=== PATIENT | male | born 1980 | race African-American/Black ===

== ENCOUNTER 2016-12-24 15:25 | Inpatient (IN) | payer MEDICARE, MEDICAID ==
[~2016-12-24] VITALS: Ht 188 cm; Wt 79.4 kg
[~2016-12-24 15:25] MED LIST: INSU100V12 SQ; METF500T4 PO; QUET200T PO
[2016-12-24] MEDS ORDERED: LORazepam 2 MG TABLET PO PRN (17:15)
[2016-12-24] MEDS ORDERED: HALOPERIDOL 5 MG TABLET PO PRN (17:15)
[2016-12-24] MEDS ORDERED: ZOLPIDEM TARTRATE 10 MG TABLET PO PRN (17:15)
[2016-12-24] MEDS ORDERED: -PHARMACY VACCINE NOTE- MISC ONE ×2 (17:30)
[2016-12-24 18:35] VITALS: BP 126/77
[2016-12-24] MEDS ORDERED: INSULIN ASPART 100 UNITS/ML SQ PRN (21:15)
[2016-12-24] MEDS ORDERED: GLUCAGON,HUMAN RECOMBINANT 1 MG VIAL IM PRN (21:15)
[2016-12-25] MEDS: MetFORMIN HCL 500 MG TABLET PO SCH ×2 (07:12→17:00)
[2016-12-25] MEDS: NICOTINE 21 MG/24 HOUR PATCH TD SCH (09:00)
[2016-12-25] MEDS ORDERED: PETROLATUM,WHITE 71 GM JELLY TP PRN (09:30)
[2016-12-25] MEDS ORDERED: MAG HYDROX/AL HYDROX/SIMETH ES 30 ML SUSPENSION UDCUP PO PRN (09:30)
[2016-12-25] MEDS ORDERED: CloNIDine HCL 0.1 MG TABLET PO PRN (09:30)
[2016-12-25] MEDS ORDERED: BENZOCAINE/MENTHOL LOZENGE MM PRN (09:30)
[2016-12-25] MEDS ORDERED: ONDANSETRON HCL 4 MG TABLET PO PRN (09:30)
[2016-12-25] MEDS ORDERED: ACETAMINOPHEN 325 MG TABLET PO PRN (09:30)
[2016-12-25] MEDS ORDERED: BACITRACIN 28.4 GM OINTMENT TP PRN (09:30)
[2016-12-25] MEDS ORDERED: LOPERAMIDE HCL 2 MG CAPSULE PO PRN (09:30)
[2016-12-25] MEDS ORDERED: ALBUTEROL SULFATE HFA 90 MCG/PUFF 8 GM INHALER IH PRN (09:30)
[2016-12-25] MEDS ORDERED: MAGNESIUM HYDROXIDE SUSPENSION 30 ML UDCUP PO PRN (09:30)
[2016-12-25] MEDS ORDERED: IBUPROFEN 600 MG TABLET PO PRN (09:30)
[2016-12-25] MEDS: QUEtiapine FUMARATE 200 MG TABLET PO SCH ×2 (10:00→20:38)
[2016-12-25 16:01] VITALS: BP 113/63
[2016-12-25 20:16] LABS: GLUCOSE COMMENT 1 Received Meds; GLUCOSE,POINT OF CARE 439 MG/DL (70-110)
[2016-12-25] MEDS: INSULIN DETEMIR 100 UNITS/ML SQ SCH (20:26)
[2016-12-26 02:03] VITALS: BP 103/66
[2016-12-26] MEDS: MetFORMIN HCL 500 MG TABLET PO SCH ×2 (06:58→17:00)
[2016-12-26] MEDS: QUEtiapine FUMARATE 200 MG TABLET PO SCH ×2 (08:13→21:07)
[2016-12-26] MEDS: NICOTINE 21 MG/24 HOUR PATCH TD SCH (08:13)
[2016-12-26] MEDS ORDERED: DiphenhydrAMINE HCL 50 MG/ML VIAL ONE (11:43)
[2016-12-26] MEDS ORDERED: LORazepam 2 MG/ML VIAL ONE (11:43)
[2016-12-26] MEDS ORDERED: HALOPERIDOL LACTATE 5 MG/ML VIAL ONE (11:43)
[2016-12-26] MEDS ORDERED: LORazepam 2 MG/ML VIAL IM ONE (12:00)
[2016-12-26] MEDS ORDERED: DiphenhydrAMINE HCL 50 MG/ML VIAL IM ONE (12:00)
[2016-12-26] MEDS ORDERED: HALOPERIDOL LACTATE 5 MG/ML VIAL IM ONE (12:00)
[2016-12-26 13:00] VITALS: BP 100/60
[2016-12-26] MEDS ORDERED: INSULIN ASPART 100 UNITS/ML SQ PRN (21:45)
[2016-12-26] MEDS: INSULIN DETEMIR 100 UNITS/ML SQ SCH (21:50)
[2016-12-26 22:06] LABS: GLUCOSE COMMENT 1 Doctor Notified; GLUCOSE,POINT OF CARE 469 MG/DL (70-110)
[2016-12-27] MEDS: MetFORMIN HCL 500 MG TABLET PO SCH (06:19)
[2016-12-27] MEDS: QUEtiapine FUMARATE 200 MG TABLET PO SCH (09:00)
[2016-12-27] MEDS: NICOTINE 21 MG/24 HOUR PATCH TD SCH (09:00)
[2017-05-07] MEDS ORDERED: ARIP2 PO (18:44)
[2017-05-07] MEDS ORDERED: HALO1 PO (18:44)
== END 2016-12-27 09:45 | disposition home or self-care (01) | DRG 885 ==
LOC: B2X 17:09 → EDSTATUS 17:11
PROVIDERS: ADMIT Psychiatry & Neurology Psychiatry; ATTEND Psychiatry & Neurology Psychiatry
DX: F25.9 Schizoaffective disorder, unspecified (principal); R45.851 Suicidal ideations; E11.65 Type 2 diabetes mellitus with hyperglycemia; E55.9 Vitamin D deficiency, unspecified; F12.90 Cannabis use, unspecified, uncomplicated; G47.00 Insomnia, unspecified; K59.00 Constipation, unspecified; F17.200 Nicotine dependence, unspecified, uncomplicated; Z59.0 Homelessness; Z71.51 Drug abuse counseling and surveillance of drug abuser; Z71.6 Tobacco abuse counseling; Z91.14 Patient's other noncompliance with medication regimen; Z72.89 Other problems related to lifestyle
CPT/HCPCS: 82962; 87081; J1200; J1630; J2060

== ENCOUNTER 2017-01-10 01:36 | Inpatient (IN) | payer MEDICARE, OTHER ==
[~2017-01-10] VITALS: Ht 188 cm; Wt 81.9 kg
[2017-01-10] MEDS ORDERED: SODIUM CHLORIDE 0.9% 1,000 ML IV ONE (02:00)
[2017-01-10 02:07] LABS: GLUCOSE,POINT OF CARE > 600 MG/DL (70-110)
[2017-01-10 02:15] LABS: BASOPHILS % (AUTO) 0.3 % (0.0-2.0); EOSINOPHILS % (AUTO) 0.4 % (1.0-6.0); HEMATOCRIT 47.1 % (41-53); HEMOGLOBIN 15.5 g/dL (13.5-17.5); LYMPHOCYTES # (AUTO) 1.1 K/uL (1.0-4.8); LYMPHOCYTES % (AUTO) 17.7 % (22.0-44.0); MEAN CORPUSCULAR HEMOGLOBIN 30.1 pg (26.0-34.0); MEAN CORPUSCULAR HGB CONC 32.9 G/dL (31.0-37.0); MEAN CORPUSCULAR VOLUME 91 fL (80-100); MONOCYTES # (AUTO) 0.3 K/uL (0.1-1.0); MONOCYTES % (AUTO) 5.4 % (2.0-9.0); NEUTROPHILS # (AUTO) 4.5 K/uL (1.8-7.7); NEUTROPHILS % (AUTO) 76.2 % (40.0-70.0); PLATELET COUNT (AUTO) 333 K/uL (150-450); RED BLOOD CELL COUNT(AUTO) 5.16 MIL/uL (4.50-5.90); RED CELL DISTRIBUTION WIDTH 13.8 % (11.5-14.5)
[2017-01-10 02:29] LABS: ANION GAP 9 mmol/L (8-16); CALCIUM, TOTAL 9.3 mg/dL (8.8-10.5); CARBON DIOXIDE 28 mmol/L (22-29); CHLORIDE 91 mmol/L (98-107); CREATININE 1.55 mg/dL (0.60-1.30); GLOMERULAR FILTR. RATE CALC > 60 mL/min (>60); POTASSIUM 4.8 mmol/L (3.5-5.1); SODIUM SERUM 128 mmol/L (136-145); UREA NITROGEN, BLOOD 11 mg/dL (7-18)
[2017-01-10 02:31] LABS: ALANINE AMINOTRANSFERASE 47 U/L (12-78); ALBUMIN 3.9 g/dL (3.4-5.0); ASPARTATE AMINOTRANSFERASE 43 U/L (15-37); BILIRUBIN,TOTAL 0.3 mg/dL (0.1-1.0); TOTAL PROTEIN, SERUM 7.6 g/dL (6.4-8.2)
[2017-01-10] MEDS ORDERED: INSULIN REGULAR, HUMAN 100 UNITS in SODIUM CHLORIDE 0.9% 99 ML IV PRN ×2 (03:00)
[2017-01-10 03:27] LABS: GLUCOSE,POINT OF CARE > 600 MG/DL (70-110)
[2017-01-10] MEDS ORDERED: 0.9% SODIUM CHLORIDE 10 ML SYRINGE IVP PRN (04:00)
[2017-01-10] MEDS ORDERED: ACETAMINOPHEN 325 MG TABLET PO PRN ×2 (04:00→05:15)
[2017-01-10] MEDS ORDERED: ONDANSETRON HCL 4 MG/2 ML VIAL IVP PRN (04:00)
[2017-01-10 04:30] VITALS: BP 120/75
[2017-01-10] MEDS ORDERED: MAGNESIUM HYDROXIDE SUSPENSION 30 ML UDCUP PO PRN (05:15)
[2017-01-10] MEDS ORDERED: ALBUTEROL SULFATE 2.5 MG/0.5 ML NEB SOLUTION NEB PRN (05:15)
[2017-01-10 08:00] VITALS: BP_SYST 107; BP_SYST 109; BP_DIAS 67; BP_DIAS 87
[2017-01-10] MEDS: DOCUSATE SODIUM 100 MG CAPSULE PO SCH ×2 (09:00→20:38)
[2017-01-10] MEDS: LORazepam 2 MG/ML VIAL IVP PRN ×2 (09:10→14:08)
[2017-01-10] MEDS: PANTOPRAZOLE SODIUM 40 MG DR TABLET PO SCH (09:22)
[2017-01-10] MEDS: HEPARIN SODIUM,PORCINE 5,000 UNITS/ML VIAL SQ SCH ×2 (09:22→17:50)
[2017-01-10 12:00] VITALS: BP_SYST 108; BP_SYST 112; BP_DIAS 67; BP_DIAS 68
[2017-01-10] MEDS ORDERED: DEXTROSE 50%-WATER 25 GM/50 ML SYRINGE IVP PRN (15:00)
[2017-01-10 15:22] LABS: BASOPHILS % (AUTO) 0.3 % (0.0-2.0); EOSINOPHILS % (AUTO) 1.1 % (1.0-6.0); HEMATOCRIT 40.2 % (41-53); HEMOGLOBIN 13.3 g/dL (13.5-17.5); LYMPHOCYTES % (AUTO) 37.5 % (22.0-44.0); MEAN CORPUSCULAR HGB CONC 33.2 G/dL (31.0-37.0); MEAN CORPUSCULAR VOLUME 90 fL (80-100); MONOCYTES # (AUTO) 0.2 K/uL (0.1-1.0); MONOCYTES % (AUTO) 4.3 % (2.0-9.0); NEUTROPHILS % (AUTO) 56.8 % (40.0-70.0); PLATELET COUNT (AUTO) 330 K/uL (150-450); RED BLOOD CELL COUNT(AUTO) 4.45 MIL/uL (4.50-5.90); RED CELL DISTRIBUTION WIDTH 14.5 % (11.5-14.5); WHITE BLOOD COUNT (AUTO) 5.2 K/uL (4.5-11.0)
[2017-01-10 15:29] LABS: ANION GAP 7 mmol/L (8-16); CALCIUM, TOTAL 8.4 mg/dL (8.8-10.5); CARBON DIOXIDE 28 mmol/L (22-29); CHLORIDE 98 mmol/L (98-107); CREATININE 0.94 mg/dL (0.60-1.30); GLOMERULAR FILTR. RATE CALC > 60 mL/min (>60); POTASSIUM 4.3 mmol/L (3.5-5.1); SODIUM SERUM 133 mmol/L (136-145); UREA NITROGEN, BLOOD 10 mg/dL (7-18)
[2017-01-10 15:34] LABS: ALANINE AMINOTRANSFERASE 38 U/L (12-78); ALBUMIN 3.2 g/dL (3.4-5.0); ASPARTATE AMINOTRANSFERASE 22 U/L (15-37); BILIRUBIN,TOTAL 0.4 mg/dL (0.1-1.0); PHOSPHORUS 3.9 mg/dL (2.5-4.9); TOTAL PROTEIN, SERUM 6.2 g/dL (6.4-8.2)
[2017-01-10 16:00] VITALS: BP 100/62
[2017-01-10 16:31] LABS: GLUCOSE,POINT OF CARE 489 MG/DL (70-110)
[2017-01-10 16:32] LABS: GLUCOSE,POINT OF CARE 393 MG/DL (70-110)
[2017-01-10 16:32] LABS: GLUCOSE,POINT OF CARE 259 MG/DL (70-110)
[2017-01-10 16:42] LABS: GLUCOSE COMMENT 1 Received Meds; GLUCOSE,POINT OF CARE 354 MG/DL (70-110)
[2017-01-10] MEDS ORDERED: MAGNESIUM SULFATE 2 GM in DEXTROSE 5%-WATER 50 ML IV ONE (17:30)
[2017-01-10] MEDS ORDERED: SODIUM CHLORIDE 0.9% 250 ML IV ONE (17:43)
[2017-01-10] MEDS: INSULIN ASPART 100 UNITS/ML SQ PRN (18:08)
[2017-01-10 20:00] VITALS: BP 90/60
[2017-01-10 21:36] LABS: GLUCOSE COMMENT 1 Received Meds; GLUCOSE,POINT OF CARE 61 MG/DL (70-110)
[2017-01-10 21:36] LABS: GLUCOSE,POINT OF CARE 105 MG/DL (70-110)
[2017-01-10 23:08] VITALS: BP 102/67
[2017-01-11] MEDS: HEPARIN SODIUM,PORCINE 5,000 UNITS/ML VIAL SQ SCH ×2 (00:22→08:05)
[2017-01-11] MEDS: INSULIN ASPART 100 UNITS/ML SQ PRN ×2 (06:58→12:47)
[2017-01-11] MEDS ORDERED: INSULIN DETEMIR 100 UNITS/ML SQ ONE (07:15)
[2017-01-11 07:50] VITALS: BP 116/74
[2017-01-11 07:56] LABS: GLUCOSE COMMENT 1 Received Meds; GLUCOSE,POINT OF CARE 437 MG/DL (70-110)
[2017-01-11] MEDS: DOCUSATE SODIUM 100 MG CAPSULE PO SCH (08:05)
[2017-01-11] MEDS: PANTOPRAZOLE SODIUM 40 MG DR TABLET PO SCH (08:05)
[2017-01-11 11:27] LABS: GLUCOSE COMMENT 1 Received Meds; GLUCOSE,POINT OF CARE 236 MG/DL (70-110)
[2017-01-11 11:34] VITALS: BP 115/66
[2017-01-11] MEDS ORDERED: INSULIN DETEMIR 100 UNITS/ML SQ SCH (21:00)
[2017-01-13 17:32] LABS: GLUCOSE,POINT OF CARE 363 MG/DL (70-110)
[2017-05-07] MEDS ORDERED: HALO1 PO (18:44)
[2017-05-07] MEDS ORDERED: ARIP2 PO (18:44)
== END 2017-01-11 13:01 | disposition left against medical advice (07) | DRG 885 ==
LOC: EMS 01:39 → EEVIPCON 01:39 → ICU 03:45 → ICUN 15:12 → 6N 22:10
PROVIDERS: ADMIT Internal Medicine; ATTEND Internal Medicine
DX: F20.0 Paranoid schizophrenia (principal); N17.9 Acute kidney failure, unspecified; E87.1 Hypo-osmolality and hyponatremia; E11.65 Type 2 diabetes mellitus with hyperglycemia; F29 Unspecified psychosis not due to a substance or known physiological condition; F12.90 Cannabis use, unspecified, uncomplicated; F17.210 Nicotine dependence, cigarettes, uncomplicated; Z91.19 Patient's noncompliance with other medical treatment and regimen; Z79.4 Long term (current) use of insulin; Z79.899 Other long term (current) drug therapy
CPT/HCPCS: 82962; 83735; 84100; 87081; 93005; 96361; 96365; 99291; G0480; J1644; J1815; J2060; J3475; J7030; J7050; J7060

== ENCOUNTER 2017-01-13 19:16 | Inpatient (IN) | payer MEDICARE, MEDICAID ==
[~2017-01-13] VITALS: Ht 188 cm; Wt 80.3 kg
[2017-01-13 23:12] VITALS: BP 123/83
[2017-01-13] MEDS ORDERED: HALOPERIDOL 5 MG TABLET PO PRN (23:30)
[2017-01-13] MEDS ORDERED: ZOLPIDEM TARTRATE 10 MG TABLET PO PRN (23:30)
[2017-01-13] MEDS ORDERED: LORazepam 2 MG TABLET PO PRN (23:30)
[2017-01-14 00:21] LABS: GLUCOSE,POINT OF CARE 524 MG/DL (70-110)
[2017-01-14] MEDS ORDERED: SODIUM CHLORIDE 0.9% 1,000 ML IV ONE (00:45)
[2017-01-14] MEDS ORDERED: INSULIN REGULAR, HUMAN 100 UNITS/ML IVP ONE (00:45)
[2017-01-14 01:03] LABS: BASOPHILS # (AUTO) 0.06 K/uL (0.00-0.20); EOSINOPHILS # (AUTO) 0.04 K/uL (0.00-0.70); EOSINOPHILS % (AUTO) 0.66 % (1.0-6.0); HEMATOCRIT 39.9 % (41-53); HEMOGLOBIN 13.7 g/dL (13.5-17.5); LYMPHOCYTES # (AUTO) 2.2 K/uL (1.0-4.8); MEAN CORPUSCULAR HEMOGLOBIN 30.7 pg (26.0-34.0); MEAN CORPUSCULAR HGB CONC 34.4 G/dL (31.0-37.0); MEAN CORPUSCULAR VOLUME 89 fL (80-100); MONOCYTES # (AUTO) 0.3 K/uL (0.1-1.0); MONOCYTES % (AUTO) 5.2 % (2.0-9.0); NEUTROPHILS # (AUTO) 3.3 K/uL (1.8-7.7); NEUTROPHILS % (AUTO) 55.1 % (40.0-70.0); PLATELET COUNT (AUTO) 317 K/uL (150-450); RED BLOOD CELL COUNT(AUTO) 4.47 MIL/uL (4.50-5.90); RED CELL DISTRIBUTION WIDTH 14.9 % (11.5-14.5); WHITE BLOOD COUNT (AUTO) 5.9 K/uL (4.5-11.0)
[2017-01-14 01:14] LABS: ALANINE AMINOTRANSFERASE 37 U/L (12-78); ALBUMIN 3.4 g/dL (3.4-5.0); ANION GAP 5 mmol/L (8-16); ASPARTATE AMINOTRANSFERASE 30 U/L (15-37); BILIRUBIN,TOTAL 0.5 mg/dL (0.1-1.0); CALCIUM, TOTAL 8.6 mg/dL (8.8-10.5); CARBON DIOXIDE 27 mmol/L (22-29); CHLORIDE 96 mmol/L (98-107); CREATININE 1.08 mg/dL (0.60-1.30); GLOMERULAR FILTR. RATE CALC > 60 mL/min (>60); POTASSIUM 5.1 mmol/L (3.5-5.1); SODIUM SERUM 128 mmol/L (136-145); TOTAL PROTEIN, SERUM 6.6 g/dL (6.4-8.2); UREA NITROGEN, BLOOD 12 mg/dL (7-18)
[2017-01-14] MEDS ORDERED: INFLUENZA VIRUS VACCINE QVS 2016-17 (3YR+)/PF 60 MCG/0.5 ML SYRINGE IM ONE (01:45)
[2017-01-14] MEDS ORDERED: -PHARMACY VACCINE NOTE- MISC ONE ×2 (01:45)
[2017-01-14 02:17] LABS: GLUCOSE COMMENT 1 Doctor Notified; GLUCOSE,POINT OF CARE 272 MG/DL (70-110)
[2017-01-14 07:52] LABS: GLUCOSE,POINT OF CARE 332 MG/DL (70-110)
[2017-01-14 11:58] LABS: GLUCOSE,POINT OF CARE 423 MG/DL (70-110)
[2017-01-14] MEDS ORDERED: INSULIN REGULAR, HUMAN 100 UNITS/ML SQ ONE (12:15)
[2017-01-14 14:17] LABS: GLUCOSE,POINT OF CARE 328 MG/DL (70-110)
[2017-01-14] MEDS ORDERED: HALOPERIDOL LACTATE 5 MG/ML VIAL ONE (14:42)
[2017-01-14] MEDS ORDERED: DiphenhydrAMINE HCL 50 MG/ML VIAL ONE (14:42)
[2017-01-14] MEDS ORDERED: LORazepam 2 MG/ML VIAL ONE (14:42)
[2017-01-14] MEDS ORDERED: LORazepam 2 MG/ML VIAL IM ONE (14:45)
[2017-01-14] MEDS ORDERED: DiphenhydrAMINE HCL 50 MG/ML VIAL IM ONE (14:45)
[2017-01-14] MEDS ORDERED: HALOPERIDOL LACTATE 5 MG/ML VIAL IM ONE (14:45)
[2017-01-14 15:56] LABS: GLUCOSE,POINT OF CARE 231 MG/DL (70-110)
[2017-01-14] MEDS ORDERED: DEXTROSE 50%-WATER 25 GM/50 ML SYRINGE IVP PRN (19:30)
[2017-01-14] MEDS ORDERED: INSULIN ASPART 100 UNITS/ML SQ PRN (19:30)
[2017-01-14 20:30] VITALS: BP 108/67
[2017-01-14 20:32] VITALS: BP 108/67
[2017-01-14] MEDS: INSULIN DETEMIR 100 UNITS/ML SQ SCH (21:00)
[2017-01-15] MEDS ORDERED: MetFORMIN HCL 500 MG TABLET PO SCH (07:30)
[2017-01-15] MEDS ORDERED: IBUPROFEN 600 MG TABLET PO PRN (09:30)
[2017-01-15] MEDS ORDERED: PETROLATUM,WHITE 71 GM JELLY TP PRN (09:30)
[2017-01-15] MEDS ORDERED: MAG HYDROX/AL HYDROX/SIMETH ES 30 ML SUSPENSION UDCUP PO PRN (09:30)
[2017-01-15] MEDS ORDERED: LOPERAMIDE HCL 2 MG CAPSULE PO PRN (09:30)
[2017-01-15] MEDS ORDERED: ALBUTEROL SULFATE HFA 90 MCG/PUFF 8 GM INHALER IH PRN (09:30)
[2017-01-15] MEDS ORDERED: MAGNESIUM HYDROXIDE SUSPENSION 30 ML UDCUP PO PRN (09:30)
[2017-01-15] MEDS ORDERED: BACITRACIN 28.4 GM OINTMENT TP PRN (09:30)
[2017-01-15] MEDS ORDERED: CloNIDine HCL 0.1 MG TABLET PO PRN (09:30)
[2017-01-15] MEDS ORDERED: ONDANSETRON HCL 4 MG TABLET PO PRN (09:30)
[2017-01-15] MEDS ORDERED: ACETAMINOPHEN 325 MG TABLET PO PRN (09:30)
[2017-01-15] MEDS: QUEtiapine FUMARATE 200 MG TABLET PO SCH ×2 (09:45→21:00)
[2017-01-15] MEDS ORDERED: BENZOCAINE/MENTHOL LOZENGE [8 LOZENGES/PACKET] MM PRN (09:45)
[2017-01-15 16:00] VITALS: BP 112/67
[2017-01-15] MEDS: MetFORMIN HCL 500 MG TABLET PO SCH (17:46)
[2017-01-15] MEDS: INSULIN DETEMIR 100 UNITS/ML SQ SCH (21:00)
[2017-01-16 05:32] VITALS: BP 115/64
[2017-01-16] MEDS: MetFORMIN HCL 500 MG TABLET PO SCH ×2 (07:30→17:30)
[2017-01-16] MEDS: QUEtiapine FUMARATE 200 MG TABLET PO SCH ×2 (08:09→21:00)
[2017-01-16] MEDS: CHOLECALCIFEROL (VIT D3) 1,000 UNITS TABLET PO SCH (08:09)
[2017-01-16] MEDS: INSULIN DETEMIR 100 UNITS/ML SQ SCH (21:00)
[2017-01-17] MEDS: MetFORMIN HCL 500 MG TABLET PO SCH (06:34)
[2017-01-17] MEDS ORDERED: VITAD1000 PO (07:47)
[2017-01-17] MEDS: QUEtiapine FUMARATE 200 MG TABLET PO SCH (08:34)
[2017-01-17] MEDS: CHOLECALCIFEROL (VIT D3) 1,000 UNITS TABLET PO SCH (08:35)
[2017-05-07] MEDS ORDERED: ARIP2 PO (18:44)
[2017-05-07] MEDS ORDERED: HALO1 PO (18:44)
== END 2017-01-17 13:05 | disposition home or self-care (01) | DRG 885 ==
LOC: EDSTATUS 23:13 → BV PSY EVL 01-14 00:25 → 3EX 01-14 15:44
PROVIDERS: ADMIT Psychiatry & Neurology Psychiatry; ATTEND Psychiatry & Neurology Psychiatry
DX: F25.9 Schizoaffective disorder, unspecified (principal); R45.851 Suicidal ideations; E87.1 Hypo-osmolality and hyponatremia; E11.65 Type 2 diabetes mellitus with hyperglycemia; F32.9 Major depressive disorder, single episode, unspecified; J44.9 Chronic obstructive pulmonary disease, unspecified; E55.9 Vitamin D deficiency, unspecified; G47.00 Insomnia, unspecified; K59.00 Constipation, unspecified; F12.90 Cannabis use, unspecified, uncomplicated; F17.210 Nicotine dependence, cigarettes, uncomplicated; Z79.899 Other long term (current) drug therapy; Z79.4 Long term (current) use of insulin; Z71.6 Tobacco abuse counseling; Z71.51 Drug abuse counseling and surveillance of drug abuser; Z59.0 Homelessness; Z91.14 Patient's other noncompliance with medication regimen; Z28.21 Immunization not carried out because of patient refusal
CPT/HCPCS: 82948; 82962; 96361; 96372; 96374; 99285; G0480; J1200; J1630; J1815; J2060; J3535; J7030

== ENCOUNTER 2017-01-23 08:59 | Inpatient (IN) | payer MEDICARE, MEDICAID ==
[~2017-01-23] VITALS: Ht 188 cm; Wt 77.6 kg
[~2017-01-23 08:59] MED LIST changes: +VITAD1000 PO
[2017-01-23] MEDS ORDERED: BUPR75 PO (11:34)
[2017-01-23] MEDS ORDERED: ARIP2 PO (11:34)
[2017-01-23] MEDS ORDERED: INSULIN REGULAR, HUMAN 100 UNITS/ML SQ ONE (12:15)
[2017-01-23 12:17] LABS: GLUCOSE COMMENT 1 Doctor Notified; GLUCOSE,POINT OF CARE 498 MG/DL (70-110)
[2017-01-23] MEDS ORDERED: ZOLPIDEM TARTRATE 10 MG TABLET PO PRN (12:30)
[2017-01-23] MEDS ORDERED: LORazepam 2 MG/ML VIAL IM ONE (13:00)
[2017-01-23] MEDS ORDERED: HALOPERIDOL LACTATE 5 MG/ML VIAL IM ONE (13:00)
[2017-01-23 14:08] VITALS: BP 129/74
[2017-01-23 16:00] VITALS: BP 120/75
[2017-01-23] MEDS ORDERED: GLUCAGON,HUMAN RECOMBINANT 1 MG VIAL IM PRN (16:00)
[2017-01-23] MEDS ORDERED: INSULIN ASPART 100 UNITS/ML SQ PRN (16:00)
[2017-01-23] MEDS: INSULIN DETEMIR 100 UNITS/ML SQ SCH (21:00)
[2017-01-23] MEDS: QUEtiapine FUMARATE 200 MG TABLET PO SCH (21:00)
[2017-01-24 08:30] VITALS: BP 122/84
[2017-01-24] MEDS ORDERED: IBUPROFEN 600 MG TABLET PO PRN (09:45)
[2017-01-24] MEDS ORDERED: ALBUTEROL SULFATE HFA 90 MCG/PUFF 8 GM INHALER IH PRN (09:45)
[2017-01-24] MEDS ORDERED: CloNIDine HCL 0.1 MG TABLET PO PRN (09:45)
[2017-01-24] MEDS ORDERED: ONDANSETRON HCL 4 MG TABLET PO PRN (09:45)
[2017-01-24] MEDS ORDERED: MAGNESIUM HYDROXIDE SUSPENSION 30 ML UDCUP PO PRN (09:45)
[2017-01-24] MEDS ORDERED: MAG HYDROX/AL HYDROX/SIMETH ES 30 ML SUSPENSION UDCUP PO PRN (09:45)
[2017-01-24] MEDS ORDERED: LOPERAMIDE HCL 2 MG CAPSULE PO PRN (09:45)
[2017-01-24] MEDS ORDERED: PETROLATUM,WHITE 71 GM JELLY TP PRN (09:45)
[2017-01-24] MEDS ORDERED: BACITRACIN 28.4 GM OINTMENT TP PRN (09:45)
[2017-01-24] MEDS ORDERED: BENZOCAINE/MENTHOL LOZENGE MM PRN (09:45)
[2017-01-24] MEDS ORDERED: ACETAMINOPHEN 325 MG TABLET PO PRN (09:45)
[2017-01-24] MEDS: BuPROPion HCL 75 MG TABLET PO SCH ×3 (09:51→17:00)
[2017-01-24] MEDS: LORazepam 2 MG TABLET PO PRN (09:51)
[2017-01-24] MEDS: QUEtiapine FUMARATE 200 MG TABLET PO SCH ×2 (09:51→20:53)
[2017-01-24] MEDS: MetFORMIN HCL 500 MG TABLET PO SCH (17:00)
[2017-01-24] MEDS: INSULIN DETEMIR 100 UNITS/ML SQ SCH (20:53)
[2017-01-25] MEDS: MetFORMIN HCL 500 MG TABLET PO SCH ×2 (07:00→16:42)
[2017-01-25] MEDS: BuPROPion HCL 75 MG TABLET PO SCH ×3 (09:00→16:42)
[2017-01-25] MEDS: QUEtiapine FUMARATE 200 MG TABLET PO SCH ×2 (09:00→20:46)
[2017-01-25] MEDS: INSULIN ASPART 100 UNITS/ML SQ PRN ×2 (13:18→17:28)
[2017-01-25 13:56] LABS: GLUCOSE,POINT OF CARE 525 MG/DL (70-110)
[2017-01-25 15:16] LABS: GLUCOSE,POINT OF CARE 420 MG/DL (70-110)
[2017-01-25 16:32] LABS: GLUCOSE,POINT OF CARE 213 MG/DL (70-110)
[2017-01-25 17:04] VITALS: BP 107/62
[2017-01-25] MEDS: HALOPERIDOL 5 MG TABLET PO PRN (18:33)
[2017-01-25] MEDS: LORazepam 2 MG TABLET PO PRN (18:33)
[2017-01-25 18:37] LABS: GLUCOSE,POINT OF CARE 153 MG/DL (70-110)
[2017-01-25] MEDS: INSULIN DETEMIR 100 UNITS/ML SQ SCH (20:46)
[2017-01-26] MEDS: MetFORMIN HCL 500 MG TABLET PO SCH ×2 (06:17→17:00)
[2017-01-26] MEDS: BuPROPion HCL 75 MG TABLET PO SCH ×3 (09:00→17:00)
[2017-01-26] MEDS: QUEtiapine FUMARATE 200 MG TABLET PO SCH ×2 (09:00→20:45)
[2017-01-26 16:20] VITALS: BP 118/69
[2017-01-26] MEDS: INSULIN DETEMIR 100 UNITS/ML SQ SCH (20:46)
[2017-01-27] MEDS: MetFORMIN HCL 500 MG TABLET PO SCH ×2 (06:27→17:00)
[2017-01-27] MEDS: QUEtiapine FUMARATE 200 MG TABLET PO SCH ×2 (09:00→20:58)
[2017-01-27] MEDS: BuPROPion HCL 75 MG TABLET PO SCH ×3 (09:00→17:00)
[2017-01-27 16:28] VITALS: BP 122/70
[2017-01-27] MEDS: INSULIN ASPART 100 UNITS/ML SQ PRN (21:02)
[2017-01-27] MEDS: INSULIN DETEMIR 100 UNITS/ML SQ SCH (21:02)
[2017-01-27 22:07] LABS: GLUCOSE COMMENT 1 Received Meds; GLUCOSE,POINT OF CARE 453 MG/DL (70-110)
[2017-01-27 22:07] LABS: GLUCOSE COMMENT 1 Repeated; GLUCOSE,POINT OF CARE 408 MG/DL (70-110)
[2017-01-28 00:16] LABS: GLUCOSE,POINT OF CARE 92 MG/DL (70-110)
[2017-01-28] MEDS: MetFORMIN HCL 500 MG TABLET PO SCH ×2 (06:21→16:36)
[2017-01-28] MEDS: BuPROPion HCL 75 MG TABLET PO SCH ×3 (11:37→16:36)
[2017-01-28] MEDS: LORazepam 2 MG TABLET PO PRN (11:38)
[2017-01-28] MEDS: HALOPERIDOL 5 MG TABLET PO PRN (11:38)
[2017-01-28] MEDS: QUEtiapine FUMARATE 200 MG TABLET PO SCH ×2 (11:38→20:42)
[2017-01-28 16:00] VITALS: BP 127/72
[2017-01-28] MEDS ORDERED: DiphenhydrAMINE HCL 50 MG/ML VIAL IM ONE (19:00)
[2017-01-28] MEDS ORDERED: HALOPERIDOL LACTATE 5 MG/ML VIAL IM ONE (19:00)
[2017-01-28] MEDS ORDERED: LORazepam 2 MG/ML VIAL IM ONE (19:00)
[2017-01-28 20:30] VITALS: BP 115/63
[2017-01-28] MEDS: INSULIN DETEMIR 100 UNITS/ML SQ SCH (20:52)
[2017-01-28] MEDS: INSULIN ASPART 100 UNITS/ML SQ PRN (20:53)
[2017-01-28 21:37] LABS: GLUCOSE COMMENT 1 Doctor Notified; GLUCOSE,POINT OF CARE 466 MG/DL (70-110)
[2017-01-29] MEDS: MetFORMIN HCL 500 MG TABLET PO SCH ×2 (06:37→17:00)
[2017-01-29] MEDS: BuPROPion HCL 75 MG TABLET PO SCH ×3 (08:08→17:00)
[2017-01-29] MEDS: QUEtiapine FUMARATE 200 MG TABLET PO SCH ×2 (08:08→21:59)
[2017-01-29] MEDS: LORazepam 2 MG TABLET PO PRN (08:08)
[2017-01-29 08:27] VITALS: BP 128/71
[2017-01-29 16:25] VITALS: BP 130/76
[2017-01-29 18:41] LABS: GLUCOSE COMMENT 1 Doctor Notified; GLUCOSE,POINT OF CARE 410 MG/DL (70-110)
[2017-01-29] MEDS: INSULIN ASPART 100 UNITS/ML SQ PRN (18:45)
[2017-01-29] MEDS: INSULIN DETEMIR 100 UNITS/ML SQ SCH (21:00)
[2017-01-29 21:37] LABS: GLUCOSE,POINT OF CARE 111 MG/DL (70-110)
[2017-01-30 03:04] VITALS: BP 138/79
[2017-01-30] MEDS: MetFORMIN HCL 500 MG TABLET PO SCH ×2 (06:23→17:00)
[2017-01-30 08:35] VITALS: BP 106/72
[2017-01-30] MEDS: BuPROPion HCL 75 MG TABLET PO SCH ×3 (09:38→17:00)
[2017-01-30] MEDS: QUEtiapine FUMARATE 200 MG TABLET PO SCH (09:38)
[2017-01-30] MEDS: LORazepam 2 MG TABLET PO PRN (09:38)
[2017-01-30 16:00] VITALS: BP 103/61
[2017-05-07] MEDS ORDERED: HALO1 PO (18:44)
[2017-05-07] MEDS ORDERED: ARIP2 PO (18:44)
[2017-05-11] MEDS ORDERED: BUPR75 PO (09:55)
== END 2017-01-30 18:30 | disposition home or self-care (01) | DRG 885 ==
LOC: EMS 08:59 → B3A 13:00
PROVIDERS: ADMIT Psychiatry & Neurology Psychiatry; ATTEND Psychiatry & Neurology Psychiatry
DX: F25.9 Schizoaffective disorder, unspecified (principal); R45.851 Suicidal ideations; F20.0 Paranoid schizophrenia; R45.850 Homicidal ideations; E11.65 Type 2 diabetes mellitus with hyperglycemia; K59.00 Constipation, unspecified; E55.9 Vitamin D deficiency, unspecified; G47.00 Insomnia, unspecified; F12.90 Cannabis use, unspecified, uncomplicated; F17.210 Nicotine dependence, cigarettes, uncomplicated; Z79.899 Other long term (current) drug therapy; Z79.4 Long term (current) use of insulin; Z79.84 Long term (current) use of oral hypoglycemic drugs; Z59.0 Homelessness; Z71.6 Tobacco abuse counseling; Z71.51 Drug abuse counseling and surveillance of drug abuser
CPT/HCPCS: 82962; 87081; 96372; 99285; J1200; J1630; J1815; J2060

== ENCOUNTER 2017-03-14 23:23 | Inpatient (IN) | payer MEDICARE, MEDICAID ==
[~2017-03-14] VITALS: Ht 188 cm; Wt 78.5 kg
[~2017-03-14 23:23] MED LIST changes: +BUPR75 PO; -VITAD1000 PO
[2017-03-15 02:11] VITALS: BP 116/78
[2017-03-15 03:42] LABS: GLUCOSE,POINT OF CARE 520 MG/DL (70-110)
[2017-03-15] MEDS ORDERED: SODIUM CHLORIDE 0.9% 1,000 ML IV ONE (04:00)
[2017-03-15 04:09] LABS: BASOPHILS # (AUTO) 0.02 K/uL (0.00-0.20); BASOPHILS % (AUTO) 0.5 % (0.0-2.0); EOSINOPHILS # (AUTO) 0.05 K/uL (0.00-0.70); EOSINOPHILS % (AUTO) 1.03 % (1.0-6.0); HEMATOCRIT 42.2 % (41-53); LYMPHOCYTES # (AUTO) 1.8 K/uL (1.0-4.8); LYMPHOCYTES % (AUTO) 35.2 % (22.0-44.0); MEAN CORPUSCULAR HEMOGLOBIN 30.3 pg (26.0-34.0); MEAN CORPUSCULAR HGB CONC 33.2 G/dL (31.0-37.0); MEAN CORPUSCULAR VOLUME 91 fL (80-100); MONOCYTES # (AUTO) 0.3 K/uL (0.1-1.0); MONOCYTES % (AUTO) 5.1 % (2.0-9.0); NEUTROPHILS % (AUTO) 58.2 % (40.0-70.0); PLATELET COUNT (AUTO) 284 K/uL (150-450); RED BLOOD CELL COUNT(AUTO) 4.62 MIL/uL (4.50-5.90); RED CELL DISTRIBUTION WIDTH 13.6 % (11.5-14.5); WHITE BLOOD COUNT (AUTO) 5.2 K/uL (4.5-11.0)
[2017-03-15 04:22] LABS: ALANINE AMINOTRANSFERASE 27 U/L (12-78); ALBUMIN 3.5 g/dL (3.4-5.0); ANION GAP 8 mmol/L (8-16); ASPARTATE AMINOTRANSFERASE 18 U/L (15-37); BILIRUBIN,TOTAL 0.4 mg/dL (0.1-1.0); CALCIUM, TOTAL 8.8 mg/dL (8.8-10.5); CARBON DIOXIDE 30 mmol/L (22-29); CHLORIDE 96 mmol/L (98-107); CREATININE 1.07 mg/dL (0.60-1.30); GLOMERULAR FILTR. RATE CALC > 60 mL/min (>60); POTASSIUM 4.3 mmol/L (3.5-5.1); SODIUM SERUM 134 mmol/L (136-145); TOTAL PROTEIN, SERUM 6.6 g/dL (6.4-8.2); UREA NITROGEN, BLOOD 13 mg/dL (7-18)
[2017-03-15] MEDS ORDERED: ZOLPIDEM TARTRATE 10 MG TABLET PO PRN (05:00)
[2017-03-15] MEDS ORDERED: INSULIN REGULAR, HUMAN 100 UNITS/ML IVP ONE (05:00)
[2017-03-15] MEDS ORDERED: LORazepam 2 MG TABLET PO PRN (05:00)
[2017-03-15] MEDS ORDERED: HALOPERIDOL 5 MG TABLET PO PRN (05:00)
[2017-03-15 05:12] LABS: GLUCOSE COMMENT 1 Doctor Notified; GLUCOSE,POINT OF CARE 545 MG/DL (70-110)
[2017-03-15] MEDS ORDERED: -PHARMACY VACCINE NOTE- MISC ONE ×2 (05:15)
[2017-03-15 06:22] LABS: GLUCOSE COMMENT 1 Doctor Notified; GLUCOSE,POINT OF CARE 161 MG/DL (70-110)
[2017-03-15 07:27] LABS: GLUCOSE,POINT OF CARE 142 MG/DL (70-110)
[2017-03-15] MEDS ORDERED: MAG HYDROX/AL HYDROX/SIMETH ES 30 ML SUSPENSION UDCUP PO PRN (08:15)
[2017-03-15] MEDS ORDERED: ONDANSETRON HCL 4 MG TABLET PO PRN (08:15)
[2017-03-15] MEDS ORDERED: CloNIDine HCL 0.1 MG TABLET PO PRN (08:15)
[2017-03-15] MEDS ORDERED: LOPERAMIDE HCL 2 MG CAPSULE PO PRN (08:15)
[2017-03-15] MEDS ORDERED: PETROLATUM,WHITE 71 GM JELLY TP PRN (08:15)
[2017-03-15] MEDS ORDERED: BACITRACIN 28.4 GM OINTMENT TP PRN (08:15)
[2017-03-15] MEDS ORDERED: BENZOCAINE/MENTHOL LOZENGE [8 LOZENGES/PACKET] MM PRN (08:15)
[2017-03-15] MEDS ORDERED: ACETAMINOPHEN 325 MG TABLET PO PRN (08:15)
[2017-03-15] MEDS ORDERED: INSULIN ASPART 100 UNITS/ML SQ PRN (08:15)
[2017-03-15] MEDS ORDERED: MAGNESIUM HYDROXIDE SUSPENSION 30 ML UDCUP PO PRN (08:15)
[2017-03-15] MEDS ORDERED: DEXTROSE 50%-WATER 25 GM/50 ML SYRINGE IVP PRN (08:15)
[2017-03-15] MEDS ORDERED: ALBUTEROL SULFATE HFA 90 MCG/PUFF 8 GM INHALER IH PRN (08:15)
[2017-03-15] MEDS ORDERED: IBUPROFEN 600 MG TABLET PO PRN (08:15)
[2017-03-15 08:28] VITALS: BP 109/88
[2017-03-15] MEDS: MetFORMIN HCL 500 MG TABLET PO SCH (17:29)
[2017-03-15] MEDS: INSULIN DETEMIR 100 UNITS/ML SQ SCH (21:00)
[2017-03-16] MEDS: MetFORMIN HCL 500 MG TABLET PO SCH ×2 (07:30→16:47)
[2017-03-16] MEDS: BuPROPion HCL 75 MG TABLET PO SCH (16:24)
[2017-03-16] MEDS: QUEtiapine FUMARATE 200 MG TABLET PO SCH (20:07)
[2017-03-16] MEDS: INSULIN DETEMIR 100 UNITS/ML SQ SCH (21:00)
[2017-03-17] MEDS: MetFORMIN HCL 500 MG TABLET PO SCH (07:30)
[2017-03-17] MEDS: BuPROPion HCL 75 MG TABLET PO SCH ×2 (08:46→12:59)
[2017-03-17] MEDS: QUEtiapine FUMARATE 200 MG TABLET PO SCH (08:46)
[2017-05-07] MEDS ORDERED: HALO1 PO (18:44)
[2017-05-07] MEDS ORDERED: ARIP2 PO (18:44)
[2017-05-11] MEDS ORDERED: BUPR75 PO (09:55)
== END 2017-03-17 13:00 | disposition home or self-care (01) | DRG 885 ==
LOC: BV PSY EVL 03-15 03:33 → 3EX 03-15 04:55
PROVIDERS: ADMIT Psychiatry & Neurology Psychiatry; ATTEND Psychiatry & Neurology Psychiatry
DX: F25.9 Schizoaffective disorder, unspecified (principal); R45.851 Suicidal ideations; F12.90 Cannabis use, unspecified, uncomplicated; E55.9 Vitamin D deficiency, unspecified; E11.65 Type 2 diabetes mellitus with hyperglycemia; G47.00 Insomnia, unspecified; K21.9 Gastro-esophageal reflux disease without esophagitis; F17.210 Nicotine dependence, cigarettes, uncomplicated; J44.9 Chronic obstructive pulmonary disease, unspecified; K59.00 Constipation, unspecified; Z59.0 Homelessness; Z91.14 Patient's other noncompliance with medication regimen; Z71.6 Tobacco abuse counseling; Z79.84 Long term (current) use of oral hypoglycemic drugs; Z79.51 Long term (current) use of inhaled steroids; Z79.899 Other long term (current) drug therapy; Z71.51 Drug abuse counseling and surveillance of drug abuser
CPT/HCPCS: 82962; 96361; 96374; 99285; G0480; J1815; J7030

== ENCOUNTER 2017-03-23 22:11 | Inpatient (IN) | payer MEDICARE, MEDICAID ==
[~2017-03-23] VITALS: Ht 188 cm; Wt 81.2 kg
[2017-03-24 02:50] VITALS: BP 125/88
[2017-03-24] MEDS ORDERED: ZOLPIDEM TARTRATE 10 MG TABLET PO PRN (03:15)
[2017-03-24] MEDS ORDERED: LORazepam 2 MG TABLET PO PRN (03:15)
[2017-03-24] MEDS ORDERED: HALOPERIDOL 5 MG TABLET PO PRN (03:15)
[2017-03-24 03:32] VITALS: BP 131/82
[2017-03-24] MEDS ORDERED: BACITRACIN 28.4 GM OINTMENT TP PRN (07:45)
[2017-03-24] MEDS ORDERED: PETROLATUM,WHITE 71 GM JELLY TP PRN (07:45)
[2017-03-24] MEDS ORDERED: BENZOCAINE/MENTHOL LOZENGE MM PRN (07:45)
[2017-03-24] MEDS ORDERED: MAGNESIUM HYDROXIDE SUSPENSION 30 ML UDCUP PO PRN (07:45)
[2017-03-24] MEDS ORDERED: CloNIDine HCL 0.1 MG TABLET PO PRN (07:45)
[2017-03-24] MEDS ORDERED: IBUPROFEN 600 MG TABLET PO PRN (07:45)
[2017-03-24] MEDS ORDERED: ONDANSETRON HCL 4 MG TABLET PO PRN (07:45)
[2017-03-24] MEDS ORDERED: DEXTROSE 50%-WATER 25 GM/50 ML SYRINGE IVP PRN (07:45)
[2017-03-24] MEDS ORDERED: ACETAMINOPHEN 325 MG TABLET PO PRN (07:45)
[2017-03-24] MEDS ORDERED: GLUCAGON,HUMAN RECOMBINANT 1 MG VIAL IM PRN (07:45)
[2017-03-24] MEDS ORDERED: MAG HYDROX/AL HYDROX/SIMETH ES 30 ML SUSPENSION UDCUP PO PRN (07:45)
[2017-03-24] MEDS ORDERED: LOPERAMIDE HCL 2 MG CAPSULE PO PRN (07:45)
[2017-03-24] MEDS ORDERED: ALBUTEROL SULFATE HFA 90 MCG/PUFF 8 GM INHALER IH PRN (07:45)
[2017-03-24] MEDS ORDERED: INSULIN ASPART 100 UNITS/ML SQ PRN ×2 (07:45)
[2017-03-24] MEDS: NICOTINE 21 MG/24 HOUR PATCH TD SCH (09:00)
[2017-03-24] MEDS: BuPROPion HCL 75 MG TABLET PO SCH ×2 (13:00→17:15)
[2017-03-24 16:04] VITALS: BP 115/87
[2017-03-24] MEDS: MetFORMIN HCL 500 MG TABLET PO SCH (17:15)
[2017-03-24] MEDS: QUEtiapine FUMARATE 200 MG TABLET PO SCH (20:45)
[2017-03-24] MEDS ORDERED: INSULIN DETEMIR 100 UNITS/ML SQ SCH (21:00)
[2017-03-25] MEDS: MetFORMIN HCL 500 MG TABLET PO SCH (06:57)
[2017-03-25] MEDS: NICOTINE 21 MG/24 HOUR PATCH TD SCH (08:15)
[2017-03-25] MEDS: BuPROPion HCL 75 MG TABLET PO SCH ×3 (08:15→13:00)
[2017-03-25] MEDS: QUEtiapine FUMARATE 200 MG TABLET PO SCH ×2 (08:15→09:00)
[2017-03-25] MEDS ORDERED: LORazepam 2 MG/ML VIAL IM ONE (12:15)
[2017-03-25] MEDS ORDERED: HALOPERIDOL LACTATE 5 MG/ML VIAL IM ONE ×2 (12:15)
[2017-03-25] MEDS ORDERED: DiphenhydrAMINE HCL 50 MG/ML VIAL IM ONE (12:15)
[2017-05-07] MEDS ORDERED: HALO1 PO (18:44)
[2017-05-07] MEDS ORDERED: ARIP2 PO (18:44)
[2017-05-11] MEDS ORDERED: BUPR75 PO (09:55)
== END 2017-03-25 16:01 | disposition short-term general hospital (02) | DRG 885 ==
LOC: B2X 03-24 03:09
PROVIDERS: ADMIT Psychiatry & Neurology Psychiatry; ATTEND Psychiatry & Neurology Psychiatry
DX: F25.9 Schizoaffective disorder, unspecified (principal); K21.9 Gastro-esophageal reflux disease without esophagitis; J44.9 Chronic obstructive pulmonary disease, unspecified; E55.9 Vitamin D deficiency, unspecified; E11.65 Type 2 diabetes mellitus with hyperglycemia; F32.9 Major depressive disorder, single episode, unspecified; Z53.29 Procedure and treatment not carried out because of patient's decision for other reasons; K59.00 Constipation, unspecified; F17.200 Nicotine dependence, unspecified, uncomplicated; F12.90 Cannabis use, unspecified, uncomplicated; Z71.6 Tobacco abuse counseling; Z71.51 Drug abuse counseling and surveillance of drug abuser; Z79.4 Long term (current) use of insulin
CPT/HCPCS: 87081; J1200; J1630; J2060

== ENCOUNTER 2017-03-25 16:06 | Inpatient (IN) | payer MEDICARE, MEDICAID ==
[~2017-03-25] VITALS: Ht 188 cm; Wt 76.3 kg
[2017-03-25] MEDS ORDERED: ZOLPIDEM TARTRATE 10 MG TABLET PO PRN (16:30)
[2017-03-25] MEDS ORDERED: LORazepam 2 MG TABLET PO PRN (16:30)
[2017-03-25] MEDS ORDERED: HALOPERIDOL 5 MG TABLET PO PRN (16:30)
[2017-03-25 16:38] VITALS: BP 138/76
[2017-03-25] MEDS ORDERED: GLUCAGON,HUMAN RECOMBINANT 1 MG VIAL IM PRN ×2 (17:30→17:45)
[2017-03-25] MEDS ORDERED: INSULIN ASPART 100 UNITS/ML SQ PRN ×2 (17:30→17:45)
[2017-03-25] MEDS ORDERED: INSULIN ASPART 100 UNITS/ML SQ ONE (17:45)
[2017-03-25 17:57] LABS: GLUCOSE COMMENT 1 Doctor Notified; GLUCOSE,POINT OF CARE 416 MG/DL (70-110)
[2017-03-25 18:57] LABS: GLUCOSE COMMENT 1 Repeated; GLUCOSE,POINT OF CARE 358 MG/DL (70-110)
[2017-03-25] MEDS: INSULIN DETEMIR 100 UNITS/ML SQ SCH (21:08)
[2017-03-25 21:33] LABS: GLUCOSE,POINT OF CARE 75 MG/DL (70-110)
[2017-03-26 06:35] VITALS: BP 140/76
[2017-03-26] MEDS: MetFORMIN HCL 500 MG TABLET PO SCH ×2 (06:49→16:52)
[2017-03-26 08:00] VITALS: BP 106/65
[2017-03-26 16:00] VITALS: BP 108/65
[2017-03-26] MEDS: BuPROPion HCL 75 MG TABLET PO SCH (18:33)
[2017-03-26 19:51] LABS: GLUCOSE,POINT OF CARE 356 MG/DL (70-110)
[2017-03-26] MEDS: QUEtiapine FUMARATE 200 MG TABLET PO SCH (21:06)
[2017-03-26] MEDS: INSULIN DETEMIR 100 UNITS/ML SQ SCH (21:19)
[2017-03-26 21:32] LABS: GLUCOSE,POINT OF CARE 155 MG/DL (70-110)
[2017-03-27] MEDS: MetFORMIN HCL 500 MG TABLET PO SCH (06:36)
[2017-03-27 06:50] VITALS: BP 112/77
[2017-03-27] MEDS ORDERED: BuPROPion HCL 75 MG TABLET PO SCH (09:00)
[2017-03-27 09:07] VITALS: BP 102/62
[2017-03-27] MEDS: QUEtiapine FUMARATE 200 MG TABLET PO SCH (09:19)
[2017-03-27] MEDS: BuPROPion HCL 75 MG TABLET PO SCH ×2 (09:19→13:22)
== END 2017-03-27 13:30 | disposition home or self-care (01) | DRG 885 ==
LOC: B3A 16:20 → EDSTATUS 16:37
PROVIDERS: ADMIT Psychiatry & Neurology Psychiatry; ATTEND Psychiatry & Neurology Psychiatry
DX: F25.9 Schizoaffective disorder, unspecified (principal); F20.0 Paranoid schizophrenia; E11.65 Type 2 diabetes mellitus with hyperglycemia; J44.9 Chronic obstructive pulmonary disease, unspecified; K59.00 Constipation, unspecified; E55.9 Vitamin D deficiency, unspecified; G47.00 Insomnia, unspecified; K21.9 Gastro-esophageal reflux disease without esophagitis; F17.290 Nicotine dependence, other tobacco product, uncomplicated; Z79.4 Long term (current) use of insulin; Z79.84 Long term (current) use of oral hypoglycemic drugs; Z71.6 Tobacco abuse counseling; Z79.899 Other long term (current) drug therapy; Z28.21 Immunization not carried out because of patient refusal
CPT/HCPCS: 82962; 87081; J1815

== ENCOUNTER 2017-04-12 10:00 | Inpatient (IN) | payer MEDICARE, MEDICAID ==
[~2017-04-12] VITALS: Ht 188 cm; Wt 78.1 kg
[2017-04-12] MEDS ORDERED: SODIUM CHLORIDE 0.9% 1,000 ML IV ONE (10:15)
[2017-04-12] MEDS ORDERED: INSULIN REGULAR, HUMAN 100 UNITS/ML IVP ONE (10:15)
[2017-04-12 10:29] LABS: BASOPHILS # (AUTO) 0.06 K/uL (0.00-0.20); BASOPHILS % (AUTO) 0.9 % (0.0-2.0); EOSINOPHILS # (AUTO) 0.02 K/uL (0.00-0.70); EOSINOPHILS % (AUTO) 0.29 % (1.0-6.0); HEMOGLOBIN 14.8 g/dL (13.5-17.5); LYMPHOCYTES # (AUTO) 1.3 K/uL (1.0-4.8); LYMPHOCYTES % (AUTO) 21.6 % (22.0-44.0); MEAN CORPUSCULAR HEMOGLOBIN 30.3 pg (26.0-34.0); MEAN CORPUSCULAR HGB CONC 33.6 G/dL (31.0-37.0); MEAN CORPUSCULAR VOLUME 90 fL (80-100); MONOCYTES # (AUTO) 0.2 K/uL (0.1-1.0); NEUTROPHILS # (AUTO) 4.5 K/uL (1.8-7.7); NEUTROPHILS % (AUTO) 73.2 % (40.0-70.0); PLATELET COUNT (AUTO) 319 K/uL (150-450); RED BLOOD CELL COUNT(AUTO) 4.88 MIL/uL (4.50-5.90); RED CELL DISTRIBUTION WIDTH 13.1 % (11.5-14.5); WHITE BLOOD COUNT (AUTO) 6.1 K/uL (4.5-11.0)
[2017-04-12 10:46] LABS: ALANINE AMINOTRANSFERASE 30 U/L (12-78); ALBUMIN 3.8 g/dL (3.4-5.0); ANION GAP 7 mmol/L (8-16); ASPARTATE AMINOTRANSFERASE 18 U/L (15-37); BILIRUBIN,TOTAL 0.7 mg/dL (0.1-1.0); CALCIUM, TOTAL 8.8 mg/dL (8.8-10.5); CARBON DIOXIDE 30 mmol/L (22-29); CHLORIDE 96 mmol/L (98-107); CREATININE 1.22 mg/dL (0.60-1.30); GLOMERULAR FILTR. RATE CALC > 60 mL/min (>60); POTASSIUM 4.4 mmol/L (3.5-5.1); SODIUM SERUM 133 mmol/L (136-145); TOTAL PROTEIN, SERUM 6.8 g/dL (6.4-8.2); UREA NITROGEN, BLOOD 12 mg/dL (7-18)
[2017-04-12] MEDS ORDERED: HALOPERIDOL 5 MG TABLET PO PRN (11:15)
[2017-04-12] MEDS ORDERED: ZOLPIDEM TARTRATE 10 MG TABLET PO PRN (11:15)
[2017-04-12] MEDS ORDERED: LORazepam 2 MG TABLET PO PRN (11:15)
[2017-04-12 11:31] LABS: GLUCOSE,POINT OF CARE 295 MG/DL (70-110)
[2017-04-12] MEDS: BuPROPion HCL 75 MG TABLET PO SCH ×2 (13:00→17:00)
[2017-04-12 13:02] LABS: CHOL/HDL RATIO 2.6 (4.2-7.3)
[2017-04-12] MEDS ORDERED: GLUCAGON,HUMAN RECOMBINANT 1 MG VIAL IM PRN (14:00)
[2017-04-12 14:15] VITALS: BP 127/74
[2017-04-12 16:14] VITALS: BP 121/71
[2017-04-12] MEDS: QUEtiapine FUMARATE 200 MG TABLET PO SCH (17:06)
[2017-04-12] MEDS: MetFORMIN HCL 500 MG TABLET PO SCH (17:06)
[2017-04-12] MEDS: INSULIN DETEMIR 100 UNITS/ML SQ SCH ×2 (21:00→21:03)
[2017-04-13 05:21] VITALS: BP 117/75
[2017-04-13] MEDS: MetFORMIN HCL 500 MG TABLET PO SCH ×2 (07:00→16:58)
[2017-04-13 08:38] VITALS: BP 115/68
[2017-04-13] MEDS ORDERED: ACETAMINOPHEN 325 MG TABLET PO PRN (09:15)
[2017-04-13] MEDS ORDERED: MAGNESIUM HYDROXIDE SUSPENSION 30 ML UDCUP PO PRN (09:15)
[2017-04-13] MEDS ORDERED: ONDANSETRON HCL 4 MG TABLET PO PRN (09:15)
[2017-04-13] MEDS ORDERED: MAG HYDROX/AL HYDROX/SIMETH ES 30 ML SUSPENSION UDCUP PO PRN (09:15)
[2017-04-13] MEDS ORDERED: PETROLATUM,WHITE 71 GM JELLY TP PRN (09:15)
[2017-04-13] MEDS ORDERED: LOPERAMIDE HCL 2 MG CAPSULE PO PRN (09:15)
[2017-04-13] MEDS ORDERED: BACITRACIN 28.4 GM OINTMENT TP PRN (09:15)
[2017-04-13] MEDS ORDERED: IBUPROFEN 600 MG TABLET PO PRN (09:15)
[2017-04-13] MEDS ORDERED: ALBUTEROL SULFATE HFA 90 MCG/PUFF 8 GM INHALER IH PRN (09:15)
[2017-04-13] MEDS ORDERED: CloNIDine HCL 0.1 MG TABLET PO PRN (09:15)
[2017-04-13] MEDS ORDERED: BENZOCAINE/MENTHOL LOZENGE MM PRN (09:15)
[2017-04-13] MEDS: QUEtiapine FUMARATE 200 MG TABLET PO SCH ×2 (10:10→16:58)
[2017-04-13] MEDS: BuPROPion HCL 75 MG TABLET PO SCH ×4 (10:11→16:58)
[2017-04-13] MEDS: INSULIN DETEMIR 100 UNITS/ML SQ SCH ×2 (21:00→22:22)
[2017-04-13] MEDS: INSULIN ASPART 100 UNITS/ML SQ PRN (22:19)
[2017-04-13 22:47] LABS: GLUCOSE COMMENT 1 Received Meds; GLUCOSE,POINT OF CARE 388 MG/DL (70-110)
[2017-04-14] MEDS: MetFORMIN HCL 500 MG TABLET PO SCH (07:01)
[2017-04-14 08:31] VITALS: BP 101/61
[2017-04-14] MEDS ORDERED: CHOLECALCIFEROL (VIT D3) 1,000 UNITS TABLET PO SCH (09:00)
[2017-04-14] MEDS: QUEtiapine FUMARATE 200 MG TABLET PO SCH (09:44)
[2017-04-14] MEDS: BuPROPion HCL 75 MG TABLET PO SCH ×2 (09:44→11:36)
[2017-04-14] MEDS ORDERED: VITAD1000 PO (11:41)
[2017-04-14 11:57] LABS: GLUCOSE,POINT OF CARE 233 MG/DL (70-110)
[2017-04-14] MEDS: INSULIN ASPART 100 UNITS/ML SQ PRN (12:00)
== END 2017-04-14 14:40 | disposition home or self-care (01) | DRG 885 ==
LOC: EMS 10:02 → EEVIPCON 10:02 → B3A 11:44
PROVIDERS: ADMIT Psychiatry & Neurology Psychiatry; ATTEND Psychiatry & Neurology Psychiatry
DX: F25.9 Schizoaffective disorder, unspecified (principal); R45.851 Suicidal ideations; E87.1 Hypo-osmolality and hyponatremia; Z59.0 Homelessness; E11.65 Type 2 diabetes mellitus with hyperglycemia; F12.90 Cannabis use, unspecified, uncomplicated; F17.210 Nicotine dependence, cigarettes, uncomplicated; F32.9 Major depressive disorder, single episode, unspecified; J44.9 Chronic obstructive pulmonary disease, unspecified; K21.9 Gastro-esophageal reflux disease without esophagitis; E55.9 Vitamin D deficiency, unspecified; Z53.29 Procedure and treatment not carried out because of patient's decision for other reasons; Z79.4 Long term (current) use of insulin; Z91.14 Patient's other noncompliance with medication regimen; Z79.899 Other long term (current) drug therapy; Z79.84 Long term (current) use of oral hypoglycemic drugs; Z71.6 Tobacco abuse counseling
CPT/HCPCS: 82948; 82962; 87081; 96361; 96374; 99285; G0480; J1815; J7030

== ENCOUNTER 2017-04-30 21:02 | Inpatient (IN) | payer MEDICARE, MEDICAID ==
[~2017-04-30] VITALS: Ht 188 cm; Wt 79.4 kg
[~2017-04-30 21:02] MED LIST changes: -INSU100V12 SQ; +VITAD1000 PO
[2017-04-30 21:22] LABS: GLUCOSE,POINT OF CARE 523 MG/DL (70-110)
[2017-04-30] MEDS ORDERED: HALOPERIDOL 5 MG TABLET PO PRN (22:00)
[2017-04-30] MEDS ORDERED: ZOLPIDEM TARTRATE 10 MG TABLET PO PRN (22:00)
[2017-04-30 22:51] LABS: GLUCOSE,POINT OF CARE 438 MG/DL (70-110)
[2017-04-30] MEDS ORDERED: INSULIN REGULAR, HUMAN 100 UNITS/ML IVP ONE (23:00)
[2017-04-30] MEDS ORDERED: SODIUM CHLORIDE 0.9% 2,000 ML IV ONE (23:00)
[2017-04-30 23:02] LABS: BASOPHILS % (AUTO) 0.4 % (0.0-2.0); EOSINOPHILS % (AUTO) 1.1 % (1.0-6.0); HEMATOCRIT 39.8 % (41-53); HEMOGLOBIN 13.7 g/dL (13.5-17.5); LYMPHOCYTES # (AUTO) 1.9 K/uL (1.0-4.8); LYMPHOCYTES % (AUTO) 37.9 % (22.0-44.0); MEAN CORPUSCULAR HEMOGLOBIN 30.9 pg (26.0-34.0); MEAN CORPUSCULAR HGB CONC 34.3 G/dL (31.0-37.0); MEAN CORPUSCULAR VOLUME 90 fL (80-100); MONOCYTES # (AUTO) 0.3 K/uL (0.1-1.0); MONOCYTES % (AUTO) 6.3 % (2.0-9.0); NEUTROPHILS # (AUTO) 2.7 K/uL (1.8-7.7); NEUTROPHILS % (AUTO) 54.3 % (40.0-70.0); PLATELET COUNT (AUTO) 252 K/uL (150-450); RED BLOOD CELL COUNT(AUTO) 4.42 MIL/uL (4.50-5.90); RED CELL DISTRIBUTION WIDTH 13.3 % (11.5-14.5)
[2017-04-30 23:13] LABS: ALANINE AMINOTRANSFERASE 38 U/L (12-78); ALBUMIN 3.5 g/dL (3.4-5.0); ANION GAP 7 mmol/L (8-16); ASPARTATE AMINOTRANSFERASE 21 U/L (15-37); BILIRUBIN,TOTAL 0.4 mg/dL (0.1-1.0); CALCIUM, TOTAL 8.7 mg/dL (8.8-10.5); CARBON DIOXIDE 28 mmol/L (22-29); CHLORIDE 94 mmol/L (98-107); CREATININE 1.02 mg/dL (0.60-1.30); GLOMERULAR FILTR. RATE CALC > 60 mL/min (>60); SODIUM SERUM 129 mmol/L (136-145); TOTAL PROTEIN, SERUM 6.6 g/dL (6.4-8.2); UREA NITROGEN, BLOOD 10 mg/dL (7-18)
[2017-05-01 00:21] LABS: GLUCOSE,POINT OF CARE 182 MG/DL (70-110)
[2017-05-01 01:55] VITALS: BP 122/76
[2017-05-01] MEDS ORDERED: GLUCAGON,HUMAN RECOMBINANT 1 MG VIAL IM PRN (08:00)
[2017-05-01] MEDS ORDERED: IBUPROFEN 600 MG TABLET PO PRN (08:00)
[2017-05-01] MEDS ORDERED: LOPERAMIDE HCL 2 MG CAPSULE PO PRN (08:00)
[2017-05-01] MEDS ORDERED: ALBUTEROL SULFATE HFA 90 MCG/PUFF 8 GM INHALER IH PRN (08:00)
[2017-05-01] MEDS ORDERED: ONDANSETRON HCL 4 MG TABLET PO PRN (08:00)
[2017-05-01] MEDS ORDERED: CloNIDine HCL 0.1 MG TABLET PO PRN (08:00)
[2017-05-01] MEDS ORDERED: PETROLATUM,WHITE 71 GM JELLY TP PRN (08:00)
[2017-05-01] MEDS ORDERED: ACETAMINOPHEN 325 MG TABLET PO PRN (08:00)
[2017-05-01] MEDS ORDERED: MAGNESIUM HYDROXIDE SUSPENSION 30 ML UDCUP PO PRN (08:00)
[2017-05-01] MEDS ORDERED: BACITRACIN 28.4 GM OINTMENT TP PRN (08:00)
[2017-05-01] MEDS ORDERED: BENZOCAINE/MENTHOL LOZENGE MM PRN (08:00)
[2017-05-01] MEDS ORDERED: MAG HYDROX/AL HYDROX/SIMETH ES 30 ML SUSPENSION UDCUP PO PRN (08:00)
[2017-05-01] MEDS ORDERED: INSULIN ASPART 100 UNITS/ML SQ PRN (08:00)
[2017-05-01] MEDS: CHOLECALCIFEROL (VIT D3) 1,000 UNITS TABLET PO SCH (09:27)
[2017-05-01] MEDS: QUEtiapine FUMARATE 200 MG TABLET PO SCH ×2 (12:22→20:46)
[2017-05-01 16:00] VITALS: BP 114/79
[2017-05-01] MEDS: MetFORMIN HCL 500 MG TABLET PO SCH (16:44)
[2017-05-02] MEDS: MetFORMIN HCL 500 MG TABLET PO SCH ×2 (06:29→16:38)
[2017-05-02] MEDS: CHOLECALCIFEROL (VIT D3) 1,000 UNITS TABLET PO SCH (09:38)
[2017-05-02] MEDS: QUEtiapine FUMARATE 200 MG TABLET PO SCH ×2 (09:38→19:57)
[2017-05-02 16:05] VITALS: BP 104/62
[2017-05-03] MEDS: MetFORMIN HCL 500 MG TABLET PO SCH ×2 (06:48→17:00)
[2017-05-03] MEDS: QUEtiapine FUMARATE 200 MG TABLET PO SCH ×2 (09:46→20:14)
[2017-05-03] MEDS: CHOLECALCIFEROL (VIT D3) 1,000 UNITS TABLET PO SCH (09:46)
[2017-05-03 16:00] VITALS: BP 127/71
[2017-05-04] MEDS: MetFORMIN HCL 500 MG TABLET PO SCH ×2 (07:00→17:29)
[2017-05-04] MEDS: QUEtiapine FUMARATE 200 MG TABLET PO SCH ×2 (09:57→21:06)
[2017-05-04] MEDS: CHOLECALCIFEROL (VIT D3) 1,000 UNITS TABLET PO SCH (09:57)
[2017-05-04 16:00] VITALS: BP 118/77
[2017-05-04] MEDS ORDERED: LORazepam 2 MG/ML VIAL IM ONE (16:30)
[2017-05-04] MEDS ORDERED: HALOPERIDOL LACTATE 5 MG/ML VIAL ONE (16:30)
[2017-05-04] MEDS ORDERED: DiphenhydrAMINE HCL 50 MG/ML VIAL IM ONE (16:30)
[2017-05-04] MEDS ORDERED: HALOPERIDOL LACTATE 5 MG/ML VIAL IM ONE (16:30)
[2017-05-04] MEDS: DIVALPROEX SODIUM 500 MG DR TABLET PO SCH (17:29)
[2017-05-05 06:24] VITALS: BP 128/76
[2017-05-05] MEDS: MetFORMIN HCL 500 MG TABLET PO SCH ×2 (06:43→16:44)
[2017-05-05] MEDS: CHOLECALCIFEROL (VIT D3) 1,000 UNITS TABLET PO SCH (09:32)
[2017-05-05] MEDS: DIVALPROEX SODIUM 500 MG DR TABLET PO SCH ×2 (09:32→16:43)
[2017-05-05] MEDS: QUEtiapine FUMARATE 200 MG TABLET PO SCH ×2 (09:32→20:36)
[2017-05-05 16:00] VITALS: BP 118/73
[2017-05-05] MEDS: LORazepam 2 MG TABLET PO PRN (16:43)
[2017-05-06 01:56] VITALS: BP 121/68
[2017-05-06] MEDS: MetFORMIN HCL 500 MG TABLET PO SCH (06:25)
[2017-05-06 08:47] VITALS: BP 117/74
[2017-05-06] MEDS: DIVALPROEX SODIUM 500 MG DR TABLET PO SCH (09:22)
[2017-05-06] MEDS: LORazepam 2 MG TABLET PO PRN (09:22)
[2017-05-06] MEDS: QUEtiapine FUMARATE 200 MG TABLET PO SCH (09:22)
[2017-05-06] MEDS: CHOLECALCIFEROL (VIT D3) 1,000 UNITS TABLET PO SCH (09:22)
[2017-05-06] MEDS ORDERED: DIVA500T35 PO (09:58)
[2017-05-07] MEDS ORDERED: ARIP2 PO (18:44)
[2017-05-07] MEDS ORDERED: HALO1 PO (18:44)
== END 2017-05-06 13:10 | disposition home or self-care (01) | DRG 885 ==
LOC: EMS 22:19 → B3A 05-01 01:50
PROVIDERS: ADMIT Psychiatry & Neurology Psychiatry; ATTEND Psychiatry & Neurology Psychiatry
DX: F25.0 Schizoaffective disorder, bipolar type (principal); E87.1 Hypo-osmolality and hyponatremia; R45.851 Suicidal ideations; E11.65 Type 2 diabetes mellitus with hyperglycemia; F12.90 Cannabis use, unspecified, uncomplicated; F17.210 Nicotine dependence, cigarettes, uncomplicated; J44.9 Chronic obstructive pulmonary disease, unspecified; K21.9 Gastro-esophageal reflux disease without esophagitis; E55.9 Vitamin D deficiency, unspecified; F19.10 Other psychoactive substance abuse, uncomplicated; G47.00 Insomnia, unspecified; Z91.14 Patient's other noncompliance with medication regimen; Z59.0 Homelessness; Z79.899 Other long term (current) drug therapy; Z79.84 Long term (current) use of oral hypoglycemic drugs; Z71.6 Tobacco abuse counseling; Z71.51 Drug abuse counseling and surveillance of drug abuser; Z72.89 Other problems related to lifestyle; Z71.41 Alcohol abuse counseling and surveillance of alcoholic
CPT/HCPCS: 82962; 87081; 96361; 96374; 99285; G0480; J1200; J1630; J1815; J2060; J7030

== ENCOUNTER 2017-08-21 06:29 | Inpatient (IN) | payer MEDICARE, MEDICAID ==
[~2017-08-21] VITALS: Ht 188 cm; Wt 83.0 kg
[~2017-08-21 06:29] MED LIST changes: -BUPR75 PO; +DIVA500T35 PO
[2017-08-21 07:40] VITALS: BP 147/92
[2017-08-21] MEDS ORDERED: ZOLPIDEM TARTRATE 5 MG TABLET PO PRN (07:45)
[2017-08-21] MEDS ORDERED: HALOPERIDOL 5 MG TABLET PO PRN (07:45)
[2017-08-21] MEDS ORDERED: LORazepam 1 MG TABLET PO PRN (07:45)
[2017-08-21 09:37] LABS: GLUCOSE,POINT OF CARE > 600 MG/DL (70-110)
[2017-08-21] MEDS ORDERED: INSULIN ASPART 100 UNITS/ML SQ ONE ×3 (09:45→12:45)
[2017-08-21 10:33] LABS: GLUCOSE,POINT OF CARE 590 MG/DL (70-110)
[2017-08-21 12:28] LABS: GLUCOSE,POINT OF CARE 442 MG/DL (70-110)
[2017-08-21] MEDS ORDERED: INSULIN ASPART 100 UNITS/ML SQ PRN (13:45)
[2017-08-21] MEDS ORDERED: GLUCAGON,HUMAN RECOMBINANT 1 MG VIAL IM PRN (13:45)
[2017-08-21 16:02] LABS: GLUCOSE,POINT OF CARE 95 MG/DL (70-110)
[2017-08-21] MEDS: DIVALPROEX SODIUM 500 MG DR TABLET PO SCH (16:08)
[2017-08-21 16:26] VITALS: BP 109/61
[2017-08-21] MEDS ORDERED: INFLUENZA VIRUS VACCINE QVS 2017-18 (3YR+)/PF 60 MCG/0.5 ML SYRINGE IM ONE (16:30)
[2017-08-21] MEDS ORDERED: INSULIN DETEMIR 100 UNITS/ML SQ SCH (21:00)
[2017-08-21] MEDS: QUEtiapine FUMARATE 200 MG TABLET PO SCH (21:15)
[2017-08-22] MEDS: DIVALPROEX SODIUM 500 MG DR TABLET PO SCH (09:03)
[2017-08-22] MEDS: QUEtiapine FUMARATE 200 MG TABLET PO SCH (09:03)
[2017-08-22] MEDS ORDERED: PETROLATUM,WHITE 71 GM JELLY TP PRN (09:15)
[2017-08-22] MEDS ORDERED: BACITRACIN 28.4 GM OINTMENT TP PRN (09:15)
[2017-08-22] MEDS ORDERED: ALBUTEROL SULFATE HFA 90 MCG/PUFF 8 GM INHALER IH PRN (09:15)
[2017-08-22] MEDS ORDERED: ONDANSETRON HCL 4 MG TABLET PO PRN (09:15)
[2017-08-22] MEDS ORDERED: IBUPROFEN 600 MG TABLET PO PRN (09:15)
[2017-08-22] MEDS ORDERED: BENZOCAINE/MENTHOL LOZENGE MM PRN (09:15)
[2017-08-22] MEDS ORDERED: ACETAMINOPHEN 325 MG TABLET PO PRN (09:15)
[2017-08-22] MEDS ORDERED: GLUCAGON,HUMAN RECOMBINANT 1 MG VIAL IM PRN (09:15)
[2017-08-22] MEDS ORDERED: MAGNESIUM HYDROXIDE SUSPENSION 30 ML UDCUP PO PRN (09:15)
[2017-08-22] MEDS ORDERED: LOPERAMIDE HCL 2 MG CAPSULE PO PRN (09:15)
[2017-08-22] MEDS ORDERED: CloNIDine HCL 0.1 MG TABLET PO PRN (09:15)
[2017-08-22] MEDS ORDERED: INSULIN ASPART 100 UNITS/ML SQ PRN (09:15)
[2017-08-22] MEDS ORDERED: MAG HYDROX/AL HYDROX/SIMETH ES 30 ML SUSPENSION UDCUP PO PRN (09:15)
[2017-08-22] MEDS ORDERED: MetFORMIN HCL 500 MG TABLET PO SCH (17:00)
[2017-08-22] MEDS ORDERED: INSULIN DETEMIR 100 UNITS/ML SQ SCH (21:00)
[2017-08-23] MEDS ORDERED: OMEGA-3/DHA/EPA/FISH OIL 500 MG CAPSULE PO SCH (09:00)
[2017-08-23] MEDS ORDERED: CHOLECALCIFEROL (VIT D3) 1,000 UNITS TABLET PO SCH (09:00)
== END 2017-08-22 12:55 | disposition short-term general hospital (02) | DRG 885 ==
LOC: B2X 07:40 → EDSTATUS 08:32 → B2X 09:19
PROVIDERS: ADMIT Psychiatry & Neurology Psychiatry; ATTEND Psychiatry & Neurology Psychiatry
DX: F25.9 Schizoaffective disorder, unspecified (principal); Z28.21 Immunization not carried out because of patient refusal
CPT/HCPCS: 82962; 99285; J1815

== ENCOUNTER 2017-08-22 14:22 | Inpatient (IN) | payer MEDICARE, MEDICAID ==
[~2017-08-22] VITALS: Ht 188 cm; Wt 80.7 kg
[2017-08-22] MEDS ORDERED: HALOPERIDOL 5 MG TABLET PO PRN (14:30)
[2017-08-22] MEDS ORDERED: ZOLPIDEM TARTRATE 10 MG TABLET PO PRN (14:30)
[2017-08-22] MEDS ORDERED: GLUCAGON,HUMAN RECOMBINANT 1 MG VIAL IM PRN (15:30)
[2017-08-22] MEDS ORDERED: INFLUENZA VIRUS VACCINE QVS 2017-18 (3YR+)/PF 60 MCG/0.5 ML SYRINGE IM ONE (15:30)
[2017-08-22 16:20] VITALS: BP 117/79
[2017-08-22] MEDS: MetFORMIN HCL 500 MG TABLET PO SCH (17:00)
[2017-08-22] MEDS: DIVALPROEX SODIUM 500 MG DR TABLET PO SCH (17:00)
[2017-08-22] MEDS ORDERED: ALBUTEROL SULFATE HFA 90 MCG/PUFF 8 GM INHALER IH PRN (18:00)
[2017-08-22] MEDS ORDERED: MAGNESIUM HYDROXIDE SUSPENSION 30 ML UDCUP PO PRN (18:00)
[2017-08-22] MEDS ORDERED: PETROLATUM,WHITE 71 GM JELLY TP PRN (18:00)
[2017-08-22] MEDS ORDERED: BENZOCAINE/MENTHOL LOZENGE PO PRN (18:00)
[2017-08-22] MEDS ORDERED: LOPERAMIDE HCL 2 MG CAPSULE PO PRN (18:00)
[2017-08-22] MEDS ORDERED: IBUPROFEN 600 MG TABLET PO PRN (18:00)
[2017-08-22] MEDS ORDERED: ACETAMINOPHEN 325 MG TABLET PO PRN (18:00)
[2017-08-22] MEDS ORDERED: ONDANSETRON HCL 4 MG TABLET PO PRN (18:00)
[2017-08-22] MEDS: QUEtiapine FUMARATE 200 MG TABLET PO SCH (20:57)
[2017-08-22] MEDS: INSULIN DETEMIR 100 UNITS/ML SQ SCH (21:00)
[2017-08-23] MEDS: MetFORMIN HCL 500 MG TABLET PO SCH ×2 (06:24→17:11)
[2017-08-23] MEDS: CHOLECALCIFEROL (VIT D3) 1,000 UNITS TABLET PO SCH (10:07)
[2017-08-23] MEDS: QUEtiapine FUMARATE 200 MG TABLET PO SCH ×2 (10:07→20:57)
[2017-08-23] MEDS: OMEGA-3/DHA/EPA/FISH OIL 500 MG CAPSULE PO SCH (10:08)
[2017-08-23] MEDS: DIVALPROEX SODIUM 500 MG DR TABLET PO SCH ×2 (10:08→17:11)
[2017-08-23] MEDS: LORazepam 2 MG TABLET PO PRN ×2 (10:08→17:11)
[2017-08-23] MEDS ORDERED: INSULIN ASPART 100 UNITS/ML SQ ONE (12:00)
[2017-08-23 12:02] LABS: GLUCOSE COMMENT 1 Received Meds; GLUCOSE,POINT OF CARE 419 MG/DL (70-110)
[2017-08-23 16:22] LABS: GLUCOSE COMMENT 1 Received Meds; GLUCOSE,POINT OF CARE 187 MG/DL (70-110)
[2017-08-23] MEDS: INSULIN ASPART 100 UNITS/ML SQ PRN ×2 (16:35→21:04)
[2017-08-23] MEDS: INSULIN DETEMIR 100 UNITS/ML SQ SCH (21:06)
[2017-08-23 21:18] LABS: GLUCOSE COMMENT 1 Received Meds; GLUCOSE,POINT OF CARE 383 MG/DL (70-110)
[2017-08-24] MEDS: MetFORMIN HCL 500 MG TABLET PO SCH ×2 (06:34→16:34)
[2017-08-24 08:26] LABS: BASOPHILS # (AUTO) 0.01 K/uL (0.00-0.20); BASOPHILS % (AUTO) 0.3 % (0.0-2.0); EOSINOPHILS # (AUTO) 0.05 K/uL (0.00-0.70); EOSINOPHILS % (AUTO) 1.05 % (1.0-6.0); HEMATOCRIT 46.3 % (41-53); HEMOGLOBIN 15.7 g/dL (13.5-17.5); LYMPHOCYTES # (AUTO) 2.2 K/uL (1.0-4.8); LYMPHOCYTES % (AUTO) 48.7 % (22.0-44.0); MEAN CORPUSCULAR HGB CONC 33.9 G/dL (31.0-37.0); MEAN CORPUSCULAR VOLUME 89 fL (80-100); MONOCYTES # (AUTO) 0.3 K/uL (0.1-1.0); MONOCYTES % (AUTO) 5.7 % (2.0-9.0); NEUTROPHILS % (AUTO) 44.3 % (40.0-70.0); PLATELET COUNT (AUTO) 291 K/uL (150-450); RED BLOOD CELL COUNT(AUTO) 5.22 MIL/uL (4.50-5.90); WHITE BLOOD COUNT (AUTO) 4.4 K/uL (4.5-11.0)
[2017-08-24 08:28] VITALS: BP 106/64
[2017-08-24 09:04] LABS: ALANINE AMINOTRANSFERASE 27 U/L (12-78); ALBUMIN 3.5 g/dL (3.4-5.0); ANION GAP 7 mmol/L (8-16); ASPARTATE AMINOTRANSFERASE 14 U/L (15-37); BILIRUBIN,TOTAL 0.5 mg/dL (0.1-1.0); CALCIUM, TOTAL 8.7 mg/dL (8.8-10.5); CARBON DIOXIDE 28 mmol/L (22-29); CHLORIDE 101 mmol/L (98-107); CHOL/HDL RATIO 2.9 (4.2-7.3); CREATININE 0.98 mg/dL (0.60-1.30); GLOMERULAR FILTR. RATE CALC > 60 mL/min (>60); POTASSIUM 4.4 mmol/L (3.5-5.1); SODIUM SERUM 136 mmol/L (136-145); THYROID STIMULATING HORMONE 1.34 uIU/mL (0.36-3.74); TOTAL PROTEIN, SERUM 6.9 g/dL (6.4-8.2); UREA NITROGEN, BLOOD 16 mg/dL (7-18)
[2017-08-24] MEDS: QUEtiapine FUMARATE 200 MG TABLET PO SCH ×2 (09:56→20:53)
[2017-08-24] MEDS: DIVALPROEX SODIUM 500 MG DR TABLET PO SCH ×2 (09:56→16:34)
[2017-08-24] MEDS: CHOLECALCIFEROL (VIT D3) 1,000 UNITS TABLET PO SCH (09:56)
[2017-08-24] MEDS: OMEGA-3/DHA/EPA/FISH OIL 500 MG CAPSULE PO SCH (09:57)
[2017-08-24] MEDS ORDERED: INSULIN ASPART 100 UNITS/ML SQ ONE (11:30)
[2017-08-24 11:33] LABS: GLUCOSE COMMENT 1 Received Meds; GLUCOSE,POINT OF CARE 499 MG/DL (70-110)
[2017-08-24 16:20] VITALS: BP 112/68
[2017-08-24] MEDS: LORazepam 2 MG TABLET PO PRN (16:35)
[2017-08-24] MEDS: INSULIN ASPART 100 UNITS/ML SQ PRN (16:45)
[2017-08-24 17:33] LABS: GLUCOSE COMMENT 1 Received Meds; GLUCOSE,POINT OF CARE 308 MG/DL (70-110)
[2017-08-24] MEDS: INSULIN DETEMIR 100 UNITS/ML SQ SCH (20:54)
[2017-08-25] MEDS: MetFORMIN HCL 500 MG TABLET PO SCH ×2 (06:31→17:09)
[2017-08-25] MEDS: INSULIN ASPART 100 UNITS/ML SQ PRN ×4 (06:46→20:42)
[2017-08-25 08:30] VITALS: BP 102/64
[2017-08-25] MEDS: DIVALPROEX SODIUM 500 MG DR TABLET PO SCH ×2 (09:24→17:09)
[2017-08-25] MEDS: LORazepam 2 MG TABLET PO PRN ×2 (09:24→17:09)
[2017-08-25] MEDS: CHOLECALCIFEROL (VIT D3) 1,000 UNITS TABLET PO SCH (09:24)
[2017-08-25] MEDS: QUEtiapine FUMARATE 200 MG TABLET PO SCH ×2 (09:24→20:40)
[2017-08-25] MEDS: OMEGA-3/DHA/EPA/FISH OIL 500 MG CAPSULE PO SCH (09:24)
[2017-08-25 09:43] LABS: GLUCOSE,POINT OF CARE 360 MG/DL (70-110)
[2017-08-25 14:48] LABS: GLUCOSE COMMENT 1 Doctor Notified; GLUCOSE,POINT OF CARE 374 MG/DL (70-110)
[2017-08-25 16:00] VITALS: BP 115/70
[2017-08-25 19:03] LABS: GLUCOSE,POINT OF CARE 365 MG/DL (70-110)
[2017-08-25] MEDS: INSULIN DETEMIR 100 UNITS/ML SQ SCH (20:42)
[2017-08-25 21:47] LABS: GLUCOSE COMMENT 1 Received Meds; GLUCOSE,POINT OF CARE 264 MG/DL (70-110)
[2017-08-26 06:42] VITALS: BP 100/73
[2017-08-26] MEDS: MetFORMIN HCL 500 MG TABLET PO SCH ×2 (06:43→17:17)
[2017-08-26] MEDS: INSULIN ASPART 100 UNITS/ML SQ PRN ×4 (06:46→20:59)
[2017-08-26 07:13] LABS: GLUCOSE,POINT OF CARE 177 MG/DL (70-110)
[2017-08-26 08:32] VITALS: BP 110/67
[2017-08-26] MEDS: DIVALPROEX SODIUM 500 MG DR TABLET PO SCH ×2 (09:40→17:17)
[2017-08-26] MEDS: CHOLECALCIFEROL (VIT D3) 1,000 UNITS TABLET PO SCH (09:40)
[2017-08-26] MEDS: QUEtiapine FUMARATE 200 MG TABLET PO SCH ×2 (09:40→20:55)
[2017-08-26] MEDS: OMEGA-3/DHA/EPA/FISH OIL 500 MG CAPSULE PO SCH (09:40)
[2017-08-26 11:38] LABS: GLUCOSE,POINT OF CARE 263 MG/DL (70-110)
[2017-08-26 16:00] VITALS: BP 112/66
[2017-08-26] MEDS: LORazepam 2 MG TABLET PO PRN (17:17)
[2017-08-26 17:37] LABS: GLUCOSE COMMENT 1 Received Meds; GLUCOSE,POINT OF CARE 315 MG/DL (70-110)
[2017-08-26] MEDS: INSULIN DETEMIR 100 UNITS/ML SQ SCH (20:58)
[2017-08-26 21:02] LABS: GLUCOSE,POINT OF CARE 286 MG/DL (70-110)
[2017-08-27] MEDS ORDERED: DIVA500T35 PO (04:57)
[2017-08-27] MEDS ORDERED: QUET200T PO (04:57)
[2017-08-27 06:00] VITALS: BP 125/63
[2017-08-27 06:27] LABS: GLUCOSE,POINT OF CARE 241 MG/DL (70-110)
[2017-08-27] MEDS: MetFORMIN HCL 500 MG TABLET PO SCH (06:29)
[2017-08-27] MEDS: INSULIN ASPART 100 UNITS/ML SQ PRN (06:33)
[2017-08-27 08:13] VITALS: BP 121/64
[2017-08-27] MEDS ORDERED: OMEG-12 PO (08:19)
[2017-08-27] MEDS ORDERED: INSU100V12 SQ (08:28)
== END 2017-08-27 09:00 | disposition home health service (06) | DRG 885 ==
LOC: B3A 14:29
PROVIDERS: ADMIT Psychiatry & Neurology Psychiatry; ATTEND Psychiatry & Neurology Psychiatry
DX: F25.9 Schizoaffective disorder, unspecified (principal); E11.65 Type 2 diabetes mellitus with hyperglycemia; R45.851 Suicidal ideations; F12.90 Cannabis use, unspecified, uncomplicated; F17.200 Nicotine dependence, unspecified, uncomplicated; G47.00 Insomnia, unspecified; J44.9 Chronic obstructive pulmonary disease, unspecified; K21.9 Gastro-esophageal reflux disease without esophagitis; K59.00 Constipation, unspecified; Z59.0 Homelessness
CPT/HCPCS: 82962; 83036; 84443; J1815

== ENCOUNTER 2017-09-27 17:30 | Inpatient (IN) | payer MEDICARE, MEDICAID ==
[~2017-09-27] VITALS: Ht 188 cm; Wt 73.1 kg
[~2017-09-27 17:30] MED LIST changes: +INSU100V12 SQ; +OMEG-12 PO
[2017-09-27 18:03] LABS: GLUCOSE COMMENT 1 Doctor Notified; GLUCOSE COMMENT 2 Repeated; GLUCOSE,POINT OF CARE 592 MG/DL (70-110)
[2017-09-27 18:10] LABS: BASOPHILS % (AUTO) 0.3 % (0.0-2.0); EOSINOPHILS % (AUTO) 0.7 % (1.0-6.0); HEMATOCRIT 42.7 % (41-53); HEMOGLOBIN 14.9 g/dL (13.5-17.5); LYMPHOCYTES # (AUTO) 2.2 K/uL (1.0-4.8); LYMPHOCYTES % (AUTO) 31.1 % (22.0-44.0); MEAN CORPUSCULAR HEMOGLOBIN 30.5 pg (26.0-34.0); MEAN CORPUSCULAR HGB CONC 34.8 G/dL (31.0-37.0); MEAN CORPUSCULAR VOLUME 88 fL (80-100); MONOCYTES # (AUTO) 0.1 K/uL (0.1-1.0); MONOCYTES % (AUTO) 0.9 % (2.0-9.0); NEUTROPHILS # (AUTO) 4.8 K/uL (1.8-7.7); PLATELET COUNT (AUTO) 366 K/uL (150-450); RED BLOOD CELL COUNT(AUTO) 4.88 MIL/uL (4.50-5.90); RED CELL DISTRIBUTION WIDTH 13.6 % (11.5-14.5); WHITE BLOOD COUNT (AUTO) 7.2 K/uL (4.5-11.0)
[2017-09-27 18:22] LABS: ALANINE AMINOTRANSFERASE 21 U/L (12-78); ALBUMIN 3.6 g/dL (3.4-5.0); ANION GAP 7 mmol/L (8-16); ASPARTATE AMINOTRANSFERASE 15 U/L (15-37); BILIRUBIN,TOTAL 0.4 mg/dL (0.1-1.0); CARBON DIOXIDE 26 mmol/L (22-29); CHLORIDE 94 mmol/L (98-107); CREATININE 1.11 mg/dL (0.60-1.30); GLOMERULAR FILTR. RATE CALC > 60 mL/min (>60); POTASSIUM 4.1 mmol/L (3.5-5.1); SODIUM SERUM 127 mmol/L (136-145); TOTAL PROTEIN, SERUM 6.9 g/dL (6.4-8.2); UREA NITROGEN, BLOOD 14 mg/dL (7-18)
[2017-09-27] MEDS ORDERED: INSULIN REGULAR, HUMAN 100 UNITS/ML IVP ONE (18:30)
[2017-09-27] MEDS ORDERED: SODIUM CHLORIDE 0.9% 2,000 ML IV ONE (18:30)
[2017-09-27] MEDS ORDERED: SODIUM CHLORIDE 0.9% 1,000 ML IV ONE (19:15)
[2017-09-27] MEDS ORDERED: HALOPERIDOL 5 MG TABLET PO ONE (20:15)
[2017-09-27] MEDS ORDERED: LORazepam 2 MG TABLET PO ONE (20:15)
[2017-09-27] MEDS ORDERED: HALOPERIDOL 5 MG TABLET PO PRN (20:30)
[2017-09-27] MEDS ORDERED: LORazepam 2 MG TABLET PO PRN (20:30)
[2017-09-27] MEDS ORDERED: INSULIN REGULAR, HUMAN 100 UNITS/ML SQ PRN ×2 (20:45→21:00)
[2017-09-27] MEDS ORDERED: GLUCAGON,HUMAN RECOMBINANT 1 MG VIAL IM PRN (20:45)
[2017-09-27 21:00] VITALS: BP 132/93
[2017-09-27] MEDS ORDERED: DEXTROSE 50%-WATER 25 GM/50 ML SYG IVP PRN (21:00)
[2017-09-27] MEDS ORDERED: DEXTROSE 50%-WATER 25 GM/50 ML SYRINGE IVP PRN (21:30)
[2017-09-28] MEDS: MetFORMIN HCL 500 MG TABLET PO SCH ×2 (07:14→17:12)
[2017-09-28 08:55] VITALS: BP 122/72
[2017-09-28] MEDS: OMEGA-3/DHA/EPA/FISH OIL 500 MG CAPSULE PO SCH (10:06)
[2017-09-28] MEDS: QUEtiapine FUMARATE 200 MG TABLET PO SCH ×2 (10:06→21:47)
[2017-09-28] MEDS: CHOLECALCIFEROL (VIT D3) 1,000 UNITS TABLET PO SCH (10:07)
[2017-09-28] MEDS: DIVALPROEX SODIUM 500 MG DR TABLET PO SCH ×2 (10:07→17:12)
[2017-09-28 12:37] LABS: GLUCOSE,POINT OF CARE 322 MG/DL (70-110)
[2017-09-28] MEDS: INSULIN ASPART 100 UNITS/ML SQ PRN (12:42)
[2017-09-28] MEDS: INSULIN DETEMIR 100 UNITS/ML SQ SCH (21:00)
[2017-09-29] MEDS: MetFORMIN HCL 500 MG TABLET PO SCH ×2 (07:06→17:09)
[2017-09-29] MEDS: DIVALPROEX SODIUM 500 MG DR TABLET PO SCH ×2 (08:30→17:09)
[2017-09-29] MEDS: CHOLECALCIFEROL (VIT D3) 1,000 UNITS TABLET PO SCH (08:30)
[2017-09-29] MEDS: QUEtiapine FUMARATE 200 MG TABLET PO SCH ×2 (08:30→20:49)
[2017-09-29] MEDS: OMEGA-3/DHA/EPA/FISH OIL 500 MG CAPSULE PO SCH (08:30)
[2017-09-29] MEDS: INSULIN DETEMIR 100 UNITS/ML SQ SCH (20:49)
[2017-09-30 02:47] VITALS: BP 120/74
[2017-09-30] MEDS: ZOLPIDEM TARTRATE 10 MG TABLET PO PRN (02:50)
[2017-09-30] MEDS: MetFORMIN HCL 500 MG TABLET PO SCH ×2 (07:05→16:50)
[2017-09-30] MEDS: QUEtiapine FUMARATE 200 MG TABLET PO SCH ×2 (08:08→20:27)
[2017-09-30] MEDS: OMEGA-3/DHA/EPA/FISH OIL 500 MG CAPSULE PO SCH (08:08)
[2017-09-30] MEDS: DIVALPROEX SODIUM 500 MG DR TABLET PO SCH ×2 (08:08→16:50)
[2017-09-30] MEDS: CHOLECALCIFEROL (VIT D3) 1,000 UNITS TABLET PO SCH (08:09)
[2017-09-30 08:56] VITALS: BP 94/65
[2017-09-30] MEDS: INSULIN DETEMIR 100 UNITS/ML SQ SCH (20:28)
[2017-10-01] MEDS: MetFORMIN HCL 500 MG TABLET PO SCH ×2 (06:55→17:17)
[2017-10-01 08:50] VITALS: BP 104/64
[2017-10-01] MEDS: OMEGA-3/DHA/EPA/FISH OIL 500 MG CAPSULE PO SCH (08:55)
[2017-10-01] MEDS: CHOLECALCIFEROL (VIT D3) 1,000 UNITS TABLET PO SCH (08:56)
[2017-10-01] MEDS: DIVALPROEX SODIUM 500 MG DR TABLET PO SCH ×2 (08:56→17:17)
[2017-10-01] MEDS: QUEtiapine FUMARATE 200 MG TABLET PO SCH ×2 (08:56→21:11)
[2017-10-01] MEDS: INSULIN DETEMIR 100 UNITS/ML SQ SCH (21:00)
[2017-10-02] MEDS: MetFORMIN HCL 500 MG TABLET PO SCH ×2 (07:02→17:40)
[2017-10-02 08:00] VITALS: BP 105/73
[2017-10-02] MEDS: OMEGA-3/DHA/EPA/FISH OIL 500 MG CAPSULE PO SCH (08:39)
[2017-10-02] MEDS: DIVALPROEX SODIUM 500 MG DR TABLET PO SCH ×2 (08:39→17:39)
[2017-10-02] MEDS: QUEtiapine FUMARATE 200 MG TABLET PO SCH ×2 (08:41→20:57)
[2017-10-02] MEDS: CHOLECALCIFEROL (VIT D3) 1,000 UNITS TABLET PO SCH (08:42)
[2017-10-02 08:44] VITALS: BP 105/73
[2017-10-02] MEDS: INSULIN ASPART 100 UNITS/ML SQ PRN ×2 (11:58→21:04)
[2017-10-02] MEDS ORDERED: INSULIN ASPART 100 UNITS/ML SQ ONE ×2 (12:00→13:30)
[2017-10-02 12:07] LABS: GLUCOSE COMMENT 1 Doctor Notified; GLUCOSE,POINT OF CARE 449 MG/DL (70-110)
[2017-10-02 13:03] LABS: GLUCOSE,POINT OF CARE 380 MG/DL (70-110)
[2017-10-02 16:47] LABS: GLUCOSE,POINT OF CARE 120 MG/DL (70-110)
[2017-10-02 20:40] VITALS: BP 108/72
[2017-10-02 20:59] LABS: GLUCOSE,POINT OF CARE 271 MG/DL (70-110)
[2017-10-02] MEDS: INSULIN DETEMIR 100 UNITS/ML SQ SCH (21:04)
[2017-10-03 06:15] LABS: HEMATOCRIT 42.5 % (41-53); HEMOGLOBIN 14.8 g/dL (13.5-17.5); MEAN CORPUSCULAR HEMOGLOBIN 30.5 pg (26.0-34.0); MEAN CORPUSCULAR HGB CONC 34.7 G/dL (31.0-37.0); MEAN CORPUSCULAR VOLUME 88 fL (80-100); PLATELET COUNT (AUTO) 394 K/uL (150-450); RED BLOOD CELL COUNT(AUTO) 4.84 MIL/uL (4.50-5.90); RED CELL DISTRIBUTION WIDTH 13.8 % (11.5-14.5); WHITE BLOOD COUNT (AUTO) 8.4 K/uL (4.5-11.0)
[2017-10-03 06:19] LABS: HEMOGLOBIN A1C 11.8 % (4.5-6.2)
[2017-10-03 06:28] LABS: GLUCOSE,POINT OF CARE 313 MG/DL (70-110)
[2017-10-03 06:57] LABS: ANION GAP 8 mmol/L (8-16); CALCIUM, TOTAL 8.9 mg/dL (8.8-10.5); CARBON DIOXIDE 27 mmol/L (22-29); CHLORIDE 97 mmol/L (98-107); CREATININE 0.93 mg/dL (0.60-1.30); GLOMERULAR FILTR. RATE CALC > 60 mL/min (>60); PHOSPHORUS 3.2 mg/dL (2.5-4.9); POTASSIUM 4.1 mmol/L (3.5-5.1); SODIUM SERUM 132 mmol/L (136-145); UREA NITROGEN, BLOOD 12 mg/dL (7-18)
[2017-10-03] MEDS: MetFORMIN HCL 500 MG TABLET PO SCH ×2 (06:58→17:39)
[2017-10-03] MEDS: INSULIN ASPART 100 UNITS/ML SQ PRN ×4 (07:04→21:25)
[2017-10-03 07:52] LABS: BAND NEUTROPHILS % (MANUAL) 3 % (1-5); EOSINOPHILS % (MANUAL) 2 % (1-6); LYMPHOCYTES % (MANUAL) 35 % (22-44); RBC MORPHOLOGY COMMENT NORMAL RBC MORPH; TOTAL CELLS COUNTED 100
[2017-10-03 09:15] VITALS: BP 119/75
[2017-10-03] MEDS: OMEGA-3/DHA/EPA/FISH OIL 500 MG CAPSULE PO SCH (10:08)
[2017-10-03] MEDS: CHOLECALCIFEROL (VIT D3) 1,000 UNITS TABLET PO SCH (10:08)
[2017-10-03] MEDS: QUEtiapine FUMARATE 200 MG TABLET PO SCH ×2 (10:08→20:24)
[2017-10-03] MEDS: DIVALPROEX SODIUM 500 MG DR TABLET PO SCH ×2 (10:08→17:40)
[2017-10-03 11:27] LABS: GLUCOSE,POINT OF CARE 349 MG/DL (70-110)
[2017-10-03 17:47] LABS: GLUCOSE,POINT OF CARE 298 MG/DL (70-110)
[2017-10-03] MEDS: MUPIROCIN CALCIUM 2% 22 GM OINTMENT NASAL SCH (19:29)
[2017-10-03] MEDS: ZOLPIDEM TARTRATE 10 MG TABLET PO PRN (20:24)
[2017-10-03 20:38] LABS: GLUCOSE,POINT OF CARE 171 MG/DL (70-110)
[2017-10-03] MEDS: INSULIN DETEMIR 100 UNITS/ML SQ SCH (21:25)
[2017-10-04] MEDS: MetFORMIN HCL 500 MG TABLET PO SCH (07:57)
[2017-10-04] MEDS: QUEtiapine FUMARATE 200 MG TABLET PO SCH (07:58)
[2017-10-04] MEDS: OMEGA-3/DHA/EPA/FISH OIL 500 MG CAPSULE PO SCH (07:58)
[2017-10-04] MEDS: DIVALPROEX SODIUM 500 MG DR TABLET PO SCH (07:59)
[2017-10-04] MEDS: CHOLECALCIFEROL (VIT D3) 1,000 UNITS TABLET PO SCH (07:59)
[2017-10-04] MEDS: MUPIROCIN CALCIUM 2% 22 GM OINTMENT NASAL SCH (08:00)
[2017-10-04 08:27] VITALS: BP 143/79
== END 2017-10-04 08:45 | disposition home or self-care (01) | DRG 885 ==
LOC: EMS 17:31 → EEVIPCON 17:31 → 3EC 20:18
PROVIDERS: ADMIT Psychiatry & Neurology Child & Adolescent Psychiatry; ATTEND Psychiatry & Neurology Psychiatry
DX: F20.0 Paranoid schizophrenia (principal); E11.65 Type 2 diabetes mellitus with hyperglycemia; R45.851 Suicidal ideations; E87.1 Hypo-osmolality and hyponatremia; E55.9 Vitamin D deficiency, unspecified; F12.10 Cannabis abuse, uncomplicated; Z71.51 Drug abuse counseling and surveillance of drug abuser; F17.210 Nicotine dependence, cigarettes, uncomplicated; G47.00 Insomnia, unspecified; J44.9 Chronic obstructive pulmonary disease, unspecified; K21.9 Gastro-esophageal reflux disease without esophagitis; K59.00 Constipation, unspecified; R45.850 Homicidal ideations; Z91.19 Patient's noncompliance with other medical treatment and regimen
CPT/HCPCS: 82948; 82962; 83036; 83735; 84100; 85007; 96361; 96374; 99285; 99406; G0480; J1815; J7030

== ENCOUNTER 2017-11-21 18:22 | Inpatient (IN) | payer MEDICARE, MEDICAID ==
[~2017-11-21] VITALS: Ht 188 cm; Wt 78.5 kg
[2017-11-21 17:17] LABS: GLUCOMETER DEV NAME(LOC) BV3S 2; GLUCOSE,POINT OF CARE > 600 MG/DL (70-110)
[~2017-11-21 18:22] MED LIST changes: -OMEG-12 PO; -VITAD1000 PO
[2017-11-21] MEDS ORDERED: INFLUENZA VIRUS VACCINE QVS 2017-18 (3YR+)/PF 60 MCG/0.5 ML SYRINGE IM ONE (20:00)
[2017-11-21] MEDS ORDERED: PNEUMOCOCCAL VACCINE POLYVALENT 0.5 ML VIAL [PPSV23] IM ONE (20:00)
[2017-11-21 21:49] LABS: APPEARANCE,URINE CLEAR (CLEAR); BILIRUBIN,URINE NEGATIVE (NEGATIVE); GLUCOSE, URINE (UA) >=1000 mg/dL (NEGATIVE); KETONES,URINE NEGATIVE (NEGATIVE); LEUKOCYTE ESTERASE ,URINE NEGATIVE (NEGATIVE); NITRATE,URINE NEGATIVE (NEGATIVE); OCCULT BLOOD,URINE NEGATIVE (NEGATIVE); PROTEIN,URINE NEGATIVE (NEGATIVE)
[2017-11-21 21:53] LABS: AMPHET/METH SCREEN,URINE NEGATIVE (NEGATIVE); BARBITURATE SCREEN, URINE NEGATIVE (NEGATIVE); BENZODIAZEPINES SCREEN,URINE NEGATIVE (NEGATIVE); CANNABINOID SCREEN,URINE POSITIVE (NEGATIVE); COCAINE SCREEN,URINE NEGATIVE (NEGATIVE); METHADONE SCREEN, URINE NEGATIVE (NEGATIVE); OPIATE SCREEN,URINE NEGATIVE (NEGATIVE)
[2017-11-21 21:56] LABS: PHENCYCLIDINE SCREEN,URINE NEGATIVE (NEGATIVE)
[2017-11-21 22:02] LABS: BACTERIA,URINE None Seen /HPF (None Seen); RBC,URINE None Seen /HPF (0-2); WBC,URINE None Seen /HPF (0-5)
[2017-11-21] MEDS ORDERED: SODIUM CHLORIDE 0.9% 1,000 ML IV ONE (22:45)
[2017-11-21] MEDS ORDERED: INSULIN REGULAR, HUMAN 100 UNITS/ML SQ ONE (22:45)
[2017-11-21 23:17] LABS: ALANINE AMINOTRANSFERASE 21 U/L (12-78); ALBUMIN 3.3 g/dL (3.4-5.0); ALKALINE PHOSPHATASE 79 U/L (46-116); ANION GAP 7 mmol/L (8-16); ASPARTATE AMINOTRANSFERASE 14 U/L (15-37); BILIRUBIN,TOTAL 0.3 mg/dL (0.1-1.0); CALCIUM, TOTAL 8.6 mg/dL (8.8-10.5); CARBON DIOXIDE 31 mmol/L (22-29); CHLORIDE 98 mmol/L (98-107); GLOMERULAR FILTR. RATE CALC > 60 mL/min (>60); POTASSIUM 3.8 mmol/L (3.5-5.1); SODIUM SERUM 136 mmol/L (136-145); TOTAL PROTEIN, SERUM 6.5 g/dL (6.4-8.2); UREA NITROGEN, BLOOD 7 mg/dL (7-18)
[2017-11-21 23:23] LABS: GLUCOSE,POINT OF CARE 304 MG/DL (70-110)
[2017-11-21 23:24] LABS: GLUCOSE,RANDOM 413 mg/dL (70-110)
[2017-11-21 23:28] LABS: BASOPHILS % (AUTO) 0.3 % (0.0-2.0); EOSINOPHILS % (AUTO) 1.1 % (1.0-6.0); HEMATOCRIT 38.5 % (41-53); HEMOGLOBIN 13.4 g/dL (13.5-17.5); LYMPHOCYTES # (AUTO) 2.8 K/uL (1.0-4.8); LYMPHOCYTES % (AUTO) 42.9 % (22.0-44.0); MEAN CORPUSCULAR HEMOGLOBIN 31.1 pg (26.0-34.0); MEAN CORPUSCULAR HGB CONC 34.7 G/dL (31.0-37.0); MEAN CORPUSCULAR VOLUME 90 fL (80-100); MONOCYTES # (AUTO) 0.4 K/uL (0.1-1.0); MONOCYTES % (AUTO) 6.7 % (2.0-9.0); NEUTROPHILS # (AUTO) 3.2 K/uL (1.8-7.7); PLATELET COUNT (AUTO) 338 K/uL (150-450); RED CELL DISTRIBUTION WIDTH 13.9 % (11.5-14.5)
[2017-11-22 06:28] LABS: GLUCOSE,POINT OF CARE 187 MG/DL (70-110)
[2017-11-22 09:13] LABS: GLUCOSE,POINT OF CARE 322 MG/DL (70-110)
[2017-11-22 10:00] VITALS: BP 127/80
[2017-11-22 11:32] LABS: GLUCOSE,POINT OF CARE 371 MG/DL (70-110)
[2017-11-22] MEDS ORDERED: DEXTROSE 50%-WATER 25 GM/50 ML SYRINGE IVP PRN (13:15)
[2017-11-22] MEDS: INSULIN ASPART 100 UNITS/ML SQ PRN ×2 (13:43→17:40)
[2017-11-22 16:00] VITALS: BP 132/71
[2017-11-22] MEDS ORDERED: GLUCAGON,HUMAN RECOMBINANT 1 MG VIAL IM PRN (17:15)
[2017-11-22 17:37] VITALS: BP 132/92
[2017-11-22] MEDS: DIVALPROEX SODIUM 500 MG ER TABLET PO SCH (17:39)
[2017-11-22] MEDS: MetFORMIN HCL 500 MG TABLET PO SCH (17:39)
[2017-11-22 18:12] LABS: GLUCOMETER DEV NAME(LOC) BV3N5; GLUCOSE,POINT OF CARE 242 MG/DL (70-110)
[2017-11-22] MEDS: QUEtiapine FUMARATE 200 MG TABLET PO SCH (20:42)
[2017-11-22] MEDS: INSULIN DETEMIR 100 UNITS/ML SQ SCH (20:43)
[2017-11-23] MEDS: MetFORMIN HCL 500 MG TABLET PO SCH ×2 (07:37→16:42)
[2017-11-23] MEDS: QUEtiapine FUMARATE 200 MG TABLET PO SCH ×2 (08:47→20:24)
[2017-11-23] MEDS: DIVALPROEX SODIUM 500 MG ER TABLET PO SCH ×2 (08:47→16:42)
[2017-11-23 08:58] VITALS: BP 110/72
[2017-11-23 16:00] VITALS: BP 110/70
[2017-11-23] MEDS: HALOPERIDOL 5 MG TABLET PO PRN (16:42)
[2017-11-23] MEDS: LORazepam 2 MG TABLET PO PRN (16:42)
[2017-11-23] MEDS: INSULIN DETEMIR 100 UNITS/ML SQ SCH (20:31)
[2017-11-23] MEDS: ZOLPIDEM TARTRATE 10 MG TABLET PO PRN (20:52)
[2017-11-24] MEDS: MetFORMIN HCL 500 MG TABLET PO SCH ×2 (06:28→16:43)
[2017-11-24 08:00] VITALS: BP 108/66
[2017-11-24] MEDS: LORazepam 2 MG TABLET PO PRN (09:24)
[2017-11-24] MEDS: HALOPERIDOL 5 MG TABLET PO PRN (09:24)
[2017-11-24] MEDS: QUEtiapine FUMARATE 200 MG TABLET PO SCH ×2 (09:24→20:20)
[2017-11-24] MEDS: DIVALPROEX SODIUM 500 MG ER TABLET PO SCH ×2 (09:24→16:43)
[2017-11-24 16:10] VITALS: BP 111/70
[2017-11-24] MEDS: INSULIN DETEMIR 100 UNITS/ML SQ SCH (20:20)
[2017-11-24] MEDS: ZOLPIDEM TARTRATE 10 MG TABLET PO PRN (20:21)
[2017-11-25 05:27] VITALS: BP 118/74
[2017-11-25] MEDS: MetFORMIN HCL 500 MG TABLET PO SCH ×2 (06:32→16:51)
[2017-11-25 08:09] VITALS: BP 134/74
[2017-11-25] MEDS: DIVALPROEX SODIUM 500 MG ER TABLET PO SCH ×2 (08:53→16:52)
[2017-11-25] MEDS: QUEtiapine FUMARATE 200 MG TABLET PO SCH ×2 (08:53→20:52)
[2017-11-25 16:41] VITALS: BP 126/82
[2017-11-25] MEDS: LORazepam 2 MG TABLET PO PRN (16:52)
[2017-11-25] MEDS ORDERED: INSULIN ASPART 100 UNITS/ML SQ ONE (17:00)
[2017-11-25] MEDS ORDERED: INSULIN LISPRO PROTAM-LISPRO HUM 75/25 UNITS/ML SQ ONE (17:15)
[2017-11-25 17:28] LABS: GLUCOMETER DEV NAME(LOC) BV3N5; GLUCOSE,POINT OF CARE 438 MG/DL (70-110)
[2017-11-25 18:52] LABS: GLUCOMETER DEV NAME(LOC) BV3N5; GLUCOSE,POINT OF CARE 430 MG/DL (70-110)
[2017-11-25] MEDS: INSULIN DETEMIR 100 UNITS/ML SQ SCH (20:52)
[2017-11-26] MEDS: MetFORMIN HCL 500 MG TABLET PO SCH (06:41)
[2017-11-26 08:20] VITALS: BP 110/66
== END 2017-11-26 08:30 | disposition home or self-care (01) | DRG 885 ==
LOC: EMS 18:25 → AHU 11-22 08:33 → B3A 11-22 17:02
PROVIDERS: ADMIT Psychiatry & Neurology Psychiatry; ATTEND Psychiatry & Neurology Psychiatry
DX: F25.1 Schizoaffective disorder, depressive type (principal); E11.65 Type 2 diabetes mellitus with hyperglycemia; R45.851 Suicidal ideations; Z28.21 Immunization not carried out because of patient refusal; G47.00 Insomnia, unspecified; F19.10 Other psychoactive substance abuse, uncomplicated; J44.9 Chronic obstructive pulmonary disease, unspecified; K21.9 Gastro-esophageal reflux disease without esophagitis; K59.00 Constipation, unspecified; E55.9 Vitamin D deficiency, unspecified; F12.10 Cannabis abuse, uncomplicated; Z59.0 Homelessness; D64.9 Anemia, unspecified; F41.9 Anxiety disorder, unspecified; Z79.4 Long term (current) use of insulin; F17.210 Nicotine dependence, cigarettes, uncomplicated; Z91.19 Patient's noncompliance with other medical treatment and regimen; Z71.6 Tobacco abuse counseling; Z71.51 Drug abuse counseling and surveillance of drug abuser
CPT/HCPCS: 82962; 96372; 99285; G0480; J1815

== ENCOUNTER 2017-12-08 02:01 | Inpatient (IN) | payer MEDICARE, MEDICAID ==
[~2017-12-08] VITALS: Ht 188 cm; Wt 81.1 kg
[2017-12-08 00:42] LABS: GLUCOMETER DEV NAME(LOC) BV2S; GLUCOSE,POINT OF CARE 510 MG/DL (70-110)
[2017-12-08] MEDS ORDERED: INSULIN REGULAR, HUMAN 100 UNITS/ML IVP ONE (02:15)
[2017-12-08] MEDS ORDERED: SODIUM CHLORIDE 0.9% 1,000 ML IV ONE ×2 (02:15)
[2017-12-08 02:17] LABS: GLUCOSE,POINT OF CARE 531 MG/DL (70-110)
[2017-12-08 02:59] LABS: BASOPHILS # (AUTO) 0.08 K/uL (0.00-0.20); BASOPHILS % (AUTO) 1.3 % (0.0-2.0); EOSINOPHILS # (AUTO) 0.04 K/uL (0.00-0.70); EOSINOPHILS % (AUTO) 0.68 % (1.0-6.0); HEMATOCRIT 40.3 % (41-53); HEMOGLOBIN 13.6 g/dL (13.5-17.5); LYMPHOCYTES # (AUTO) 1.9 K/uL (1.0-4.8); LYMPHOCYTES % (AUTO) 31.9 % (22.0-44.0); MEAN CORPUSCULAR HGB CONC 33.8 G/dL (31.0-37.0); MEAN CORPUSCULAR VOLUME 92 fL (80-100); MONOCYTES # (AUTO) 0.4 K/uL (0.1-1.0); NEUTROPHILS # (AUTO) 3.6 K/uL (1.8-7.7); NEUTROPHILS % (AUTO) 60.1 % (40.0-70.0); PLATELET COUNT (AUTO) 271 K/uL (150-450); RED BLOOD CELL COUNT(AUTO) 4.39 MIL/uL (4.50-5.90); RED CELL DISTRIBUTION WIDTH 13.6 % (11.5-14.5)
[2017-12-08 03:16] LABS: ALANINE AMINOTRANSFERASE 32 U/L (12-78); ALBUMIN 3.7 g/dL (3.4-5.0); ALKALINE PHOSPHATASE 80 U/L (46-116); ANION GAP 6 mmol/L (8-16); ASPARTATE AMINOTRANSFERASE 23 U/L (15-37); BILIRUBIN,TOTAL 0.2 mg/dL (0.1-1.0); CALCIUM, TOTAL 8.8 mg/dL (8.8-10.5); CARBON DIOXIDE 28 mmol/L (22-29); CHLORIDE 95 mmol/L (98-107); CREATININE 1.21 mg/dL (0.60-1.30); GLOMERULAR FILTR. RATE CALC > 60 mL/min (>60); POTASSIUM 4.4 mmol/L (3.5-5.1); SODIUM SERUM 129 mmol/L (136-145); TOTAL PROTEIN, SERUM 7.3 g/dL (6.4-8.2); UREA NITROGEN, BLOOD 12 mg/dL (7-18)
[2017-12-08 03:17] LABS: GLUCOSE,RANDOM 553 mg/dL (70-110)
[2017-12-08 03:33] LABS: GLUCOSE,POINT OF CARE 237 MG/DL (70-110)
[2017-12-08] MEDS ORDERED: LORazepam 2 MG TABLET PO PRN (05:00)
[2017-12-08] MEDS ORDERED: HALOPERIDOL 5 MG TABLET PO PRN (05:00)
[2017-12-08] MEDS ORDERED: ZOLPIDEM TARTRATE 10 MG TABLET PO PRN (05:00)
[2017-12-08 05:07] LABS: GLUCOSE,POINT OF CARE 182 MG/DL (70-110)
[2017-12-08 05:56] VITALS: BP 137/84
[2017-12-08] MEDS ORDERED: PNEUMOCOCCAL VACCINE POLYVALENT 0.5 ML VIAL [PPSV23] IM ONE (06:30)
[2017-12-08 07:03] LABS: GLUCOMETER DEV NAME(LOC) BV2S; GLUCOSE,POINT OF CARE 224 MG/DL (70-110)
[2017-12-08] MEDS ORDERED: GLUCAGON,HUMAN RECOMBINANT 1 MG VIAL IM PRN (08:15)
[2017-12-08] MEDS ORDERED: INSULIN ASPART 100 UNITS/ML SQ PRN (08:15)
[2017-12-08] MEDS: QUEtiapine FUMARATE 200 MG TABLET PO SCH ×2 (11:30→20:28)
[2017-12-08] MEDS: MetFORMIN HCL 500 MG TABLET PO SCH (17:00)
[2017-12-08] MEDS ORDERED: INSULIN DETEMIR 100 UNITS/ML SQ SCH (21:00)
[2017-12-09] MEDS: MetFORMIN HCL 500 MG TABLET PO SCH (06:11)
[2017-12-09 08:45] VITALS: BP 139/69
[2017-12-09] MEDS: QUEtiapine FUMARATE 200 MG TABLET PO SCH (09:00)
== END 2017-12-09 12:33 | disposition home or self-care (01) | DRG 885 ==
LOC: BV PSY EVL 02:03 → B2X 03:55
PROVIDERS: ADMIT Psychiatry & Neurology Psychiatry; ATTEND Psychiatry & Neurology Psychiatry
DX: F25.0 Schizoaffective disorder, bipolar type (principal); E11.65 Type 2 diabetes mellitus with hyperglycemia; R45.851 Suicidal ideations; E87.1 Hypo-osmolality and hyponatremia; F17.210 Nicotine dependence, cigarettes, uncomplicated; Z28.21 Immunization not carried out because of patient refusal; F41.9 Anxiety disorder, unspecified; Z91.19 Patient's noncompliance with other medical treatment and regimen; F12.90 Cannabis use, unspecified, uncomplicated
CPT/HCPCS: 82962; 87081; 96361; 96374; 99285; G0480; J1815; J7030

== ENCOUNTER 2017-12-09 12:04 | Inpatient (IN) | payer MEDICARE, MEDICAID ==
[~2017-12-09] VITALS: Ht 188 cm; Wt 81.0 kg
[2017-12-09] MEDS ORDERED: GLUCAGON,HUMAN RECOMBINANT 1 MG VIAL IM PRN (14:30)
[2017-12-09] MEDS ORDERED: HALOPERIDOL 5 MG TABLET PO PRN (14:30)
[2017-12-09] MEDS ORDERED: INSULIN ASPART 100 UNITS/ML SQ PRN (14:30)
[2017-12-09] MEDS ORDERED: LORazepam 2 MG TABLET PO PRN (14:30)
[2017-12-09] MEDS ORDERED: ZOLPIDEM TARTRATE 10 MG TABLET PO PRN (14:30)
[2017-12-09] MEDS ORDERED: PNEUMOCOCCAL VACCINE POLYVALENT 0.5 ML VIAL [PPSV23] IM ONE (18:00)
[2017-12-09] MEDS ORDERED: INFLUENZA VIRUS VACCINE QVS 2017-18 (3YR+)/PF 60 MCG/0.5 ML SYRINGE IM ONE (18:00)
[2017-12-09] MEDS: QUEtiapine FUMARATE 300 MG TABLET PO SCH (20:39)
[2017-12-09] MEDS: INSULIN DETEMIR 100 UNITS/ML SQ SCH (20:40)
[2017-12-09] MEDS ORDERED: QUEtiapine FUMARATE 200 MG TABLET PO SCH (21:00)
[2017-12-09 21:28] VITALS: BP 124/72
[2017-12-10] MEDS: MetFORMIN HCL 500 MG TABLET PO SCH ×2 (06:58→16:56)
[2017-12-10] MEDS: QUEtiapine FUMARATE 300 MG TABLET PO SCH (08:21)
[2017-12-10 17:49] VITALS: BP 110/76
[2017-12-10] MEDS: INSULIN DETEMIR 100 UNITS/ML SQ SCH (21:00)
[2017-12-10] MEDS ORDERED: QUEtiapine FUMARATE 300 MG TABLET PO SCH (21:00)
[2017-12-11 05:43] VITALS: BP 121/68
[2017-12-11] MEDS: MetFORMIN HCL 500 MG TABLET PO SCH (07:12)
[2017-12-11 08:36] VITALS: BP 116/79
[2017-12-11] MEDS ORDERED: QUEtiapine FUMARATE 200 MG TABLET PO SCH (09:00)
[2017-12-11] MEDS ORDERED: QUET300T2 PO (12:32)
[2017-12-11] MEDS ORDERED: QUET200T PO (12:34)
[2017-12-11] MEDS ORDERED: DIVA500T35 PO (13:14)
== END 2017-12-11 12:30 | disposition home or self-care (01) | DRG 885 ==
LOC: B2S 17:31
PROVIDERS: ADMIT Psychiatry & Neurology Psychiatry; ATTEND Psychiatry & Neurology Psychiatry
PROC: 3E0234Z Introduction of Serum, Toxoid and Vaccine into Muscle, Percutaneous Approach (ICD-10-PCS; principal; 2017-12-09)
DX: F25.0 Schizoaffective disorder, bipolar type (principal); F29 Unspecified psychosis not due to a substance or known physiological condition; R45.851 Suicidal ideations; F19.90 Other psychoactive substance use, unspecified, uncomplicated; F41.9 Anxiety disorder, unspecified; Z91.19 Patient's noncompliance with other medical treatment and regimen; Z23 Encounter for immunization

== ENCOUNTER 2017-12-21 23:03 | Inpatient (IN) | payer MEDICARE, MEDICAID ==
[~2017-12-21] VITALS: Ht 188 cm; Wt 80.3 kg
[~2017-12-21 23:03] MED LIST changes: +QUET300T2 PO
[2017-12-21] MEDS ORDERED: ZOLPIDEM TARTRATE 10 MG TABLET PO PRN (23:30)
[2017-12-21] MEDS ORDERED: LORazepam 2 MG TABLET PO PRN (23:30)
[2017-12-21 23:48] VITALS: BP 146/88
[2017-12-22] MEDS ORDERED: SODIUM CHLORIDE 0.9% 1,000 ML IV ONE ×2 (01:00→02:00)
[2017-12-22 01:38] LABS: BASOPHILS % (AUTO) 0.4 % (0.0-2.0); EOSINOPHILS % (AUTO) 1.7 % (1.0-6.0); HEMATOCRIT 43.1 % (41-53); HEMOGLOBIN 14.9 g/dL (13.5-17.5); LYMPHOCYTES # (AUTO) 1.7 K/uL (1.0-4.8); LYMPHOCYTES % (AUTO) 33.5 % (22.0-44.0); MEAN CORPUSCULAR HEMOGLOBIN 30.8 pg (26.0-34.0); MEAN CORPUSCULAR HGB CONC 34.5 G/dL (31.0-37.0); MEAN CORPUSCULAR VOLUME 89 fL (80-100); MONOCYTES # (AUTO) 0.2 K/uL (0.1-1.0); MONOCYTES % (AUTO) 4.4 % (2.0-9.0); NEUTROPHILS # (AUTO) 3.1 K/uL (1.8-7.7); PLATELET COUNT (AUTO) 336 K/uL (150-450); RED BLOOD CELL COUNT(AUTO) 4.83 MIL/uL (4.50-5.90); RED CELL DISTRIBUTION WIDTH 13.2 % (11.5-14.5)
[2017-12-22 01:53] LABS: ALANINE AMINOTRANSFERASE 24 U/L (12-78); ALBUMIN 3.8 g/dL (3.4-5.0); ALKALINE PHOSPHATASE 81 U/L (46-116); ANION GAP 8 mmol/L (8-16); ASPARTATE AMINOTRANSFERASE 15 U/L (15-37); BILIRUBIN,TOTAL 0.2 mg/dL (0.1-1.0); CARBON DIOXIDE 27 mmol/L (22-29); CHLORIDE 96 mmol/L (98-107); CREATININE 1.17 mg/dL (0.60-1.30); GLOMERULAR FILTR. RATE CALC > 60 mL/min (>60); POTASSIUM 4.3 mmol/L (3.5-5.1); SODIUM SERUM 131 mmol/L (136-145); TOTAL PROTEIN, SERUM 7.3 g/dL (6.4-8.2); UREA NITROGEN, BLOOD 12 mg/dL (7-18)
[2017-12-22 01:56] LABS: GLUCOSE,RANDOM 594 mg/dL (70-110)
[2017-12-22] MEDS ORDERED: INSULIN REGULAR, HUMAN 100 UNITS/ML IVP ONE ×2 (02:15→06:00)
[2017-12-22] MEDS ORDERED: PNEUMOCOCCAL VACCINE POLYVALENT 0.5 ML VIAL [PPSV23] IM ONE (06:15)
[2017-12-22] MEDS ORDERED: INFLUENZA VIRUS VACCINE QVS 2017-18 (3YR+)/PF 60 MCG/0.5 ML SYRINGE IM ONE (06:15)
[2017-12-22 07:02] LABS: GLUCOSE,POINT OF CARE 205 MG/DL (70-110)
[2017-12-22 07:02] LABS: GLUCOSE,POINT OF CARE 375 MG/DL (70-110)
[2017-12-22 08:30] VITALS: BP 133/63
[2017-12-22] MEDS ORDERED: GLUCAGON,HUMAN RECOMBINANT 1 MG VIAL IM PRN ×2 (09:15→10:00)
[2017-12-22] MEDS ORDERED: INSULIN REGULAR, HUMAN 100 UNITS/ML SQ PRN (10:00)
[2017-12-22 10:57] LABS: GLUCOMETER DEV NAME(LOC) BV3N5; GLUCOSE,POINT OF CARE 258 MG/DL (70-110)
[2017-12-22] MEDS: MetFORMIN HCL 500 MG TABLET PO SCH (16:46)
[2017-12-22] MEDS: QUEtiapine FUMARATE 300 MG TABLET PO SCH (20:20)
[2017-12-22] MEDS: INSULIN DETEMIR 100 UNITS/ML SQ SCH (20:20)
[2017-12-23 05:56] VITALS: BP 122/87
[2017-12-23] MEDS: MetFORMIN HCL 500 MG TABLET PO SCH ×2 (06:22→17:05)
[2017-12-23] MEDS: QUEtiapine FUMARATE 200 MG TABLET PO SCH (08:34)
[2017-12-23 09:16] VITALS: BP 110/69
[2017-12-23 16:09] VITALS: BP 131/73
[2017-12-23] MEDS: INSULIN DETEMIR 100 UNITS/ML SQ SCH (20:48)
[2017-12-23] MEDS: QUEtiapine FUMARATE 300 MG TABLET PO SCH (20:49)
[2017-12-24] MEDS: MetFORMIN HCL 500 MG TABLET PO SCH ×2 (06:25→17:33)
[2017-12-24 08:16] VITALS: BP 112/63
[2017-12-24] MEDS: QUEtiapine FUMARATE 200 MG TABLET PO SCH (09:04)
[2017-12-24 16:00] VITALS: BP 116/70
[2017-12-24] MEDS: QUEtiapine FUMARATE 300 MG TABLET PO SCH (20:49)
[2017-12-24] MEDS: INSULIN DETEMIR 100 UNITS/ML SQ SCH (21:00)
[2017-12-25] MEDS: MetFORMIN HCL 500 MG TABLET PO SCH ×2 (06:36→17:29)
[2017-12-25 07:10] VITALS: BP 109/69
[2017-12-25 08:39] VITALS: BP 99/61
[2017-12-25] MEDS: FLUoxetine HCL 20 MG CAPSULE PO SCH (09:32)
[2017-12-25] MEDS: QUEtiapine FUMARATE 200 MG TABLET PO SCH (09:32)
[2017-12-25 16:00] VITALS: BP 112/70
[2017-12-25] MEDS: INSULIN DETEMIR 100 UNITS/ML SQ SCH (21:00)
[2017-12-25] MEDS: QUEtiapine FUMARATE 300 MG TABLET PO SCH (21:00)
[2017-12-26 05:46] VITALS: BP 115/72
[2017-12-26] MEDS: MetFORMIN HCL 500 MG TABLET PO SCH ×2 (06:50→17:16)
[2017-12-26 09:30] VITALS: BP 113/73
[2017-12-26] MEDS: LinaGLIPtin 5 MG TABLET PO SCH (10:09)
[2017-12-26] MEDS: FLUoxetine HCL 20 MG CAPSULE PO SCH (10:09)
[2017-12-26] MEDS: QUEtiapine FUMARATE 200 MG TABLET PO SCH (10:09)
[2017-12-26] MEDS: INSULIN DETEMIR 100 UNITS/ML SQ SCH (21:00)
[2017-12-26] MEDS: QUEtiapine FUMARATE 300 MG TABLET PO SCH (21:02)
[2017-12-27] MEDS: MetFORMIN HCL 500 MG TABLET PO SCH (06:29)
[2017-12-27] MEDS ORDERED: LINA5TAB PO (08:02)
[2017-12-27] MEDS ORDERED: FLUO20SO2 PO ×2 (08:07→08:08)
[2017-12-27] MEDS ORDERED: FLUO10TA3 PO (08:10)
[2017-12-27] MEDS: LinaGLIPtin 5 MG TABLET PO SCH (08:43)
[2017-12-27] MEDS: FLUoxetine HCL 20 MG CAPSULE PO SCH (08:43)
[2017-12-27] MEDS: QUEtiapine FUMARATE 200 MG TABLET PO SCH (08:43)
== END 2017-12-27 13:38 | disposition home or self-care (01) | DRG 885 ==
LOC: EDSTATUS 23:03 → BV PSY EVL 12-22 00:45 → B3A 12-22 06:01
PROVIDERS: ADMIT Psychiatry & Neurology Psychiatry; ATTEND Psychiatry & Neurology Psychiatry
PROC: 3E0234Z Introduction of Serum, Toxoid and Vaccine into Muscle, Percutaneous Approach (ICD-10-PCS; principal; 2017-12-22)
DX: F20.0 Paranoid schizophrenia (principal); E11.65 Type 2 diabetes mellitus with hyperglycemia; I95.9 Hypotension, unspecified; R45.851 Suicidal ideations; E87.1 Hypo-osmolality and hyponatremia; F29 Unspecified psychosis not due to a substance or known physiological condition; Z91.19 Patient's noncompliance with other medical treatment and regimen; F12.90 Cannabis use, unspecified, uncomplicated; F41.9 Anxiety disorder, unspecified; F17.210 Nicotine dependence, cigarettes, uncomplicated; Z79.84 Long term (current) use of oral hypoglycemic drugs; Z23 Encounter for immunization
CPT/HCPCS: 82962; 87081; G0480; J1815; J7030

== ENCOUNTER 2018-03-03 16:57 | Inpatient (IN) | payer MEDICARE, MEDICAID ==
[~2018-03-03] VITALS: Ht 188 cm; Wt 75.6 kg
[~2018-03-03 16:57] MED LIST changes: -DIVA500T35 PO; +INSLAN SQ; -INSU100V12 SQ; +LINA5TAB PO
[2018-03-03 17:18] LABS: GLUCOSE,POINT OF CARE 414 MG/DL (70-110)
[2018-03-03 17:45] LABS: AMPHET/METH SCREEN,URINE NEGATIVE (NEGATIVE); BARBITURATE SCREEN, URINE NEGATIVE (NEGATIVE); BENZODIAZEPINES SCREEN,URINE NEGATIVE (NEGATIVE); CANNABINOID SCREEN,URINE POSITIVE (NEGATIVE); COCAINE SCREEN,URINE NEGATIVE (NEGATIVE); METHADONE SCREEN, URINE NEGATIVE (NEGATIVE); OPIATE SCREEN,URINE NEGATIVE (NEGATIVE)
[2018-03-03 17:46] LABS: EOSINOPHILS % (AUTO) 0.7 % (1.0-6.0); HEMATOCRIT 41.3 % (41-53); HEMOGLOBIN 14.3 g/dL (13.5-17.5); LYMPHOCYTES # (AUTO) 1.8 K/uL (1.0-4.8); LYMPHOCYTES % (AUTO) 27.3 % (22.0-44.0); MEAN CORPUSCULAR HEMOGLOBIN 30.3 pg (26.0-34.0); MEAN CORPUSCULAR HGB CONC 34.6 G/dL (31.0-37.0); MEAN CORPUSCULAR VOLUME 88 fL (80-100); MONOCYTES # (AUTO) 0.4 K/uL (0.1-1.0); MONOCYTES % (AUTO) 6.6 % (2.0-9.0); NEUTROPHILS # (AUTO) 4.4 K/uL (1.8-7.7); NEUTROPHILS % (AUTO) 64.4 % (40.0-70.0); PLATELET COUNT (AUTO) 371 K/uL (150-450); RED BLOOD CELL COUNT(AUTO) 4.72 MIL/uL (4.50-5.90); RED CELL DISTRIBUTION WIDTH 13.5 % (11.5-14.5)
[2018-03-03 17:48] LABS: PHENCYCLIDINE SCREEN,URINE NEGATIVE (NEGATIVE)
[2018-03-03 18:06] LABS: ALANINE AMINOTRANSFERASE 21 U/L (12-78); ALBUMIN 3.9 g/dL (3.4-5.0); ALKALINE PHOSPHATASE 99 U/L (46-116); ANION GAP 8 mmol/L (8-16); ASPARTATE AMINOTRANSFERASE 18 U/L (15-37); BILIRUBIN,TOTAL 0.3 mg/dL (0.1-1.0); CALCIUM, TOTAL 9.4 mg/dL (8.8-10.5); CARBON DIOXIDE 30 mmol/L (22-29); CHLORIDE 99 mmol/L (98-107); CREATININE 1.04 mg/dL (0.60-1.30); GLOMERULAR FILTR. RATE CALC > 60 mL/min (>60); POTASSIUM 4.2 mmol/L (3.5-5.1); SODIUM SERUM 137 mmol/L (136-145); TOTAL PROTEIN, SERUM 7.6 g/dL (6.4-8.2); UREA NITROGEN, BLOOD 11 mg/dL (7-18)
[2018-03-03 18:12] LABS: GLUCOSE,RANDOM 410 mg/dL (70-110)
[2018-03-03] MEDS ORDERED: SODIUM CHLORIDE 0.9% 1,000 ML IV ONE (18:30)
[2018-03-03] MEDS ORDERED: INSULIN REGULAR, HUMAN 100 UNITS/ML IVP ONE (18:30)
[2018-03-03] MEDS ORDERED: QUEtiapine FUMARATE 100 MG TABLET PO ONE (18:45)
[2018-03-03] MEDS ORDERED: ZOLPIDEM TARTRATE 10 MG TABLET PO PRN (19:30)
[2018-03-03] MEDS ORDERED: HALOPERIDOL 5 MG TABLET PO PRN (19:30)
[2018-03-03] MEDS ORDERED: MetFORMIN HCL 500 MG ER TABLET PO ONE (19:30)
[2018-03-03 19:55] LABS: APPEARANCE,URINE CLEAR (CLEAR); BILIRUBIN,URINE NEGATIVE (NEGATIVE); GLUCOSE, URINE (UA) >=1000 mg/dL (NEGATIVE); KETONES,URINE NEGATIVE (NEGATIVE); LEUKOCYTE ESTERASE ,URINE NEGATIVE (NEGATIVE); NITRATE,URINE NEGATIVE (NEGATIVE); OCCULT BLOOD,URINE NEGATIVE (NEGATIVE); PROTEIN,URINE NEGATIVE (NEGATIVE)
[2018-03-03 20:07] LABS: GLUCOSE,POINT OF CARE 178 MG/DL (70-110)
[2018-03-03 20:15] LABS: RBC,URINE 0-2 /HPF (0-2); SQUAMOUS EPITHELIAL CELL,UR Rare /LPF (None Seen)
[2018-03-03 20:16] LABS: BACTERIA,URINE None Seen /HPF (None Seen); WBC,URINE 0-2 /HPF (0-5)
[2018-03-03] MEDS ORDERED: QUEtiapine FUMARATE 300 MG TABLET PO SCH (21:00)
[2018-03-04 01:08] LABS: GLUCOMETER DEV NAME(LOC) BV3N5; GLUCOSE,POINT OF CARE 209 MG/DL (70-110)
[2018-03-04 01:14] VITALS: BP 123/80
[2018-03-04 08:10] VITALS: BP 118/70
[2018-03-04] MEDS: QUEtiapine FUMARATE 200 MG TABLET PO SCH (10:04)
[2018-03-04 16:31] VITALS: BP 111/97
[2018-03-04] MEDS: LORazepam 2 MG TABLET PO PRN (16:50)
[2018-03-04] MEDS: ZIPRASIDONE HCL 40 MG CAPSULE PO SCH (16:50)
[2018-03-04] MEDS ORDERED: INSULIN LISPRO 100 UNITS/ML SQ PRN (17:45)
[2018-03-04] MEDS ORDERED: GLUCAGON,HUMAN RECOMBINANT 1 MG VIAL IM PRN (17:45)
[2018-03-04] MEDS ORDERED: QUEtiapine FUMARATE 300 MG TABLET PO SCH (21:00)
[2018-03-05] MEDS: ZIPRASIDONE HCL 40 MG CAPSULE PO SCH ×2 (06:23→16:50)
[2018-03-05 08:36] VITALS: BP 107/79
[2018-03-05] MEDS: LinaGLIPtin 5 MG TABLET PO SCH (09:59)
[2018-03-05] MEDS: QUEtiapine FUMARATE 200 MG TABLET PO SCH (09:59)
[2018-03-05 16:00] VITALS: BP 139/89
[2018-03-05] MEDS: LORazepam 2 MG TABLET PO PRN (16:51)
[2018-03-06] MEDS: ZIPRASIDONE HCL 40 MG CAPSULE PO SCH ×2 (07:00→16:07)
[2018-03-06 08:08] VITALS: BP 109/69
[2018-03-06] MEDS: LinaGLIPtin 5 MG TABLET PO SCH (09:00)
[2018-03-06 16:05] VITALS: BP 109/64
[2018-03-06] MEDS: MetFORMIN HCL 500 MG TABLET PO SCH (16:07)
[2018-03-06] MEDS: LORazepam 2 MG TABLET PO PRN (16:07)
[2018-03-06] MEDS ORDERED: INSULIN LISPRO 100 UNITS/ML SQ PRN ×2 (17:00→17:15)
[2018-03-06 17:23] LABS: GLUCOMETER DEV NAME(LOC) BV3N5; GLUCOSE,POINT OF CARE 593 MG/DL (70-110)
[2018-03-06] MEDS ORDERED: INSULIN GLARGINE,HUM.REC.ANLOG 100 UNITS/ML SQ SCH (21:00)
[2018-03-07] MEDS: MetFORMIN HCL 500 MG TABLET PO SCH (06:20)
[2018-03-07] MEDS: ZIPRASIDONE HCL 40 MG CAPSULE PO SCH (06:20)
[2018-03-07 06:33] VITALS: BP 109/77
[2018-03-07 08:41] VITALS: BP 107/74
[2018-03-07] MEDS: LinaGLIPtin 5 MG TABLET PO SCH (08:54)
[2018-03-07] MEDS ORDERED: ZIPR40CA2 PO (09:13)
[2018-03-07] MEDS ORDERED: METF500T4 PO (09:17)
== END 2018-03-07 13:25 | disposition home or self-care (01) | DRG 885 ==
LOC: EMS 17:01 → B3A 23:35
PROVIDERS: ADMIT Psychiatry & Neurology Psychiatry; ATTEND Psychiatry & Neurology Psychiatry
DX: F25.0 Schizoaffective disorder, bipolar type (principal); E11.65 Type 2 diabetes mellitus with hyperglycemia; R45.851 Suicidal ideations; D64.9 Anemia, unspecified; E66.9 Obesity, unspecified; F17.210 Nicotine dependence, cigarettes, uncomplicated; F12.90 Cannabis use, unspecified, uncomplicated; F32.9 Major depressive disorder, single episode, unspecified; F41.9 Anxiety disorder, unspecified; J44.9 Chronic obstructive pulmonary disease, unspecified; N39.44 Nocturnal enuresis; Z59.0 Homelessness; Z79.4 Long term (current) use of insulin; Z68.21 Body mass index [BMI] 21.0-21.9, adult; Z91.14 Patient's other noncompliance with medication regimen; Z79.899 Other long term (current) drug therapy
CPT/HCPCS: 82962; 87081; 96361; 96374; 99285; J1815; J7030

== ENCOUNTER 2018-03-13 21:32 | Inpatient (IN) | payer MEDICARE, MEDICAID ==
[~2018-03-13] VITALS: Ht 188 cm; Wt 78.0 kg
[~2018-03-13 21:32] MED LIST changes: -INSLAN SQ; -QUET200T PO; -QUET300T2 PO; +ZIPR40CA2 PO
[2018-03-14 04:52] VITALS: BP 140/84
[2018-03-14] MEDS ORDERED: INSULIN GLARGINE,HUM.REC.ANLOG 100 UNITS/ML SQ ONE (05:00)
[2018-03-14] MEDS ORDERED: GLUCAGON,HUMAN RECOMBINANT 1 MG VIAL IM PRN (05:00)
[2018-03-14] MEDS: INSULIN LISPRO 100 UNITS/ML SQ PRN ×2 (05:30→12:24)
[2018-03-14 05:31] VITALS: BP 129/92
[2018-03-14] MEDS ORDERED: PNEUMOCOCCAL VACCINE POLYVALENT 0.5 ML VIAL [PPSV23] IM ONE (06:15)
[2018-03-14] MEDS: MetFORMIN HCL 500 MG TABLET PO SCH ×2 (06:25→17:09)
[2018-03-14 08:03] VITALS: BP 118/74
[2018-03-14 12:07] LABS: GLUCOMETER DEV NAME(LOC) BV3N5; GLUCOSE,POINT OF CARE 442 MG/DL (70-110)
[2018-03-14] MEDS: LORazepam 2 MG TABLET PO PRN ×2 (12:41→17:09)
[2018-03-14] MEDS: HALOPERIDOL 5 MG TABLET PO PRN (12:41)
[2018-03-14] MEDS: LinaGLIPtin 5 MG TABLET PO SCH (15:02)
[2018-03-14 16:20] VITALS: BP 140/79
[2018-03-14] MEDS: ZIPRASIDONE HCL 40 MG CAPSULE PO SCH (17:09)
[2018-03-14] MEDS ORDERED: INSULIN GLARGINE,HUM.REC.ANLOG 100 UNITS/ML SQ SCH ×2 (21:00)
[2018-03-15] MEDS: ZIPRASIDONE HCL 40 MG CAPSULE PO SCH ×2 (06:34→16:37)
[2018-03-15] MEDS: MetFORMIN HCL 500 MG TABLET PO SCH ×2 (06:34→16:37)
[2018-03-15] MEDS ORDERED: LORazepam 2 MG/ML VIAL ONE (07:48)
[2018-03-15] MEDS ORDERED: HALOPERIDOL LACTATE 5 MG/ML VIAL ONE (07:49)
[2018-03-15] MEDS ORDERED: DiphenhydrAMINE HCL 50 MG/ML VIAL ONE (07:49)
[2018-03-15] MEDS ORDERED: DiphenhydrAMINE HCL 50 MG/ML VIAL IM ONE (08:00)
[2018-03-15] MEDS ORDERED: LORazepam 2 MG/ML VIAL IM ONE (08:00)
[2018-03-15] MEDS ORDERED: HALOPERIDOL LACTATE 5 MG/ML VIAL IM ONE (08:00)
[2018-03-15] MEDS: LinaGLIPtin 5 MG TABLET PO SCH (08:33)
[2018-03-15 08:44] VITALS: BP 105/60
[2018-03-15] MEDS: INSULIN LISPRO 100 UNITS/ML SQ PRN (11:47)
[2018-03-15 14:52] LABS: GLUCOMETER DEV NAME(LOC) BV3N5; GLUCOSE,POINT OF CARE 391 MG/DL (70-110)
[2018-03-15 14:52] LABS: GLUCOMETER DEV NAME(LOC) BV3N5; GLUCOSE,POINT OF CARE 42 MG/DL (70-110)
[2018-03-15] MEDS ORDERED: INSULIN LISPRO 100 UNITS/ML SQ PRN (15:15)
[2018-03-15] MEDS ORDERED: GLUCAGON,HUMAN RECOMBINANT 1 MG VIAL IM PRN (15:15)
[2018-03-15 15:22] LABS: GLUCOMETER DEV NAME(LOC) BV3N5; GLUCOSE,POINT OF CARE 120 MG/DL (70-110)
[2018-03-15 16:02] VITALS: BP 106/68
[2018-03-15 17:08] LABS: GLUCOMETER DEV NAME(LOC) BV3N5; GLUCOSE,POINT OF CARE 233 MG/DL (70-110)
[2018-03-15] MEDS: HALOPERIDOL 5 MG TABLET PO PRN (17:19)
[2018-03-15] MEDS: LORazepam 2 MG TABLET PO PRN (17:19)
[2018-03-15] MEDS: INSULIN GLARGINE,HUM.REC.ANLOG 100 UNITS/ML SQ SCH (21:00)
[2018-03-16] MEDS: MetFORMIN HCL 500 MG TABLET PO SCH ×2 (06:18→16:32)
[2018-03-16] MEDS: ZIPRASIDONE HCL 40 MG CAPSULE PO SCH ×2 (06:18→16:32)
[2018-03-16] MEDS: LinaGLIPtin 5 MG TABLET PO SCH (08:39)
[2018-03-16 16:23] VITALS: BP 146/73
[2018-03-16] MEDS: LORazepam 2 MG TABLET PO PRN (16:32)
[2018-03-16] MEDS: HALOPERIDOL 5 MG TABLET PO PRN (16:32)
[2018-03-16] MEDS: INSULIN GLARGINE,HUM.REC.ANLOG 100 UNITS/ML SQ SCH (20:57)
[2018-03-16] MEDS: ZOLPIDEM TARTRATE 10 MG TABLET PO PRN (20:57)
[2018-03-17] MEDS: ZIPRASIDONE HCL 40 MG CAPSULE PO SCH (06:26)
[2018-03-17] MEDS: MetFORMIN HCL 500 MG TABLET PO SCH ×2 (06:27→16:38)
[2018-03-17] MEDS: LinaGLIPtin 5 MG TABLET PO SCH (08:03)
[2018-03-17 08:04] VITALS: BP 114/74
[2018-03-17 16:18] VITALS: BP 105/69
[2018-03-17] MEDS: MUPIROCIN CALCIUM 2% 22 GM OINTMENT NASAL SCH (16:38)
[2018-03-17] MEDS: LORazepam 2 MG TABLET PO PRN (16:38)
[2018-03-17] MEDS: HALOPERIDOL 5 MG TABLET PO PRN (16:38)
[2018-03-17] MEDS: ZIPRASIDONE HCL 60 MG CAPSULE PO SCH (16:38)
[2018-03-17] MEDS ORDERED: MUPIROCIN CALCIUM 2% 22 GM OINTMENT NASAL SCH (17:00)
[2018-03-17] MEDS: INSULIN GLARGINE,HUM.REC.ANLOG 100 UNITS/ML SQ SCH (20:15)
[2018-03-17] MEDS: ZOLPIDEM TARTRATE 10 MG TABLET PO PRN (20:15)
[2018-03-18 05:32] VITALS: BP 112/70
[2018-03-18] MEDS: MetFORMIN HCL 500 MG TABLET PO SCH ×2 (06:30→16:34)
[2018-03-18] MEDS: ZIPRASIDONE HCL 60 MG CAPSULE PO SCH ×2 (06:30→16:34)
[2018-03-18 08:03] VITALS: BP 111/70
[2018-03-18] MEDS: LinaGLIPtin 5 MG TABLET PO SCH (08:39)
[2018-03-18] MEDS: MUPIROCIN CALCIUM 2% 22 GM OINTMENT NASAL SCH ×2 (08:39→16:35)
[2018-03-18] MEDS: LORazepam 2 MG TABLET PO PRN (08:39)
[2018-03-18 16:11] VITALS: BP 114/78
[2018-03-18] MEDS ORDERED: ZIPR60CA2 PO (16:23)
[2018-03-18] MEDS ORDERED: LINA5TAB PO (16:24)
[2018-03-18] MEDS ORDERED: METF500T4 PO (16:25)
== END 2018-03-18 16:45 | disposition home or self-care (01) | DRG 885 ==
LOC: B3A 03-14 04:59
PROVIDERS: ADMIT Psychiatry & Neurology Psychiatry; ATTEND Psychiatry & Neurology Psychiatry
DX: F25.0 Schizoaffective disorder, bipolar type (principal); E11.649 Type 2 diabetes mellitus with hypoglycemia without coma; R45.851 Suicidal ideations; E11.65 Type 2 diabetes mellitus with hyperglycemia; F41.9 Anxiety disorder, unspecified; F29 Unspecified psychosis not due to a substance or known physiological condition; D64.9 Anemia, unspecified; F10.10 Alcohol abuse, uncomplicated; F12.90 Cannabis use, unspecified, uncomplicated; Z59.0 Homelessness; Z22.322 Carrier or suspected carrier of Methicillin resistant Staphylococcus aureus; Z79.4 Long term (current) use of insulin; Z91.19 Patient's noncompliance with other medical treatment and regimen
CPT/HCPCS: 82962; 87081; 99285; J1200; J1630; J1815; J2060

== ENCOUNTER 2018-04-08 12:14 | Emergency (ER) | payer MEDICARE, OTHER ==
[~2018-04-08] VITALS: Ht 188 cm; Wt 81.8 kg
[~2018-04-08 12:14] MED LIST changes: -METF500T4 PO; +METF500T6 PO; -ZIPR40CA2 PO; +ZIPR60CA2 PO
[2018-04-08] MEDS ORDERED: INSLAN SQ (13:02)
[2018-04-08] MEDS ORDERED: SODIUM CHLORIDE 0.9% 1,000 ML IV ONE ×2 (13:45→14:45)
[2018-04-08 14:12] LABS: AMPHET/METH SCREEN,URINE NEGATIVE (NEGATIVE); BARBITURATE SCREEN, URINE NEGATIVE (NEGATIVE); BENZODIAZEPINES SCREEN,URINE NEGATIVE (NEGATIVE); CANNABINOID SCREEN,URINE NEGATIVE (NEGATIVE); COCAINE SCREEN,URINE NEGATIVE (NEGATIVE); METHADONE SCREEN, URINE NEGATIVE (NEGATIVE); OPIATE SCREEN,URINE NEGATIVE (NEGATIVE); PHENCYCLIDINE SCREEN,URINE NEGATIVE (NEGATIVE)
[2018-04-08 14:21] LABS: BASOPHILS % (AUTO) 0.4 % (0.0-2.0); EOSINOPHILS % (AUTO) 0.5 % (1.0-6.0); HEMATOCRIT 40.2 % (41-53); HEMOGLOBIN 14.1 g/dL (13.5-17.5); LYMPHOCYTES # (AUTO) 1.6 K/uL (1.0-4.8); LYMPHOCYTES % (AUTO) 26.5 % (22.0-44.0); MEAN CORPUSCULAR HEMOGLOBIN 31.5 pg (26.0-34.0); MEAN CORPUSCULAR VOLUME 90 fL (80-100); MONOCYTES # (AUTO) 0.3 K/uL (0.1-1.0); MONOCYTES % (AUTO) 4.6 % (2.0-9.0); PLATELET COUNT (AUTO) 365 K/uL (150-450); RED BLOOD CELL COUNT(AUTO) 4.46 MIL/uL (4.50-5.90); RED CELL DISTRIBUTION WIDTH 13.7 % (11.5-14.5)
[2018-04-08 14:31] LABS: APPEARANCE,URINE CLEAR (CLEAR); GLUCOSE, URINE (UA) >=1000 mg/dL (NEGATIVE); PH,URINE 5.5 (5.0-8.0); PROTEIN,URINE NEGATIVE (NEGATIVE)
[2018-04-08 14:32] LABS: BILIRUBIN,URINE NEGATIVE (NEGATIVE); KETONES,URINE 15 mg/dL (NEGATIVE); LEUKOCYTE ESTERASE ,URINE NEGATIVE (NEGATIVE); NITRATE,URINE NEGATIVE (NEGATIVE); OCCULT BLOOD,URINE NEGATIVE (NEGATIVE); UROBILINOGEN,URINE 0.2 mg/dL (<=1.0)
[2018-04-08] MEDS ORDERED: LORazepam 2 MG TABLET PO ONE (14:45)
[2018-04-08] MEDS ORDERED: HALOPERIDOL 5 MG TABLET PO ONE (14:45)
[2018-04-08] MEDS ORDERED: AMOX TR/POT CLAV 875 MG/125 MG TABLET PO ONE (14:45)
[2018-04-08 14:49] LABS: ALANINE AMINOTRANSFERASE 23 U/L (12-78); ALBUMIN 3.4 g/dL (3.4-5.0); ALKALINE PHOSPHATASE 108 U/L (46-116); ANION GAP 8 mmol/L (8-16); ASPARTATE AMINOTRANSFERASE 16 U/L (15-37); BILIRUBIN,TOTAL 0.2 mg/dL (0.1-1.0); CALCIUM, TOTAL 8.5 mg/dL (8.8-10.5); CARBON DIOXIDE 28 mmol/L (22-29); CHLORIDE 96 mmol/L (98-107); CREATININE 1.04 mg/dL (0.60-1.30); GLOMERULAR FILTR. RATE CALC > 60 mL/min (>60); POTASSIUM 4.1 mmol/L (3.5-5.1); SODIUM SERUM 132 mmol/L (136-145); TOTAL PROTEIN, SERUM 7.1 g/dL (6.4-8.2); UREA NITROGEN, BLOOD 12 mg/dL (7-18)
[2018-04-08 14:53] LABS: GLUCOSE,RANDOM 518 mg/dL (70-110)
[2018-04-08] MEDS ORDERED: INSULIN REGULAR, HUMAN 100 UNITS/ML IVP ONE (15:00)
[2018-04-08 15:54] LABS: BACTERIA,URINE None Seen /HPF (None Seen); RBC,URINE 0-2 /HPF (0-2); SQUAMOUS EPITHELIAL CELL,UR Rare /LPF (None Seen); WBC,URINE 0-2 /HPF (0-5)
[2018-04-08 16:09] LABS: ABG A-A DIFF O2 10.6 mmHg (10-20.0); ABG BASE EXCESS -0.1 mmol/L (-2.0-3.0); ABG HCO3 24.6 mmol/L (22.0-26.0); ABG METHEMOGLOBIN 0.4 % (0.0-1.5); ABG OXYGEN CONTENT 17.4 mL/dL (15.0-23.0); ABG OXYGEN SATURATION 97.3 % (95.0-98.0); ABG OXYHEMOGLOBIN 91.4 % (94.0-100.0); ABG PCO2 38 mmHg (35-45); ABG PH 7.425 (7.350-7.450); ABG TOTAL HEMOGLOBIN 13.5 G/dL (12.0-18.0); PO2, ARTERIAL BG 93.9 mmHg (92.0-100.0); TEMPERATURE, FAHRENHEIT, BG 98.6 FAHREN (96.0-98.6)
[2018-04-08 16:10] LABS: ABG CARBOXYHEMOGLOBIN 5.7 % (0.0-1.5); SITE, BLOOD GAS RT RADIAL
[2018-04-08 16:11] LABS: SOURCE, BLOOD GAS ARTERIAL
[2018-04-08 16:13] LABS: GLUCOSE,POINT OF CARE 456 MG/DL (70-110)
[2018-04-08 16:17] LABS: GLUCOSE,POINT OF CARE 184 MG/DL (70-110)
[2018-04-08] MEDS ORDERED: CLINDAMYCIN HCL 150 MG CAPSULE PO ONE (16:30)
[2018-04-08 17:30] VITALS: BP 119/67
[2018-04-08 17:55] LABS: ACETONE,BLOOD NEGATIVE (NEGATIVE)
== END 2018-04-08 18:08 | disposition home or self-care (01) ==
LOC: EMS 12:16
DX: E11.65 Type 2 diabetes mellitus with hyperglycemia (principal); L03.312 Cellulitis of back [any part except buttock and flank]; R19.7 Diarrhea, unspecified; F20.9 Schizophrenia, unspecified; F17.210 Nicotine dependence, cigarettes, uncomplicated; F12.10 Cannabis abuse, uncomplicated; Z79.4 Long term (current) use of insulin; Z59.0 Homelessness; Z79.899 Other long term (current) drug therapy
CPT/HCPCS: 36415; 80053; 80307; 81001; 82009; 82805; 82948; 82962; 85025; 87040; 96361; 96374; 99285; G0480; J1815; J7030

== ENCOUNTER 2018-04-17 23:04 | Inpatient (IN) | payer MEDICARE, MEDICAID ==
[~2018-04-17] VITALS: Ht 188 cm; Wt 73.5 kg
[~2018-04-17 23:04] MED LIST changes: +INSLAN SQ
[2018-04-17 23:23] LABS: BASOPHILS % (AUTO) 1.2 % (0.0-2.0); EOSINOPHILS % (AUTO) 0.5 % (1.0-6.0); HEMATOCRIT 43.4 % (41-53); HEMOGLOBIN 15.2 g/dL (13.5-17.5); LYMPHOCYTES # (AUTO) 2.4 K/uL (1.0-4.8); LYMPHOCYTES % (AUTO) 27.4 % (22.0-44.0); MEAN CORPUSCULAR HEMOGLOBIN 31.5 pg (26.0-34.0); MEAN CORPUSCULAR VOLUME 90 fL (80-100); MONOCYTES # (AUTO) 0.5 K/uL (0.1-1.0); MONOCYTES % (AUTO) 5.8 % (2.0-9.0); NEUTROPHILS # (AUTO) 5.7 K/uL (1.8-7.7); NEUTROPHILS % (AUTO) 65.1 % (40.0-70.0); PLATELET COUNT (AUTO) 451 K/uL (150-450); RED BLOOD CELL COUNT(AUTO) 4.82 MIL/uL (4.50-5.90)
[2018-04-17] MEDS ORDERED: DIVA125T PO (23:23)
[2018-04-17] MEDS ORDERED: ARIP2 PO (23:23)
[2018-04-17] MEDS ORDERED: BUPR75 PO (23:23)
[2018-04-17] MEDS ORDERED: QUET25TA PO (23:23)
[2018-04-17] MEDS ORDERED: LORazepam 2 MG TABLET PO PRN (23:30)
[2018-04-17] MEDS ORDERED: ZOLPIDEM TARTRATE 10 MG TABLET PO PRN (23:30)
[2018-04-17] MEDS ORDERED: HALOPERIDOL 5 MG TABLET PO PRN (23:30)
[2018-04-17 23:31] LABS: AMPHET/METH SCREEN,URINE NEGATIVE (NEGATIVE); BARBITURATE SCREEN, URINE NEGATIVE (NEGATIVE); BENZODIAZEPINES SCREEN,URINE NEGATIVE (NEGATIVE); CANNABINOID SCREEN,URINE NEGATIVE (NEGATIVE); COCAINE SCREEN,URINE NEGATIVE (NEGATIVE); METHADONE SCREEN, URINE NEGATIVE (NEGATIVE); OPIATE SCREEN,URINE NEGATIVE (NEGATIVE); PHENCYCLIDINE SCREEN,URINE NEGATIVE (NEGATIVE)
[2018-04-17 23:39] LABS: ALANINE AMINOTRANSFERASE 36 U/L (12-78); ALBUMIN 3.9 g/dL (3.4-5.0); ALKALINE PHOSPHATASE 113 U/L (46-116); ANION GAP 7 mmol/L (8-16); ASPARTATE AMINOTRANSFERASE 18 U/L (15-37); BILIRUBIN,TOTAL 0.4 mg/dL (0.1-1.0); CALCIUM, TOTAL 8.9 mg/dL (8.8-10.5); CARBON DIOXIDE 29 mmol/L (22-29); CHLORIDE 93 mmol/L (98-107); CREATININE 1.17 mg/dL (0.60-1.30); GLOMERULAR FILTR. RATE CALC > 60 mL/min (>60); POTASSIUM 5.3 mmol/L (3.5-5.1); SODIUM SERUM 129 mmol/L (136-145); UREA NITROGEN, BLOOD 14 mg/dL (7-18)
[2018-04-17 23:49] LABS: GLUCOSE,RANDOM 634 mg/dL (70-110)
[2018-04-18] MEDS ORDERED: SODIUM CHLORIDE 0.9% 1,000 ML IV ONE
[2018-04-18] MEDS ORDERED: INSULIN REGULAR, HUMAN 100 UNITS/ML IVP ONE
[2018-04-18 01:12] LABS: GLUCOSE,POINT OF CARE 222 MG/DL (70-110)
[2018-04-18 01:47] LABS: ANION GAP 9 mmol/L (8-16); CALCIUM, TOTAL 8.1 mg/dL (8.8-10.5); CARBON DIOXIDE 26 mmol/L (22-29); CHLORIDE 101 mmol/L (98-107); CREATININE 0.94 mg/dL (0.60-1.30); GLOMERULAR FILTR. RATE CALC > 60 mL/min (>60); GLUCOSE,RANDOM 225 mg/dL (70-110); SODIUM SERUM 136 mmol/L (136-145); UREA NITROGEN, BLOOD 12 mg/dL (7-18)
[2018-04-18 02:29] LABS: CHOL/HDL RATIO 2.9 (4.2-7.3); CHOLESTEROL 160 mg/dL (131-200); HDL CHOLESTEROL 55 mg/dL (40-60); LDL CHOL (CALC.) 71 mg/dL (0-130); TRIGLYCERIDES 171 mg/dL (15-150)
[2018-04-18 03:44] VITALS: BP 113/75
[2018-04-18 03:52] LABS: GLUCOMETER DEV NAME(LOC) BV3N5; GLUCOSE,POINT OF CARE 298 MG/DL (70-110)
[2018-04-18] MEDS ORDERED: ZOLPIDEM TARTRATE 10 MG TABLET PO PRN (04:15)
[2018-04-18] MEDS ORDERED: LORazepam 2 MG TABLET PO PRN (04:15)
[2018-04-18] MEDS ORDERED: HALOPERIDOL 5 MG TABLET PO PRN (04:15)
[2018-04-18 04:18] VITALS: BP 113/75
[2018-04-18] MEDS ORDERED: PNEUMOCOCCAL VACCINE POLYVALENT 0.5 ML VIAL [PPSV23] IM ONE (04:30)
[2018-04-18] MEDS ORDERED: GLUCAGON,HUMAN RECOMBINANT 1 MG VIAL IM PRN (09:00)
[2018-04-18] MEDS: LinaGLIPtin 5 MG TABLET PO SCH (09:00)
[2018-04-18] MEDS: INSULIN LISPRO 100 UNITS/ML SQ PRN ×2 (15:05→17:00)
[2018-04-18 15:07] LABS: GLUCOMETER DEV NAME(LOC) BV3N5; GLUCOSE,POINT OF CARE 391 MG/DL (70-110)
[2018-04-18 16:14] VITALS: BP 116/70
[2018-04-18 16:58] LABS: GLUCOMETER DEV NAME(LOC) BV3N5; GLUCOSE,POINT OF CARE 145 MG/DL (70-110)
[2018-04-18] MEDS: MetFORMIN HCL 500 MG TABLET PO SCH (17:09)
[2018-04-19] MEDS: MetFORMIN HCL 500 MG TABLET PO SCH ×2 (07:00→16:54)
[2018-04-19 08:11] VITALS: BP 114/67
[2018-04-19] MEDS: LinaGLIPtin 5 MG TABLET PO SCH (08:57)
[2018-04-19 13:13] LABS: GLUCOMETER DEV NAME(LOC) BV3N5; GLUCOSE,POINT OF CARE 576 MG/DL (70-110)
[2018-04-19 13:17] LABS: GLUCOMETER DEV NAME(LOC) BV3N5; GLUCOSE,POINT OF CARE 581 MG/DL (70-110)
[2018-04-19] MEDS ORDERED: INSULIN GLARGINE,HUM.REC.ANLOG 100 UNITS/ML SQ ONE (13:36)
[2018-04-19] MEDS ORDERED: INSULIN LISPRO 100 UNITS/ML SQ ONE (13:45)
[2018-04-19] MEDS ORDERED: DiphenhydrAMINE HCL 50 MG/ML VIAL ONE (14:45)
[2018-04-19] MEDS ORDERED: HALOPERIDOL LACTATE 5 MG/ML VIAL ONE (14:45)
[2018-04-19] MEDS ORDERED: LORazepam 2 MG/ML VIAL ONE (14:45)
[2018-04-19] MEDS ORDERED: HALOPERIDOL LACTATE 5 MG/ML VIAL IM ONE (15:15)
[2018-04-19] MEDS ORDERED: DiphenhydrAMINE HCL 50 MG/ML VIAL IM ONE (15:15)
[2018-04-19] MEDS ORDERED: LORazepam 2 MG/ML VIAL IM ONE (15:15)
[2018-04-19 15:23] LABS: GLUCOMETER DEV NAME(LOC) BV3N5; GLUCOSE,POINT OF CARE 489 MG/DL (70-110)
[2018-04-19] MEDS: ZIPRASIDONE HCL 60 MG CAPSULE PO SCH (16:54)
[2018-04-19 17:03] VITALS: BP 117/79
[2018-04-19 17:13] LABS: GLUCOMETER DEV NAME(LOC) BV3N5; GLUCOSE,POINT OF CARE 94 MG/DL (70-110)
[2018-04-20] MEDS: MetFORMIN HCL 500 MG TABLET PO SCH (06:31)
[2018-04-20] MEDS: ZIPRASIDONE HCL 60 MG CAPSULE PO SCH (06:31)
[2018-04-20 08:37] VITALS: BP 119/68
[2018-04-20] MEDS: LinaGLIPtin 5 MG TABLET PO SCH (09:00)
[2018-04-20] MEDS ORDERED: INSULIN GLARGINE,HUM.REC.ANLOG 100 UNITS/ML SQ SCH (09:00)
[2018-04-20 11:33] LABS: GLUCOMETER DEV NAME(LOC) BV3N5; GLUCOSE,POINT OF CARE 390 MG/DL (70-110)
[2018-04-20] MEDS: INSULIN LISPRO 100 UNITS/ML SQ PRN (12:22)
== END 2018-04-20 15:00 | disposition home or self-care (01) | DRG 885 ==
LOC: EMS 23:05 → B3A 23:30
PROVIDERS: ADMIT Psychiatry & Neurology Psychiatry; ATTEND Psychiatry & Neurology Psychiatry
DX: F25.0 Schizoaffective disorder, bipolar type (principal); E11.65 Type 2 diabetes mellitus with hyperglycemia; R45.851 Suicidal ideations; F41.9 Anxiety disorder, unspecified; F17.210 Nicotine dependence, cigarettes, uncomplicated; F12.90 Cannabis use, unspecified, uncomplicated; Z59.0 Homelessness; Z91.19 Patient's noncompliance with other medical treatment and regimen; Z79.899 Other long term (current) drug therapy; Z79.4 Long term (current) use of insulin
CPT/HCPCS: 90471; 96374; 99285; G0480; J1200; J1630; J1815; J2060; J7030

== ENCOUNTER 2018-05-07 01:29 | Emergency (ER) | payer MEDICARE, OTHER ==
[~2018-05-07] VITALS: Ht 188 cm; Wt 81.0 kg
[~2018-05-07 01:29] MED LIST changes: -INSLAN SQ
[2018-05-07 01:48] LABS: GLUCOSE,POINT OF CARE 386 MG/DL (70-110)
[2018-05-07 04:28] LABS: AMPHET/METH SCREEN,URINE NEGATIVE (NEGATIVE); BARBITURATE SCREEN, URINE NEGATIVE (NEGATIVE); BENZODIAZEPINES SCREEN,URINE NEGATIVE (NEGATIVE); CANNABINOID SCREEN,URINE POSITIVE (NEGATIVE); COCAINE SCREEN,URINE NEGATIVE (NEGATIVE); METHADONE SCREEN, URINE NEGATIVE (NEGATIVE); OPIATE SCREEN,URINE NEGATIVE (NEGATIVE)
[2018-05-07 04:30] LABS: PHENCYCLIDINE SCREEN,URINE NEGATIVE (NEGATIVE)
[2018-05-07] MEDS ORDERED: LORazepam 2 MG TABLET PO PRN (04:45)
[2018-05-07] MEDS ORDERED: HALOPERIDOL 5 MG TABLET PO PRN (04:45)
[2018-05-07] MEDS ORDERED: ZOLPIDEM TARTRATE 10 MG TABLET PO PRN (04:45)
[2018-05-07 06:15] LABS: BASOPHILS % (AUTO) 0.5 % (0.0-2.0); EOSINOPHILS % (AUTO) 0.6 % (1.0-6.0); HEMATOCRIT 39.6 % (41-53); HEMOGLOBIN 13.8 g/dL (13.5-17.5); LYMPHOCYTES # (AUTO) 1.8 K/uL (1.0-4.8); LYMPHOCYTES % (AUTO) 30.1 % (22.0-44.0); MEAN CORPUSCULAR HEMOGLOBIN 31.2 pg (26.0-34.0); MEAN CORPUSCULAR HGB CONC 34.9 G/dL (31.0-37.0); MEAN CORPUSCULAR VOLUME 89 fL (80-100); MONOCYTES # (AUTO) 0.4 K/uL (0.1-1.0); MONOCYTES % (AUTO) 6.7 % (2.0-9.0); NEUTROPHILS # (AUTO) 3.8 K/uL (1.8-7.7); NEUTROPHILS % (AUTO) 62.1 % (40.0-70.0); PLATELET COUNT (AUTO) 284 K/uL (150-450); RED BLOOD CELL COUNT(AUTO) 4.43 MIL/uL (4.50-5.90); RED CELL DISTRIBUTION WIDTH 13.1 % (11.5-14.5)
[2018-05-07 06:26] LABS: ANION GAP 5 mmol/L (8-16); CALCIUM, TOTAL 8.5 mg/dL (8.8-10.5); CARBON DIOXIDE 30 mmol/L (22-29); CHLORIDE 102 mmol/L (98-107); CREATININE 1.09 mg/dL (0.60-1.30); GLOMERULAR FILTR. RATE CALC > 60 mL/min (>60); GLUCOSE,RANDOM 397 mg/dL (70-110); POTASSIUM 4.6 mmol/L (3.5-5.1); SODIUM SERUM 137 mmol/L (136-145); UREA NITROGEN, BLOOD 15 mg/dL (7-18)
[2018-05-07 06:31] LABS: ALANINE AMINOTRANSFERASE 26 U/L (12-78); ALBUMIN 3.2 g/dL (3.4-5.0); ALKALINE PHOSPHATASE 79 U/L (46-116); ASPARTATE AMINOTRANSFERASE 21 U/L (15-37); BILIRUBIN,TOTAL 0.3 mg/dL (0.1-1.0); TOTAL PROTEIN, SERUM 6.5 g/dL (6.4-8.2)
[2018-05-07 07:18] LABS: GLUCOSE,POINT OF CARE 349 MG/DL (70-110)
[2018-05-07 09:37] VITALS: BP 131/64
[2018-05-07 10:39] LABS: GLUCOSE,POINT OF CARE 326 MG/DL (70-110)
== END 2018-05-07 12:26 | disposition home or self-care (01) ==
LOC: EMS 01:31
DX: F20.0 Paranoid schizophrenia (principal); E11.9 Type 2 diabetes mellitus without complications; F12.90 Cannabis use, unspecified, uncomplicated; F17.210 Nicotine dependence, cigarettes, uncomplicated
CPT/HCPCS: 36415; 80053; 80307; 82962; 85025; 99284; G0480

== ENCOUNTER 2018-06-05 03:15 | Inpatient (IN) | payer MEDICARE, MEDICAID ==
[~2018-06-05] VITALS: Ht 188 cm; Wt 73.3 kg
[2018-06-05 03:28] LABS: GLUCOSE,POINT OF CARE 501 MG/DL (70-110)
[2018-06-05] MEDS ORDERED: ZOLPIDEM TARTRATE 10 MG TABLET PO PRN (04:00)
[2018-06-05] MEDS ORDERED: SODIUM CHLORIDE 0.9% 1,000 ML IV ONE (04:15)
[2018-06-05 04:52] LABS: BASOPHILS % (AUTO) 0.6 % (0.0-2.0); EOSINOPHILS % (AUTO) 0.7 % (1.0-6.0); HEMATOCRIT 39.8 % (41-53); LYMPHOCYTES # (AUTO) 1.8 K/uL (1.0-4.8); LYMPHOCYTES % (AUTO) 26.9 % (22.0-44.0); MEAN CORPUSCULAR HEMOGLOBIN 31.3 pg (26.0-34.0); MEAN CORPUSCULAR HGB CONC 35.2 G/dL (31.0-37.0); MEAN CORPUSCULAR VOLUME 89 fL (80-100); MONOCYTES # (AUTO) 0.4 K/uL (0.1-1.0); MONOCYTES % (AUTO) 5.2 % (2.0-9.0); NEUTROPHILS # (AUTO) 4.5 K/uL (1.8-7.7); NEUTROPHILS % (AUTO) 66.6 % (40.0-70.0); PLATELET COUNT (AUTO) 401 K/uL (150-450); RED BLOOD CELL COUNT(AUTO) 4.48 MIL/uL (4.50-5.90); RED CELL DISTRIBUTION WIDTH 12.9 % (11.5-14.5)
[2018-06-05 05:00] LABS: AMPHET/METH SCREEN,URINE NEGATIVE (NEGATIVE); BARBITURATE SCREEN, URINE NEGATIVE (NEGATIVE); BENZODIAZEPINES SCREEN,URINE NEGATIVE (NEGATIVE); CANNABINOID SCREEN,URINE POSITIVE (NEGATIVE); COCAINE SCREEN,URINE NEGATIVE (NEGATIVE); METHADONE SCREEN, URINE NEGATIVE (NEGATIVE); OPIATE SCREEN,URINE NEGATIVE (NEGATIVE); PHENCYCLIDINE SCREEN,URINE NEGATIVE (NEGATIVE)
[2018-06-05 05:07] LABS: ALANINE AMINOTRANSFERASE 24 U/L (12-78); ALBUMIN 3.7 g/dL (3.4-5.0); ALKALINE PHOSPHATASE 91 U/L (46-116); ANION GAP 9 mmol/L (8-16); ASPARTATE AMINOTRANSFERASE 17 U/L (15-37); BILIRUBIN,TOTAL 0.3 mg/dL (0.1-1.0); CALCIUM, TOTAL 8.8 mg/dL (8.8-10.5); CARBON DIOXIDE 26 mmol/L (22-29); CHLORIDE 96 mmol/L (98-107); CHOL/HDL RATIO 2.5 (4.2-7.3); CHOLESTEROL 124 mg/dL (131-200); CREATININE 1.13 mg/dL (0.60-1.30); GLOMERULAR FILTR. RATE CALC > 60 mL/min (>60); HDL CHOLESTEROL 50 mg/dL (40-60); LDL CHOL (CALC.) 54 mg/dL (0-130); POTASSIUM 4.5 mmol/L (3.5-5.1); SODIUM SERUM 131 mmol/L (136-145); TRIGLYCERIDES 102 mg/dL (15-150); UREA NITROGEN, BLOOD 13 mg/dL (7-18)
[2018-06-05 05:08] LABS: GLUCOSE,RANDOM 545 mg/dL (70-110)
[2018-06-05] MEDS ORDERED: INSULIN REGULAR, HUMAN 100 UNITS/ML SQ ONE (05:15)
[2018-06-05 06:08] LABS: GLUCOSE,POINT OF CARE 394 MG/DL (70-110)
[2018-06-05 07:43] LABS: GLUCOSE,POINT OF CARE 218 MG/DL (70-110)
[2018-06-05 07:48] LABS: GLUCOSE,POINT OF CARE 202 MG/DL (70-110)
[2018-06-05] MEDS ORDERED: INSULIN LISPRO 100 UNITS/ML SQ PRN ×2 (09:15→22:30)
[2018-06-05] MEDS ORDERED: GLUCAGON,HUMAN RECOMBINANT 1 MG VIAL IM PRN (09:15)
[2018-06-05] MEDS: LinaGLIPtin 5 MG TABLET PO SCH (10:43)
[2018-06-05 11:16] VITALS: BP 120/81
[2018-06-05] MEDS ORDERED: PNEUMOCOCCAL VACCINE POLYVALENT 0.5 ML VIAL [PPSV23] IM ONE (12:45)
[2018-06-05] MEDS: GlipiZIDE 5 MG TABLET PO SCH ×2 (17:00→17:23)
[2018-06-05 17:19] LABS: GLUCOMETER DEV NAME(LOC) 3EC; GLUCOSE,POINT OF CARE 343 MG/DL (70-110)
[2018-06-05] MEDS: MetFORMIN HCL 500 MG TABLET PO SCH ×2 (17:23→17:30)
[2018-06-05 22:04] VITALS: BP 126/79
[2018-06-05] MEDS ORDERED: DEXTROSE 50%-WATER 25 GM/50 ML SYG IVP PRN (22:30)
[2018-06-06] MEDS: GlipiZIDE 5 MG TABLET PO SCH ×2 (06:40→17:00)
[2018-06-06] MEDS: MetFORMIN HCL 500 MG TABLET PO SCH ×2 (06:44→17:21)
[2018-06-06] MEDS: LinaGLIPtin 5 MG TABLET PO SCH (08:22)
[2018-06-06] MEDS: HALOPERIDOL 5 MG TABLET PO PRN (08:22)
[2018-06-06] MEDS: LORazepam 2 MG TABLET PO PRN (08:22)
[2018-06-06 08:35] VITALS: BP 112/70
[2018-06-07] MEDS: MetFORMIN HCL 500 MG TABLET PO SCH ×2 (06:43→18:11)
[2018-06-07] MEDS: GlipiZIDE 5 MG TABLET PO SCH ×2 (06:43→18:11)
[2018-06-07] MEDS ORDERED: LORazepam 2 MG/ML VIAL ONE (08:50)
[2018-06-07] MEDS ORDERED: HALOPERIDOL LACTATE 5 MG/ML VIAL ONE (08:50)
[2018-06-07] MEDS ORDERED: DiphenhydrAMINE HCL 50 MG/ML VIAL ONE (08:50)
[2018-06-07] MEDS: LinaGLIPtin 5 MG TABLET PO SCH (09:00)
[2018-06-07] MEDS: LORazepam 2 MG TABLET PO PRN (09:01)
[2018-06-07] MEDS: HALOPERIDOL 5 MG TABLET PO PRN (09:02)
[2018-06-07] MEDS ORDERED: DiphenhydrAMINE HCL 50 MG/ML VIAL IM ONE (09:30)
[2018-06-07] MEDS ORDERED: HALOPERIDOL LACTATE 5 MG/ML VIAL IM ONE (09:30)
[2018-06-07] MEDS ORDERED: LORazepam 2 MG/ML VIAL IM ONE (09:30)
[2018-06-07 10:18] VITALS: BP 101/75
[2018-06-07] MEDS: QUEtiapine FUMARATE 200 MG TABLET PO SCH (18:11)
[2018-06-08] MEDS: GlipiZIDE 5 MG TABLET PO SCH ×3 (06:45→16:31)
[2018-06-08] MEDS: LinaGLIPtin 5 MG TABLET PO SCH (08:16)
[2018-06-08] MEDS: QUEtiapine FUMARATE 200 MG TABLET PO SCH ×2 (08:18→16:30)
[2018-06-08] MEDS: MetFORMIN HCL 500 MG TABLET PO SCH ×2 (16:30→16:58)
[2018-06-09] MEDS: GlipiZIDE 5 MG TABLET PO SCH (07:00)
[2018-06-09] MEDS: MetFORMIN HCL 500 MG TABLET PO SCH (07:01)
[2018-06-09] MEDS: QUEtiapine FUMARATE 200 MG TABLET PO SCH (08:15)
[2018-06-09] MEDS: LinaGLIPtin 5 MG TABLET PO SCH (08:15)
[2018-06-09] MEDS ORDERED: QUET200T PO (09:51)
[2018-06-09] MEDS ORDERED: GLIP5 PO (09:55)
[2018-06-09 10:05] VITALS: BP 113/75
== END 2018-06-09 10:45 | disposition home or self-care (01) | DRG 885 ==
LOC: EMS 03:16 → B3A 04:12 → 3EC 09:09
PROVIDERS: ADMIT Psychiatry & Neurology Psychiatry; ATTEND Psychiatry & Neurology Psychiatry
DX: F20.0 Paranoid schizophrenia (principal); E46 Unspecified protein-calorie malnutrition; E87.1 Hypo-osmolality and hyponatremia; E11.65 Type 2 diabetes mellitus with hyperglycemia; F12.90 Cannabis use, unspecified, uncomplicated; F17.210 Nicotine dependence, cigarettes, uncomplicated; Z91.19 Patient's noncompliance with other medical treatment and regimen; Z79.84 Long term (current) use of oral hypoglycemic drugs; Z68.20 Body mass index [BMI] 20.0-20.9, adult; Z79.899 Other long term (current) drug therapy
CPT/HCPCS: 87081; 96372; 99285; G0480; J1200; J1630; J1815; J2060

== ENCOUNTER 2018-07-13 20:47 | Emergency (ER) | payer MEDICARE, OTHER ==
[~2018-07-13] VITALS: Ht 188 cm; Wt 86.4 kg
[~2018-07-13 20:47] MED LIST changes: +GLIP10TA9 PO; +QUET200T PO; -ZIPR60CA2 PO
[2018-07-13 20:58] LABS: GLUCOSE,POINT OF CARE 454 MG/DL (70-110)
[2018-07-13] MEDS ORDERED: SODIUM CHLORIDE 0.9% 1,000 ML IV ONE (23:15)
[2018-07-13] MEDS ORDERED: HALOPERIDOL 5 MG TABLET PO PRN (23:30)
[2018-07-13] MEDS ORDERED: ZOLPIDEM TARTRATE 10 MG TABLET PO PRN (23:30)
[2018-07-13] MEDS ORDERED: LORazepam 2 MG TABLET PO PRN (23:30)
[2018-07-13 23:39] LABS: BASOPHILS % (AUTO) 0.3 % (0.0-2.0); HEMATOCRIT 39.1 % (41-53); HEMOGLOBIN 13.6 g/dL (13.5-17.5); LYMPHOCYTES # (AUTO) 1.9 K/uL (1.0-4.8); LYMPHOCYTES % (AUTO) 37.6 % (22.0-44.0); MEAN CORPUSCULAR HEMOGLOBIN 31.3 pg (26.0-34.0); MEAN CORPUSCULAR HGB CONC 34.7 G/dL (31.0-37.0); MEAN CORPUSCULAR VOLUME 90 fL (80-100); MONOCYTES # (AUTO) 0.4 K/uL (0.1-1.0); MONOCYTES % (AUTO) 7.1 % (2.0-9.0); NEUTROPHILS # (AUTO) 2.7 K/uL (1.8-7.7); PLATELET COUNT (AUTO) 293 K/uL (150-450); RED BLOOD CELL COUNT(AUTO) 4.34 MIL/uL (4.50-5.90); RED CELL DISTRIBUTION WIDTH 13.7 % (11.5-14.5)
[2018-07-13 23:57] LABS: ALANINE AMINOTRANSFERASE 24 U/L (12-78); ALBUMIN 3.2 g/dL (3.4-5.0); ALKALINE PHOSPHATASE 86 U/L (46-116); ANION GAP 8 mmol/L (8-16); ASPARTATE AMINOTRANSFERASE 17 U/L (15-37); BILIRUBIN,TOTAL 0.4 mg/dL (0.1-1.0); CALCIUM, TOTAL 8.3 mg/dL (8.8-10.5); CARBON DIOXIDE 26 mmol/L (22-29); CHLORIDE 97 mmol/L (98-107); CREATININE 1.19 mg/dL (0.60-1.30); GLOMERULAR FILTR. RATE CALC > 60 mL/min (>60); POTASSIUM 3.9 mmol/L (3.5-5.1); SODIUM SERUM 131 mmol/L (136-145); TOTAL PROTEIN, SERUM 6.6 g/dL (6.4-8.2); UREA NITROGEN, BLOOD 9 mg/dL (7-18)
[2018-07-13 23:58] LABS: GLUCOSE,RANDOM 498 mg/dL (70-110)
[2018-07-14] LABS: ACETONE,BLOOD NEGATIVE (NEGATIVE)
[2018-07-14] MEDS ORDERED: INSULIN REGULAR, HUMAN 100 UNITS/ML IVP ONE (00:15)
[2018-07-14 03:20] LABS: CHOL/HDL RATIO 2.4 (4.2-7.3); CHOLESTEROL 131 mg/dL (131-200); HDL CHOLESTEROL 55 mg/dL (40-60); LDL CHOL (CALC.) 37 mg/dL (0-130); TRIGLYCERIDES 196 mg/dL (15-150)
[2018-07-14 03:49] LABS: GLUCOSE,POINT OF CARE 166 MG/DL (70-110)
[2018-07-14 04:24] LABS: APPEARANCE,URINE CLEAR (CLEAR); BILIRUBIN,URINE NEGATIVE (NEGATIVE); GLUCOSE, URINE (UA) >=1000 mg/dL (NEGATIVE); KETONES,URINE NEGATIVE (NEGATIVE); LEUKOCYTE ESTERASE ,URINE NEGATIVE (NEGATIVE); NITRATE,URINE NEGATIVE (NEGATIVE); OCCULT BLOOD,URINE NEGATIVE (NEGATIVE); PH,URINE 6.5 (5.0-8.0); PROTEIN,URINE NEGATIVE (NEGATIVE); UROBILINOGEN,URINE 0.2 mg/dL (<=1.0)
[2018-07-14 04:26] LABS: AMPHET/METH SCREEN,URINE NEGATIVE (NEGATIVE); BARBITURATE SCREEN, URINE NEGATIVE (NEGATIVE); BENZODIAZEPINES SCREEN,URINE NEGATIVE (NEGATIVE); CANNABINOID SCREEN,URINE POSITIVE (NEGATIVE); COCAINE SCREEN,URINE NEGATIVE (NEGATIVE); METHADONE SCREEN, URINE NEGATIVE (NEGATIVE); OPIATE SCREEN,URINE NEGATIVE (NEGATIVE)
[2018-07-14 04:28] LABS: RBC,URINE None Seen /HPF (0-2)
[2018-07-14 04:29] LABS: BACTERIA,URINE None Seen /HPF (None Seen); PHENCYCLIDINE SCREEN,URINE NEGATIVE (NEGATIVE); SQUAMOUS EPITHELIAL CELL,UR None Seen /LPF (None Seen); WBC,URINE 0-2 /HPF (0-5)
[2018-07-14 06:53] LABS: GLUCOSE,POINT OF CARE 262 MG/DL (70-110)
[2018-07-14 08:38] VITALS: BP 127/87
[2018-07-18] MEDS ORDERED: METF500T6 PO (16:59)
== END 2018-07-14 09:45 | disposition left against medical advice (07) ==
LOC: EMS 20:48
DX: R44.0 Auditory hallucinations (principal); E11.65 Type 2 diabetes mellitus with hyperglycemia; F17.210 Nicotine dependence, cigarettes, uncomplicated; F12.90 Cannabis use, unspecified, uncomplicated; Z79.84 Long term (current) use of oral hypoglycemic drugs; Z59.0 Homelessness
CPT/HCPCS: 36415; 80053; 80061; 80307; 81001; 82009; 82962; 83036; 85025; 96361; 96374; 99284; G0480; J1815; J7030

== ENCOUNTER 2018-07-16 01:47 | Inpatient (IN) | payer MEDICARE, MEDICAID ==
[~2018-07-16] VITALS: Ht 188 cm; Wt 74.4 kg
[~2018-07-16 01:47] MED LIST changes: +METF-960 PO; -METF500T6 PO
[2018-07-16] MEDS ORDERED: ACETAMINOPHEN 325 MG TABLET PO PRN (03:30)
[2018-07-16] MEDS ORDERED: LORazepam 2 MG TABLET PO PRN (03:30)
[2018-07-16] MEDS ORDERED: MAGNESIUM HYDROXIDE SUSPENSION 30 ML UDCUP PO PRN (03:30)
[2018-07-16] MEDS ORDERED: MAG HYDROX/AL HYDROX/SIMETH ES 30 ML SUSPENSION UDCUP PO PRN (03:30)
[2018-07-16] MEDS ORDERED: LOPERAMIDE HCL 2 MG CAPSULE PO PRN (03:30)
[2018-07-16] MEDS ORDERED: HALOPERIDOL 5 MG TABLET PO PRN (03:30)
[2018-07-16] MEDS ORDERED: ZOLPIDEM TARTRATE 10 MG TABLET PO PRN (03:30)
[2018-07-16 03:38] VITALS: BP 129/81
[2018-07-16] MEDS ORDERED: PNEUMOCOCCAL VACCINE POLYVALENT 0.5 ML VIAL [PPSV23] IM ONE (04:15)
[2018-07-16] MEDS ORDERED: -PHARMACY VACCINE NOTE- MISC ONE (04:15)
[2018-07-16 04:18] LABS: GLUCOMETER DEV NAME(LOC) BV2S 2; GLUCOSE,POINT OF CARE 516 MG/DL (70-110)
[2018-07-16 07:34] LABS: GLUCOSE,POINT OF CARE 113 MG/DL (70-110)
[2018-07-16] MEDS ORDERED: INSULIN LISPRO 100 UNITS/ML SQ PRN (09:30)
[2018-07-16] MEDS ORDERED: GLUCAGON,HUMAN RECOMBINANT 1 MG VIAL IM PRN (09:30)
[2018-07-16 09:43] VITALS: BP 125/89
[2018-07-16 16:26] VITALS: BP 139/84
[2018-07-16] MEDS: MetFORMIN HCL 500 MG TABLET PO SCH (16:52)
[2018-07-16] MEDS: QUEtiapine FUMARATE 200 MG TABLET PO SCH (16:52)
[2018-07-16] MEDS: GlipiZIDE 10 MG TABLET PO SCH (16:52)
[2018-07-17] MEDS: GlipiZIDE 10 MG TABLET PO SCH ×2 (06:40→16:20)
[2018-07-17] MEDS: MetFORMIN HCL 500 MG TABLET PO SCH ×2 (06:40→16:20)
[2018-07-17 08:17] VITALS: BP 130/78
[2018-07-17] MEDS: LinaGLIPtin 5 MG TABLET PO SCH (09:17)
[2018-07-17] MEDS: QUEtiapine FUMARATE 200 MG TABLET PO SCH ×2 (09:17→16:20)
[2018-07-17 16:00] VITALS: BP 116/76
[2018-07-18] MEDS: GlipiZIDE 10 MG TABLET PO SCH ×2 (06:30→16:30)
[2018-07-18] MEDS: MetFORMIN HCL 500 MG TABLET PO SCH ×2 (07:00→17:00)
[2018-07-18 08:15] VITALS: BP 138/80
[2018-07-18] MEDS: QUEtiapine FUMARATE 200 MG TABLET PO SCH ×2 (08:55→17:00)
[2018-07-18] MEDS: LinaGLIPtin 5 MG TABLET PO SCH (08:55)
[2018-07-18 16:45] VITALS: BP 135/88
[2018-07-18] MEDS ORDERED: QUET200T PO (16:58)
[2018-07-18] MEDS ORDERED: METF-960 PO (16:59)
[2018-07-18] MEDS ORDERED: LINA5TAB PO (16:59)
[2018-07-18] MEDS ORDERED: GLIP10 PO (16:59)
== END 2018-07-18 17:30 | disposition home or self-care (01) | DRG 885 ==
LOC: B2S 03:43 → EDSTATUS 03:48 → B3A 08:58
PROVIDERS: ADMIT Psychiatry & Neurology Psychiatry; ATTEND Psychiatry & Neurology Psychiatry
DX: F20.0 Paranoid schizophrenia (principal); R45.851 Suicidal ideations; E11.65 Type 2 diabetes mellitus with hyperglycemia; N18.9 Chronic kidney disease, unspecified; E11.22 Type 2 diabetes mellitus with diabetic chronic kidney disease; F12.90 Cannabis use, unspecified, uncomplicated; F17.200 Nicotine dependence, unspecified, uncomplicated; F15.90 Other stimulant use, unspecified, uncomplicated; R45.87 Impulsiveness; Z79.4 Long term (current) use of insulin; Z91.19 Patient's noncompliance with other medical treatment and regimen; Z91.14 Patient's other noncompliance with medication regimen; Z72.89 Other problems related to lifestyle; Z91.5 Personal history of self-harm; Z59.0 Homelessness
CPT/HCPCS: 83036; 87081; 96361; 96374; G0480; J1815; J7030

== ENCOUNTER 2018-07-16 05:12 | Emergency (ER) | payer MEDICARE, OTHER ==
[~2018-07-16] VITALS: Ht 188 cm; Wt 81.8 kg
[2018-07-16 05:29] LABS: GLUCOSE,POINT OF CARE 473 MG/DL (70-110)
[2018-07-16] MEDS ORDERED: INSULIN REGULAR, HUMAN 100 UNITS/ML IVP ONE (06:15)
[2018-07-16] MEDS ORDERED: SODIUM CHLORIDE 0.9% 1,000 ML IV ONE (06:15)
[2018-07-16 06:47] LABS: BASOPHILS % (AUTO) 0.5 % (0.0-2.0); EOSINOPHILS % (AUTO) 1.6 % (1.0-6.0); HEMATOCRIT 40.3 % (41-53); HEMOGLOBIN 13.9 g/dL (13.5-17.5); LYMPHOCYTES # (AUTO) 1.7 K/uL (1.0-4.8); LYMPHOCYTES % (AUTO) 35.3 % (22.0-44.0); MEAN CORPUSCULAR HGB CONC 34.4 G/dL (31.0-37.0); MEAN CORPUSCULAR VOLUME 90 fL (80-100); MONOCYTES # (AUTO) 0.3 K/uL (0.1-1.0); MONOCYTES % (AUTO) 6.4 % (2.0-9.0); NEUTROPHILS # (AUTO) 2.6 K/uL (1.8-7.7); NEUTROPHILS % (AUTO) 56.2 % (40.0-70.0); PLATELET COUNT (AUTO) 309 K/uL (150-450); RED BLOOD CELL COUNT(AUTO) 4.47 MIL/uL (4.50-5.90); RED CELL DISTRIBUTION WIDTH 13.6 % (11.5-14.5)
[2018-07-16 07:06] LABS: ALANINE AMINOTRANSFERASE 30 U/L (12-78); ALBUMIN 3.3 g/dL (3.4-5.0); ALKALINE PHOSPHATASE 86 U/L (46-116); ANION GAP 9 mmol/L (8-16); ASPARTATE AMINOTRANSFERASE 21 U/L (15-37); BILIRUBIN,TOTAL 0.3 mg/dL (0.1-1.0); CALCIUM, TOTAL 8.9 mg/dL (8.8-10.5); CARBON DIOXIDE 27 mmol/L (22-29); CHLORIDE 99 mmol/L (98-107); CREATININE 0.92 mg/dL (0.60-1.30); GLOMERULAR FILTR. RATE CALC > 60 mL/min (>60); POTASSIUM 4.2 mmol/L (3.5-5.1); SODIUM SERUM 135 mmol/L (136-145); TOTAL PROTEIN, SERUM 6.6 g/dL (6.4-8.2); UREA NITROGEN, BLOOD 7 mg/dL (7-18)
[2018-07-16 07:13] LABS: GLUCOSE,RANDOM 495 mg/dL (70-110)
[2018-07-16 08:30] LABS: CHOL/HDL RATIO 2.3 (4.2-7.3); CHOLESTEROL 135 mg/dL (131-200); FREE T4 (FREE THYROXINE) 1.25 ng/dL (0.76-1.46); HDL CHOLESTEROL 59 mg/dL (40-60); LDL CHOL (CALC.) 51 mg/dL (0-130); THYROID STIMULATING HORMONE 1.49 uIU/mL (0.36-3.74); TRIGLYCERIDES 123 mg/dL (15-150)
[2018-07-16 09:35] VITALS: BP 125/89
== END 2018-07-16 08:53 | disposition other institution (70) ==
LOC: EMS 05:14
DX: F20.9 Schizophrenia, unspecified (principal); E11.65 Type 2 diabetes mellitus with hyperglycemia; F12.90 Cannabis use, unspecified, uncomplicated; F17.210 Nicotine dependence, cigarettes, uncomplicated; Z79.84 Long term (current) use of oral hypoglycemic drugs; Z59.0 Homelessness
CPT/HCPCS: 36415; 80053; 80061; 82948; 82962; 83036; 84439; 84443; 85025; 96374; 99285; G0480; J1815; J7030

== ENCOUNTER 2018-08-05 01:53 | Inpatient (IN) | payer MEDICARE, MEDICAID ==
[~2018-08-05] VITALS: Ht 188 cm; Wt 76.9 kg
[~2018-08-05 01:53] MED LIST changes: +GLIP10 PO; -GLIP10TA9 PO
[2018-08-05 02:24] LABS: GLUCOSE,POINT OF CARE 569 MG/DL (70-110)
[2018-08-05 02:28] LABS: AMPHET/METH SCREEN,URINE NEGATIVE (NEGATIVE); BARBITURATE SCREEN, URINE NEGATIVE (NEGATIVE); BENZODIAZEPINES SCREEN,URINE NEGATIVE (NEGATIVE); CANNABINOID SCREEN,URINE POSITIVE (NEGATIVE); COCAINE SCREEN,URINE NEGATIVE (NEGATIVE); METHADONE SCREEN, URINE NEGATIVE (NEGATIVE); OPIATE SCREEN,URINE NEGATIVE (NEGATIVE); PHENCYCLIDINE SCREEN,URINE NEGATIVE (NEGATIVE)
[2018-08-05 02:33] LABS: BASOPHILS % (AUTO) 0.3 % (0.0-2.0); EOSINOPHILS % (AUTO) 0.7 % (1.0-6.0); HEMATOCRIT 39.6 % (41-53); HEMOGLOBIN 13.4 g/dL (13.5-17.5); LYMPHOCYTES # (AUTO) 1.7 K/uL (1.0-4.8); LYMPHOCYTES % (AUTO) 32.6 % (22.0-44.0); MEAN CORPUSCULAR HEMOGLOBIN 30.8 pg (26.0-34.0); MEAN CORPUSCULAR HGB CONC 33.8 G/dL (31.0-37.0); MEAN CORPUSCULAR VOLUME 91 fL (80-100); MONOCYTES # (AUTO) 0.4 K/uL (0.1-1.0); MONOCYTES % (AUTO) 7.1 % (2.0-9.0); NEUTROPHILS # (AUTO) 3.1 K/uL (1.8-7.7); NEUTROPHILS % (AUTO) 59.3 % (40.0-70.0); PLATELET COUNT (AUTO) 321 K/uL (150-450); RED BLOOD CELL COUNT(AUTO) 4.35 MIL/uL (4.50-5.90); RED CELL DISTRIBUTION WIDTH 13.4 % (11.5-14.5)
[2018-08-05 02:48] LABS: ALANINE AMINOTRANSFERASE 29 U/L (12-78); ALBUMIN 3.2 g/dL (3.4-5.0); ALKALINE PHOSPHATASE 81 U/L (46-116); ANION GAP 11 mmol/L (8-16); ASPARTATE AMINOTRANSFERASE 20 U/L (15-37); BILIRUBIN,TOTAL 0.2 mg/dL (0.1-1.0); CALCIUM, TOTAL 8.9 mg/dL (8.8-10.5); CARBON DIOXIDE 24 mmol/L (22-29); CHLORIDE 99 mmol/L (98-107); CREATININE 1.23 mg/dL (0.60-1.30); GLOMERULAR FILTR. RATE CALC > 60 mL/min (>60); POTASSIUM 4.4 mmol/L (3.5-5.1); SODIUM SERUM 134 mmol/L (136-145); TOTAL PROTEIN, SERUM 6.4 g/dL (6.4-8.2); UREA NITROGEN, BLOOD 13 mg/dL (7-18)
[2018-08-05 02:49] LABS: GLUCOSE,RANDOM 556 mg/dL (70-110)
[2018-08-05] MEDS ORDERED: INSULIN REGULAR, HUMAN 100 UNITS/ML IVP ONE ×2 (03:00→04:15)
[2018-08-05] MEDS ORDERED: SODIUM CHLORIDE 0.9% 2,000 ML IV ONE (03:00)
[2018-08-05] MEDS ORDERED: LORazepam 2 MG TABLET PO PRN (04:00)
[2018-08-05] MEDS ORDERED: HALOPERIDOL 5 MG TABLET PO PRN ×2 (04:00→12:45)
[2018-08-05] MEDS ORDERED: ZOLPIDEM TARTRATE 10 MG TABLET PO PRN ×2 (04:00→12:45)
[2018-08-05 05:25] LABS: GLUCOSE,POINT OF CARE 216 MG/DL (70-110)
[2018-08-05 05:25] LABS: GLUCOSE,POINT OF CARE 278 MG/DL (70-110)
[2018-08-05] MEDS: QUEtiapine FUMARATE 100 MG TABLET PO ONE ×2 (07:30→09:29)
[2018-08-05] MEDS: LinaGLIPtin 5 MG TABLET PO ONE ×2 (07:30→09:30)
[2018-08-05] MEDS: GlipiZIDE 5 MG TABLET PO ONE ×2 (07:30→09:30)
[2018-08-05] MEDS: MetFORMIN HCL 500 MG TABLET PO ONE ×2 (07:30→09:30)
[2018-08-05 10:34] LABS: GLUCOSE,POINT OF CARE 345 MG/DL (70-110)
[2018-08-05 12:49] LABS: GLUCOSE,POINT OF CARE 274 MG/DL (70-110)
[2018-08-05 13:51] VITALS: BP 129/90
[2018-08-05 13:52] VITALS: BP 129/90
[2018-08-05 16:03] VITALS: BP 118/74
[2018-08-05] MEDS ORDERED: GLUCAGON,HUMAN RECOMBINANT 1 MG VIAL IM PRN (19:15)
[2018-08-06 05:39] VITALS: BP 136/82
[2018-08-06] MEDS: LEVOTHYROXINE SODIUM 100 MCG TABLET PO SCH (06:30)
[2018-08-06] MEDS: GlipiZIDE 10 MG TABLET PO SCH ×2 (06:30→16:30)
[2018-08-06] MEDS: MetFORMIN HCL 500 MG TABLET PO SCH ×2 (07:00→16:52)
[2018-08-06 08:03] VITALS: BP 124/80
[2018-08-06] MEDS: LinaGLIPtin 5 MG TABLET PO SCH (08:19)
[2018-08-06 16:00] VITALS: BP 127/76
[2018-08-06] MEDS: LORazepam 2 MG TABLET PO PRN (20:59)
[2018-08-07] MEDS ORDERED: PNEUMOCOCCAL VACCINE POLYVALENT 0.5 ML VIAL [PPSV23] IM ONE (03:15)
[2018-08-07] MEDS ORDERED: -PHARMACY VACCINE NOTE- MISC ONE (03:30)
[2018-08-07] MEDS: LEVOTHYROXINE SODIUM 100 MCG TABLET PO SCH (06:30)
[2018-08-07] MEDS: GlipiZIDE 10 MG TABLET PO SCH ×2 (06:30→17:03)
[2018-08-07] MEDS: MetFORMIN HCL 500 MG TABLET PO SCH ×2 (06:35→17:03)
[2018-08-07 08:43] VITALS: BP 120/78
[2018-08-07] MEDS: QUEtiapine FUMARATE 200 MG TABLET PO SCH ×2 (09:48→17:03)
[2018-08-07] MEDS: LinaGLIPtin 5 MG TABLET PO SCH (09:48)
[2018-08-07 16:17] VITALS: BP 126/76
[2018-08-07] MEDS: LORazepam 2 MG TABLET PO PRN (17:04)
[2018-08-08] MEDS: GlipiZIDE 10 MG TABLET PO SCH ×2 (06:26→17:06)
[2018-08-08] MEDS: LEVOTHYROXINE SODIUM 100 MCG TABLET PO SCH (06:27)
[2018-08-08] MEDS: MetFORMIN HCL 500 MG TABLET PO SCH ×2 (06:27→17:06)
[2018-08-08 06:35] VITALS: BP 110/63
[2018-08-08 08:04] VITALS: BP 105/67
[2018-08-08] MEDS: QUEtiapine FUMARATE 200 MG TABLET PO SCH ×2 (08:31→17:06)
[2018-08-08] MEDS: LinaGLIPtin 5 MG TABLET PO SCH (08:31)
[2018-08-08 16:00] VITALS: BP 117/69
[2018-08-09 00:14] VITALS: BP 140/95
[2018-08-09] MEDS: LEVOTHYROXINE SODIUM 100 MCG TABLET PO SCH (06:25)
[2018-08-09] MEDS: GlipiZIDE 10 MG TABLET PO SCH ×2 (06:25→16:30)
[2018-08-09] MEDS: MetFORMIN HCL 500 MG TABLET PO SCH ×2 (06:25→17:00)
[2018-08-09] MEDS: LinaGLIPtin 5 MG TABLET PO SCH (08:36)
[2018-08-09] MEDS: QUEtiapine FUMARATE 200 MG TABLET PO SCH ×2 (08:36→17:00)
[2018-08-09] MEDS: INSULIN LISPRO 100 UNITS/ML SQ PRN (10:07)
[2018-08-09 10:19] LABS: GLUCOMETER DEV NAME(LOC) BV3N5; GLUCOSE,POINT OF CARE 415 MG/DL (70-110)
[2018-08-09 16:00] VITALS: BP 114/67
[2018-08-10 05:10] VITALS: BP 122/68
[2018-08-10] MEDS: LEVOTHYROXINE SODIUM 100 MCG TABLET PO SCH (06:30)
[2018-08-10] MEDS: GlipiZIDE 10 MG TABLET PO SCH ×2 (06:30→16:44)
[2018-08-10] MEDS: MetFORMIN HCL 500 MG TABLET PO SCH ×2 (06:44→16:44)
[2018-08-10 08:18] VITALS: BP 118/64
[2018-08-10] MEDS: QUEtiapine FUMARATE 200 MG TABLET PO SCH ×2 (08:44→16:44)
[2018-08-10] MEDS: LinaGLIPtin 5 MG TABLET PO SCH (08:44)
[2018-08-10 09:19] LABS: GLUCOMETER DEV NAME(LOC) BV3N5; GLUCOSE,POINT OF CARE 415 MG/DL (70-110)
[2018-08-10] MEDS: INSULIN LISPRO 100 UNITS/ML SQ PRN (09:22)
[2018-08-10] MEDS: LORazepam 2 MG TABLET PO PRN (16:44)
[2018-08-11 03:30] VITALS: BP 122/76
[2018-08-11] MEDS: LEVOTHYROXINE SODIUM 100 MCG TABLET PO SCH (06:30)
[2018-08-11] MEDS: GlipiZIDE 10 MG TABLET PO SCH (06:30)
[2018-08-11] MEDS: MetFORMIN HCL 500 MG TABLET PO SCH (06:48)
[2018-08-11 08:06] VITALS: BP 128/60
[2018-08-11] MEDS: QUEtiapine FUMARATE 200 MG TABLET PO SCH (09:00)
[2018-08-11] MEDS: LinaGLIPtin 5 MG TABLET PO SCH (09:00)
== END 2018-08-11 11:25 | disposition home or self-care (01) | DRG 885 ==
LOC: EMS 01:54 → B3A 12:15
PROVIDERS: ADMIT Psychiatry & Neurology Psychiatry; ATTEND Psychiatry & Neurology Psychiatry
DX: F20.0 Paranoid schizophrenia (principal); E46 Unspecified protein-calorie malnutrition; E87.1 Hypo-osmolality and hyponatremia; R45.851 Suicidal ideations; D64.9 Anemia, unspecified; E03.9 Hypothyroidism, unspecified; E11.65 Type 2 diabetes mellitus with hyperglycemia; E86.0 Dehydration; F12.90 Cannabis use, unspecified, uncomplicated; F31.9 Bipolar disorder, unspecified; Z87.891 Personal history of nicotine dependence; Z91.19 Patient's noncompliance with other medical treatment and regimen; Z28.21 Immunization not carried out because of patient refusal; Z79.899 Other long term (current) drug therapy
CPT/HCPCS: 90471; 96361; 96374; 96376; 99285; G0480; J1815; J7030

== ENCOUNTER 2018-10-11 22:26 | Inpatient (IN) | payer MEDICARE, MEDICAID ==
[~2018-10-11] VITALS: Ht 188 cm; Wt 75.2 kg
[~2018-10-11 22:26] MED LIST changes: +BACTDSB PO; -METF-960 PO
[2018-10-11 22:39] LABS: GLUCOSE,POINT OF CARE 538 MG/DL (70-110)
[2018-10-11] MEDS ORDERED: SODIUM CHLORIDE 0.9% 1,000 ML IV ONE ×2 (23:15)
[2018-10-11] MEDS ORDERED: ZOLPIDEM TARTRATE 10 MG TABLET PO PRN (23:45)
[2018-10-11 23:51] LABS: BASOPHILS % (AUTO) 0.3 % (0.0-2.0); EOSINOPHILS % (AUTO) 0.3 % (1.0-6.0); HEMOGLOBIN 13.7 g/dL (13.5-17.5); LYMPHOCYTES % (AUTO) 29.2 % (22.0-44.0); MEAN CORPUSCULAR HEMOGLOBIN 30.6 pg (26.0-34.0); MEAN CORPUSCULAR HGB CONC 34.2 G/dL (31.0-37.0); MEAN CORPUSCULAR VOLUME 89 fL (80-100); MONOCYTES # (AUTO) 0.4 K/uL (0.1-1.0); MONOCYTES % (AUTO) 5.1 % (2.0-9.0); NEUTROPHILS # (AUTO) 4.5 K/uL (1.8-7.7); NEUTROPHILS % (AUTO) 65.1 % (40.0-70.0); PLATELET COUNT (AUTO) 336 K/uL (150-450); RED BLOOD CELL COUNT(AUTO) 4.48 MIL/uL (4.50-5.90); RED CELL DISTRIBUTION WIDTH 12.8 % (11.5-14.5)
[2018-10-12 00:01] LABS: AMPHET/METH SCREEN,URINE NEGATIVE (NEGATIVE); BARBITURATE SCREEN, URINE NEGATIVE (NEGATIVE); BENZODIAZEPINES SCREEN,URINE NEGATIVE (NEGATIVE); CANNABINOID SCREEN,URINE POSITIVE (NEGATIVE); COCAINE SCREEN,URINE NEGATIVE (NEGATIVE); METHADONE SCREEN, URINE NEGATIVE (NEGATIVE); OPIATE SCREEN,URINE NEGATIVE (NEGATIVE)
[2018-10-12 00:02] LABS: PHENCYCLIDINE SCREEN,URINE NEGATIVE (NEGATIVE)
[2018-10-12 00:07] LABS: ALANINE AMINOTRANSFERASE 26 U/L (12-78); ALBUMIN 3.3 g/dL (3.4-5.0); ALKALINE PHOSPHATASE 73 U/L (46-116); ANION GAP 12 mmol/L (8-16); ASPARTATE AMINOTRANSFERASE 14 U/L (15-37); BILIRUBIN,TOTAL 0.2 mg/dL (0.1-1.0); CALCIUM, TOTAL 8.8 mg/dL (8.8-10.5); CARBON DIOXIDE 26 mmol/L (22-29); CHLORIDE 97 mmol/L (98-107); CREATININE 1.26 mg/dL (0.60-1.30); GLOMERULAR FILTR. RATE CALC > 60 mL/min (>60); POTASSIUM 4.1 mmol/L (3.5-5.1); SODIUM SERUM 135 mmol/L (136-145); TOTAL PROTEIN, SERUM 6.7 g/dL (6.4-8.2); UREA NITROGEN, BLOOD 14 mg/dL (7-18)
[2018-10-12 00:11] LABS: GLUCOSE,RANDOM 551 mg/dL (70-110)
[2018-10-12] MEDS ORDERED: INSULIN REGULAR, HUMAN 100 UNITS/ML IVP ONE (00:15)
[2018-10-12 01:04] LABS: GLUCOSE,POINT OF CARE 419 MG/DL (70-110)
[2018-10-12 02:08] LABS: GLUCOSE,POINT OF CARE 258 MG/DL (70-110)
[2018-10-12] MEDS ORDERED: LORazepam 2 MG/ML VIAL IM ONE ×2 (03:45→23:45)
[2018-10-12] MEDS ORDERED: HALOPERIDOL LACTATE 5 MG/ML VIAL IM ONE ×2 (03:45→23:45)
[2018-10-12] MEDS ORDERED: DiphenhydrAMINE HCL 50 MG/ML VIAL IM ONE ×2 (03:45→23:45)
[2018-10-12 06:12] LABS: CHOL/HDL RATIO 2.4 (4.2-7.3)
[2018-10-12 07:38] LABS: GLUCOSE,POINT OF CARE 314 MG/DL (70-110)
[2018-10-12] MEDS ORDERED: GlipiZIDE 10 MG TABLET PO ONE (07:45)
[2018-10-12] MEDS ORDERED: GlipiZIDE 5 MG TABLET PO ONE (07:45)
[2018-10-12 10:14] LABS: GLUCOSE,POINT OF CARE 300 MG/DL (70-110)
[2018-10-12 12:58] LABS: GLUCOSE,POINT OF CARE 282 MG/DL (70-110)
[2018-10-12 16:44] LABS: GLUCOSE,POINT OF CARE 307 MG/DL (70-110)
[2018-10-12 21:33] LABS: GLUCOSE,POINT OF CARE 331 MG/DL (70-110)
[2018-10-12] MEDS ORDERED: INSULIN LISPRO 100 UNITS/ML SQ ONE (23:00)
[2018-10-12 23:12] LABS: GLUCOSE,POINT OF CARE 332 MG/DL (70-110)
[2018-10-13 01:02] LABS: GLUCOSE,POINT OF CARE 316 MG/DL (70-110)
[2018-10-13 02:23] LABS: GLUCOSE,POINT OF CARE 263 MG/DL (70-110)
[2018-10-13 06:54] LABS: GLUCOSE,POINT OF CARE 95 MG/DL (70-110)
[2018-10-13 08:54] LABS: GLUCOSE,POINT OF CARE 160 MG/DL (70-110)
[2018-10-13] MEDS ORDERED: DEXTROSE 50%-WATER 25 GM/50 ML SYRINGE IVP PRN (10:15)
[2018-10-13] MEDS ORDERED: INSULIN LISPRO 100 UNITS/ML SQ PRN (10:15)
[2018-10-13 12:04] LABS: GLUCOSE,POINT OF CARE 308 MG/DL (70-110)
[2018-10-13 13:29] LABS: GLUCOSE,POINT OF CARE 386 MG/DL (70-110)
[2018-10-13] MEDS ORDERED: GLUCAGON,HUMAN RECOMBINANT 1 MG VIAL IM PRN (14:30)
[2018-10-13 16:06] VITALS: BP 110/74
[2018-10-13 16:11] VITALS: BP 104/60
[2018-10-13] MEDS: GlipiZIDE 10 MG TABLET PO SCH (16:30)
[2018-10-13] MEDS ORDERED: INSULIN GLARGINE,HUM.REC.ANLOG 100 UNITS/ML SQ SCH (21:00)
[2018-10-14 00:12] VITALS: BP 118/76
[2018-10-14] MEDS: GlipiZIDE 10 MG TABLET PO SCH ×2 (06:26→16:40)
[2018-10-14] MEDS ORDERED: INSULIN LISPRO 100 UNITS/ML SQ PRN ×2 (06:30→12:15)
[2018-10-14] MEDS ORDERED: GLUCAGON,HUMAN RECOMBINANT 1 MG VIAL IM PRN (06:30)
[2018-10-14 08:05] VITALS: BP 129/78
[2018-10-14] MEDS: LinaGLIPtin 5 MG TABLET PO SCH (08:36)
[2018-10-14] MEDS: HALOPERIDOL 5 MG TABLET PO PRN ×2 (08:36→16:41)
[2018-10-14] MEDS: LORazepam 2 MG TABLET PO PRN ×2 (08:36→16:40)
[2018-10-14 11:28] LABS: GLUCOMETER DEV NAME(LOC) BV3N5; GLUCOSE,POINT OF CARE 514 MG/DL (70-110)
[2018-10-14] MEDS ORDERED: INSULIN LISPRO 100 UNITS/ML SQ ONE (12:00)
[2018-10-14 12:48] LABS: GLUCOMETER DEV NAME(LOC) BV3N5; GLUCOSE,POINT OF CARE 376 MG/DL (70-110)
[2018-10-14 16:05] VITALS: BP 116/60
[2018-10-14] MEDS: ZIPRASIDONE HCL 40 MG CAPSULE PO SCH (16:40)
[2018-10-14 16:54] LABS: GLUCOMETER DEV NAME(LOC) BV3N5; GLUCOSE,POINT OF CARE 137 MG/DL (70-110)
[2018-10-15 06:31] VITALS: BP 126/65
[2018-10-15] MEDS: GlipiZIDE 10 MG TABLET PO SCH ×2 (06:33→16:30)
[2018-10-15] MEDS: ZIPRASIDONE HCL 40 MG CAPSULE PO SCH ×2 (06:40→16:49)
[2018-10-15] MEDS: LinaGLIPtin 5 MG TABLET PO SCH (10:04)
[2018-10-15 16:05] VITALS: BP 110/61
[2018-10-15] MEDS: LORazepam 2 MG TABLET PO PRN (20:58)
[2018-10-16 05:16] VITALS: BP 113/65
[2018-10-16] MEDS: ZIPRASIDONE HCL 40 MG CAPSULE PO SCH (06:36)
[2018-10-16] MEDS: GlipiZIDE 10 MG TABLET PO SCH (06:36)
[2018-10-16 08:04] VITALS: BP 117/68
[2018-10-16] MEDS: LinaGLIPtin 5 MG TABLET PO SCH (08:51)
[2018-10-16] MEDS ORDERED: ZIPR40CA2 PO (09:14)
== END 2018-10-16 11:45 | disposition home or self-care (01) | DRG 885 ==
LOC: EMS 22:28 → B3A 10-13 12:28
PROVIDERS: ADMIT Psychiatry & Neurology Child & Adolescent Psychiatry; ATTEND Psychiatry & Neurology Psychiatry
DX: F25.0 Schizoaffective disorder, bipolar type (principal); E11.65 Type 2 diabetes mellitus with hyperglycemia; E46 Unspecified protein-calorie malnutrition; E87.1 Hypo-osmolality and hyponatremia; F17.210 Nicotine dependence, cigarettes, uncomplicated; R19.7 Diarrhea, unspecified; D64.9 Anemia, unspecified; F12.90 Cannabis use, unspecified, uncomplicated; F41.9 Anxiety disorder, unspecified; I10 Essential (primary) hypertension; Z59.0 Homelessness; Z91.19 Patient's noncompliance with other medical treatment and regimen; Z68.21 Body mass index [BMI] 21.0-21.9, adult; Z79.899 Other long term (current) drug therapy; Z79.84 Long term (current) use of oral hypoglycemic drugs
CPT/HCPCS: 87081; 96361; 96372; 96374; G0480; J1200; J1630; J1815; J2060; J7030

== ENCOUNTER 2018-12-08 20:14 | Inpatient (IN) | payer MEDICARE, MEDICAID ==
[~2018-12-08 20:14] MED LIST changes: -BACTDSB PO; -QUET200T PO; +ZIPR40CA2 PO
[2018-12-08 20:33] VITALS: BP 114/85
[2018-12-08 20:49] LABS: GLUCOMETER DEV NAME(LOC) BV2S.; GLUCOSE,POINT OF CARE > 600 MG/DL (70-110)
[2018-12-08] MEDS ORDERED: ZOLPIDEM TARTRATE 10 MG TABLET PO PRN (21:15)
[2018-12-08] MEDS ORDERED: QUEtiapine FUMARATE 100 MG TABLET PO PRN (21:15)
[2018-12-09 06:04] VITALS: BP 123/71
[2018-12-09 08:06] VITALS: BP 138/78
[2018-12-09] MEDS: LORazepam 2 MG TABLET PO PRN (09:40)
[2018-12-09 09:50] LABS: GLUCOMETER DEV NAME(LOC) BV3N.; GLUCOSE,POINT OF CARE 553 MG/DL (70-110)
[2018-12-09] MEDS ORDERED: GLUCAGON,HUMAN RECOMBINANT 1 MG VIAL IM PRN (10:00)
[2018-12-09] MEDS: INSULIN LISPRO 100 UNITS/ML SQ PRN ×2 (12:10→16:56)
[2018-12-09 12:11] LABS: GLUCOMETER DEV NAME(LOC) BV3N.; GLUCOSE,POINT OF CARE 371 MG/DL (70-110)
[2018-12-09 16:00] VITALS: BP 112/74
[2018-12-09] MEDS: ZIPRASIDONE HCL 40 MG CAPSULE PO SCH (16:56)
[2018-12-09] MEDS: QUEtiapine FUMARATE 200 MG TABLET PO SCH (16:56)
[2018-12-09 17:29] LABS: GLUCOMETER DEV NAME(LOC) BV3N.; GLUCOSE,POINT OF CARE 186 MG/DL (70-110)
[2018-12-09] MEDS ORDERED: ACETAMINOPHEN 325 MG TABLET PO PRN (23:00)
[2018-12-09] MEDS ORDERED: BACITRACIN 28.4 GM OINTMENT TP PRN (23:00)
[2018-12-09] MEDS ORDERED: MAG HYDROX/AL HYDROX/SIMETH ES 30 ML SUSPENSION UDCUP PO PRN (23:00)
[2018-12-09] MEDS ORDERED: BENZOCAINE/MENTHOL LOZENGE MM PRN (23:00)
[2018-12-09] MEDS ORDERED: IBUPROFEN 600 MG TABLET PO PRN (23:00)
[2018-12-09] MEDS ORDERED: MAGNESIUM HYDROXIDE SUSPENSION 30 ML UDCUP PO PRN (23:00)
[2018-12-09] MEDS ORDERED: ALBUTEROL SULFATE HFA 90 MCG/PUFF 8 GM INHALER IH PRN (23:00)
[2018-12-09] MEDS ORDERED: PETROLATUM,WHITE 71 GM JELLY TP PRN (23:00)
[2018-12-09] MEDS ORDERED: ONDANSETRON HCL 4 MG TABLET PO PRN (23:00)
[2018-12-09] MEDS ORDERED: LOPERAMIDE HCL 2 MG CAPSULE PO PRN (23:00)
[2018-12-09] MEDS ORDERED: CloNIDine HCL 0.1 MG TABLET PO PRN (23:00)
[2018-12-10 00:43] VITALS: BP 114/70
[2018-12-10] MEDS: GlipiZIDE 10 MG TABLET PO SCH ×2 (06:58→16:30)
[2018-12-10] MEDS: ZIPRASIDONE HCL 40 MG CAPSULE PO SCH ×2 (06:58→16:49)
[2018-12-10 08:03] VITALS: BP 111/68
[2018-12-10] MEDS: LinaGLIPtin 5 MG TABLET PO SCH (08:36)
[2018-12-10] MEDS: QUEtiapine FUMARATE 200 MG TABLET PO SCH ×2 (08:36→16:49)
[2018-12-10] MEDS: OMEPRAZOLE 20 MG CAPSULE PO SCH (08:37)
[2018-12-10] MEDS: DOCUSATE SODIUM 100 MG CAPSULE PO SCH (08:37)
[2018-12-10 16:00] VITALS: BP 116/70
[2018-12-11] MEDS: GlipiZIDE 10 MG TABLET PO SCH ×2 (06:30→16:50)
[2018-12-11] MEDS: ZIPRASIDONE HCL 40 MG CAPSULE PO SCH ×2 (06:39→16:50)
[2018-12-11 08:04] VITALS: BP 113/65
[2018-12-11] MEDS: LinaGLIPtin 5 MG TABLET PO SCH (10:08)
[2018-12-11] MEDS: QUEtiapine FUMARATE 200 MG TABLET PO SCH ×2 (10:08→16:50)
[2018-12-11] MEDS: OMEPRAZOLE 20 MG CAPSULE PO SCH (10:08)
[2018-12-11] MEDS: DOCUSATE SODIUM 100 MG CAPSULE PO SCH (10:08)
[2018-12-11 11:14] LABS: GLUCOMETER DEV NAME(LOC) BV3N.; GLUCOSE,POINT OF CARE 561 MG/DL (70-110)
[2018-12-11] MEDS ORDERED: INSULIN LISPRO 100 UNITS/ML SQ ONE ×2 (11:30→12:15)
[2018-12-11 12:14] LABS: GLUCOMETER DEV NAME(LOC) BV3N.; GLUCOSE,POINT OF CARE 519 MG/DL (70-110)
[2018-12-11 13:54] LABS: GLUCOMETER DEV NAME(LOC) BV3N.; GLUCOSE,POINT OF CARE 430 MG/DL (70-110)
[2018-12-11 16:00] VITALS: BP 124/84
[2018-12-11] MEDS: INSULIN LISPRO 100 UNITS/ML SQ PRN ×2 (16:56→21:10)
[2018-12-11 16:59] LABS: GLUCOMETER DEV NAME(LOC) BV3N.; GLUCOSE,POINT OF CARE 144 MG/DL (70-110)
[2018-12-11] MEDS ORDERED: INSULIN DETEMIR 100 UNITS/ML SQ SCH (21:00)
[2018-12-11 21:14] LABS: GLUCOMETER DEV NAME(LOC) BV3N.; GLUCOSE,POINT OF CARE 342 MG/DL (70-110)
[2018-12-11] MEDS: INSULIN GLARGINE,HUM.REC.ANLOG 100 UNITS/ML SQ SCH (21:27)
[2018-12-12 00:32] VITALS: BP 122/72
[2018-12-12] MEDS: GlipiZIDE 10 MG TABLET PO SCH ×2 (06:30→16:35)
[2018-12-12] MEDS: ZIPRASIDONE HCL 40 MG CAPSULE PO SCH ×2 (06:40→16:35)
[2018-12-12] MEDS: OMEPRAZOLE 20 MG CAPSULE PO SCH (09:32)
[2018-12-12] MEDS: LinaGLIPtin 5 MG TABLET PO SCH (09:32)
[2018-12-12] MEDS: QUEtiapine FUMARATE 200 MG TABLET PO SCH ×2 (09:32→16:35)
[2018-12-12] MEDS: DOCUSATE SODIUM 100 MG CAPSULE PO SCH (09:32)
[2018-12-12 11:59] LABS: GLUCOMETER DEV NAME(LOC) BV3N.; GLUCOSE,POINT OF CARE 410 MG/DL (70-110)
[2018-12-12] MEDS ORDERED: INSULIN LISPRO 100 UNITS/ML SQ ONE ×2 (12:00→12:15)
[2018-12-12] MEDS ORDERED: INSULIN LISPRO 100 UNITS/ML SQ PRN (12:15)
[2018-12-12] MEDS: LORazepam 2 MG TABLET PO PRN (16:35)
[2018-12-12 17:58] LABS: GLUCOMETER DEV NAME(LOC) BV3N.; GLUCOSE,POINT OF CARE 201 MG/DL (70-110)
[2018-12-12] MEDS: INSULIN GLARGINE,HUM.REC.ANLOG 100 UNITS/ML SQ SCH (21:00)
[2018-12-13] MEDS: GlipiZIDE 10 MG TABLET PO SCH (06:29)
[2018-12-13] MEDS: ZIPRASIDONE HCL 40 MG CAPSULE PO SCH (06:29)
[2018-12-13 08:34] VITALS: BP 106/64
[2018-12-13] MEDS: LinaGLIPtin 5 MG TABLET PO SCH (09:17)
[2018-12-13] MEDS: OMEPRAZOLE 20 MG CAPSULE PO SCH (09:17)
[2018-12-13] MEDS: DOCUSATE SODIUM 100 MG CAPSULE PO SCH (09:17)
[2018-12-13] MEDS: QUEtiapine FUMARATE 200 MG TABLET PO SCH (09:17)
[2018-12-13] MEDS ORDERED: QUET200T PO (13:29)
[2018-12-13] MEDS ORDERED: GLIP10 PO (13:40)
[2018-12-13] MEDS ORDERED: LINA5TAB PO (13:42)
== END 2018-12-13 15:30 | disposition home or self-care (01) | DRG 885 ==
LOC: B3A 21:48 → EDSTATUS 21:52
PROVIDERS: ADMIT Psychiatry & Neurology Psychiatry; ATTEND Psychiatry & Neurology Psychiatry
DX: F20.0 Paranoid schizophrenia (principal); E11.65 Type 2 diabetes mellitus with hyperglycemia; F12.90 Cannabis use, unspecified, uncomplicated; F17.200 Nicotine dependence, unspecified, uncomplicated; G47.00 Insomnia, unspecified; J44.9 Chronic obstructive pulmonary disease, unspecified; K21.9 Gastro-esophageal reflux disease without esophagitis; K59.00 Constipation, unspecified; Z91.14 Patient's other noncompliance with medication regimen
CPT/HCPCS: 82948; 96361; 96374; 96376; J1815; J7030

== ENCOUNTER 2018-12-08 21:54 | Emergency (ER) | payer MEDICARE, OTHER ==
[~2018-12-08] VITALS: Ht 188 cm; Wt 81.8 kg
[2018-12-08] MEDS ORDERED: SODIUM CHLORIDE 0.9% 1,000 ML IV ONE (23:15)
[2018-12-08 23:24] LABS: BASOPHILS % (AUTO) 0.3 % (0.0-2.0); EOSINOPHILS % (AUTO) 0.6 % (1.0-6.0); HEMATOCRIT 37.2 % (41-53); HEMOGLOBIN 12.4 g/dL (13.5-17.5); LYMPHOCYTES # (AUTO) 1.4 K/uL (1.0-4.8); LYMPHOCYTES % (AUTO) 20.5 % (22.0-44.0); MEAN CORPUSCULAR HEMOGLOBIN 30.3 pg (26.0-34.0); MEAN CORPUSCULAR HGB CONC 33.4 G/dL (31.0-37.0); MEAN CORPUSCULAR VOLUME 91 fL (80-100); MONOCYTES # (AUTO) 0.3 K/uL (0.1-1.0); MONOCYTES % (AUTO) 4.1 % (2.0-9.0); NEUTROPHILS # (AUTO) 5.3 K/uL (1.8-7.7); NEUTROPHILS % (AUTO) 74.5 % (40.0-70.0); PLATELET COUNT (AUTO) 453 K/uL (150-450); RED CELL DISTRIBUTION WIDTH 13.6 % (11.5-14.5)
[2018-12-08 23:24] LABS: GLUCOSE,POINT OF CARE 577 MG/DL (70-110)
[2018-12-08 23:40] LABS: ALANINE AMINOTRANSFERASE 44 U/L (12-78); ALKALINE PHOSPHATASE 85 U/L (46-116); ANION GAP 10 mmol/L (8-16); ASPARTATE AMINOTRANSFERASE 29 U/L (15-37); BILIRUBIN,TOTAL 0.2 mg/dL (0.1-1.0); CALCIUM, TOTAL 8.3 mg/dL (8.8-10.5); CARBON DIOXIDE 24 mmol/L (22-29); CHLORIDE 98 mmol/L (98-107); GLOMERULAR FILTR. RATE CALC > 60 mL/min (>60); LIPASE 329 U/L (73-393); POTASSIUM 4.4 mmol/L (3.5-5.1); SODIUM SERUM 132 mmol/L (136-145); TOTAL PROTEIN, SERUM 6.1 g/dL (6.4-8.2); UREA NITROGEN, BLOOD 11 mg/dL (7-18)
[2018-12-08 23:43] LABS: GLUCOSE,RANDOM 698 mg/dL (70-110)
[2018-12-09] MEDS ORDERED: SODIUM CHLORIDE 0.9% 1,000 ML IV ONE (02:00)
[2018-12-09] MEDS ORDERED: INSULIN REGULAR, HUMAN 100 UNITS/ML IVP ONE ×3 (02:00→04:00)
[2018-12-09 02:21] LABS: GLUCOSE,POINT OF CARE 504 MG/DL (70-110)
[2018-12-09 04:15] LABS: GLUCOSE,POINT OF CARE 465 MG/DL (70-110)
[2018-12-09 05:25] LABS: GLUCOSE,POINT OF CARE 363 MG/DL (70-110)
[2018-12-09 05:30] VITALS: BP 138/84
== END 2018-12-09 05:38 | disposition home or self-care (01) ==
LOC: EMS 21:55
DX: E11.65 Type 2 diabetes mellitus with hyperglycemia (principal); R11.2 Nausea with vomiting, unspecified; R10.9 Unspecified abdominal pain; I10 Essential (primary) hypertension; F20.9 Schizophrenia, unspecified; F12.90 Cannabis use, unspecified, uncomplicated; F17.210 Nicotine dependence, cigarettes, uncomplicated; Z59.0 Homelessness; Z79.4 Long term (current) use of insulin
CPT/HCPCS: 36415; 80053; 82009; 82948; 82962; 83690; 85025; 96361; 96374; 96376; 99283; J1815 ×2; J7030

== ENCOUNTER 2019-01-12 15:24 | Inpatient (IN) | payer MEDICARE, MEDICAID ==
[~2019-01-12] VITALS: Ht 188 cm; Wt 73.8 kg
[~2019-01-12 15:24] MED LIST changes: +QUET200T PO
[2019-01-12] MEDS ORDERED: MAGNESIUM SULFATE 2 GM, MVI, ADULT NO.1 WITH VIT K 10 ML, THIAMINE HCL 100 MG, FOLIC AC... IV ONE ×5 (16:15)
[2019-01-12] MEDS ORDERED: SODIUM CHLORIDE 0.9% 1,000 ML IV ONE ×2 (16:15→20:45)
[2019-01-12 18:06] LABS: BASOPHILS % (AUTO) 1.1 % (0.0-2.0); EOSINOPHILS % (AUTO) 0.5 % (1.0-6.0); HEMATOCRIT 38.4 % (41-53); HEMOGLOBIN 12.8 g/dL (13.5-17.5); LYMPHOCYTES # (AUTO) 1.4 K/uL (1.0-4.8); LYMPHOCYTES % (AUTO) 24.3 % (22.0-44.0); MEAN CORPUSCULAR HEMOGLOBIN 30.3 pg (26.0-34.0); MEAN CORPUSCULAR HGB CONC 33.4 G/dL (31.0-37.0); MEAN CORPUSCULAR VOLUME 91 fL (80-100); MONOCYTES # (AUTO) 0.4 K/uL (0.1-1.0); MONOCYTES % (AUTO) 6.1 % (2.0-9.0); PLATELET COUNT (AUTO) 408 K/uL (150-450); RED BLOOD CELL COUNT(AUTO) 4.23 MIL/uL (4.50-5.90); RED CELL DISTRIBUTION WIDTH 13.8 % (11.5-14.5)
[2019-01-12 18:18] LABS: ALANINE AMINOTRANSFERASE 48 U/L (12-78); ALBUMIN 3.3 g/dL (3.4-5.0); ALKALINE PHOSPHATASE 101 U/L (46-116); ANION GAP 12 mmol/L (8-16); ASPARTATE AMINOTRANSFERASE 34 U/L (15-37); BILIRUBIN,TOTAL 0.3 mg/dL (0.1-1.0); CALCIUM, TOTAL 8.6 mg/dL (8.8-10.5); CARBON DIOXIDE 24 mmol/L (22-29); CHLORIDE 94 mmol/L (98-107); CREATININE 1.29 mg/dL (0.60-1.30); GLOMERULAR FILTR. RATE CALC > 60 mL/min (>60); POTASSIUM 3.9 mmol/L (3.5-5.1); SODIUM SERUM 130 mmol/L (136-145); TOTAL PROTEIN, SERUM 6.8 g/dL (6.4-8.2); UREA NITROGEN, BLOOD 14 mg/dL (7-18)
[2019-01-12 18:27] LABS: GLUCOSE,RANDOM 635 mg/dL (70-110)
[2019-01-12 20:33] LABS: GLUCOSE,POINT OF CARE 494 MG/DL (70-110)
[2019-01-12] MEDS ORDERED: INSULIN REGULAR, HUMAN 100 UNITS/ML IVP ONE (20:45)
[2019-01-12 23:23] LABS: GLUCOSE,POINT OF CARE 77 MG/DL (70-110)
[2019-01-13] MEDS ORDERED: QUEtiapine FUMARATE 100 MG TABLET PO ONE (00:30)
[2019-01-13 00:43] LABS: GLUCOSE,POINT OF CARE 238 MG/DL (70-110)
[2019-01-13] MEDS ORDERED: CEPHALEXIN MONOHYDRATE 500 MG CAPSULE PO ONE (00:45)
[2019-01-13] MEDS ORDERED: LORazepam 2 MG TABLET PO PRN (01:00)
[2019-01-13] MEDS ORDERED: QUEtiapine FUMARATE 100 MG TABLET PO PRN (01:00)
[2019-01-13] MEDS ORDERED: ZOLPIDEM TARTRATE 10 MG TABLET PO PRN (01:00)
[2019-01-13] MEDS ORDERED: -PHARMACY VACCINE NOTE- MISC ONE (06:00)
[2019-01-13] MEDS ORDERED: PNEUMOCOCCAL VACCINE POLYVALENT 0.5 ML VIAL [PPSV23] IM ONE (06:00)
[2019-01-13] MEDS ORDERED: INSULIN LISPRO 100 UNITS/ML SQ PRN (20:30)
[2019-01-13] MEDS ORDERED: DEXTROSE 50%-WATER 25 GM/50 ML SYRINGE IVP PRN (20:30)
[2019-01-13] MEDS ORDERED: ACETAMINOPHEN 325 MG TABLET PO PRN (21:15)
[2019-01-13] MEDS ORDERED: MAGNESIUM HYDROXIDE SUSPENSION 30 ML UDCUP PO PRN (21:15)
[2019-01-13] MEDS ORDERED: BENZOCAINE/MENTHOL LOZENGE MM PRN (21:15)
[2019-01-13] MEDS ORDERED: PETROLATUM,WHITE 71 GM JELLY TP PRN (21:15)
[2019-01-13] MEDS ORDERED: ONDANSETRON HCL 4 MG TABLET PO PRN (21:15)
[2019-01-13] MEDS ORDERED: BACITRACIN 28.4 GM OINTMENT TP PRN (21:15)
[2019-01-13] MEDS ORDERED: ALBUTEROL SULFATE HFA 90 MCG/PUFF 8 GM INHALER IH PRN (21:15)
[2019-01-13] MEDS ORDERED: CloNIDine HCL 0.1 MG TABLET PO PRN (21:15)
[2019-01-13] MEDS ORDERED: LOPERAMIDE HCL 2 MG CAPSULE PO PRN (21:15)
[2019-01-13] MEDS ORDERED: DOCUSATE SODIUM 100 MG CAPSULE PO PRN (21:15)
[2019-01-13] MEDS ORDERED: OMEPRAZOLE 20 MG CAPSULE PO PRN (21:15)
[2019-01-13] MEDS ORDERED: IBUPROFEN 600 MG TABLET PO PRN (21:15)
[2019-01-13] MEDS ORDERED: MAG HYDROX/AL HYDROX/SIMETH ES 30 ML SUSPENSION UDCUP PO PRN (21:15)
[2019-01-13] MEDS: QUEtiapine FUMARATE 200 MG TABLET PO SCH (21:26)
[2019-01-14] MEDS: GlipiZIDE 10 MG TABLET PO SCH ×2 (06:47→17:32)
[2019-01-14 11:04] LABS: GLUCOMETER DEV NAME(LOC) 3E.C; GLUCOSE,POINT OF CARE 549 MG/DL (70-110)
[2019-01-14] MEDS ORDERED: INSULIN LISPRO 100 UNITS/ML SQ ONE ×2 (11:05→17:45)
[2019-01-14] MEDS: LinaGLIPtin 5 MG TABLET PO SCH (12:37)
[2019-01-14] MEDS: QUEtiapine FUMARATE 200 MG TABLET PO SCH ×2 (12:37→17:32)
[2019-01-14 17:34] LABS: GLUCOMETER DEV NAME(LOC) 3E.C; GLUCOSE,POINT OF CARE 412 MG/DL (70-110)
[2019-01-14] MEDS: INSULIN GLARGINE,HUM.REC.ANLOG 100 UNITS/ML SQ SCH (22:05)
[2019-01-14 22:15] LABS: GLUCOMETER DEV NAME(LOC) 3E.C; GLUCOSE,POINT OF CARE 127 MG/DL (70-110)
[2019-01-15] MEDS: GlipiZIDE 10 MG TABLET PO SCH ×2 (06:46→17:52)
[2019-01-15] MEDS: LinaGLIPtin 5 MG TABLET PO SCH (09:00)
[2019-01-15] MEDS: INSULIN GLARGINE,HUM.REC.ANLOG 100 UNITS/ML SQ SCH ×2 (09:00→21:07)
[2019-01-15] MEDS: QUEtiapine FUMARATE 200 MG TABLET PO SCH ×2 (09:00→17:52)
[2019-01-15] MEDS ORDERED: DEXTROSE 50%-WATER 25 GM/50 ML SYRINGE IVP PRN (17:45)
[2019-01-15 17:49] LABS: GLUCOMETER DEV NAME(LOC) 3E.C; GLUCOSE,POINT OF CARE 456 MG/DL (70-110)
[2019-01-15] MEDS ORDERED: INSULIN LISPRO 100 UNITS/ML SQ ONE (18:15)
[2019-01-15] MEDS: INSULIN LISPRO 100 UNITS/ML SQ PRN (21:08)
[2019-01-15 21:09] LABS: GLUCOMETER DEV NAME(LOC) 3E.C; GLUCOSE,POINT OF CARE 230 MG/DL (70-110)
[2019-01-16] MEDS: GlipiZIDE 10 MG TABLET PO SCH ×2 (06:33→17:00)
[2019-01-16] MEDS: LinaGLIPtin 5 MG TABLET PO SCH (08:03)
[2019-01-16] MEDS: QUEtiapine FUMARATE 200 MG TABLET PO SCH ×2 (08:03→17:38)
[2019-01-16] MEDS: INSULIN GLARGINE,HUM.REC.ANLOG 100 UNITS/ML SQ SCH ×3 (09:00→22:30)
[2019-01-16 09:19] VITALS: BP 116/77
[2019-01-16] MEDS: MetFORMIN HCL 500 MG TABLET PO SCH (17:30)
[2019-01-16 19:27] VITALS: BP 110/70
[2019-01-16 22:23] LABS: GLUCOMETER DEV NAME(LOC) 3E.C; GLUCOSE,POINT OF CARE 438 MG/DL (70-110)
[2019-01-16] MEDS ORDERED: INSULIN LISPRO 100 UNITS/ML SQ ONE (22:30)
[2019-01-17] MEDS: MetFORMIN HCL 500 MG TABLET PO SCH ×2 (06:58→17:01)
[2019-01-17] MEDS: GlipiZIDE 10 MG TABLET PO SCH ×2 (06:58→17:01)
[2019-01-17] MEDS: INSULIN GLARGINE,HUM.REC.ANLOG 100 UNITS/ML SQ SCH ×2 (09:00→21:43)
[2019-01-17] MEDS: LinaGLIPtin 5 MG TABLET PO SCH (10:19)
[2019-01-17] MEDS: QUEtiapine FUMARATE 200 MG TABLET PO SCH ×2 (10:20→17:01)
[2019-01-17 14:14] LABS: GLUCOMETER DEV NAME(LOC) 3E.C; GLUCOSE,POINT OF CARE 399 MG/DL (70-110)
[2019-01-17 16:54] LABS: GLUCOMETER DEV NAME(LOC) 3E.C; GLUCOSE,POINT OF CARE 359 MG/DL (70-110)
[2019-01-17] MEDS: INSULIN LISPRO 100 UNITS/ML SQ PRN (17:36)
[2019-01-17 17:40] VITALS: BP 105/72
[2019-01-17 21:28] LABS: GLUCOMETER DEV NAME(LOC) 3E.C; GLUCOSE,POINT OF CARE 427 MG/DL (70-110)
[2019-01-17] MEDS ORDERED: INSULIN LISPRO 100 UNITS/ML SQ ONE (21:30)
[2019-01-18] MEDS: GlipiZIDE 10 MG TABLET PO SCH ×2 (06:52→17:12)
[2019-01-18] MEDS: MetFORMIN HCL 500 MG TABLET PO SCH ×2 (06:52→17:13)
[2019-01-18] MEDS: QUEtiapine FUMARATE 200 MG TABLET PO SCH ×2 (08:07→17:13)
[2019-01-18] MEDS: LinaGLIPtin 5 MG TABLET PO SCH (08:07)
[2019-01-18] MEDS: INSULIN GLARGINE,HUM.REC.ANLOG 100 UNITS/ML SQ SCH ×2 (09:20→21:00)
[2019-01-18 12:03] LABS: GLUCOMETER DEV NAME(LOC) 3E.C; GLUCOSE,POINT OF CARE 373 MG/DL (70-110)
[2019-01-18] MEDS: INSULIN LISPRO 100 UNITS/ML SQ PRN ×2 (12:04→17:57)
[2019-01-18 18:03] LABS: GLUCOMETER DEV NAME(LOC) 3E.C; GLUCOSE,POINT OF CARE 360 MG/DL (70-110)
[2019-01-19] MEDS: MetFORMIN HCL 500 MG TABLET PO SCH (06:36)
[2019-01-19] MEDS: GlipiZIDE 10 MG TABLET PO SCH (06:36)
[2019-01-19 09:00] VITALS: BP 137/80
[2019-01-19] MEDS: LinaGLIPtin 5 MG TABLET PO SCH (09:00)
[2019-01-19] MEDS: INSULIN GLARGINE,HUM.REC.ANLOG 100 UNITS/ML SQ SCH (09:00)
[2019-01-19] MEDS: QUEtiapine FUMARATE 200 MG TABLET PO SCH (09:00)
[2019-01-19] MEDS ORDERED: INSLAN SQ (09:47)
[2019-01-19] MEDS ORDERED: METF-960 PO (09:47)
[2019-01-19 12:14] LABS: GLUCOMETER DEV NAME(LOC) 3E.C; GLUCOSE,POINT OF CARE 424 MG/DL (70-110)
[2019-01-19] MEDS: INSULIN LISPRO 100 UNITS/ML SQ PRN (12:30)
== END 2019-01-19 12:45 | disposition home or self-care (01) | DRG 885 ==
LOC: EMS 15:26 → 3EC 01-13 02:45
PROVIDERS: ADMIT Psychiatry & Neurology Psychiatry; ATTEND Psychiatry & Neurology Psychiatry
DX: F25.9 Schizoaffective disorder, unspecified (principal); E87.1 Hypo-osmolality and hyponatremia; L03.213 Periorbital cellulitis; R45.851 Suicidal ideations; E11.65 Type 2 diabetes mellitus with hyperglycemia; E55.9 Vitamin D deficiency, unspecified; F12.10 Cannabis abuse, uncomplicated; F17.200 Nicotine dependence, unspecified, uncomplicated; J44.9 Chronic obstructive pulmonary disease, unspecified; I10 Essential (primary) hypertension; G47.00 Insomnia, unspecified; K21.9 Gastro-esophageal reflux disease without esophagitis; K59.00 Constipation, unspecified; Z59.0 Homelessness; Z79.84 Long term (current) use of oral hypoglycemic drugs; Z71.6 Tobacco abuse counseling; Z91.14 Patient's other noncompliance with medication regimen
CPT/HCPCS: 96365; 96375; 99291; G0480; J1815; J3411; J3475; J3490; J7030

== ENCOUNTER 2019-02-12 02:13 | Inpatient (IN) | payer MEDICARE, MEDICAID ==
[~2019-02-12] VITALS: Ht 188 cm; Wt 77.1 kg
[~2019-02-12 02:13] MED LIST changes: +INSLAN SQ; +METF-960 PO; -ZIPR40CA2 PO
[2019-02-12 02:34] LABS: GLUCOSE,POINT OF CARE 371 MG/DL (70-110)
[2019-02-12 02:50] LABS: BASOPHILS % (AUTO) 1.3 % (0.0-2.0); EOSINOPHILS % (AUTO) 1.2 % (1.0-6.0); HEMATOCRIT 38.3 % (41-53); LYMPHOCYTES # (AUTO) 2.1 K/uL (1.0-4.8); LYMPHOCYTES % (AUTO) 28.1 % (22.0-44.0); MEAN CORPUSCULAR HEMOGLOBIN 30.5 pg (26.0-34.0); MEAN CORPUSCULAR HGB CONC 33.8 G/dL (31.0-37.0); MEAN CORPUSCULAR VOLUME 90 fL (80-100); MONOCYTES # (AUTO) 0.7 K/uL (0.1-1.0); MONOCYTES % (AUTO) 9.3 % (2.0-9.0); NEUTROPHILS # (AUTO) 4.4 K/uL (1.8-7.7); NEUTROPHILS % (AUTO) 60.1 % (40.0-70.0); PLATELET COUNT (AUTO) 373 K/uL (150-450); RED BLOOD CELL COUNT(AUTO) 4.25 MIL/uL (4.50-5.90); RED CELL DISTRIBUTION WIDTH 13.4 % (11.5-14.5)
[2019-02-12 03:09] LABS: ALANINE AMINOTRANSFERASE 20 U/L (12-78); ALBUMIN 3.1 g/dL (3.4-5.0); ALKALINE PHOSPHATASE 79 U/L (46-116); ANION GAP 10 mmol/L (8-16); ASPARTATE AMINOTRANSFERASE 19 U/L (15-37); BILIRUBIN,TOTAL 0.3 mg/dL (0.1-1.0); CALCIUM, TOTAL 8.9 mg/dL (8.8-10.5); CARBON DIOXIDE 25 mmol/L (22-29); CHLORIDE 97 mmol/L (98-107); CREATININE 1.02 mg/dL (0.60-1.30); GLOMERULAR FILTR. RATE CALC > 60 mL/min (>60); POTASSIUM 4.4 mmol/L (3.5-5.1); SODIUM SERUM 132 mmol/L (136-145); TOTAL PROTEIN, SERUM 6.3 g/dL (6.4-8.2); UREA NITROGEN, BLOOD 18 mg/dL (7-18)
[2019-02-12 03:12] LABS: GLUCOSE,RANDOM 435 mg/dL (70-110)
[2019-02-12] MEDS ORDERED: ZOLPIDEM TARTRATE 10 MG TABLET PO PRN (03:15)
[2019-02-12] MEDS ORDERED: INSULIN REGULAR, HUMAN 100 UNITS/ML SQ ONE (03:15)
[2019-02-12 05:59] LABS: GLUCOSE,POINT OF CARE 251 MG/DL (70-110)
[2019-02-12] MEDS ORDERED: PNEUMOCOCCAL VACCINE POLYVALENT 0.5 ML VIAL [PPSV23] IM ONE (06:45)
[2019-02-12 06:47] VITALS: BP 118/81
[2019-02-12 08:00] VITALS: BP 150/103
[2019-02-12] MEDS ORDERED: DEXTROSE 50%-WATER 25 GM/50 ML SYRINGE IVP PRN (11:00)
[2019-02-12 11:54] LABS: GLUCOMETER DEV NAME(LOC) 3E.C; GLUCOSE,POINT OF CARE 444 MG/DL (70-110)
[2019-02-12] MEDS: INSULIN LISPRO 100 UNITS/ML SQ PRN ×3 (11:54→21:42)
[2019-02-12 14:13] LABS: GLUCOMETER DEV NAME(LOC) 3E.C; GLUCOSE,POINT OF CARE 291 MG/DL (70-110)
[2019-02-12 16:19] LABS: GLUCOMETER DEV NAME(LOC) 3E.C; GLUCOSE,POINT OF CARE 209 MG/DL (70-110)
[2019-02-12] MEDS: QUEtiapine FUMARATE 200 MG TABLET PO SCH (16:31)
[2019-02-12 17:51] VITALS: BP 112/72
[2019-02-12] MEDS ORDERED: MAG HYDROX/AL HYDROX/SIMETH ES 30 ML SUSPENSION UDCUP PO PRN (20:45)
[2019-02-12] MEDS ORDERED: BACITRACIN 28.4 GM OINTMENT TP PRN (20:45)
[2019-02-12] MEDS ORDERED: ACETAMINOPHEN 325 MG TABLET PO PRN (20:45)
[2019-02-12] MEDS ORDERED: PETROLATUM,WHITE 28 GM JELLY TP PRN (20:45)
[2019-02-12] MEDS ORDERED: OMEPRAZOLE 20 MG CAPSULE PO PRN (20:45)
[2019-02-12] MEDS ORDERED: DOCUSATE SODIUM 100 MG CAPSULE PO PRN (20:45)
[2019-02-12] MEDS ORDERED: CloNIDine HCL 0.1 MG TABLET PO PRN (20:45)
[2019-02-12] MEDS ORDERED: ONDANSETRON HCL 4 MG TABLET PO PRN (20:45)
[2019-02-12] MEDS ORDERED: ALBUTEROL SULFATE HFA 90 MCG/PUFF 8 GM INHALER IH PRN (20:45)
[2019-02-12] MEDS ORDERED: BENZOCAINE/MENTHOL LOZENGE MM PRN (20:45)
[2019-02-12] MEDS ORDERED: IBUPROFEN 600 MG TABLET PO PRN (20:45)
[2019-02-12] MEDS ORDERED: LOPERAMIDE HCL 2 MG CAPSULE PO PRN (20:45)
[2019-02-12] MEDS ORDERED: MAGNESIUM HYDROXIDE SUSPENSION 30 ML UDCUP PO PRN (20:45)
[2019-02-12] MEDS: INSULIN GLARGINE,HUM.REC.ANLOG 100 UNITS/ML SQ SCH (21:41)
[2019-02-12 21:44] LABS: GLUCOMETER DEV NAME(LOC) 3E.C; GLUCOSE,POINT OF CARE 249 MG/DL (70-110)
[2019-02-13] MEDS: GlipiZIDE 10 MG TABLET PO SCH ×2 (06:48→17:00)
[2019-02-13] MEDS: MetFORMIN HCL 500 MG TABLET PO SCH ×2 (06:48→17:15)
[2019-02-13 08:00] VITALS: BP 122/74
[2019-02-13 08:14] LABS: GLUCOMETER DEV NAME(LOC) 3E.C; GLUCOSE,POINT OF CARE 337 MG/DL (70-110)
[2019-02-13] MEDS: INSULIN LISPRO 100 UNITS/ML SQ PRN ×2 (08:19→11:49)
[2019-02-13] MEDS: INSULIN GLARGINE,HUM.REC.ANLOG 100 UNITS/ML SQ SCH ×2 (08:20→21:00)
[2019-02-13] MEDS: QUEtiapine FUMARATE 200 MG TABLET PO SCH ×2 (08:22→17:15)
[2019-02-13 11:49] LABS: GLUCOMETER DEV NAME(LOC) 3E.C; GLUCOSE,POINT OF CARE 363 MG/DL (70-110)
[2019-02-13] MEDS ORDERED: LORazepam 2 MG/ML VIAL IM ONE (13:25)
[2019-02-13] MEDS ORDERED: DiphenhydrAMINE HCL 50 MG/ML VIAL IM ONE (13:25)
[2019-02-13] MEDS ORDERED: HALOPERIDOL LACTATE 5 MG/ML VIAL IM ONE (13:25)
[2019-02-13 16:45] VITALS: BP 124/89
[2019-02-14 03:20] LABS: GLUCOMETER DEV NAME(LOC) BV3N.; GLUCOSE,POINT OF CARE 148 MG/DL (70-110)
[2019-02-14 03:46] VITALS: BP 126/84
[2019-02-14] MEDS ORDERED: GLUCAGON,HUMAN RECOMBINANT 1 MG VIAL IM PRN (05:00)
[2019-02-14] MEDS ORDERED: INSULIN LISPRO 100 UNITS/ML SQ PRN (05:00)
[2019-02-14] MEDS: GlipiZIDE 10 MG TABLET PO SCH ×2 (06:30→16:33)
[2019-02-14] MEDS: MetFORMIN HCL 500 MG TABLET PO SCH ×2 (06:48→17:20)
[2019-02-14 08:25] VITALS: BP 121/87
[2019-02-14] MEDS: QUEtiapine FUMARATE 200 MG TABLET PO SCH ×2 (08:55→17:20)
[2019-02-14] MEDS: INSULIN GLARGINE,HUM.REC.ANLOG 100 UNITS/ML SQ SCH ×2 (09:19→21:00)
[2019-02-14 17:15] VITALS: BP 108/79
[2019-02-15] MEDS: GlipiZIDE 10 MG TABLET PO SCH ×2 (06:29→17:19)
[2019-02-15] MEDS: MetFORMIN HCL 500 MG TABLET PO SCH ×2 (06:29→17:19)
[2019-02-15 08:07] VITALS: BP 124/87
[2019-02-15] MEDS: QUEtiapine FUMARATE 200 MG TABLET PO SCH ×2 (08:49→17:19)
[2019-02-15] MEDS: INSULIN GLARGINE,HUM.REC.ANLOG 100 UNITS/ML SQ SCH ×2 (08:49→20:39)
[2019-02-15] MEDS ORDERED: INSLAN SQ (13:25)
[2019-02-15] MEDS ORDERED: METF-960 PO (13:25)
[2019-02-15 16:27] VITALS: BP 107/83
[2019-02-15] MEDS: LORazepam 2 MG TABLET PO PRN (17:20)
[2019-02-15] MEDS: HALOPERIDOL 5 MG TABLET PO PRN (17:20)
[2019-02-16] MEDS: GlipiZIDE 10 MG TABLET PO SCH (06:30)
[2019-02-16] MEDS: MetFORMIN HCL 500 MG TABLET PO SCH (06:36)
[2019-02-16] MEDS: QUEtiapine FUMARATE 200 MG TABLET PO SCH (08:29)
[2019-02-16] MEDS: HALOPERIDOL 5 MG TABLET PO PRN (08:30)
[2019-02-16] MEDS: INSULIN GLARGINE,HUM.REC.ANLOG 100 UNITS/ML SQ SCH (08:34)
[2019-02-16] MEDS ORDERED: ALBU8HFA IH (09:08)
[2019-02-16] MEDS ORDERED: INSNOV SQ (09:08)
[2019-02-16] MEDS: LORazepam 2 MG TABLET PO PRN (10:22)
== END 2019-02-16 12:10 | DRG 885 ==
LOC: EMS 02:13 → 3EC 03:00 → B3A 02-14 02:37
PROVIDERS: ADMIT Psychiatry & Neurology Psychiatry; ATTEND Psychiatry & Neurology Psychiatry
DX: F25.0 Schizoaffective disorder, bipolar type (principal); R45.851 Suicidal ideations; F17.200 Nicotine dependence, unspecified, uncomplicated; F12.10 Cannabis abuse, uncomplicated; E55.9 Vitamin D deficiency, unspecified; E11.65 Type 2 diabetes mellitus with hyperglycemia; K59.00 Constipation, unspecified; K21.9 Gastro-esophageal reflux disease without esophagitis; J44.9 Chronic obstructive pulmonary disease, unspecified; G47.00 Insomnia, unspecified; I10 Essential (primary) hypertension; Z59.0 Homelessness; Z71.51 Drug abuse counseling and surveillance of drug abuser; Z71.6 Tobacco abuse counseling; Z91.14 Patient's other noncompliance with medication regimen; Z79.899 Other long term (current) drug therapy; Z79.4 Long term (current) use of insulin
CPT/HCPCS: 82948; 87081; 96372; G0480; J1200; J1630; J1815; J2060

== ENCOUNTER 2019-04-03 19:27 | Inpatient (IN) | payer MEDICARE, MEDICAID ==
[~2019-04-03] VITALS: Ht 188 cm; Wt 74.8 kg
[~2019-04-03 19:27] MED LIST changes: -INSLAN SQ; -METF-960 PO
[2019-04-03 21:04] LABS: GLUCOSE,POINT OF CARE 497 MG/DL (70-110)
[2019-04-03] MEDS ORDERED: SODIUM CHLORIDE 0.9% 1,000 ML IV ONE ×2 (21:15→21:30)
[2019-04-03 21:29] LABS: BASOPHILS % (AUTO) 0.6 % (0.0-2.0); HEMATOCRIT 40.8 % (41-53); HEMOGLOBIN 13.8 g/dL (13.5-17.5); LYMPHOCYTES # (AUTO) 1.8 K/uL (1.0-4.8); LYMPHOCYTES % (AUTO) 30.4 % (22.0-44.0); MEAN CORPUSCULAR HEMOGLOBIN 30.3 pg (26.0-34.0); MEAN CORPUSCULAR HGB CONC 33.7 G/dL (31.0-37.0); MEAN CORPUSCULAR VOLUME 90 fL (80-100); MONOCYTES # (AUTO) 0.3 K/uL (0.1-1.0); MONOCYTES % (AUTO) 4.7 % (2.0-9.0); NEUTROPHILS # (AUTO) 3.7 K/uL (1.8-7.7); NEUTROPHILS % (AUTO) 62.3 % (40.0-70.0); PLATELET COUNT (AUTO) 361 K/uL (150-450); RED BLOOD CELL COUNT(AUTO) 4.54 MIL/uL (4.50-5.90); RED CELL DISTRIBUTION WIDTH 13.3 % (11.5-14.5)
[2019-04-03 21:44] LABS: ALANINE AMINOTRANSFERASE 40 U/L (12-78); ALBUMIN 3.5 g/dL (3.4-5.0); ALKALINE PHOSPHATASE 94 U/L (46-116); ANION GAP 12 mmol/L (8-16); ASPARTATE AMINOTRANSFERASE 23 U/L (15-37); BILIRUBIN,TOTAL 0.3 mg/dL (0.1-1.0); CALCIUM, TOTAL 8.8 mg/dL (8.8-10.5); CARBON DIOXIDE 22 mmol/L (22-29); CHLORIDE 100 mmol/L (98-107); CREATININE 1.14 mg/dL (0.60-1.30); GLOMERULAR FILTR. RATE CALC > 60 mL/min (>60); POTASSIUM 4.2 mmol/L (3.5-5.1); SODIUM SERUM 134 mmol/L (136-145); UREA NITROGEN, BLOOD 8 mg/dL (7-18)
[2019-04-03 21:54] LABS: GLUCOSE,RANDOM 536 mg/dL (70-110)
[2019-04-03 21:57] LABS: ACETONE,BLOOD NEGATIVE (NEGATIVE)
[2019-04-03] MEDS ORDERED: INSULIN REGULAR, HUMAN 100 UNITS/ML IVP ONE (22:00)
[2019-04-03 22:33] LABS: GLUCOSE,POINT OF CARE 517 MG/DL (70-110)
[2019-04-03 23:57] LABS: ANION GAP 11 mmol/L (8-16); CALCIUM, TOTAL 8.5 mg/dL (8.8-10.5); CARBON DIOXIDE 23 mmol/L (22-29); CHLORIDE 109 mmol/L (98-107); CREATININE 1.02 mg/dL (0.60-1.30); GLOMERULAR FILTR. RATE CALC > 60 mL/min (>60); GLUCOSE,RANDOM 267 mg/dL (70-110); POTASSIUM 3.7 mmol/L (3.5-5.1); SODIUM SERUM 143 mmol/L (136-145); UREA NITROGEN, BLOOD 8 mg/dL (7-18)
[2019-04-04] MEDS ORDERED: INSULIN REGULAR, HUMAN 100 UNITS/ML IVP ONE ×2 (00:15)
[2019-04-04 01:33] LABS: GLUCOSE,POINT OF CARE 259 MG/DL (70-110)
[2019-04-04 01:33] LABS: GLUCOSE,POINT OF CARE 141 MG/DL (70-110)
[2019-04-04 03:44] LABS: GLUCOSE,POINT OF CARE 228 MG/DL (70-110)
[2019-04-04] MEDS ORDERED: ZOLPIDEM TARTRATE 10 MG TABLET PO PRN (04:00)
[2019-04-04] MEDS ORDERED: HALOPERIDOL 5 MG TABLET PO PRN (04:00)
[2019-04-04] MEDS ORDERED: LORazepam 2 MG TABLET PO PRN (04:00)
[2019-04-04] MEDS ORDERED: BENZOCAINE/MENTHOL LOZENGE MM PRN (08:15)
[2019-04-04] MEDS ORDERED: MAG HYDROX/AL HYDROX/SIMETH ES 30 ML SUSPENSION UDCUP PO PRN (08:15)
[2019-04-04] MEDS ORDERED: ONDANSETRON HCL 4 MG TABLET PO PRN (08:15)
[2019-04-04] MEDS ORDERED: ALBUTEROL SULFATE HFA 90 MCG/PUFF 8 GM INHALER IH PRN (08:15)
[2019-04-04] MEDS ORDERED: ACETAMINOPHEN 325 MG TABLET PO PRN (08:15)
[2019-04-04] MEDS ORDERED: BACITRACIN 28.4 GM OINTMENT TP PRN (08:15)
[2019-04-04] MEDS ORDERED: LOPERAMIDE HCL 2 MG CAPSULE PO PRN (08:15)
[2019-04-04] MEDS ORDERED: IBUPROFEN 600 MG TABLET PO PRN (08:15)
[2019-04-04] MEDS ORDERED: CloNIDine HCL 0.1 MG TABLET PO PRN (08:15)
[2019-04-04] MEDS ORDERED: MAGNESIUM HYDROXIDE SUSPENSION 30 ML UDCUP PO PRN (08:15)
[2019-04-04] MEDS ORDERED: DEXTROSE 50%-WATER 25 GM/50 ML SYRINGE IVP PRN (08:15)
[2019-04-04] MEDS ORDERED: INSULIN LISPRO 100 UNITS/ML SQ PRN (08:15)
[2019-04-04] MEDS ORDERED: PETROLATUM,WHITE 28 GM JELLY TP PRN (08:15)
[2019-04-04 08:54] LABS: GLUCOSE,POINT OF CARE 399 MG/DL (70-110)
[2019-04-04] MEDS: LinaGLIPtin 5 MG TABLET PO SCH (09:00)
[2019-04-04] MEDS: DOCUSATE SODIUM 100 MG CAPSULE PO SCH (09:00)
[2019-04-04] MEDS: OMEPRAZOLE 20 MG CAPSULE PO SCH (09:00)
[2019-04-04 09:14] VITALS: BP 150/96
[2019-04-04] MEDS: GlipiZIDE 10 MG TABLET PO SCH (17:00)
[2019-04-05] MEDS: GlipiZIDE 10 MG TABLET PO SCH ×4 (06:38→18:04)
[2019-04-05] MEDS: LinaGLIPtin 5 MG TABLET PO SCH (09:00)
[2019-04-05] MEDS: DOCUSATE SODIUM 100 MG CAPSULE PO SCH (09:00)
[2019-04-05] MEDS: OMEPRAZOLE 20 MG CAPSULE PO SCH (09:00)
[2019-04-05] MEDS: QUEtiapine FUMARATE 200 MG TABLET PO SCH ×3 (17:00→18:04)
[2019-04-06] MEDS: GlipiZIDE 10 MG TABLET PO SCH ×2 (06:38→17:17)
[2019-04-06] MEDS: QUEtiapine FUMARATE 200 MG TABLET PO SCH ×2 (09:00→17:17)
[2019-04-06] MEDS: DOCUSATE SODIUM 100 MG CAPSULE PO SCH (09:00)
[2019-04-06] MEDS: OMEPRAZOLE 20 MG CAPSULE PO SCH (09:00)
[2019-04-06] MEDS: LinaGLIPtin 5 MG TABLET PO SCH (09:00)
[2019-04-06] MEDS: MetFORMIN HCL 500 MG TABLET PO SCH (17:17)
[2019-04-06 17:19] LABS: GLUCOMETER DEV NAME(LOC) 3E.C; GLUCOSE,POINT OF CARE 379 MG/DL (70-110)
[2019-04-07] MEDS: GlipiZIDE 10 MG TABLET PO SCH (07:00)
[2019-04-07] MEDS: MetFORMIN HCL 500 MG TABLET PO SCH (07:07)
[2019-04-07] MEDS: DOCUSATE SODIUM 100 MG CAPSULE PO SCH (09:00)
[2019-04-07] MEDS: LinaGLIPtin 5 MG TABLET PO SCH (09:00)
[2019-04-07] MEDS: QUEtiapine FUMARATE 200 MG TABLET PO SCH (09:00)
[2019-04-07] MEDS: OMEPRAZOLE 20 MG CAPSULE PO SCH (09:00)
[2019-04-07] MEDS ORDERED: DSS100 PO (11:25)
[2019-04-07] MEDS ORDERED: OMEP20 PO (11:25)
[2019-04-07] MEDS ORDERED: METF-960 PO (11:25)
== END 2019-04-07 14:05 | disposition home or self-care (01) | DRG 638 ==
LOC: EMS 19:29 → 3EC 04-04 06:56
PROVIDERS: ADMIT Psychiatry & Neurology Psychiatry; ATTEND Psychiatry & Neurology Psychiatry
DX: E11.65 Type 2 diabetes mellitus with hyperglycemia (principal); R45.851 Suicidal ideations; F20.0 Paranoid schizophrenia; J44.9 Chronic obstructive pulmonary disease, unspecified; K21.9 Gastro-esophageal reflux disease without esophagitis; K59.00 Constipation, unspecified; E55.9 Vitamin D deficiency, unspecified; F12.10 Cannabis abuse, uncomplicated; I10 Essential (primary) hypertension; G47.00 Insomnia, unspecified; F17.210 Nicotine dependence, cigarettes, uncomplicated; Z71.6 Tobacco abuse counseling; Z59.0 Homelessness; Z91.14 Patient's other noncompliance with medication regimen
CPT/HCPCS: 51701; 82948; G0480; J1815

== ENCOUNTER 2019-04-12 04:17 | Emergency (ER) | payer MEDICARE, OTHER ==
[~2019-04-12] VITALS: Ht 188 cm; Wt 79.5 kg
[~2019-04-12 04:17] MED LIST changes: +DSS100 PO; +METF-960 PO; +OMEP20 PO
[2019-04-12] MEDS ORDERED: SODIUM CHLORIDE 0.9% 1,000 ML IV ONE (04:30)
[2019-04-12] MEDS ORDERED: INSULIN REGULAR, HUMAN 100 UNITS/ML IVP ONE (05:15)
[2019-04-12 05:29] LABS: GLUCOSE,POINT OF CARE > 600 MG/DL (70-110)
[2019-04-12 05:58] LABS: BASOPHILS % (AUTO) 0.6 % (0.0-2.0); EOSINOPHILS % (AUTO) 0.6 % (1.0-6.0); HEMOGLOBIN 13.5 g/dL (13.5-17.5); LYMPHOCYTES # (AUTO) 1.6 K/uL (1.0-4.8); LYMPHOCYTES % (AUTO) 30.7 % (22.0-44.0); MEAN CORPUSCULAR HEMOGLOBIN 30.4 pg (26.0-34.0); MEAN CORPUSCULAR HGB CONC 33.6 G/dL (31.0-37.0); MEAN CORPUSCULAR VOLUME 90 fL (80-100); MONOCYTES # (AUTO) 0.3 K/uL (0.1-1.0); MONOCYTES % (AUTO) 6.5 % (2.0-9.0); NEUTROPHILS # (AUTO) 3.3 K/uL (1.8-7.7); NEUTROPHILS % (AUTO) 61.6 % (40.0-70.0); PLATELET COUNT (AUTO) 408 K/uL (150-450); RED BLOOD CELL COUNT(AUTO) 4.43 MIL/uL (4.50-5.90); RED CELL DISTRIBUTION WIDTH 13.3 % (11.5-14.5)
[2019-04-12 06:19] VITALS: BP 134/98
[2019-04-12] MEDS ORDERED: DiphenhydrAMINE HCL 25 MG CAPSULE PO ONE (06:30)
[2019-04-12 06:32] LABS: ALANINE AMINOTRANSFERASE 36 U/L (12-78); ALBUMIN 3.7 g/dL (3.4-5.0); ALKALINE PHOSPHATASE 94 U/L (46-116); ANION GAP 12 mmol/L (8-16); ASPARTATE AMINOTRANSFERASE 23 U/L (15-37); BILIRUBIN,TOTAL 0.4 mg/dL (0.1-1.0); CALCIUM, TOTAL 8.7 mg/dL (8.8-10.5); CARBON DIOXIDE 23 mmol/L (22-29); CHLORIDE 94 mmol/L (98-107); CREATININE 1.24 mg/dL (0.60-1.30); GLOMERULAR FILTR. RATE CALC > 60 mL/min (>60); POTASSIUM 3.8 mmol/L (3.5-5.1); SODIUM SERUM 129 mmol/L (136-145); UREA NITROGEN, BLOOD 14 mg/dL (7-18)
[2019-04-12 06:34] LABS: GLUCOSE,RANDOM 619 mg/dL (70-110)
[2019-04-12 06:47] LABS: ACETONE,BLOOD NEGATIVE (NEGATIVE)
[2019-04-12 06:49] LABS: GLUCOSE,POINT OF CARE 171 MG/DL (70-110)
[2019-04-12] MEDS ORDERED: LORazepam 2 MG TABLET PO ONE (07:30)
[2019-04-12] MEDS ORDERED: HALOPERIDOL 5 MG TABLET PO ONE (07:30)
== END 2019-04-12 07:29 | disposition home or self-care (01) ==
LOC: EMS 04:24
DX: E11.65 Type 2 diabetes mellitus with hyperglycemia (principal); R44.0 Auditory hallucinations; R44.1 Visual hallucinations; R45.851 Suicidal ideations; I10 Essential (primary) hypertension; F20.9 Schizophrenia, unspecified; F17.210 Nicotine dependence, cigarettes, uncomplicated; F12.90 Cannabis use, unspecified, uncomplicated; Z79.84 Long term (current) use of oral hypoglycemic drugs; Z59.0 Homelessness
CPT/HCPCS: 36415; 80053; 82009; 82948; 82962; 85025; 96361; 96374; 99284; G0480; J1815; J7030

== ENCOUNTER 2019-05-15 23:59 | Emergency (ER) | payer MEDICARE, OTHER ==
[~2019-05-15] VITALS: Ht 188 cm; Wt 77.3 kg
[2019-05-16 01:28] LABS: GLUCOSE,POINT OF CARE > 600 MG/DL (70-110)
[2019-05-16] MEDS ORDERED: SODIUM CHLORIDE 0.9% 1,000 ML IV ONE (01:30)
[2019-05-16] MEDS ORDERED: INSULIN REGULAR, HUMAN 100 UNITS/ML IVP ONE (01:30)
[2019-05-16] MEDS ORDERED: HALOPERIDOL LACTATE 5 MG/ML VIAL IM ONE (02:15)
[2019-05-16] MEDS ORDERED: LORazepam 2 MG/ML VIAL IM ONE (02:15)
[2019-05-16] MEDS ORDERED: DiphenhydrAMINE HCL 50 MG/ML VIAL IM ONE (02:15)
[2019-05-16] MEDS ORDERED: LORazepam 1 MG TABLET PO ONE (02:30)
[2019-05-16] MEDS ORDERED: HALOPERIDOL 5 MG TABLET PO ONE (02:30)
[2019-05-16] MEDS ORDERED: DiphenhydrAMINE HCL 25 MG CAPSULE PO ONE (02:30)
[2019-05-16] MEDS ORDERED: ZOLPIDEM TARTRATE 10 MG TABLET PO PRN (03:00)
[2019-05-16] MEDS ORDERED: LORazepam 2 MG TABLET PO PRN (03:00)
[2019-05-16] MEDS ORDERED: HALOPERIDOL 5 MG TABLET PO PRN (03:00)
[2019-05-16 03:32] LABS: BASOPHILS % (AUTO) 0.5 % (0.0-2.0); EOSINOPHILS % (AUTO) 1.5 % (1.0-6.0); HEMATOCRIT 38.8 % (41-53); HEMOGLOBIN 12.8 g/dL (13.5-17.5); LYMPHOCYTES % (AUTO) 45.9 % (22.0-44.0); MEAN CORPUSCULAR HEMOGLOBIN 29.9 pg (26.0-34.0); MEAN CORPUSCULAR HGB CONC 33.1 G/dL (31.0-37.0); MEAN CORPUSCULAR VOLUME 90 fL (80-100); MONOCYTES # (AUTO) 0.4 K/uL (0.1-1.0); MONOCYTES % (AUTO) 9.2 % (2.0-9.0); NEUTROPHILS # (AUTO) 1.9 K/uL (1.8-7.7); NEUTROPHILS % (AUTO) 42.9 % (40.0-70.0); PLATELET COUNT (AUTO) 388 K/uL (150-450); RED BLOOD CELL COUNT(AUTO) 4.29 MIL/uL (4.50-5.90); RED CELL DISTRIBUTION WIDTH 13.4 % (11.5-14.5)
[2019-05-16 03:40] LABS: ANION GAP 8 mmol/L (8-16); CALCIUM, TOTAL 8.4 mg/dL (8.8-10.5); CARBON DIOXIDE 26 mmol/L (22-29); CHLORIDE 103 mmol/L (98-107); CREATININE 0.97 mg/dL (0.60-1.30); GLOMERULAR FILTR. RATE CALC > 60 mL/min (>60); GLUCOSE,RANDOM 135 mg/dL (70-110); POTASSIUM 3.1 mmol/L (3.5-5.1); SODIUM SERUM 137 mmol/L (136-145); UREA NITROGEN, BLOOD 11 mg/dL (7-18)
[2019-05-16 03:46] LABS: ALANINE AMINOTRANSFERASE 42 U/L (12-78); ALBUMIN 3.2 g/dL (3.4-5.0); ALKALINE PHOSPHATASE 92 U/L (46-116); ASPARTATE AMINOTRANSFERASE 32 U/L (15-37); BILIRUBIN,TOTAL 0.3 mg/dL (0.1-1.0); TOTAL PROTEIN, SERUM 6.3 g/dL (6.4-8.2)
[2019-05-16 03:52] LABS: ACETONE,BLOOD NEGATIVE (NEGATIVE)
[2019-05-16] MEDS ORDERED: POTASSIUM CHLORIDE 20 MEQ ER TABLET PO ONE (04:00)
[2019-05-16 10:49] LABS: GLUCOSE,POINT OF CARE 340 MG/DL (70-110)
[2019-05-16 13:09] VITALS: BP 139/88
[2019-05-16 16:04] LABS: GLUCOSE,POINT OF CARE 368 MG/DL (70-110)
[2019-05-16] MEDS ORDERED: QUEtiapine FUMARATE 200 MG TABLET PO SCH (21:00)
== END 2019-05-16 16:10 | disposition left against medical advice (07) ==
LOC: EMS 05-16 00:03 → UNDOADMIN 05-16 10:06 → AHU 05-16 10:06 → EMS 05-16 16:10
DX: F20.9 Schizophrenia, unspecified (principal); R45.851 Suicidal ideations; E11.65 Type 2 diabetes mellitus with hyperglycemia; F31.9 Bipolar disorder, unspecified; E11.9 Type 2 diabetes mellitus without complications; I10 Essential (primary) hypertension; F12.90 Cannabis use, unspecified, uncomplicated; F15.90 Other stimulant use, unspecified, uncomplicated; F17.210 Nicotine dependence, cigarettes, uncomplicated; Z79.84 Long term (current) use of oral hypoglycemic drugs
CPT/HCPCS: 36415; 80053; 82009; 82962; 85025; 96361; 96374; 99284; G0480; J1200; J1630; J1815; J2060; J7030; G0378

== ENCOUNTER 2019-06-02 04:32 | Emergency (ER) | payer MEDICARE, OTHER ==
[~2019-06-02] VITALS: Ht 188 cm; Wt 79.5 kg
[2019-06-02 05:02] VITALS: BP 134/93
[2019-06-02 05:09] LABS: GLUCOSE,POINT OF CARE 466 MG/DL (70-110)
== END 2019-06-02 06:22 | disposition left against medical advice (07) ==
LOC: EMS 04:32
DX: Z91.19 Patient's noncompliance with other medical treatment and regimen (principal); F31.9 Bipolar disorder, unspecified; F20.9 Schizophrenia, unspecified; E11.9 Type 2 diabetes mellitus without complications; I10 Essential (primary) hypertension; F17.210 Nicotine dependence, cigarettes, uncomplicated; F12.90 Cannabis use, unspecified, uncomplicated; F19.90 Other psychoactive substance use, unspecified, uncomplicated; Z53.21 Procedure and treatment not carried out due to patient leaving prior to being seen by health care provider

== ENCOUNTER 2019-06-06 16:19 | Inpatient (IN) | payer MEDICARE, MEDICAID ==
[~2019-06-06] VITALS: Ht 188 cm; Wt 74.4 kg
[2019-06-06 20:20] LABS: GLUCOSE,POINT OF CARE 357 MG/DL (70-110)
[2019-06-06] MEDS ORDERED: DiphenhydrAMINE HCL 50 MG/ML VIAL IM ONE (20:30)
[2019-06-06] MEDS ORDERED: LORazepam 2 MG/ML VIAL IM ONE (20:30)
[2019-06-06] MEDS ORDERED: HALOPERIDOL LACTATE 5 MG/ML VIAL IM ONE (20:30)
[2019-06-06] MEDS ORDERED: INSULIN REGULAR, HUMAN 100 UNITS/ML SQ ONE (21:00)
[2019-06-06] MEDS ORDERED: ZOLPIDEM TARTRATE 10 MG TABLET PO PRN (21:00)
[2019-06-06 21:14] LABS: BASOPHILS % (AUTO) 0.6 % (0.0-2.0); EOSINOPHILS % (AUTO) 1.7 % (1.0-6.0); HEMATOCRIT 38.3 % (41-53); HEMOGLOBIN 12.7 g/dL (13.5-17.5); LYMPHOCYTES # (AUTO) 2.1 K/uL (1.0-4.8); LYMPHOCYTES % (AUTO) 47.8 % (22.0-44.0); MEAN CORPUSCULAR HEMOGLOBIN 30.2 pg (26.0-34.0); MEAN CORPUSCULAR VOLUME 91 fL (80-100); MONOCYTES # (AUTO) 0.2 K/uL (0.1-1.0); MONOCYTES % (AUTO) 5.6 % (2.0-9.0); NEUTROPHILS # (AUTO) 1.9 K/uL (1.8-7.7); NEUTROPHILS % (AUTO) 44.3 % (40.0-70.0); PLATELET COUNT (AUTO) 381 K/uL (150-450); RED CELL DISTRIBUTION WIDTH 13.8 % (11.5-14.5)
[2019-06-06 21:20] LABS: ANION GAP 5 mmol/L (8-16); CALCIUM, TOTAL 8.6 mg/dL (8.8-10.5); CARBON DIOXIDE 27 mmol/L (22-29); CHLORIDE 102 mmol/L (98-107); CREATININE 0.87 mg/dL (0.60-1.30); GLOMERULAR FILTR. RATE CALC > 60 mL/min (>60); GLUCOSE,RANDOM 330 mg/dL (70-110); POTASSIUM 3.6 mmol/L (3.5-5.1); SODIUM SERUM 134 mmol/L (136-145); UREA NITROGEN, BLOOD 12 mg/dL (7-18)
[2019-06-06 21:26] LABS: ALANINE AMINOTRANSFERASE 39 U/L (12-78); ALKALINE PHOSPHATASE 76 U/L (46-116); ASPARTATE AMINOTRANSFERASE 31 U/L (15-37); BILIRUBIN,TOTAL 0.2 mg/dL (0.1-1.0); TOTAL PROTEIN, SERUM 5.9 g/dL (6.4-8.2)
[2019-06-06 23:19] LABS: GLUCOSE,POINT OF CARE 268 MG/DL (70-110)
[2019-06-07 04:05] LABS: GLUCOSE,POINT OF CARE 81 MG/DL (70-110)
[2019-06-07 09:54] LABS: GLUCOSE,POINT OF CARE 308 MG/DL (70-110)
[2019-06-07 13:29] LABS: GLUCOSE,POINT OF CARE 386 MG/DL (70-110)
[2019-06-07] MEDS ORDERED: DEXTROSE 50%-WATER 25 GM/50 ML SYRINGE IVP PRN (13:30)
[2019-06-07] MEDS ORDERED: INSULIN LISPRO 100 UNITS/ML SQ PRN (13:30)
[2019-06-07 17:24] LABS: GLUCOSE,POINT OF CARE 164 MG/DL (70-110)
[2019-06-07 18:49] LABS: GLUCOSE,POINT OF CARE 280 MG/DL (70-110)
[2019-06-08] MEDS: QUEtiapine FUMARATE 200 MG TABLET PO SCH ×3 (00:01→16:32)
[2019-06-08 00:18] VITALS: BP 124/90
[2019-06-08] MEDS ORDERED: PETROLATUM,WHITE 28 GM JELLY TP PRN (07:45)
[2019-06-08] MEDS ORDERED: ACETAMINOPHEN 325 MG TABLET PO PRN (07:45)
[2019-06-08] MEDS ORDERED: CloNIDine HCL 0.1 MG TABLET PO PRN (07:45)
[2019-06-08] MEDS ORDERED: LOPERAMIDE HCL 2 MG CAPSULE PO PRN (07:45)
[2019-06-08] MEDS ORDERED: BACITRACIN 28.4 GM OINTMENT TP PRN (07:45)
[2019-06-08] MEDS ORDERED: MAG HYDROX/AL HYDROX/SIMETH ES 30 ML SUSPENSION UDCUP PO PRN (07:45)
[2019-06-08] MEDS ORDERED: BENZOCAINE/MENTHOL LOZENGE MM PRN (07:45)
[2019-06-08] MEDS ORDERED: ALBUTEROL SULFATE HFA 90 MCG/PUFF 8 GM INHALER IH PRN (07:45)
[2019-06-08] MEDS ORDERED: IBUPROFEN 600 MG TABLET PO PRN (07:45)
[2019-06-08] MEDS ORDERED: MAGNESIUM HYDROXIDE SUSPENSION 30 ML UDCUP PO PRN (07:45)
[2019-06-08] MEDS ORDERED: ONDANSETRON HCL 4 MG TABLET PO PRN (07:45)
[2019-06-08] MEDS: LinaGLIPtin 5 MG TABLET PO SCH (09:00)
[2019-06-08] MEDS: DOCUSATE SODIUM 100 MG CAPSULE PO SCH (09:32)
[2019-06-08] MEDS: OMEPRAZOLE 20 MG CAPSULE PO SCH (09:32)
[2019-06-08 09:35] VITALS: BP 125/83
[2019-06-08 16:07] VITALS: BP 110/71
[2019-06-08] MEDS: GlipiZIDE 10 MG TABLET PO SCH (16:30)
[2019-06-08] MEDS: MetFORMIN HCL 500 MG TABLET PO SCH (16:32)
[2019-06-08] MEDS ORDERED: GLUCAGON,HUMAN RECOMBINANT 1 MG VIAL IM PRN (22:00)
[2019-06-09 05:16] VITALS: BP 115/68
[2019-06-09] MEDS: GlipiZIDE 10 MG TABLET PO SCH ×2 (06:30→16:30)
[2019-06-09] MEDS: MetFORMIN HCL 500 MG TABLET PO SCH ×2 (06:31→16:45)
[2019-06-09] MEDS: LinaGLIPtin 5 MG TABLET PO SCH (09:00)
[2019-06-09] MEDS: OMEPRAZOLE 20 MG CAPSULE PO SCH (09:00)
[2019-06-09] MEDS: DOCUSATE SODIUM 100 MG CAPSULE PO SCH (09:00)
[2019-06-09] MEDS: QUEtiapine FUMARATE 200 MG TABLET PO SCH ×2 (09:00→16:45)
[2019-06-10 02:37] VITALS: BP 101/65
[2019-06-10] MEDS: GlipiZIDE 10 MG TABLET PO SCH ×2 (06:30→16:30)
[2019-06-10] MEDS: MetFORMIN HCL 500 MG TABLET PO SCH ×2 (07:00→16:44)
[2019-06-10] MEDS: QUEtiapine FUMARATE 200 MG TABLET PO SCH ×2 (09:00→16:44)
[2019-06-10] MEDS: OMEPRAZOLE 20 MG CAPSULE PO SCH (09:00)
[2019-06-10] MEDS: DOCUSATE SODIUM 100 MG CAPSULE PO SCH (09:00)
[2019-06-10] MEDS: LinaGLIPtin 5 MG TABLET PO SCH (09:00)
[2019-06-10] MEDS: INSULIN LISPRO 100 UNITS/ML SQ PRN (20:57)
[2019-06-10 20:58] LABS: GLUCOMETER DEV NAME(LOC) BV3N.; GLUCOSE,POINT OF CARE 532 MG/DL (70-110)
[2019-06-11] MEDS: MetFORMIN HCL 500 MG TABLET PO SCH ×2 (06:26→17:17)
[2019-06-11] MEDS: GlipiZIDE 10 MG TABLET PO SCH ×2 (06:26→17:17)
[2019-06-11] MEDS: QUEtiapine FUMARATE 200 MG TABLET PO SCH ×2 (08:14→17:17)
[2019-06-11] MEDS: LinaGLIPtin 5 MG TABLET PO SCH (08:14)
[2019-06-11] MEDS: OMEPRAZOLE 20 MG CAPSULE PO SCH (08:14)
[2019-06-11] MEDS: DOCUSATE SODIUM 100 MG CAPSULE PO SCH (08:14)
[2019-06-11] MEDS: LORazepam 2 MG TABLET PO PRN ×2 (08:14→17:17)
[2019-06-11 11:49] LABS: GLUCOMETER DEV NAME(LOC) BV3N.; GLUCOSE,POINT OF CARE 525 MG/DL (70-110)
[2019-06-11] MEDS: INSULIN LISPRO 100 UNITS/ML SQ PRN (11:58)
[2019-06-12] MEDS: MetFORMIN HCL 500 MG TABLET PO SCH ×2 (06:52→16:30)
[2019-06-12] MEDS: GlipiZIDE 10 MG TABLET PO SCH ×2 (06:53→16:29)
[2019-06-12 08:51] VITALS: BP 128/68
[2019-06-12] MEDS: DOCUSATE SODIUM 100 MG CAPSULE PO SCH (09:19)
[2019-06-12] MEDS: LinaGLIPtin 5 MG TABLET PO SCH (09:19)
[2019-06-12] MEDS: QUEtiapine FUMARATE 200 MG TABLET PO SCH ×2 (09:19→16:30)
[2019-06-12] MEDS: OMEPRAZOLE 20 MG CAPSULE PO SCH (09:19)
[2019-06-12 11:55] LABS: GLUCOMETER DEV NAME(LOC) BV3N.; GLUCOSE,POINT OF CARE 452 MG/DL (70-110)
[2019-06-12] MEDS: INSULIN LISPRO 100 UNITS/ML SQ PRN ×2 (11:58→16:30)
[2019-06-12] MEDS: LORazepam 2 MG TABLET PO PRN (16:30)
[2019-06-12 17:25] LABS: GLUCOMETER DEV NAME(LOC) BV3N.; GLUCOSE,POINT OF CARE 156 MG/DL (70-110)
[2019-06-13] MEDS: MetFORMIN HCL 500 MG TABLET PO SCH ×2 (06:40→16:49)
[2019-06-13] MEDS: GlipiZIDE 10 MG TABLET PO SCH ×2 (06:40→16:49)
[2019-06-13] MEDS: LinaGLIPtin 5 MG TABLET PO SCH (08:36)
[2019-06-13] MEDS: QUEtiapine FUMARATE 200 MG TABLET PO SCH (08:37)
[2019-06-13] MEDS: OMEPRAZOLE 20 MG CAPSULE PO SCH (08:38)
[2019-06-13] MEDS: LORazepam 2 MG TABLET PO PRN ×3 (08:38→16:58)
[2019-06-13] MEDS: DOCUSATE SODIUM 100 MG CAPSULE PO SCH (08:38)
[2019-06-13] MEDS: HALOPERIDOL 5 MG TABLET PO PRN ×2 (12:57→16:58)
[2019-06-14] MEDS: GlipiZIDE 10 MG TABLET PO SCH ×2 (06:30→16:42)
[2019-06-14] MEDS: MetFORMIN HCL 500 MG TABLET PO SCH ×2 (06:53→16:42)
[2019-06-14] MEDS: OMEPRAZOLE 20 MG CAPSULE PO SCH (08:34)
[2019-06-14] MEDS: ARIPiprazole 10 MG TABLET PO SCH (08:34)
[2019-06-14] MEDS: DOCUSATE SODIUM 100 MG CAPSULE PO SCH (08:34)
[2019-06-14] MEDS: LinaGLIPtin 5 MG TABLET PO SCH (08:34)
[2019-06-14 11:49] LABS: GLUCOMETER DEV NAME(LOC) BV3N.; GLUCOSE,POINT OF CARE 444 MG/DL (70-110)
[2019-06-14] MEDS: INSULIN LISPRO 100 UNITS/ML SQ PRN ×3 (12:02→20:46)
[2019-06-14 15:15] LABS: GLUCOMETER DEV NAME(LOC) BV3N.; GLUCOSE,POINT OF CARE 70 MG/DL (70-110)
[2019-06-14 16:00] VITALS: BP 135/77
[2019-06-14] MEDS: LORazepam 2 MG TABLET PO PRN (16:42)
[2019-06-14] MEDS: HALOPERIDOL 5 MG TABLET PO PRN (16:42)
[2019-06-14 17:34] LABS: GLUCOMETER DEV NAME(LOC) BV3N.; GLUCOSE,POINT OF CARE 194 MG/DL (70-110)
[2019-06-14 21:24] LABS: GLUCOMETER DEV NAME(LOC) BV3N.; GLUCOSE,POINT OF CARE 210 MG/DL (70-110)
[2019-06-14] MEDS ORDERED: OMEPRAZOLE 20 MG CAPSULE PO PRN (23:15)
[2019-06-14] MEDS ORDERED: DOCUSATE SODIUM 100 MG CAPSULE PO PRN (23:15)
[2019-06-15] MEDS: GlipiZIDE 10 MG TABLET PO SCH (06:30)
[2019-06-15] MEDS: MetFORMIN HCL 500 MG TABLET PO SCH (06:34)
[2019-06-15 08:37] VITALS: BP 115/62
[2019-06-15] MEDS: LinaGLIPtin 5 MG TABLET PO SCH (08:45)
[2019-06-15] MEDS: ARIPiprazole 10 MG TABLET PO SCH (08:45)
[2019-06-15] MEDS: LORazepam 2 MG TABLET PO PRN (11:02)
[2019-06-15 11:15] LABS: GLUCOMETER DEV NAME(LOC) BV3N.; GLUCOSE,POINT OF CARE 462 MG/DL (70-110)
[2019-06-15] MEDS ORDERED: ARIP10TA8 PO (12:32)
== END 2019-06-15 13:15 | disposition home or self-care (01) | DRG 885 ==
LOC: EMS 16:21 → B3A 06-07 19:30
PROVIDERS: ADMIT Psychiatry & Neurology Psychiatry; ATTEND Psychiatry & Neurology Psychiatry
DX: F25.0 Schizoaffective disorder, bipolar type (principal); R45.851 Suicidal ideations; I10 Essential (primary) hypertension; Z59.0 Homelessness; J44.9 Chronic obstructive pulmonary disease, unspecified; K21.9 Gastro-esophageal reflux disease without esophagitis; K59.00 Constipation, unspecified; E55.9 Vitamin D deficiency, unspecified; G47.00 Insomnia, unspecified; F17.200 Nicotine dependence, unspecified, uncomplicated; F41.9 Anxiety disorder, unspecified; F15.90 Other stimulant use, unspecified, uncomplicated; F12.10 Cannabis abuse, uncomplicated; E11.65 Type 2 diabetes mellitus with hyperglycemia
CPT/HCPCS: 96372; 99291; G0480; J1200; J1630; J1815; J2060

== ENCOUNTER 2019-06-25 02:20 | Inpatient (IN) | payer MEDICARE, MEDICAID ==
[~2019-06-25] VITALS: Ht 182.9 cm; Wt 74.8 kg
[~2019-06-25 02:20] MED LIST changes: +ARIP10TA8 PO; -DSS100 PO; -OMEP20 PO; -QUET200T PO
[2019-06-25 02:45] LABS: GLUCOSE,POINT OF CARE 249 MG/DL (70-110)
[2019-06-25 02:54] LABS: BASOPHILS % (AUTO) 0.8 % (0.0-2.0); HEMOGLOBIN 12.5 g/dL (13.5-17.5); LYMPHOCYTES # (AUTO) 1.8 K/uL (1.0-4.8); LYMPHOCYTES % (AUTO) 29.7 % (22.0-44.0); MEAN CORPUSCULAR HEMOGLOBIN 30.9 pg (26.0-34.0); MEAN CORPUSCULAR HGB CONC 33.6 G/dL (31.0-37.0); MEAN CORPUSCULAR VOLUME 92 fL (80-100); MONOCYTES # (AUTO) 0.4 K/uL (0.1-1.0); NEUTROPHILS # (AUTO) 3.8 K/uL (1.8-7.7); NEUTROPHILS % (AUTO) 61.5 % (40.0-70.0); PLATELET COUNT (AUTO) 278 K/uL (150-450); RED BLOOD CELL COUNT(AUTO) 4.02 MIL/uL (4.50-5.90); RED CELL DISTRIBUTION WIDTH 14.2 % (11.5-14.5)
[2019-06-25 03:02] LABS: ANION GAP 10 mmol/L (8-16); CALCIUM, TOTAL 8.2 mg/dL (8.8-10.5); CARBON DIOXIDE 21 mmol/L (22-29); CHLORIDE 107 mmol/L (98-107); CREATININE 0.74 mg/dL (0.60-1.30); GLOMERULAR FILTR. RATE CALC > 60 mL/min (>60); GLUCOSE,RANDOM 259 mg/dL (70-110); POTASSIUM 3.9 mmol/L (3.5-5.1); SODIUM SERUM 138 mmol/L (136-145); UREA NITROGEN, BLOOD 13 mg/dL (7-18)
[2019-06-25 03:08] LABS: ALANINE AMINOTRANSFERASE 33 U/L (12-78); ALBUMIN 3.2 g/dL (3.4-5.0); ALKALINE PHOSPHATASE 78 U/L (46-116); ASPARTATE AMINOTRANSFERASE 19 U/L (15-37); BILIRUBIN,TOTAL 0.2 mg/dL (0.1-1.0)
[2019-06-25] MEDS ORDERED: ZOLPIDEM TARTRATE 10 MG TABLET PO PRN (05:30)
[2019-06-25 08:18] VITALS: BP 111/71
[2019-06-25] MEDS ORDERED: MAG HYDROX/AL HYDROX/SIMETH ES 30 ML SUSPENSION UDCUP PO PRN (10:45)
[2019-06-25] MEDS ORDERED: ONDANSETRON HCL 4 MG TABLET PO PRN (10:45)
[2019-06-25] MEDS ORDERED: GLUCAGON,HUMAN RECOMBINANT 1 MG VIAL IM PRN (10:45)
[2019-06-25] MEDS ORDERED: CloNIDine HCL 0.1 MG TABLET PO PRN (10:45)
[2019-06-25] MEDS ORDERED: MAGNESIUM HYDROXIDE SUSPENSION 30 ML UDCUP PO PRN (10:45)
[2019-06-25] MEDS ORDERED: ACETAMINOPHEN 325 MG TABLET PO PRN (10:45)
[2019-06-25] MEDS ORDERED: OMEPRAZOLE 20 MG CAPSULE PO PRN (10:45)
[2019-06-25] MEDS ORDERED: INSULIN LISPRO 100 UNITS/ML SQ PRN (10:45)
[2019-06-25] MEDS ORDERED: DOCUSATE SODIUM 100 MG CAPSULE PO PRN (10:45)
[2019-06-25] MEDS ORDERED: BENZOCAINE/MENTHOL LOZENGE MM PRN (10:45)
[2019-06-25] MEDS ORDERED: LOPERAMIDE HCL 2 MG CAPSULE PO PRN (10:45)
[2019-06-25] MEDS ORDERED: PETROLATUM,WHITE 28 GM JELLY TP PRN (10:45)
[2019-06-25] MEDS ORDERED: BACITRACIN 28.4 GM OINTMENT TP PRN (10:45)
[2019-06-25] MEDS ORDERED: ALBUTEROL SULFATE HFA 90 MCG/PUFF 8 GM INHALER IH PRN (10:45)
[2019-06-25] MEDS ORDERED: IBUPROFEN 600 MG TABLET PO PRN (10:45)
[2019-06-25] MEDS ORDERED: PNEUMOCOCCAL VACCINE POLYVALENT 0.5 ML VIAL [PPSV23] IM ONE (11:15)
[2019-06-25] MEDS: ARIPiprazole 10 MG TABLET PO SCH (12:55)
[2019-06-25] MEDS: LORazepam 2 MG TABLET PO PRN ×2 (12:56→17:02)
[2019-06-25] MEDS: GlipiZIDE 10 MG TABLET PO SCH (17:02)
[2019-06-25] MEDS: MetFORMIN HCL 500 MG TABLET PO SCH (17:02)
[2019-06-26] MEDS: GlipiZIDE 10 MG TABLET PO SCH ×2 (06:30→16:45)
[2019-06-26] MEDS: MetFORMIN HCL 500 MG TABLET PO SCH ×2 (06:42→16:45)
[2019-06-26] MEDS: LinaGLIPtin 5 MG TABLET PO SCH (08:15)
[2019-06-26] MEDS: ARIPiprazole 10 MG TABLET PO SCH (08:15)
[2019-06-26] MEDS ORDERED: LORazepam 2 MG/ML VIAL IM ONE (15:55)
[2019-06-26] MEDS ORDERED: DiphenhydrAMINE HCL 50 MG/ML VIAL IM ONE (15:55)
[2019-06-26] MEDS ORDERED: HALOPERIDOL LACTATE 5 MG/ML VIAL IM ONE (15:55)
[2019-06-27] MEDS: GlipiZIDE 10 MG TABLET PO SCH ×2 (07:05→16:45)
[2019-06-27] MEDS: MetFORMIN HCL 500 MG TABLET PO SCH ×2 (07:05→16:45)
[2019-06-27] MEDS: ARIPiprazole 10 MG TABLET PO SCH (09:00)
[2019-06-27] MEDS: LinaGLIPtin 5 MG TABLET PO SCH (09:00)
[2019-06-28] MEDS: GlipiZIDE 10 MG TABLET PO SCH ×2 (06:30→17:01)
[2019-06-28] MEDS: MetFORMIN HCL 500 MG TABLET PO SCH ×2 (06:44→17:01)
[2019-06-28] MEDS: LinaGLIPtin 5 MG TABLET PO SCH (08:44)
[2019-06-28] MEDS: ARIPiprazole 15 MG TABLET PO SCH (08:44)
[2019-06-28] MEDS: LORazepam 2 MG TABLET PO PRN (08:45)
[2019-06-29] MEDS: GlipiZIDE 10 MG TABLET PO SCH ×2 (06:33→16:33)
[2019-06-29] MEDS: MetFORMIN HCL 500 MG TABLET PO SCH ×2 (06:34→16:33)
[2019-06-29 08:00] VITALS: BP 111/76
[2019-06-29] MEDS: LinaGLIPtin 5 MG TABLET PO SCH (08:35)
[2019-06-29] MEDS: ARIPiprazole 15 MG TABLET PO SCH (08:38)
[2019-06-29 16:00] VITALS: BP 123/73
[2019-06-29] MEDS: HALOPERIDOL 5 MG TABLET PO PRN (16:33)
[2019-06-29] MEDS: LORazepam 2 MG TABLET PO PRN (16:33)
[2019-06-30 05:55] VITALS: BP 136/70
[2019-06-30 06:31] LABS: GLUCOMETER DEV NAME(LOC) BV3N.; GLUCOSE,POINT OF CARE 560 MG/DL (70-110)
[2019-06-30] MEDS: MetFORMIN HCL 500 MG TABLET PO SCH ×2 (06:46→16:15)
[2019-06-30] MEDS: GlipiZIDE 10 MG TABLET PO SCH ×2 (06:46→16:15)
[2019-06-30] MEDS: LinaGLIPtin 5 MG TABLET PO SCH ×2 (08:45→09:00)
[2019-06-30] MEDS: ARIPiprazole 15 MG TABLET PO SCH ×2 (08:45→09:00)
[2019-06-30] MEDS: HALOPERIDOL 5 MG TABLET PO PRN (08:46)
[2019-06-30] MEDS: LORazepam 2 MG TABLET PO PRN ×2 (08:46→16:15)
[2019-06-30] MEDS ORDERED: ARIPiprazole ER SUSPENSION 400 MG PRE-FILLED DUAL CHAMBER SYRINGE IM ONE (10:00)
[2019-07-01] MEDS: GlipiZIDE 10 MG TABLET PO SCH (06:18)
[2019-07-01] MEDS: MetFORMIN HCL 500 MG TABLET PO SCH (06:18)
[2019-07-01] MEDS: ARIPiprazole 15 MG TABLET PO SCH (09:00)
[2019-07-01] MEDS: LinaGLIPtin 5 MG TABLET PO SCH (09:00)
[2019-07-01] MEDS ORDERED: ARIP400S3 IM (09:37)
[2019-07-01 10:23] VITALS: BP 107/83
== END 2019-07-01 10:25 | disposition home or self-care (01) | DRG 885 ==
LOC: EMS 02:21 → B3A 05:30
PROVIDERS: ADMIT Psychiatry & Neurology Psychiatry; ATTEND Psychiatry & Neurology Psychiatry
DX: F25.0 Schizoaffective disorder, bipolar type (principal); R45.851 Suicidal ideations; E11.65 Type 2 diabetes mellitus with hyperglycemia; E55.9 Vitamin D deficiency, unspecified; F12.10 Cannabis abuse, uncomplicated; F15.90 Other stimulant use, unspecified, uncomplicated; F17.210 Nicotine dependence, cigarettes, uncomplicated; F41.9 Anxiety disorder, unspecified; G47.00 Insomnia, unspecified; I10 Essential (primary) hypertension; J44.9 Chronic obstructive pulmonary disease, unspecified; K21.9 Gastro-esophageal reflux disease without esophagitis; K59.00 Constipation, unspecified; Z59.0 Homelessness; Z79.899 Other long term (current) drug therapy; Z91.14 Patient's other noncompliance with medication regimen; Z91.19 Patient's noncompliance with other medical treatment and regimen; Z63.9 Problem related to primary support group, unspecified
CPT/HCPCS: 82948; 99406; G0480; J0401

== ENCOUNTER 2019-07-13 16:08 | Emergency (ER) | payer MEDICARE, MEDICAID ==
[~2019-07-13 16:08] MED LIST changes: -ARIP10TA8 PO; +ARIP400S3 IM
== END 2019-07-13 17:07 | disposition left against medical advice (07) ==
LOC: EMS 16:10
DX: R44.3 Hallucinations, unspecified (principal); Z53.21 Procedure and treatment not carried out due to patient leaving prior to being seen by health care provider

== ENCOUNTER 2019-10-27 10:35 | Inpatient (IN) | payer MEDICARE, OTHER ==
[~2019-10-27] VITALS: Ht 188 cm; Wt 80.6 kg
[2019-10-27] MEDS ORDERED: INSLAN SQ (10:52)
[2019-10-27] MEDS ORDERED: INSULIN REGULAR, HUMAN 100 UNITS/ML IVP ONE (11:15)
[2019-10-27] MEDS ORDERED: SODIUM CHLORIDE 0.9% 1,000 ML IV ONE ×3 (11:15→14:15)
[2019-10-27 11:42] LABS: BASOPHILS % (AUTO) 0.4 % (0.0-2.0); EOSINOPHILS % (AUTO) 0.4 % (1.0-6.0); HEMATOCRIT 38.3 % (41-53); HEMOGLOBIN 12.5 g/dL (13.5-17.5); LYMPHOCYTES % (AUTO) 11.1 % (22.0-44.0); MEAN CORPUSCULAR HEMOGLOBIN 30.4 pg (26.0-34.0); MEAN CORPUSCULAR HGB CONC 32.7 G/dL (31.0-37.0); MEAN CORPUSCULAR VOLUME 93 fL (80-100); MONOCYTES # (AUTO) 0.5 K/uL (0.1-1.0); NEUTROPHILS # (AUTO) 7.8 K/uL (1.8-7.7); NEUTROPHILS % (AUTO) 83.1 % (40.0-70.0); PLATELET COUNT (AUTO) 331 K/uL (150-450); RED BLOOD CELL COUNT(AUTO) 4.13 MIL/uL (4.50-5.90); RED CELL DISTRIBUTION WIDTH 13.6 % (11.5-14.5)
[2019-10-27 11:51] LABS: AMPHET/METH SCREEN,URINE POSITIVE (NEGATIVE); BARBITURATE SCREEN, URINE NEGATIVE (NEGATIVE); BENZODIAZEPINES SCREEN,URINE NEGATIVE (NEGATIVE); CANNABINOID SCREEN,URINE NEGATIVE (NEGATIVE); COCAINE SCREEN,URINE NEGATIVE (NEGATIVE); METHADONE SCREEN, URINE NEGATIVE (NEGATIVE); OPIATE SCREEN,URINE NEGATIVE (NEGATIVE)
[2019-10-27 11:52] LABS: PHENCYCLIDINE SCREEN,URINE NEGATIVE (NEGATIVE)
[2019-10-27 11:56] LABS: ACETONE,BLOOD NEGATIVE (NEGATIVE)
[2019-10-27 12:11] LABS: ALANINE AMINOTRANSFERASE 33 U/L (12-78); ALBUMIN 2.8 g/dL (3.4-5.0); ALKALINE PHOSPHATASE 87 U/L (46-116); ANION GAP 9 mmol/L (8-16); ASPARTATE AMINOTRANSFERASE 20 U/L (15-37); BILIRUBIN,TOTAL 0.2 mg/dL (0.1-1.0); CALCIUM, TOTAL 8.3 mg/dL (8.8-10.5); CARBON DIOXIDE 24 mmol/L (22-29); CHLORIDE 98 mmol/L (98-107); CREATININE 1.08 mg/dL (0.60-1.30); GLOMERULAR FILTR. RATE CALC > 60 mL/min (>60); POTASSIUM 4.3 mmol/L (3.5-5.1); SODIUM SERUM 131 mmol/L (136-145); TOTAL PROTEIN, SERUM 6.4 g/dL (6.4-8.2); UREA NITROGEN, BLOOD 11 mg/dL (7-18)
[2019-10-27 12:14] LABS: GLUCOSE,RANDOM 685 mg/dL (70-110)
[2019-10-27] MEDS ORDERED: VANCOMYCIN HCL 1 GM/D5% WATER 200 ML IV ONE (12:30)
[2019-10-27] MEDS ORDERED: PIPERACILLIN/TAZO 3.375 GM/D5W 50 ML IV ONE (13:15)
[2019-10-27] MEDS ORDERED: ONDANSETRON HCL 4 MG/2 ML VIAL IVP PRN (13:45)
[2019-10-27] MEDS ORDERED: ACETAMINOPHEN 325 MG TABLET PO PRN ×2 (13:45→14:15)
[2019-10-27 14:10] LABS: GLUCOSE,POINT OF CARE > 600 MG/DL (70-110)
[2019-10-27] MEDS ORDERED: DEXTROSE 50%-WATER 25 GM/50 ML SYRINGE IVP PRN (14:15)
[2019-10-27] MEDS ORDERED: ALBUTEROL SULFATE 2.5 MG/0.5 ML NEB SOLUTION NEB PRN (14:15)
[2019-10-27] MEDS ORDERED: MAGNESIUM HYDROXIDE SUSPENSION 30 ML UDCUP PO PRN (14:15)
[2019-10-27 14:34] LABS: GLUCOSE,POINT OF CARE 365 MG/DL (70-110)
[2019-10-27] MEDS ORDERED: LORazepam 2 MG/ML VIAL ONE (14:36)
[2019-10-27] MEDS ORDERED: HALOPERIDOL LACTATE 5 MG/ML VIAL ONE (14:37)
[2019-10-27] MEDS ORDERED: DiphenhydrAMINE HCL 50 MG/ML VIAL ONE (14:37)
[2019-10-27] MEDS ORDERED: DiphenhydrAMINE HCL 50 MG/ML VIAL IM ONE (14:45)
[2019-10-27] MEDS ORDERED: HALOPERIDOL LACTATE 5 MG/ML VIAL IM ONE (14:45)
[2019-10-27] MEDS ORDERED: LORazepam 2 MG/ML VIAL IM ONE (14:45)
[2019-10-27] MEDS: INSULIN LISPRO 100 UNITS/ML SQ PRN ×2 (17:54→20:54)
[2019-10-27 18:02] LABS: GLUCOSE,POINT OF CARE 349 MG/DL (70-110)
[2019-10-27] MEDS: DOCUSATE SODIUM 100 MG CAPSULE PO SCH (20:11)
[2019-10-27 21:12] VITALS: BP 124/79
[2019-10-28] VITALS: BP 131/79
[2019-10-28 03:15] LABS: GLUCOMETER DEV NAME(LOC) 6N.1; GLUCOSE,POINT OF CARE 351 MG/DL (70-110)
[2019-10-28 04:00] VITALS: BP 128/82
[2019-10-28] MEDS: INSULIN LISPRO 100 UNITS/ML SQ PRN ×3 (05:34→17:51)
[2019-10-28 06:30] LABS: GLUCOMETER DEV NAME(LOC) 6N.1; GLUCOSE,POINT OF CARE 307 MG/DL (70-110)
[2019-10-28] MEDS: FAMOTIDINE 20 MG TABLET PO SCH (08:35)
[2019-10-28] MEDS: DOCUSATE SODIUM 100 MG CAPSULE PO SCH ×2 (08:35→20:15)
[2019-10-28 08:40] VITALS: BP 140/98
[2019-10-28] MEDS ORDERED: BISACODYL 10 MG RECTAL RECTAL SUPPOSITORY PR PRN (12:00)
[2019-10-28] MEDS ORDERED: ONDANSETRON HCL 4 MG/2 ML VIAL IVP PRN (12:00)
[2019-10-28] MEDS ORDERED: ALBUTEROL SULFATE 2.5 MG/0.5 ML NEB SOLUTION NEB PRN (12:00)
[2019-10-28] MEDS ORDERED: ZOLPIDEM TARTRATE 5 MG TABLET PO PRN (12:00)
[2019-10-28] MEDS ORDERED: ACETAMINOPHEN 325 MG TABLET PO PRN (12:00)
[2019-10-28] MEDS ORDERED: MORPHINE SULFATE 2 MG/ML SYRINGE IVP PRN (12:00)
[2019-10-28] MEDS ORDERED: OxyCODONE HCL/ACETAMINOPHEN 5-325 MG TABLET PO PRN (12:00)
[2019-10-28] MEDS ORDERED: IPRATROPIUM BROMIDE 0.5 MG/2.5 ML NEB SOLUTION NEB PRN (12:00)
[2019-10-28] MEDS ORDERED: MAGNESIUM HYDROXIDE SUSPENSION 30 ML UDCUP PO PRN (12:00)
[2019-10-28] MEDS: INSULIN GLARGINE,HUM.REC.ANLOG 100 UNITS/ML SQ SCH (12:13)
[2019-10-28] MEDS: HEPARIN SODIUM,PORCINE 5,000 UNITS/ML VIAL SQ SCH (16:00)
[2019-10-28 19:26] VITALS: BP 130/77
[2019-10-28 19:47] LABS: GLUCOMETER DEV NAME(LOC) 6N.1; GLUCOSE,POINT OF CARE 335 MG/DL (70-110)
[2019-10-28 19:47] LABS: GLUCOMETER DEV NAME(LOC) 6N.1; GLUCOSE,POINT OF CARE 316 MG/DL (70-110)
[2019-10-28] MEDS ORDERED: PNEUMOCOCCAL VACCINE POLYVALENT 0.5 ML VIAL [PPSV23] IM ONE (20:00)
[2019-10-28] MEDS ORDERED: INFLUENZA VIRUS VACCINE QVS 2019-20 (3YR+)/PF 60 MCG/0.5 ML SYRINGE IM ONE (20:00)
[2019-10-29 07:46] LABS: GLUCOMETER DEV NAME(LOC) 6N.1; GLUCOSE,POINT OF CARE 288 MG/DL (70-110)
[2019-10-29] MEDS: HEPARIN SODIUM,PORCINE 5,000 UNITS/ML VIAL SQ SCH ×3 (08:00→16:00)
[2019-10-29] MEDS: INSULIN GLARGINE,HUM.REC.ANLOG 100 UNITS/ML SQ SCH (08:51)
[2019-10-29] MEDS: FAMOTIDINE 20 MG TABLET PO SCH (08:51)
[2019-10-29] MEDS: DOCUSATE SODIUM 100 MG CAPSULE PO SCH ×2 (08:51→21:00)
[2019-10-29] MEDS ORDERED: DOCUSATE SODIUM 100 MG/10 ML LIQUID UDCUP PO SCH (09:00)
[2019-10-29 21:28] VITALS: BP 99/70
[2019-10-29 21:45] LABS: GLUCOMETER DEV NAME(LOC) 6N.1; GLUCOSE,POINT OF CARE 418 MG/DL (70-110)
[2019-10-29] MEDS: INSULIN LISPRO 100 UNITS/ML SQ PRN (22:16)
[2019-10-30 05:47] VITALS: BP 108/65
[2019-10-30 05:57] LABS: GLUCOMETER DEV NAME(LOC) 6N.1; GLUCOSE,POINT OF CARE 554 MG/DL (70-110)
[2019-10-30] MEDS ORDERED: INSULIN LISPRO 100 UNITS/ML SQ ONE (06:15)
[2019-10-30 08:21] VITALS: BP 99/64
[2019-10-30] MEDS: FAMOTIDINE 20 MG TABLET PO SCH (08:29)
[2019-10-30] MEDS: HEPARIN SODIUM,PORCINE 5,000 UNITS/ML VIAL SQ SCH ×2 (08:29)
[2019-10-30] MEDS: DOCUSATE SODIUM 100 MG CAPSULE PO SCH (08:29)
[2019-10-30] MEDS: INSULIN GLARGINE,HUM.REC.ANLOG 100 UNITS/ML SQ SCH (08:34)
[2019-10-30] MEDS ORDERED: VANCOMYCIN HCL 1 GM/D5% WATER 200 ML IV ONE (10:15)
[2019-10-30 11:26] VITALS: BP 94/61
[2019-10-30] MEDS ORDERED: VANCOMYCIN HCL 1.25 GM in DEXTROSE 5%-WATER 250 ML IV SCH (20:00)
[2019-10-30 21:31] LABS: GLUCOMETER DEV NAME(LOC) 6N.1; GLUCOSE,POINT OF CARE 342 MG/DL (70-110)
== END 2019-10-30 12:25 | disposition left against medical advice (07) | DRG 638 ==
LOC: EMS 10:42 → 6N 19:30
PROVIDERS: ADMIT Internal Medicine; ATTEND Internal Medicine
DX: E11.65 Type 2 diabetes mellitus with hyperglycemia (principal); E87.1 Hypo-osmolality and hyponatremia; F19.10 Other psychoactive substance abuse, uncomplicated; F20.9 Schizophrenia, unspecified; I10 Essential (primary) hypertension; F17.210 Nicotine dependence, cigarettes, uncomplicated; F12.90 Cannabis use, unspecified, uncomplicated; R79.89 Other specified abnormal findings of blood chemistry; Z59.0 Homelessness; Z79.4 Long term (current) use of insulin; Z91.19 Patient's noncompliance with other medical treatment and regimen
CPT/HCPCS: 87070; 87205; 93005; 93306; 96365; 96375; 99291; J1200; J1630; J1644; J1815; J2060; J2543; J3370; J7030; J7060

== ENCOUNTER 2019-12-15 17:54 | Inpatient (IN) | payer MEDICARE, MEDICAID ==
[~2019-12-15] VITALS: Ht 182.9 cm; Wt 72.5 kg
[~2019-12-15 17:54] MED LIST changes: +INSLAN SQ
[2019-12-15] MEDS ORDERED: SODIUM CHLORIDE 0.9% 1,000 ML IV ONE ×2 (18:30→20:30)
[2019-12-15] MEDS ORDERED: INSULIN REGULAR, HUMAN 100 UNITS/ML IVP ONE ×3 (18:30→23:30)
[2019-12-15 19:18] LABS: BASOPHILS % (AUTO) 0.5 % (0.0-2.0); EOSINOPHILS % (AUTO) 0.6 % (1.0-6.0); HEMATOCRIT 36.2 % (41-53); HEMOGLOBIN 12.1 g/dL (13.5-17.5); LYMPHOCYTES # (AUTO) 1.8 K/uL (1.0-4.8); LYMPHOCYTES % (AUTO) 31.5 % (22.0-44.0); MEAN CORPUSCULAR HEMOGLOBIN 29.6 pg (26.0-34.0); MEAN CORPUSCULAR HGB CONC 33.4 G/dL (31.0-37.0); MEAN CORPUSCULAR VOLUME 89 fL (80-100); MONOCYTES # (AUTO) 0.4 K/uL (0.1-1.0); MONOCYTES % (AUTO) 7.7 % (2.0-9.0); NEUTROPHILS # (AUTO) 3.4 K/uL (1.8-7.7); NEUTROPHILS % (AUTO) 59.7 % (40.0-70.0); PLATELET COUNT (AUTO) 585 K/uL (150-450); RED BLOOD CELL COUNT(AUTO) 4.08 MIL/uL (4.50-5.90); RED CELL DISTRIBUTION WIDTH 13.1 % (11.5-14.5)
[2019-12-15 19:38] LABS: ALANINE AMINOTRANSFERASE 26 U/L (12-78); ALKALINE PHOSPHATASE 114 U/L (46-116); ANION GAP 10 mmol/L (8-16); ASPARTATE AMINOTRANSFERASE 22 U/L (15-37); BILIRUBIN,TOTAL 0.2 mg/dL (0.1-1.0); CALCIUM, TOTAL 8.7 mg/dL (8.8-10.5); CARBON DIOXIDE 27 mmol/L (22-29); CHLORIDE 94 mmol/L (98-107); CREATININE 1.35 mg/dL (0.60-1.30); GLOMERULAR FILTR. RATE CALC > 60 mL/min (>60); POTASSIUM 4.3 mmol/L (3.5-5.1); SODIUM SERUM 131 mmol/L (136-145); TOTAL PROTEIN, SERUM 6.8 g/dL (6.4-8.2); UREA NITROGEN, BLOOD 12 mg/dL (7-18)
[2019-12-15 19:41] LABS: GLUCOSE,POINT OF CARE > 600 MG/DL (70-110)
[2019-12-15 20:00] LABS: ACETONE,BLOOD NEGATIVE (NEGATIVE)
[2019-12-15] MEDS ORDERED: LORazepam 2 MG/ML VIAL IVP ONE ×2 (20:45→21:00)
[2019-12-15 20:55] LABS: GLUCOSE,POINT OF CARE 273 MG/DL (70-110)
[2019-12-15] MEDS ORDERED: HALOPERIDOL LACTATE 5 MG/ML VIAL IVP ONE (21:00)
[2019-12-15] MEDS ORDERED: DiphenhydrAMINE HCL 50 MG/ML VIAL IVP ONE (21:00)
[2019-12-15] MEDS ORDERED: ACETAMINOPHEN 325 MG TABLET PO PRN ×2 (21:15→22:15)
[2019-12-15] MEDS ORDERED: 0.9% SODIUM CHLORIDE 10 ML SYRINGE IVP PRN (21:15)
[2019-12-15] MEDS ORDERED: MAGNESIUM HYDROXIDE SUSPENSION 30 ML UDCUP PO PRN (22:15)
[2019-12-15] MEDS ORDERED: MORPHINE SULFATE 2 MG/ML SYRINGE IVP PRN (22:15)
[2019-12-15] MEDS ORDERED: ZOLPIDEM TARTRATE 5 MG TABLET PO PRN (22:15)
[2019-12-15] MEDS ORDERED: ONDANSETRON HCL 4 MG/2 ML VIAL IVP PRN (22:15)
[2019-12-15] MEDS ORDERED: BISACODYL 10 MG RECTAL RECTAL SUPPOSITORY PR PRN (22:15)
[2019-12-15] MEDS ORDERED: HYDROCODONE/ACETAMINOPHEN 5-325 MG TABLET PO PRN (22:15)
[2019-12-15] MEDS ORDERED: DEXTROSE 50%-WATER 25 GM/50 ML SYRINGE IVP PRN (22:15)
[2019-12-15 22:33] LABS: GLUCOSE,POINT OF CARE 295 MG/DL (70-110)
[2019-12-15 23:18] LABS: GLUCOSE,POINT OF CARE 314 MG/DL (70-110)
[2019-12-16] MEDS ORDERED: HEPARIN SODIUM,PORCINE 5,000 UNITS/ML VIAL SQ SCH
[2019-12-16 00:39] LABS: GLUCOSE,POINT OF CARE 162 MG/DL (70-110)
[2019-12-16 01:32] LABS: GLUCOSE,POINT OF CARE 157 MG/DL (70-110)
[2019-12-16] MEDS ORDERED: LORazepam 2 MG TABLET PO PRN (03:00)
[2019-12-16] MEDS ORDERED: OLANZapine 5 MG TABLET PO PRN (03:00)
[2019-12-16] MEDS ORDERED: ALBUTEROL SULFATE HFA 90 MCG/PUFF 8 GM INHALER IH PRN (07:15)
[2019-12-16] MEDS ORDERED: MAG HYDROX/AL HYDROX/SIMETH ES 30 ML SUSPENSION UDCUP PO PRN (07:15)
[2019-12-16] MEDS ORDERED: GuaiFENesin/D-METHORPHAN [SUGAR-FREE] 200-20MG/10 ML SYRUP UDCUP PO PRN (07:15)
[2019-12-16] MEDS ORDERED: IBUPROFEN 400 MG TABLET PO PRN (07:15)
[2019-12-16] MEDS ORDERED: PETROLATUM,WHITE 28 GM JELLY TP PRN (07:15)
[2019-12-16] MEDS ORDERED: CloNIDine HCL 0.1 MG TABLET PO PRN (07:15)
[2019-12-16] MEDS ORDERED: ACETAMINOPHEN 325 MG TABLET PO PRN (07:15)
[2019-12-16] MEDS ORDERED: LOPERAMIDE HCL 2 MG CAPSULE PO PRN (07:15)
[2019-12-16] MEDS ORDERED: DOCUSATE SODIUM 100 MG CAPSULE PO PRN (07:15)
[2019-12-16] MEDS ORDERED: ONDANSETRON HCL 4 MG TABLET PO PRN (07:15)
[2019-12-16] MEDS ORDERED: NICOTINE 14 MG/24 HOUR PATCH TD PRN (07:15)
[2019-12-16] MEDS ORDERED: MAGNESIUM HYDROXIDE SUSPENSION 30 ML UDCUP PO PRN (07:15)
[2019-12-16] MEDS: GlipiZIDE 10 MG TABLET PO SCH ×2 (07:39→17:00)
[2019-12-16] MEDS: MetFORMIN HCL 500 MG TABLET PO SCH ×2 (07:56→17:30)
[2019-12-16 08:58] LABS: GLUCOSE,POINT OF CARE 255 MG/DL (70-110)
[2019-12-16] MEDS ORDERED: DOCUSATE SODIUM 100 MG CAPSULE PO SCH (09:00)
[2019-12-16] MEDS ORDERED: PANTOPRAZOLE SODIUM 40 MG DR TABLET PO SCH (09:00)
[2019-12-16] MEDS ORDERED: INSULIN GLARGINE,HUM.REC.ANLOG 100 UNITS/ML SQ SCH (09:00)
[2019-12-16] MEDS: LinaGLIPtin 5 MG TABLET PO SCH (09:05)
[2019-12-16 09:23] VITALS: BP 134/92
[2019-12-16] MEDS ORDERED: INFLUENZA VIRUS VACCINE QVS 2019-20 (3YR+)/PF 60 MCG/0.5 ML SYRINGE IM ONE (09:45)
[2019-12-16] MEDS ORDERED: PNEUMOCOCCAL VACCINE POLYVALENT 0.5 ML VIAL [PPSV23] IM ONE (09:45)
[2019-12-16] MEDS ORDERED: INSULIN LISPRO 100 UNITS/ML SQ ONE (12:15)
[2019-12-16] MEDS: INSULIN GLARGINE,HUM.REC.ANLOG 100 UNITS/ML SQ SCH (16:52)
[2019-12-16] MEDS: INSULIN LISPRO 100 UNITS/ML SQ PRN ×2 (16:59→21:54)
[2019-12-17 00:49] LABS: GLUCOMETER DEV NAME(LOC) 3E.C; GLUCOSE,POINT OF CARE 463 MG/DL (70-110)
[2019-12-17 00:49] LABS: GLUCOMETER DEV NAME(LOC) 3E.C; GLUCOSE,POINT OF CARE 260 MG/DL (70-110)
[2019-12-17] MEDS: GlipiZIDE 10 MG TABLET PO SCH ×2 (06:36→17:32)
[2019-12-17] MEDS: MetFORMIN HCL 500 MG TABLET PO SCH ×2 (06:36→17:32)
[2019-12-17 08:09] VITALS: BP 142/70
[2019-12-17] MEDS: LinaGLIPtin 5 MG TABLET PO SCH (10:20)
[2019-12-17] MEDS: INSULIN GLARGINE,HUM.REC.ANLOG 100 UNITS/ML SQ SCH ×2 (10:21→17:32)
[2019-12-17] MEDS: INSULIN LISPRO 100 UNITS/ML SQ PRN ×4 (10:42→21:07)
[2019-12-17] MEDS ORDERED: INSULIN LISPRO 100 UNITS/ML SQ ONE (10:45)
[2019-12-17 17:22] VITALS: BP 103/62
[2019-12-18 00:48] LABS: GLUCOMETER DEV NAME(LOC) 3E.C; GLUCOSE,POINT OF CARE 248 MG/DL (70-110)
[2019-12-18 00:48] LABS: GLUCOMETER DEV NAME(LOC) 3E.C; GLUCOSE,POINT OF CARE 128 MG/DL (70-110)
[2019-12-18 00:48] LABS: GLUCOMETER DEV NAME(LOC) 3E.C; GLUCOSE,POINT OF CARE 512 MG/DL (70-110)
[2019-12-18 00:48] LABS: GLUCOMETER DEV NAME(LOC) 3E.C; GLUCOSE,POINT OF CARE 349 MG/DL (70-110)
[2019-12-18] MEDS: GlipiZIDE 10 MG TABLET PO SCH (06:37)
[2019-12-18] MEDS: INSULIN LISPRO 100 UNITS/ML SQ PRN ×2 (06:37→07:43)
[2019-12-18] MEDS: MetFORMIN HCL 500 MG TABLET PO SCH (06:37)
[2019-12-18] MEDS: INSULIN GLARGINE,HUM.REC.ANLOG 100 UNITS/ML SQ SCH (07:43)
[2019-12-18] MEDS ORDERED: LinaGLIPtin 5 MG TABLET PO SCH (09:00)
[2019-12-18 10:29] VITALS: BP 128/78
[2020-01-02 00:36] LABS: GLUCOMETER DEV NAME(LOC) 3E.C; GLUCOSE,POINT OF CARE 118 MG/DL (70-110)
[2020-01-02 00:36] LABS: GLUCOMETER DEV NAME(LOC) 3E.C; GLUCOSE,POINT OF CARE 143 MG/DL (70-110)
[2020-01-02 00:36] LABS: GLUCOMETER DEV NAME(LOC) 3E.C; GLUCOSE,POINT OF CARE 224 MG/DL (70-110)
== END 2019-12-18 16:30 | disposition home or self-care (01) | DRG 885 ==
LOC: EMS 18:08 → 3EC 12-16 03:00
PROVIDERS: ADMIT Psychiatry & Neurology Child & Adolescent Psychiatry; ATTEND Psychiatry & Neurology Child & Adolescent Psychiatry
DX: F25.1 Schizoaffective disorder, depressive type (principal); N17.9 Acute kidney failure, unspecified; R45.851 Suicidal ideations; E11.65 Type 2 diabetes mellitus with hyperglycemia; E78.5 Hyperlipidemia, unspecified; E86.0 Dehydration; I10 Essential (primary) hypertension; F41.9 Anxiety disorder, unspecified; K21.9 Gastro-esophageal reflux disease without esophagitis; J44.9 Chronic obstructive pulmonary disease, unspecified; Z79.4 Long term (current) use of insulin; Z87.891 Personal history of nicotine dependence; I25.2 Old myocardial infarction; Z91.19 Patient's noncompliance with other medical treatment and regimen; Z59.0 Homelessness
CPT/HCPCS: 82948; 99291; G0480; J1200; J1630; J1644; J1815; J2060; J7030

== ENCOUNTER 2019-12-31 02:07 | Emergency (ER) | payer MEDICARE, OTHER ==
[~2019-12-31] VITALS: Ht 188 cm; Wt 81.8 kg
[2019-12-31 03:16] LABS: GLUCOSE,POINT OF CARE 539 MG/DL (70-110)
[2019-12-31 03:29] LABS: BASOPHILS % (AUTO) 0.7 % (0.0-2.0); HEMATOCRIT 39.4 % (41-53); HEMOGLOBIN 13.1 g/dL (13.5-17.5); LYMPHOCYTES # (AUTO) 1.9 K/uL (1.0-4.8); LYMPHOCYTES % (AUTO) 38.6 % (22.0-44.0); MEAN CORPUSCULAR HEMOGLOBIN 29.9 pg (26.0-34.0); MEAN CORPUSCULAR HGB CONC 33.3 G/dL (31.0-37.0); MEAN CORPUSCULAR VOLUME 90 fL (80-100); MONOCYTES # (AUTO) 0.3 K/uL (0.1-1.0); MONOCYTES % (AUTO) 5.8 % (2.0-9.0); NEUTROPHILS # (AUTO) 2.6 K/uL (1.8-7.7); NEUTROPHILS % (AUTO) 53.9 % (40.0-70.0); PLATELET COUNT (AUTO) 342 K/uL (150-450)
[2019-12-31 03:49] LABS: ALANINE AMINOTRANSFERASE 46 U/L (12-78); ALBUMIN 3.3 g/dL (3.4-5.0); ALKALINE PHOSPHATASE 105 U/L (46-116); ANION GAP 7 mmol/L (8-16); ASPARTATE AMINOTRANSFERASE 30 U/L (15-37); BILIRUBIN,TOTAL 0.2 mg/dL (0.1-1.0); CALCIUM, TOTAL 8.9 mg/dL (8.8-10.5); CARBON DIOXIDE 25 mmol/L (22-29); CHLORIDE 98 mmol/L (98-107); CREATININE 1.04 mg/dL (0.60-1.30); GLOMERULAR FILTR. RATE CALC > 60 mL/min (>60); SODIUM SERUM 130 mmol/L (136-145); UREA NITROGEN, BLOOD 11 mg/dL (7-18)
[2019-12-31 03:52] LABS: ACETAMINOPHEN < 2 mcg/mL (10-30); GLUCOSE,RANDOM 542 mg/dL (70-110)
[2019-12-31 04:07] LABS: SALICYLATE 1.6 mg/dL (2.8-20.0)
[2019-12-31] MEDS: INSULIN REGULAR, HUMAN 100 UNITS/ML SQ ONE ×2 (04:09→04:19)
[2019-12-31 04:53] LABS: GLUCOSE,POINT OF CARE 496 MG/DL (70-110)
[2019-12-31 06:21] VITALS: BP 142/93
== END 2019-12-31 06:31 | disposition home or self-care (01) ==
LOC: EMS 02:08
DX: R44.0 Auditory hallucinations (principal); E11.65 Type 2 diabetes mellitus with hyperglycemia; F31.9 Bipolar disorder, unspecified; I10 Essential (primary) hypertension; F12.90 Cannabis use, unspecified, uncomplicated; F15.90 Other stimulant use, unspecified, uncomplicated; F17.210 Nicotine dependence, cigarettes, uncomplicated; Z79.4 Long term (current) use of insulin; Z79.899 Other long term (current) drug therapy; Z59.0 Homelessness
CPT/HCPCS: 36415; 80053; 82962; 85025; 96372; 99284; G0480 ×2; G0481; J1815; 82948

== ENCOUNTER 2020-01-03 10:28 | Emergency (ER) | payer MEDICARE, OTHER ==
[~2020-01-03] VITALS: Ht 188 cm; Wt 88.6 kg
[2020-01-03 10:52] LABS: GLUCOSE,POINT OF CARE 481 MG/DL (70-110)
[2020-01-03 11:20] LABS: BASOPHILS % (AUTO) 0.9 % (0.0-2.0); EOSINOPHILS % (AUTO) 0.8 % (1.0-6.0); HEMATOCRIT 38.2 % (41-53); HEMOGLOBIN 12.8 g/dL (13.5-17.5); LYMPHOCYTES # (AUTO) 1.1 K/uL (1.0-4.8); LYMPHOCYTES % (AUTO) 21.2 % (22.0-44.0); MEAN CORPUSCULAR HEMOGLOBIN 29.6 pg (26.0-34.0); MEAN CORPUSCULAR HGB CONC 33.4 G/dL (31.0-37.0); MEAN CORPUSCULAR VOLUME 89 fL (80-100); MONOCYTES # (AUTO) 0.3 K/uL (0.1-1.0); MONOCYTES % (AUTO) 6.3 % (2.0-9.0); NEUTROPHILS # (AUTO) 3.5 K/uL (1.8-7.7); NEUTROPHILS % (AUTO) 70.8 % (40.0-70.0); PLATELET COUNT (AUTO) 293 K/uL (150-450); RED BLOOD CELL COUNT(AUTO) 4.32 MIL/uL (4.50-5.90); RED CELL DISTRIBUTION WIDTH 14.1 % (11.5-14.5)
[2020-01-03 11:40] LABS: ALANINE AMINOTRANSFERASE 45 U/L (12-78); ALBUMIN 3.2 g/dL (3.4-5.0); ALKALINE PHOSPHATASE 88 U/L (46-116); ANION GAP 5 mmol/L (8-16); ASPARTATE AMINOTRANSFERASE 29 U/L (15-37); BILIRUBIN,TOTAL 0.2 mg/dL (0.1-1.0); CARBON DIOXIDE 27 mmol/L (22-29); CHLORIDE 99 mmol/L (98-107); CREATININE 0.99 mg/dL (0.60-1.30); GLOMERULAR FILTR. RATE CALC > 60 mL/min (>60); POTASSIUM 4.5 mmol/L (3.5-5.1); SODIUM SERUM 131 mmol/L (136-145); TOTAL PROTEIN, SERUM 6.7 g/dL (6.4-8.2); UREA NITROGEN, BLOOD 10 mg/dL (7-18)
[2020-01-03 11:57] LABS: GLUCOSE,RANDOM 490 mg/dL (70-110)
[2020-01-03 12:22] LABS: AMPHET/METH SCREEN,URINE POSITIVE (NEGATIVE); BARBITURATE SCREEN, URINE NEGATIVE (NEGATIVE); BENZODIAZEPINES SCREEN,URINE NEGATIVE (NEGATIVE); CANNABINOID SCREEN,URINE NEGATIVE (NEGATIVE); COCAINE SCREEN,URINE NEGATIVE (NEGATIVE); METHADONE SCREEN, URINE NEGATIVE (NEGATIVE); OPIATE SCREEN,URINE NEGATIVE (NEGATIVE)
[2020-01-03 12:33] LABS: PHENCYCLIDINE SCREEN,URINE NEGATIVE (NEGATIVE)
[2020-01-03] MEDS ORDERED: INSULIN REGULAR, HUMAN 100 UNITS/ML SQ ONE (12:45)
[2020-01-03 13:58] LABS: GLUCOSE,POINT OF CARE 417 MG/DL (70-110)
[2020-01-03 14:30] VITALS: BP 154/106
== END 2020-01-03 14:39 | disposition home or self-care (01) ==
LOC: EMS 10:29
DX: E11.65 Type 2 diabetes mellitus with hyperglycemia (principal); R45.851 Suicidal ideations; R44.0 Auditory hallucinations; F15.90 Other stimulant use, unspecified, uncomplicated; F17.210 Nicotine dependence, cigarettes, uncomplicated; Z59.0 Homelessness; Z79.4 Long term (current) use of insulin; Z79.84 Long term (current) use of oral hypoglycemic drugs; Z79.899 Other long term (current) drug therapy
CPT/HCPCS: 36415; 80053; 80307; 82962; 85025; 96372; 99285; G0480; J1815

== ENCOUNTER 2020-03-14 17:25 | Inpatient (IN) | payer MEDICARE, MEDICAID ==
[~2020-03-14 17:25] MED LIST changes: +ARIP15TA2 PO; +FOLI1 PO; +GLIP5 PO; +MULT-1239 PO; +NALT50TA PO; +THIA100T67 PO
[2020-03-14] MEDS ORDERED: ACETAMINOPHEN 325 MG TABLET PO PRN (21:30)
[2020-03-14] MEDS ORDERED: ZOLPIDEM TARTRATE 10 MG TABLET PO PRN (21:30)
[2020-03-14] MEDS ORDERED: MAGNESIUM HYDROXIDE SUSPENSION 30 ML UDCUP PO PRN (21:30)
[2020-03-14] MEDS ORDERED: OLANZapine 5 MG RAPDIS TABLET PO PRN (21:30)
[2020-03-14] MEDS ORDERED: PNEUMOCOCCAL VACCINE POLYVALENT 0.5 ML VIAL [PPSV23] IM ONE (21:30)
[2020-03-14] MEDS ORDERED: MAG HYDROX/AL HYDROX/SIMETH ES 30 ML SUSPENSION UDCUP PO PRN (21:30)
[2020-03-14] MEDS ORDERED: LOPERAMIDE HCL 2 MG CAPSULE PO PRN (21:30)
[2020-03-14] MEDS ORDERED: GuaiFENesin/D-METHORPHAN [SUGAR-FREE] 200-20MG/10 ML SYRUP UDCUP PO PRN (21:30)
[2020-03-14] MEDS ORDERED: PROMETHAZINE HCL 25 MG TABLET PO PRN (21:30)
[2020-03-14] MEDS ORDERED: HydrOXYzine PAMOATE 50 MG CAPSULE PO PRN (21:30)
[2020-03-15] MEDS ORDERED: GLUCAGON,HUMAN RECOMBINANT 1 MG VIAL IM PRN (00:45)
[2020-03-15] MEDS: INSULIN GLARGINE,HUM.REC.ANLOG 100 UNITS/ML SQ SCH ×2 (00:45→20:58)
[2020-03-15] MEDS: MetFORMIN HCL 500 MG TABLET PO SCH ×2 (06:40→16:52)
[2020-03-15] MEDS ORDERED: LORazepam 2 MG/ML VIAL ONE (07:02)
[2020-03-15] MEDS ORDERED: HALOPERIDOL LACTATE 5 MG/ML VIAL ONE (07:03)
[2020-03-15] MEDS ORDERED: DiphenhydrAMINE HCL 50 MG/ML VIAL ONE (07:03)
[2020-03-15] MEDS ORDERED: HALOPERIDOL LACTATE 5 MG/ML VIAL IM ONE (07:15)
[2020-03-15] MEDS ORDERED: LORazepam 2 MG/ML VIAL IM ONE (07:15)
[2020-03-15] MEDS ORDERED: DiphenhydrAMINE HCL 50 MG/ML VIAL IM ONE (07:15)
[2020-03-15] MEDS: NALTREXONE HCL 50 MG TABLET PO SCH (10:58)
[2020-03-15] MEDS: GABAPENTIN 300 MG CAPSULE PO SCH ×5 (10:58→20:52)
[2020-03-15] MEDS: MULTIVITAMINS WITH MINERALS, THERAPEUTIC TABLET PO SCH (10:58)
[2020-03-15] MEDS: THIAMINE HCL 100 MG TABLET PO SCH ×2 (10:58→16:52)
[2020-03-15] MEDS: FOLIC ACID 1 MG TABLET PO SCH (10:58)
[2020-03-15] MEDS: INSULIN LISPRO 100 UNITS/ML SQ PRN ×3 (11:20→20:59)
[2020-03-15 11:27] LABS: GLUCOMETER DEV NAME(LOC) BV3S.; GLUCOSE,POINT OF CARE 233 MG/DL (70-110)
[2020-03-15 16:37] LABS: GLUCOMETER DEV NAME(LOC) BV3S.; GLUCOSE,POINT OF CARE 201 MG/DL (70-110)
[2020-03-15] MEDS: LORazepam 2 MG TABLET PO PRN (16:52)
[2020-03-15] MEDS: DIVALPROEX SODIUM 500 MG ER TABLET PO SCH (20:52)
[2020-03-15] MEDS: OLANZapine 5 MG RAPDIS TABLET PO SCH (20:52)
[2020-03-15 21:20] LABS: GLUCOMETER DEV NAME(LOC) BV3S.; GLUCOSE,POINT OF CARE 239 MG/DL (70-110)
[2020-03-16] MEDS: MetFORMIN HCL 500 MG TABLET PO SCH ×2 (06:57→16:53)
[2020-03-16] MEDS: MULTIVITAMINS WITH MINERALS, THERAPEUTIC TABLET PO SCH (09:00)
[2020-03-16] MEDS: NALTREXONE HCL 50 MG TABLET PO SCH (09:00)
[2020-03-16] MEDS: FOLIC ACID 1 MG TABLET PO SCH (09:00)
[2020-03-16] MEDS: THIAMINE HCL 100 MG TABLET PO SCH ×2 (09:00→16:53)
[2020-03-16] MEDS: GABAPENTIN 300 MG CAPSULE PO SCH ×4 (09:00→21:00)
[2020-03-16] MEDS: LORazepam 2 MG TABLET PO PRN (16:53)
[2020-03-16] MEDS: INSULIN LISPRO 100 UNITS/ML SQ PRN ×2 (17:03→21:42)
[2020-03-16 17:09] VITALS: BP 110/78
[2020-03-16 17:14] LABS: GLUCOMETER DEV NAME(LOC) BV3S.; GLUCOSE,POINT OF CARE 257 MG/DL (70-110)
[2020-03-16] MEDS ORDERED: HALOPERIDOL LACTATE 5 MG/ML VIAL ONE (18:13)
[2020-03-16] MEDS ORDERED: LORazepam 2 MG/ML VIAL ONE (18:13)
[2020-03-16] MEDS ORDERED: DiphenhydrAMINE HCL 50 MG/ML VIAL ONE (18:13)
[2020-03-16] MEDS ORDERED: DiphenhydrAMINE HCL 50 MG/ML VIAL IM ONE ×2 (18:15→19:00)
[2020-03-16] MEDS ORDERED: LORazepam 2 MG/ML VIAL IM ONE ×2 (18:15→19:00)
[2020-03-16] MEDS ORDERED: HALOPERIDOL LACTATE 5 MG/ML VIAL IM ONE ×2 (18:15→19:00)
[2020-03-16] MEDS: OLANZapine 5 MG RAPDIS TABLET PO SCH (21:00)
[2020-03-16] MEDS: DIVALPROEX SODIUM 500 MG ER TABLET PO SCH (21:00)
[2020-03-16] MEDS: INSULIN GLARGINE,HUM.REC.ANLOG 100 UNITS/ML SQ SCH (21:42)
[2020-03-16 21:57] LABS: GLUCOMETER DEV NAME(LOC) BV3S.; GLUCOSE,POINT OF CARE 142 MG/DL (70-110)
[2020-03-17] MEDS: MetFORMIN HCL 500 MG TABLET PO SCH ×2 (06:50→17:08)
[2020-03-17] MEDS: GABAPENTIN 300 MG CAPSULE PO SCH ×5 (09:00→20:50)
[2020-03-17] MEDS: NALTREXONE HCL 50 MG TABLET PO SCH ×2 (09:00→09:53)
[2020-03-17] MEDS: THIAMINE HCL 100 MG TABLET PO SCH ×3 (09:00→17:05)
[2020-03-17] MEDS: FOLIC ACID 1 MG TABLET PO SCH ×2 (09:00→09:53)
[2020-03-17] MEDS: MULTIVITAMINS WITH MINERALS, THERAPEUTIC TABLET PO SCH ×2 (09:00→09:53)
[2020-03-17 16:03] VITALS: BP 109/67
[2020-03-17] MEDS: LORazepam 2 MG TABLET PO PRN (17:11)
[2020-03-17] MEDS: INSULIN LISPRO 100 UNITS/ML SQ PRN ×2 (17:15→21:04)
[2020-03-17 17:39] LABS: GLUCOMETER DEV NAME(LOC) BV3S.; GLUCOSE,POINT OF CARE 368 MG/DL (70-110)
[2020-03-17] MEDS: OLANZapine 5 MG RAPDIS TABLET PO SCH (20:50)
[2020-03-17] MEDS: DIVALPROEX SODIUM 500 MG ER TABLET PO SCH (20:50)
[2020-03-17] MEDS: INSULIN GLARGINE,HUM.REC.ANLOG 100 UNITS/ML SQ SCH (21:04)
[2020-03-17 21:32] LABS: GLUCOMETER DEV NAME(LOC) BV3S.; GLUCOSE,POINT OF CARE 164 MG/DL (70-110)
[2020-03-18 06:13] VITALS: BP 100/62
[2020-03-18] MEDS: MetFORMIN HCL 500 MG TABLET PO SCH (06:47)
[2020-03-18] MEDS ORDERED: DIVA500T52 PO (08:06)
[2020-03-18] MEDS ORDERED: OLAN5TAB30 PO (08:06)
[2020-03-18] MEDS ORDERED: GABA-531 PO (08:06)
[2020-03-18] MEDS ORDERED: NALT50TA PO (08:06)
[2020-03-18 08:11] VITALS: BP 110/72
[2020-03-18] MEDS: NALTREXONE HCL 50 MG TABLET PO SCH (09:36)
[2020-03-18] MEDS: GABAPENTIN 300 MG CAPSULE PO SCH (09:36)
[2020-03-18] MEDS: FOLIC ACID 1 MG TABLET PO SCH (09:36)
[2020-03-18] MEDS: MULTIVITAMINS WITH MINERALS, THERAPEUTIC TABLET PO SCH (09:37)
[2020-03-18] MEDS: THIAMINE HCL 100 MG TABLET PO SCH (09:37)
== END 2020-03-18 12:22 | disposition home or self-care (01) | DRG 885 ==
LOC: B3A 18:33
PROVIDERS: ADMIT Psychiatry & Neurology Psychiatry; ATTEND Psychiatry & Neurology Psychiatry
DX: F25.9 Schizoaffective disorder, unspecified (principal); E87.1 Hypo-osmolality and hyponatremia; D64.9 Anemia, unspecified; E11.22 Type 2 diabetes mellitus with diabetic chronic kidney disease; E11.65 Type 2 diabetes mellitus with hyperglycemia; E83.42 Hypomagnesemia; I12.9 Hypertensive chronic kidney disease with stage 1 through stage 4 chronic kidney disease, or unspecified chronic kidney disease; N18.9 Chronic kidney disease, unspecified; Z91.19 Patient's noncompliance with other medical treatment and regimen; Z59.0 Homelessness; Z28.21 Immunization not carried out because of patient refusal
CPT/HCPCS: J1200; J1630; J1815; J2060

== ENCOUNTER 2020-05-24 08:51 | Inpatient (IN) | payer MEDICARE, MEDICAID ==
[~2020-05-24] VITALS: Ht 188 cm; Wt 78.9 kg
[~2020-05-24 08:51] MED LIST changes: -ARIP15TA2 PO; -ARIP400S3 IM; +DIVA-80 PO; -FOLI1 PO; +GABA-531 PO; -GLIP10 PO; -GLIP5 PO; -LINA5TAB PO; -MULT-1239 PO; +OLAN5TAB30 PO; -THIA100T67 PO
[2020-05-24 09:17] LABS: GLUCOSE,POINT OF CARE > 600 MG/DL (70-110)
[2020-05-24 09:37] LABS: BASOPHILS % (AUTO) 0.8 % (0.0-2.0); EOSINOPHILS % (AUTO) 2.2 % (1.0-6.0); HEMATOCRIT 39.3 % (41-53); HEMOGLOBIN 13.1 g/dL (13.5-17.5); LYMPHOCYTES # (AUTO) 1.2 K/uL (1.0-4.8); LYMPHOCYTES % (AUTO) 22.5 % (22.0-44.0); MEAN CORPUSCULAR HEMOGLOBIN 29.8 pg (26.0-34.0); MEAN CORPUSCULAR HGB CONC 33.3 G/dL (31.0-37.0); MEAN CORPUSCULAR VOLUME 90 fL (80-100); MONOCYTES # (AUTO) 0.3 K/uL (0.1-1.0); MONOCYTES % (AUTO) 5.9 % (2.0-9.0); NEUTROPHILS # (AUTO) 3.6 K/uL (1.8-7.7); NEUTROPHILS % (AUTO) 68.6 % (40.0-70.0); PLATELET COUNT (AUTO) 451 K/uL (150-450); RED BLOOD CELL COUNT(AUTO) 4.38 MIL/uL (4.50-5.90); RED CELL DISTRIBUTION WIDTH 13.1 % (11.5-14.5)
[2020-05-24] MEDS ORDERED: CALCIUM GLUCONATE 100 MG/ML 10 ML IVP ONE (09:45)
[2020-05-24] MEDS ORDERED: SODIUM CHLORIDE 0.9% 1,000 ML IV ONE (09:45)
[2020-05-24 09:55] LABS: B-TYPE NATRIURETIC PEPTIDE 174 pg/mL (0-100); PROTHROMBIN TIME 10.7 SEC (9.4-11.6)
[2020-05-24 10:03] LABS: ACETONE,BLOOD NEGATIVE (NEGATIVE)
[2020-05-24 10:27] LABS: ALANINE AMINOTRANSFERASE 26 U/L (12-78); ALBUMIN 3.1 g/dL (3.4-5.0); ALKALINE PHOSPHATASE 113 U/L (46-116); ANION GAP 10 mmol/L (8-16); ASPARTATE AMINOTRANSFERASE 18 U/L (15-37); BILIRUBIN,TOTAL 0.2 mg/dL (0.1-1.0); CALCIUM, TOTAL 8.2 mg/dL (8.8-10.5); CARBON DIOXIDE 24 mmol/L (22-29); CHLORIDE 102 mmol/L (98-107); CREATINE KINASE, TOTAL ONLY 126 U/L (39-308); CREATININE 1.02 mg/dL (0.60-1.30); GLOMERULAR FILTR. RATE CALC > 60 mL/min (>60); PHOSPHORUS 2.8 mg/dL (2.5-4.9); POTASSIUM 4.3 mmol/L (3.5-5.1); SODIUM SERUM 136 mmol/L (136-145); TOTAL PROTEIN, SERUM 7.2 g/dL (6.4-8.2); UREA NITROGEN, BLOOD 11 mg/dL (7-18)
[2020-05-24 10:36] LABS: GLUCOSE,RANDOM 524 mg/dL (70-110)
[2020-05-24] MEDS ORDERED: INSULIN REGULAR, HUMAN 100 UNITS/ML IVP ONE (10:45)
[2020-05-24] MEDS ORDERED: MAGNESIUM SULFATE 2 GM/WATER 50 ML IV ONE (10:45)
[2020-05-24] MEDS ORDERED: DiphenhydrAMINE HCL 50 MG/ML VIAL IM ONE (11:15)
[2020-05-24] MEDS ORDERED: LORazepam 2 MG/ML VIAL IM ONE (11:15)
[2020-05-24] MEDS ORDERED: HALOPERIDOL LACTATE 5 MG/ML VIAL IM ONE (11:15)
[2020-05-24 12:54] LABS: GLUCOSE,POINT OF CARE 247 MG/DL (70-110)
[2020-05-24] MEDS ORDERED: ZOLPIDEM TARTRATE 10 MG TABLET PO PRN (15:15)
[2020-05-24] MEDS ORDERED: MAG HYDROX/AL HYDROX/SIMETH ES 30 ML SUSPENSION UDCUP PO PRN (17:00)
[2020-05-24] MEDS ORDERED: NICOTINE 14 MG/24 HOUR PATCH TD PRN (17:00)
[2020-05-24] MEDS ORDERED: DEXTROSE 50%-WATER 25 GM/50 ML SYRINGE IVP PRN (17:00)
[2020-05-24] MEDS ORDERED: LOPERAMIDE HCL 2 MG CAPSULE PO PRN (17:00)
[2020-05-24] MEDS ORDERED: ALBUTEROL SULFATE HFA 90 MCG/PUFF 8 GM INHALER IH PRN (17:00)
[2020-05-24] MEDS ORDERED: DOCUSATE SODIUM 100 MG CAPSULE PO PRN (17:00)
[2020-05-24] MEDS ORDERED: MAGNESIUM HYDROXIDE SUSPENSION 30 ML UDCUP PO PRN (17:00)
[2020-05-24] MEDS ORDERED: GuaiFENesin/D-METHORPHAN [SUGAR-FREE] 200-20MG/10 ML SYRUP UDCUP PO PRN (17:00)
[2020-05-24] MEDS ORDERED: CloNIDine HCL 0.1 MG TABLET PO PRN (17:00)
[2020-05-24] MEDS ORDERED: ONDANSETRON HCL 4 MG TABLET PO PRN (17:00)
[2020-05-24] MEDS ORDERED: ACETAMINOPHEN 325 MG TABLET PO PRN (17:00)
[2020-05-24] MEDS ORDERED: PETROLATUM,WHITE 28 GM JELLY TP PRN (17:00)
[2020-05-24] MEDS ORDERED: IBUPROFEN 400 MG TABLET PO PRN (17:00)
[2020-05-24] MEDS: MetFORMIN HCL 500 MG TABLET PO SCH (17:58)
[2020-05-24] MEDS: INSULIN LISPRO 100 UNITS/ML SQ PRN ×2 (18:00→20:49)
[2020-05-24 18:08] LABS: GLUCOMETER DEV NAME(LOC) 3E.C; GLUCOSE,POINT OF CARE 263 MG/DL (70-110)
[2020-05-24 18:35] VITALS: BP 109/63
[2020-05-24] MEDS: INSULIN GLARGINE,HUM.REC.ANLOG 100 UNITS/ML SQ SCH (20:50)
[2020-05-24 22:29] LABS: GLUCOMETER DEV NAME(LOC) 3E.C; GLUCOSE,POINT OF CARE 333 MG/DL (70-110)
[2020-05-25] MEDS: MetFORMIN HCL 500 MG TABLET PO SCH ×2 (07:00→17:43)
[2020-05-25] MEDS: INSULIN LISPRO 100 UNITS/ML SQ PRN ×2 (11:43→17:45)
[2020-05-25 11:44] LABS: GLUCOMETER DEV NAME(LOC) 3E.C; GLUCOSE,POINT OF CARE 189 MG/DL (70-110)
[2020-05-25] MEDS ORDERED: MAGNESIUM OXIDE 400 MG TABLET PO ONE (14:15)
[2020-05-25 17:01] LABS: GLUCOMETER DEV NAME(LOC) 3E.C; GLUCOSE,POINT OF CARE 352 MG/DL (70-110)
[2020-05-25] MEDS: HALOPERIDOL 5 MG TABLET PO PRN (17:43)
[2020-05-25] MEDS: QUEtiapine FUMARATE 100 MG TABLET PO PRN (17:44)
[2020-05-25] MEDS ORDERED: OLANZapine 5 MG RAPDIS TABLET PO SCH (21:00)
[2020-05-25] MEDS: DIVALPROEX SODIUM 500 MG ER TABLET PO SCH (21:00)
[2020-05-25] MEDS: INSULIN GLARGINE,HUM.REC.ANLOG 100 UNITS/ML SQ SCH (21:00)
[2020-05-26] MEDS: MULTIVITAMINS WITH MINERALS, THERAPEUTIC TABLET PO SCH (08:06)
[2020-05-26] MEDS: MetFORMIN HCL 500 MG TABLET PO SCH ×2 (08:06→17:18)
[2020-05-26] MEDS ORDERED: ARIPiprazole ER SUSPENSION 400 MG PRE-FILLED DUAL CHAMBER SYRINGE IM SCH (11:30)
[2020-05-26] MEDS: INSULIN LISPRO 100 UNITS/ML SQ PRN ×3 (11:47→21:13)
[2020-05-26 11:51] LABS: GLUCOMETER DEV NAME(LOC) 3E.C; GLUCOSE,POINT OF CARE 290 MG/DL (70-110)
[2020-05-26] MEDS: HALOPERIDOL 5 MG TABLET PO PRN (17:18)
[2020-05-26] MEDS: QUEtiapine FUMARATE 100 MG TABLET PO PRN (17:19)
[2020-05-26 17:34] LABS: GLUCOMETER DEV NAME(LOC) 3E.C; GLUCOSE,POINT OF CARE 324 MG/DL (70-110)
[2020-05-26] MEDS: DIVALPROEX SODIUM 500 MG ER TABLET PO SCH (21:10)
[2020-05-26] MEDS: INSULIN GLARGINE,HUM.REC.ANLOG 100 UNITS/ML SQ SCH (21:11)
[2020-05-26 21:43] LABS: GLUCOMETER DEV NAME(LOC) 3E.C; GLUCOSE,POINT OF CARE 256 MG/DL (70-110)
[2020-05-27] MEDS: MetFORMIN HCL 500 MG TABLET PO SCH (06:50)
[2020-05-27] MEDS: MULTIVITAMINS WITH MINERALS, THERAPEUTIC TABLET PO SCH (09:00)
[2020-05-27 11:36] LABS: GLUCOMETER DEV NAME(LOC) 3E.C; GLUCOSE,POINT OF CARE 281 MG/DL (70-110)
[2020-05-27] MEDS: INSULIN LISPRO 100 UNITS/ML SQ PRN (12:17)
[2020-05-27] MEDS ORDERED: ARIP400S3 IM (13:16)
== END 2020-05-27 14:50 | disposition home or self-care (01) | DRG 885 ==
LOC: EMS 08:53 → 3EC 16:27
DX: F25.0 Schizoaffective disorder, bipolar type (principal); E11.65 Type 2 diabetes mellitus with hyperglycemia; F11.20 Opioid dependence, uncomplicated; R45.851 Suicidal ideations; Z91.5 Personal history of self-harm; Z59.0 Homelessness; Y90.9 Presence of alcohol in blood, level not specified; E83.42 Hypomagnesemia; F17.200 Nicotine dependence, unspecified, uncomplicated; F10.10 Alcohol abuse, uncomplicated; F19.10 Other psychoactive substance abuse, uncomplicated; Z91.14 Patient's other noncompliance with medication regimen; R45.850 Homicidal ideations
CPT/HCPCS: 83735; 83930; 84100; 87081; 93005; G0480; J0401; J0610; J1200; J1630; J1815; J2060; J3475; J7030

== ENCOUNTER 2020-10-04 08:05 | Inpatient (IN) | payer MEDICARE, MEDICAID ==
[~2020-10-04] VITALS: Ht 188 cm; Wt 88.9 kg
[~2020-10-04 08:05] MED LIST changes: +ARIP400S3 IM; -GABA-531 PO; -NALT50TA PO; -OLAN5TAB30 PO
[2020-10-04] MEDS ORDERED: SODIUM CHLORIDE 0.9% 1,000 ML IV ONE (08:45)
[2020-10-04 09:54] LABS: BASOPHILS % (AUTO) 0.6 % (0.0-2.0); EOSINOPHILS % (AUTO) 3.8 % (1.0-6.0); HEMATOCRIT 43.4 % (41-53); HEMOGLOBIN 14.7 g/dL (13.5-17.5); LYMPHOCYTES # (AUTO) 1.2 K/uL (1.0-4.8); LYMPHOCYTES % (AUTO) 28.5 % (22.0-44.0); MEAN CORPUSCULAR HEMOGLOBIN 30.8 pg (26.0-34.0); MEAN CORPUSCULAR HGB CONC 33.8 G/dL (31.0-37.0); MEAN CORPUSCULAR VOLUME 91 fL (80-100); MONOCYTES # (AUTO) 0.3 K/uL (0.1-1.0); MONOCYTES % (AUTO) 5.8 % (2.0-9.0); NEUTROPHILS # (AUTO) 2.7 K/uL (1.8-7.7); NEUTROPHILS % (AUTO) 61.3 % (40.0-70.0); PLATELET COUNT (AUTO) 300 K/uL (150-450); RED BLOOD CELL COUNT(AUTO) 4.76 MIL/uL (4.50-5.90); RED CELL DISTRIBUTION WIDTH 14.2 % (11.5-14.5)
[2020-10-04 10:08] LABS: COVID AG,FIA SOURCE NASOPHARYNGEAL
[2020-10-04 10:15] LABS: ACETONE,BLOOD NEGATIVE (NEGATIVE)
[2020-10-04 10:22] LABS: ALANINE AMINOTRANSFERASE 35 U/L (12-78); ALBUMIN 4.2 g/dL (3.4-5.0); ALKALINE PHOSPHATASE 84 U/L (46-116); ANION GAP 13 mmol/L (8-16); ASPARTATE AMINOTRANSFERASE 26 U/L (15-37); BILIRUBIN,TOTAL 0.3 mg/dL (0.1-1.0); CARBON DIOXIDE 21 mmol/L (22-29); CHLORIDE 100 mmol/L (98-107); GLOMERULAR FILTR. RATE CALC > 60 mL/min (>60); POTASSIUM 4.7 mmol/L (3.5-5.1); SODIUM SERUM 134 mmol/L (136-145); TOTAL PROTEIN, SERUM 8.5 g/dL (6.4-8.2); UREA NITROGEN, BLOOD 15 mg/dL (7-18)
[2020-10-04 10:23] LABS: GLUCOSE,RANDOM 525 mg/dL (70-110)
[2020-10-04] MEDS ORDERED: INSULIN REGULAR, HUMAN 100 UNITS/ML IVP ONE ×2 (10:30→10:45)
[2020-10-04 10:41] LABS: GLUCOSE,POINT OF CARE 379 MG/DL (70-110)
[2020-10-04] MEDS ORDERED: LORazepam 2 MG TABLET PO ONE (14:30)
[2020-10-04] MEDS ORDERED: INSULIN REGULAR, HUMAN 100 UNITS/ML SQ ONE ×2 (15:15)
[2020-10-04] MEDS ORDERED: DEXTROSE 50%-WATER 25 GM/50 ML SYRINGE IVP PRN (17:45)
[2020-10-04] MEDS: HALOPERIDOL 5 MG TABLET PO PRN (17:47)
[2020-10-04] MEDS: INSULIN LISPRO 100 UNITS/ML SQ PRN (17:47)
[2020-10-04] MEDS: LORazepam 2 MG TABLET PO PRN (17:47)
[2020-10-04 19:17] LABS: GLUCOSE,POINT OF CARE 281 MG/DL (70-110)
[2020-10-04 19:17] LABS: GLUCOSE,POINT OF CARE 386 MG/DL (70-110)
[2020-10-04 19:17] LABS: GLUCOSE,POINT OF CARE 400 MG/DL (70-110)
[2020-10-05 09:09] VITALS: BP 102/60
[2020-10-05 09:32] LABS: GLUCOMETER DEV NAME(LOC) 3E.C; GLUCOSE,POINT OF CARE 113 MG/DL (70-110)
[2020-10-05] MEDS: INSULIN GLARGINE,HUM.REC.ANLOG 100 UNITS/ML SQ SCH ×2 (09:42→17:48)
[2020-10-05] MEDS ORDERED: INFLUENZA VIRUS VACCINE QVS 2020-21 (6MO+)/PF 60 MCG/0.5 ML SYRINGE IM ONE (10:45)
[2020-10-05 11:56] LABS: GLUCOMETER DEV NAME(LOC) 3E.C; GLUCOSE,POINT OF CARE 285 MG/DL (70-110)
[2020-10-05] MEDS: INSULIN LISPRO 100 UNITS/ML SQ PRN ×2 (12:13→17:48)
[2020-10-05] MEDS: NICOTINE 14 MG/24 HOUR PATCH TD SCH (15:00)
[2020-10-05] MEDS ORDERED: MAG HYDROX/AL HYDROX/SIMETH ES 30 ML SUSPENSION UDCUP PO PRN (15:15)
[2020-10-05] MEDS ORDERED: ONDANSETRON HCL 4 MG TABLET PO PRN (15:15)
[2020-10-05] MEDS ORDERED: ACETAMINOPHEN 325 MG TABLET PO PRN (15:15)
[2020-10-05] MEDS ORDERED: LOPERAMIDE HCL 2 MG CAPSULE PO PRN (15:15)
[2020-10-05] MEDS ORDERED: PETROLATUM,WHITE 28 GM JELLY TP PRN (15:15)
[2020-10-05] MEDS ORDERED: DOCUSATE SODIUM 100 MG CAPSULE PO PRN (15:15)
[2020-10-05] MEDS ORDERED: NICOTINE 14 MG/24 HOUR PATCH TD PRN (15:15)
[2020-10-05] MEDS ORDERED: MAGNESIUM HYDROXIDE SUSPENSION 30 ML UDCUP PO PRN (15:15)
[2020-10-05] MEDS ORDERED: ALBUTEROL SULFATE HFA 90 MCG/PUFF 8 GM INHALER IH PRN (15:15)
[2020-10-05] MEDS ORDERED: GuaiFENesin/D-METHORPHAN [SUGAR-FREE] 200-20MG/10 ML SYRUP UDCUP PO PRN (15:15)
[2020-10-05] MEDS ORDERED: CloNIDine HCL 0.1 MG TABLET PO PRN (15:15)
[2020-10-05 17:47] LABS: GLUCOMETER DEV NAME(LOC) 3E.C; GLUCOSE,POINT OF CARE 321 MG/DL (70-110)
[2020-10-05] MEDS: MetFORMIN HCL 500 MG TABLET PO SCH (17:47)
[2020-10-05] MEDS: SitaGLIPtin PHOSPHATE 50 MG TABLET PO SCH (17:47)
[2020-10-05] MEDS: QUEtiapine FUMARATE 200 MG ER TABLET PO SCH (20:47)
[2020-10-05] MEDS: HydrOXYzine PAMOATE 50 MG CAPSULE PO SCH (20:47)
[2020-10-05] MEDS: DIVALPROEX SODIUM 500 MG DR TABLET PO SCH (20:47)
[2020-10-05] MEDS: SIMVASTATIN 10 MG TABLET PO SCH (20:47)
[2020-10-05 21:55] LABS: GLUCOMETER DEV NAME(LOC) 3E.C; GLUCOSE,POINT OF CARE 225 MG/DL (70-110)
[2020-10-06 06:40] LABS: GLUCOMETER DEV NAME(LOC) 3E.C; GLUCOSE,POINT OF CARE 109 MG/DL (70-110)
[2020-10-06] MEDS: FERROUS SULFATE 325 MG EC TABLET PO SCH (06:47)
[2020-10-06] MEDS: MetFORMIN HCL 500 MG TABLET PO SCH ×2 (06:47→16:30)
[2020-10-06] MEDS: SitaGLIPtin PHOSPHATE 50 MG TABLET PO SCH ×2 (08:31→16:29)
[2020-10-06] MEDS: DULoxetine HCL 30 MG CAPSULE PO SCH (08:31)
[2020-10-06] MEDS: THIAMINE 100 MG TABLET PO SCH (08:34)
[2020-10-06] MEDS: CHOLECALCIFEROL (VIT D3) 1,000 UNITS [25 MCG] TABLET PO SCH (08:34)
[2020-10-06] MEDS: MULTIVITAMINS, THERAPEUTIC TABLET PO SCH (08:34)
[2020-10-06] MEDS: ASPIRIN 81 MG DR TABLET PO SCH (08:35)
[2020-10-06] MEDS: FOLIC ACID 1 MG TABLET PO SCH (08:35)
[2020-10-06] MEDS: NICOTINE 14 MG/24 HOUR PATCH TD SCH (08:36)
[2020-10-06] MEDS: LORazepam 2 MG TABLET PO PRN (08:42)
[2020-10-06] MEDS: HALOPERIDOL 5 MG TABLET PO PRN (08:42)
[2020-10-06] MEDS: INSULIN GLARGINE,HUM.REC.ANLOG 100 UNITS/ML SQ SCH ×2 (09:11→16:44)
[2020-10-06 11:20] LABS: GLUCOMETER DEV NAME(LOC) 3E.C; GLUCOSE,POINT OF CARE 180 MG/DL (70-110)
[2020-10-06] MEDS: INSULIN LISPRO 100 UNITS/ML SQ PRN ×2 (11:30→17:33)
[2020-10-06] MEDS ORDERED: HALOPERIDOL LACTATE 5 MG/ML VIAL IM PRN ×2 (16:00)
[2020-10-06 17:12] VITALS: BP 90/60
[2020-10-06 17:14] LABS: GLUCOMETER DEV NAME(LOC) 3E.C; GLUCOSE,POINT OF CARE 243 MG/DL (70-110)
[2020-10-06] MEDS: DIVALPROEX SODIUM 500 MG DR TABLET PO SCH (20:24)
[2020-10-06] MEDS: QUEtiapine FUMARATE 200 MG ER TABLET PO SCH (20:25)
[2020-10-06] MEDS: HydrOXYzine PAMOATE 50 MG CAPSULE PO SCH (20:25)
[2020-10-06] MEDS: SIMVASTATIN 10 MG TABLET PO SCH (20:25)
[2020-10-06 21:02] LABS: GLUCOMETER DEV NAME(LOC) 3E.C; GLUCOSE,POINT OF CARE 100 MG/DL (70-110)
[2020-10-07 06:44] LABS: GLUCOMETER DEV NAME(LOC) 3E.C; GLUCOSE,POINT OF CARE 78 MG/DL (70-110)
[2020-10-07] MEDS: MetFORMIN HCL 500 MG TABLET PO SCH ×2 (06:46→17:44)
[2020-10-07] MEDS: FERROUS SULFATE 325 MG EC TABLET PO SCH (06:46)
[2020-10-07] MEDS: FOLIC ACID 1 MG TABLET PO SCH (08:40)
[2020-10-07] MEDS: CHOLECALCIFEROL (VIT D3) 1,000 UNITS [25 MCG] TABLET PO SCH (08:40)
[2020-10-07] MEDS: ASPIRIN 81 MG DR TABLET PO SCH (08:40)
[2020-10-07] MEDS: MULTIVITAMINS, THERAPEUTIC TABLET PO SCH (08:41)
[2020-10-07] MEDS: SitaGLIPtin PHOSPHATE 50 MG TABLET PO SCH ×2 (08:41→17:20)
[2020-10-07] MEDS: THIAMINE 100 MG TABLET PO SCH (08:41)
[2020-10-07] MEDS: DULoxetine HCL 30 MG CAPSULE PO SCH (08:41)
[2020-10-07] MEDS: LORazepam 2 MG TABLET PO PRN (08:42)
[2020-10-07] MEDS: HALOPERIDOL 5 MG TABLET PO PRN (08:42)
[2020-10-07] MEDS: NICOTINE 14 MG/24 HOUR PATCH TD SCH (08:51)
[2020-10-07] MEDS: INSULIN GLARGINE,HUM.REC.ANLOG 100 UNITS/ML SQ SCH ×2 (08:52→17:20)
[2020-10-07 11:19] LABS: GLUCOMETER DEV NAME(LOC) 3E.C; GLUCOSE,POINT OF CARE 138 MG/DL (70-110)
[2020-10-07 16:35] LABS: GLUCOMETER DEV NAME(LOC) 3E.C; GLUCOSE,POINT OF CARE 227 MG/DL (70-110)
[2020-10-07 16:42] VITALS: BP 98/63
[2020-10-07] MEDS: INSULIN LISPRO 100 UNITS/ML SQ PRN ×2 (17:19→20:42)
[2020-10-07] MEDS: HydrOXYzine PAMOATE 50 MG CAPSULE PO SCH (20:35)
[2020-10-07] MEDS: DIVALPROEX SODIUM 500 MG DR TABLET PO SCH (20:35)
[2020-10-07] MEDS: QUEtiapine FUMARATE 200 MG ER TABLET PO SCH (20:35)
[2020-10-07] MEDS: SIMVASTATIN 10 MG TABLET PO SCH (20:35)
[2020-10-07 20:51] LABS: GLUCOMETER DEV NAME(LOC) 3E.C; GLUCOSE,POINT OF CARE 250 MG/DL (70-110)
[2020-10-07 21:00] VITALS: BP 112/68
[2020-10-08 06:49] LABS: GLUCOMETER DEV NAME(LOC) 3E.C; GLUCOSE,POINT OF CARE 141 MG/DL (70-110)
[2020-10-08] MEDS: MetFORMIN HCL 500 MG TABLET PO SCH ×2 (06:52→16:54)
[2020-10-08] MEDS: FERROUS SULFATE 325 MG EC TABLET PO SCH (06:52)
[2020-10-08] MEDS: INSULIN LISPRO 100 UNITS/ML SQ PRN ×4 (06:54→20:49)
[2020-10-08] MEDS: MULTIVITAMINS, THERAPEUTIC TABLET PO SCH (08:41)
[2020-10-08] MEDS: THIAMINE 100 MG TABLET PO SCH (08:41)
[2020-10-08] MEDS: CHOLECALCIFEROL (VIT D3) 1,000 UNITS [25 MCG] TABLET PO SCH (08:41)
[2020-10-08] MEDS: HALOPERIDOL 5 MG TABLET PO PRN (08:42)
[2020-10-08] MEDS: NICOTINE 14 MG/24 HOUR PATCH TD SCH (08:42)
[2020-10-08] MEDS: LORazepam 2 MG TABLET PO PRN (08:42)
[2020-10-08] MEDS: ASPIRIN 81 MG DR TABLET PO SCH (08:42)
[2020-10-08] MEDS: FOLIC ACID 1 MG TABLET PO SCH (08:42)
[2020-10-08] MEDS: SitaGLIPtin PHOSPHATE 50 MG TABLET PO SCH ×2 (08:43→16:54)
[2020-10-08] MEDS: DULoxetine HCL 30 MG CAPSULE PO SCH (08:43)
[2020-10-08] MEDS: INSULIN GLARGINE,HUM.REC.ANLOG 100 UNITS/ML SQ SCH ×2 (08:52→17:21)
[2020-10-08 12:00] LABS: GLUCOMETER DEV NAME(LOC) 3E.C; GLUCOSE,POINT OF CARE 142 MG/DL (70-110)
[2020-10-08 16:00] VITALS: BP 95/63
[2020-10-08 17:19] LABS: GLUCOMETER DEV NAME(LOC) 3E.C; GLUCOSE,POINT OF CARE 155 MG/DL (70-110)
[2020-10-08] MEDS: DIVALPROEX SODIUM 500 MG DR TABLET PO SCH (20:20)
[2020-10-08] MEDS: SIMVASTATIN 10 MG TABLET PO SCH (20:20)
[2020-10-08] MEDS: QUEtiapine FUMARATE 200 MG ER TABLET PO SCH (20:20)
[2020-10-08] MEDS: HydrOXYzine PAMOATE 50 MG CAPSULE PO SCH (20:20)
[2020-10-08 21:12] LABS: GLUCOMETER DEV NAME(LOC) 3E.C; GLUCOSE,POINT OF CARE 179 MG/DL (70-110)
[2020-10-09] MEDS: FERROUS SULFATE 325 MG EC TABLET PO SCH (06:31)
[2020-10-09] MEDS: MetFORMIN HCL 500 MG TABLET PO SCH ×2 (06:31→16:41)
[2020-10-09 07:39] LABS: GLUCOMETER DEV NAME(LOC) 3E.C; GLUCOSE,POINT OF CARE 160 MG/DL (70-110)
[2020-10-09] MEDS: CHOLECALCIFEROL (VIT D3) 1,000 UNITS [25 MCG] TABLET PO SCH (08:02)
[2020-10-09] MEDS: MULTIVITAMINS, THERAPEUTIC TABLET PO SCH (08:02)
[2020-10-09] MEDS: LORazepam 2 MG TABLET PO PRN (08:02)
[2020-10-09] MEDS: ASPIRIN 81 MG DR TABLET PO SCH (08:02)
[2020-10-09] MEDS: THIAMINE 100 MG TABLET PO SCH (08:02)
[2020-10-09] MEDS: FOLIC ACID 1 MG TABLET PO SCH (08:02)
[2020-10-09] MEDS: SitaGLIPtin PHOSPHATE 50 MG TABLET PO SCH ×2 (08:03→16:41)
[2020-10-09] MEDS: DULoxetine HCL 30 MG CAPSULE PO SCH (08:03)
[2020-10-09] MEDS: INSULIN GLARGINE,HUM.REC.ANLOG 100 UNITS/ML SQ SCH ×2 (08:05→17:27)
[2020-10-09] MEDS: NICOTINE 14 MG/24 HOUR PATCH TD SCH (08:10)
[2020-10-09 09:57] VITALS: BP 148/87
[2020-10-09 11:23] LABS: GLUCOMETER DEV NAME(LOC) 3E.C; GLUCOSE,POINT OF CARE 222 MG/DL (70-110)
[2020-10-09] MEDS: INSULIN LISPRO 100 UNITS/ML SQ PRN ×3 (11:54→20:37)
[2020-10-09 17:03] LABS: GLUCOMETER DEV NAME(LOC) 3E.C; GLUCOSE,POINT OF CARE 234 MG/DL (70-110)
[2020-10-09] MEDS: HydrOXYzine PAMOATE 50 MG CAPSULE PO SCH (20:19)
[2020-10-09] MEDS: DIVALPROEX SODIUM 500 MG DR TABLET PO SCH (20:19)
[2020-10-09] MEDS: QUEtiapine FUMARATE 200 MG ER TABLET PO SCH (20:19)
[2020-10-09] MEDS: SIMVASTATIN 10 MG TABLET PO SCH (20:20)
[2020-10-09 20:43] LABS: GLUCOMETER DEV NAME(LOC) 3E.C; GLUCOSE,POINT OF CARE 183 MG/DL (70-110)
[2020-10-10] MEDS: FERROUS SULFATE 325 MG EC TABLET PO SCH (06:37)
[2020-10-10] MEDS: MetFORMIN HCL 500 MG TABLET PO SCH ×2 (06:37→17:17)
[2020-10-10 08:00] VITALS: BP 92/60
[2020-10-10] MEDS: MULTIVITAMINS, THERAPEUTIC TABLET PO SCH (09:00)
[2020-10-10] MEDS: SitaGLIPtin PHOSPHATE 50 MG TABLET PO SCH ×2 (09:00→17:16)
[2020-10-10] MEDS: ASPIRIN 81 MG DR TABLET PO SCH (09:00)
[2020-10-10] MEDS: CHOLECALCIFEROL (VIT D3) 1,000 UNITS [25 MCG] TABLET PO SCH (09:00)
[2020-10-10] MEDS: THIAMINE 100 MG TABLET PO SCH (09:00)
[2020-10-10] MEDS: FOLIC ACID 1 MG TABLET PO SCH (09:00)
[2020-10-10] MEDS: NICOTINE 14 MG/24 HOUR PATCH TD SCH (09:00)
[2020-10-10] MEDS: PALIPERIDONE PALMITATE 234 MG/1.5 ML SYRINGE IM SCH (09:00)
[2020-10-10] MEDS: DULoxetine HCL 30 MG CAPSULE PO SCH (09:00)
[2020-10-10] MEDS: INSULIN GLARGINE,HUM.REC.ANLOG 100 UNITS/ML SQ SCH ×2 (09:00→17:26)
[2020-10-10 11:38] LABS: GLUCOMETER DEV NAME(LOC) 3E.C; GLUCOSE,POINT OF CARE 136 MG/DL (70-110)
[2020-10-10 11:38] LABS: GLUCOMETER DEV NAME(LOC) 3E.C; GLUCOSE,POINT OF CARE 172 MG/DL (70-110)
[2020-10-10] MEDS: INSULIN LISPRO 100 UNITS/ML SQ PRN ×2 (11:49→17:27)
[2020-10-10 16:54] VITALS: BP 102/70
[2020-10-10 17:24] LABS: GLUCOMETER DEV NAME(LOC) 3E.C; GLUCOSE,POINT OF CARE 247 MG/DL (70-110)
[2020-10-10] MEDS: SIMVASTATIN 10 MG TABLET PO SCH (20:50)
[2020-10-10] MEDS: HydrOXYzine PAMOATE 50 MG CAPSULE PO SCH (20:50)
[2020-10-10] MEDS: DIVALPROEX SODIUM 500 MG DR TABLET PO SCH (20:50)
[2020-10-10] MEDS: QUEtiapine FUMARATE 200 MG ER TABLET PO SCH (20:50)
[2020-10-11 06:25] LABS: GLUCOMETER DEV NAME(LOC) 3E.C; GLUCOSE,POINT OF CARE 163 MG/DL (70-110)
[2020-10-11] MEDS: FERROUS SULFATE 325 MG EC TABLET PO SCH (06:49)
[2020-10-11] MEDS: MetFORMIN HCL 500 MG TABLET PO SCH ×2 (06:49→17:21)
[2020-10-11] MEDS: INSULIN LISPRO 100 UNITS/ML SQ PRN ×2 (06:50→16:52)
[2020-10-11] MEDS: SitaGLIPtin PHOSPHATE 50 MG TABLET PO SCH ×2 (09:00→16:54)
[2020-10-11] MEDS: NICOTINE 14 MG/24 HOUR PATCH TD SCH (09:00)
[2020-10-11] MEDS: ASPIRIN 81 MG DR TABLET PO SCH (09:00)
[2020-10-11] MEDS: THIAMINE 100 MG TABLET PO SCH (09:00)
[2020-10-11] MEDS: INSULIN GLARGINE,HUM.REC.ANLOG 100 UNITS/ML SQ SCH ×2 (09:00→16:53)
[2020-10-11] MEDS: MULTIVITAMINS, THERAPEUTIC TABLET PO SCH (09:00)
[2020-10-11] MEDS: DULoxetine HCL 30 MG CAPSULE PO SCH (09:00)
[2020-10-11] MEDS: FOLIC ACID 1 MG TABLET PO SCH (09:00)
[2020-10-11] MEDS: CHOLECALCIFEROL (VIT D3) 1,000 UNITS [25 MCG] TABLET PO SCH (09:00)
[2020-10-11 16:27] LABS: GLUCOMETER DEV NAME(LOC) 3E.C; GLUCOSE,POINT OF CARE 232 MG/DL (70-110)
[2020-10-11] MEDS: QUEtiapine FUMARATE 200 MG ER TABLET PO SCH (20:41)
[2020-10-11] MEDS: HydrOXYzine PAMOATE 50 MG CAPSULE PO SCH (20:41)
[2020-10-11] MEDS: DIVALPROEX SODIUM 500 MG DR TABLET PO SCH (20:41)
[2020-10-11] MEDS: SIMVASTATIN 10 MG TABLET PO SCH (20:42)
[2020-10-12] MEDS: FERROUS SULFATE 325 MG EC TABLET PO SCH (06:34)
[2020-10-12] MEDS: MetFORMIN HCL 500 MG TABLET PO SCH ×2 (06:35→17:30)
[2020-10-12 08:00] VITALS: BP 149/98
[2020-10-12] MEDS: LORazepam 2 MG TABLET PO PRN (08:40)
[2020-10-12] MEDS: DULoxetine HCL 30 MG CAPSULE PO SCH (08:40)
[2020-10-12] MEDS: MULTIVITAMINS, THERAPEUTIC TABLET PO SCH (08:40)
[2020-10-12] MEDS: SitaGLIPtin PHOSPHATE 50 MG TABLET PO SCH ×2 (08:40→17:00)
[2020-10-12] MEDS: FOLIC ACID 1 MG TABLET PO SCH (08:40)
[2020-10-12] MEDS: CHOLECALCIFEROL (VIT D3) 1,000 UNITS [25 MCG] TABLET PO SCH (08:40)
[2020-10-12] MEDS: THIAMINE 100 MG TABLET PO SCH (08:41)
[2020-10-12] MEDS: NICOTINE 14 MG/24 HOUR PATCH TD SCH (08:41)
[2020-10-12] MEDS: ASPIRIN 81 MG DR TABLET PO SCH (08:42)
[2020-10-12] MEDS: HALOPERIDOL 5 MG TABLET PO PRN (08:42)
[2020-10-12] MEDS: INSULIN GLARGINE,HUM.REC.ANLOG 100 UNITS/ML SQ SCH ×2 (09:32→17:00)
[2020-10-12] MEDS: INSULIN LISPRO 100 UNITS/ML SQ PRN ×2 (09:32→11:24)
[2020-10-12 09:37] LABS: GLUCOMETER DEV NAME(LOC) 3E.C; GLUCOSE,POINT OF CARE 303 MG/DL (70-110)
[2020-10-12 11:28] LABS: GLUCOMETER DEV NAME(LOC) 3E.C; GLUCOSE,POINT OF CARE 231 MG/DL (70-110)
[2020-10-12] MEDS: BACITRACIN 28 GM OINTMENT TP SCH (14:05)
[2020-10-12] MEDS: SIMVASTATIN 10 MG TABLET PO SCH (20:39)
[2020-10-12] MEDS: DIVALPROEX SODIUM 500 MG DR TABLET PO SCH (20:40)
[2020-10-12] MEDS: HydrOXYzine PAMOATE 50 MG CAPSULE PO SCH (20:40)
[2020-10-12] MEDS: QUEtiapine FUMARATE 200 MG ER TABLET PO SCH (20:40)
[2020-10-13] MEDS: FERROUS SULFATE 325 MG EC TABLET PO SCH (06:47)
[2020-10-13] MEDS: MetFORMIN HCL 500 MG TABLET PO SCH ×2 (06:47→17:04)
[2020-10-13] MEDS: CHOLECALCIFEROL (VIT D3) 1,000 UNITS [25 MCG] TABLET PO SCH (09:03)
[2020-10-13] MEDS: THIAMINE 100 MG TABLET PO SCH (09:03)
[2020-10-13] MEDS: DULoxetine HCL 30 MG CAPSULE PO SCH (09:03)
[2020-10-13] MEDS: MULTIVITAMINS, THERAPEUTIC TABLET PO SCH (09:03)
[2020-10-13] MEDS: SitaGLIPtin PHOSPHATE 50 MG TABLET PO SCH ×2 (09:03→17:05)
[2020-10-13] MEDS: FOLIC ACID 1 MG TABLET PO SCH (09:03)
[2020-10-13] MEDS: ASPIRIN 81 MG DR TABLET PO SCH (09:04)
[2020-10-13] MEDS: NICOTINE 14 MG/24 HOUR PATCH TD SCH (09:04)
[2020-10-13] MEDS: INSULIN GLARGINE,HUM.REC.ANLOG 100 UNITS/ML SQ SCH ×2 (09:28→17:27)
[2020-10-13] MEDS: INSULIN LISPRO 100 UNITS/ML SQ PRN ×2 (11:50→17:28)
[2020-10-13 11:59] LABS: GLUCOMETER DEV NAME(LOC) 3E.C; GLUCOSE,POINT OF CARE 323 MG/DL (70-110)
[2020-10-13] MEDS: BACITRACIN 28 GM OINTMENT TP SCH (14:37)
[2020-10-13 16:27] VITALS: BP 103/62
[2020-10-13 17:36] LABS: GLUCOMETER DEV NAME(LOC) 3E.C; GLUCOSE,POINT OF CARE 394 MG/DL (70-110)
[2020-10-13] MEDS: HydrOXYzine PAMOATE 50 MG CAPSULE PO SCH (20:42)
[2020-10-13] MEDS: SIMVASTATIN 10 MG TABLET PO SCH (20:42)
[2020-10-13] MEDS: DIVALPROEX SODIUM 500 MG DR TABLET PO SCH (20:43)
[2020-10-13] MEDS: QUEtiapine FUMARATE 200 MG ER TABLET PO SCH (20:43)
[2020-10-14] MEDS: FERROUS SULFATE 325 MG EC TABLET PO SCH (06:52)
[2020-10-14] MEDS: MetFORMIN HCL 500 MG TABLET PO SCH ×2 (06:52→17:14)
[2020-10-14 07:52] LABS: GLUCOMETER DEV NAME(LOC) 3E.C; GLUCOSE,POINT OF CARE 240 MG/DL (70-110)
[2020-10-14 08:00] VITALS: BP 98/62
[2020-10-14] MEDS: THIAMINE 100 MG TABLET PO SCH (08:04)
[2020-10-14] MEDS: ASPIRIN 81 MG DR TABLET PO SCH (08:05)
[2020-10-14] MEDS: SitaGLIPtin PHOSPHATE 50 MG TABLET PO SCH ×2 (08:05→17:14)
[2020-10-14] MEDS: MULTIVITAMINS, THERAPEUTIC TABLET PO SCH (08:05)
[2020-10-14] MEDS: FOLIC ACID 1 MG TABLET PO SCH (08:05)
[2020-10-14] MEDS: DULoxetine HCL 30 MG CAPSULE PO SCH (08:06)
[2020-10-14] MEDS: INSULIN LISPRO 100 UNITS/ML SQ PRN ×4 (08:07→21:00)
[2020-10-14] MEDS: CHOLECALCIFEROL (VIT D3) 1,000 UNITS [25 MCG] TABLET PO SCH (08:09)
[2020-10-14] MEDS: INSULIN GLARGINE,HUM.REC.ANLOG 100 UNITS/ML SQ SCH ×2 (08:09→17:15)
[2020-10-14] MEDS: NICOTINE 14 MG/24 HOUR PATCH TD SCH (08:11)
[2020-10-14] MEDS: BACITRACIN 28 GM OINTMENT TP SCH (08:16)
[2020-10-14 11:33] LABS: GLUCOMETER DEV NAME(LOC) 3E.C; GLUCOSE,POINT OF CARE 242 MG/DL (70-110)
[2020-10-14 17:37] LABS: GLUCOMETER DEV NAME(LOC) 3E.C; GLUCOSE,POINT OF CARE 349 MG/DL (70-110)
[2020-10-14] MEDS: QUEtiapine FUMARATE 200 MG ER TABLET PO SCH (20:57)
[2020-10-14] MEDS: DIVALPROEX SODIUM 500 MG DR TABLET PO SCH (20:57)
[2020-10-14] MEDS: HydrOXYzine PAMOATE 50 MG CAPSULE PO SCH (20:58)
[2020-10-14] MEDS: SIMVASTATIN 10 MG TABLET PO SCH (20:58)
[2020-10-14 21:30] LABS: GLUCOMETER DEV NAME(LOC) 3E.C; GLUCOSE,POINT OF CARE 226 MG/DL (70-110)
[2020-10-15] MEDS: MetFORMIN HCL 500 MG TABLET PO SCH ×2 (06:45→17:23)
[2020-10-15] MEDS: FERROUS SULFATE 325 MG EC TABLET PO SCH (06:45)
[2020-10-15] MEDS: DULoxetine HCL 30 MG CAPSULE PO SCH (08:48)
[2020-10-15] MEDS: SitaGLIPtin PHOSPHATE 50 MG TABLET PO SCH ×2 (08:49→16:12)
[2020-10-15] MEDS: ASPIRIN 81 MG DR TABLET PO SCH (08:49)
[2020-10-15] MEDS: FOLIC ACID 1 MG TABLET PO SCH (08:49)
[2020-10-15] MEDS: MULTIVITAMINS, THERAPEUTIC TABLET PO SCH (08:49)
[2020-10-15] MEDS: CHOLECALCIFEROL (VIT D3) 1,000 UNITS [25 MCG] TABLET PO SCH (08:50)
[2020-10-15] MEDS: THIAMINE 100 MG TABLET PO SCH (08:50)
[2020-10-15] MEDS: INSULIN GLARGINE,HUM.REC.ANLOG 100 UNITS/ML SQ SCH ×2 (08:59→16:42)
[2020-10-15 09:00] LABS: GLUCOMETER DEV NAME(LOC) 3E.C; GLUCOSE,POINT OF CARE 321 MG/DL (70-110)
[2020-10-15] MEDS: INSULIN LISPRO 100 UNITS/ML SQ PRN ×3 (09:00→16:43)
[2020-10-15] MEDS: NICOTINE 14 MG/24 HOUR PATCH TD SCH (09:00)
[2020-10-15] MEDS: BACITRACIN 28 GM OINTMENT TP SCH (09:01)
[2020-10-15 10:00] VITALS: BP 98/63
[2020-10-15 11:54] LABS: GLUCOMETER DEV NAME(LOC) 3E.C; GLUCOSE,POINT OF CARE 203 MG/DL (70-110)
[2020-10-15 16:25] VITALS: BP 110/67
[2020-10-15 16:27] LABS: GLUCOMETER DEV NAME(LOC) 3E.C; GLUCOSE,POINT OF CARE 250 MG/DL (70-110)
[2020-10-15] MEDS: SIMVASTATIN 10 MG TABLET PO SCH (20:34)
[2020-10-15] MEDS: DIVALPROEX SODIUM 500 MG DR TABLET PO SCH (20:34)
[2020-10-15] MEDS: QUEtiapine FUMARATE 200 MG ER TABLET PO SCH (20:34)
[2020-10-15] MEDS: HydrOXYzine PAMOATE 50 MG CAPSULE PO SCH (20:35)
[2020-10-16] MEDS: FERROUS SULFATE 325 MG EC TABLET PO SCH (06:41)
[2020-10-16] MEDS: MetFORMIN HCL 500 MG TABLET PO SCH ×2 (06:41→17:33)
[2020-10-16] MEDS: CHOLECALCIFEROL (VIT D3) 1,000 UNITS [25 MCG] TABLET PO SCH (08:53)
[2020-10-16] MEDS: ASPIRIN 81 MG DR TABLET PO SCH (08:53)
[2020-10-16] MEDS: FOLIC ACID 1 MG TABLET PO SCH (08:53)
[2020-10-16] MEDS: HALOPERIDOL 5 MG TABLET PO PRN (08:53)
[2020-10-16] MEDS: LORazepam 2 MG TABLET PO PRN (08:53)
[2020-10-16] MEDS: THIAMINE 100 MG TABLET PO SCH (08:53)
[2020-10-16] MEDS: BACITRACIN 28 GM OINTMENT TP SCH (08:54)
[2020-10-16] MEDS: SitaGLIPtin PHOSPHATE 50 MG TABLET PO SCH ×2 (08:54→16:37)
[2020-10-16] MEDS: DULoxetine HCL 30 MG CAPSULE PO SCH (08:54)
[2020-10-16] MEDS: NICOTINE 14 MG/24 HOUR PATCH TD SCH (08:55)
[2020-10-16] MEDS: MULTIVITAMINS, THERAPEUTIC TABLET PO SCH (08:55)
[2020-10-16 11:11] LABS: GLUCOMETER DEV NAME(LOC) 3E.C; GLUCOSE,POINT OF CARE 263 MG/DL (70-110)
[2020-10-16] MEDS: INSULIN GLARGINE,HUM.REC.ANLOG 100 UNITS/ML SQ SCH ×2 (11:56→16:32)
[2020-10-16] MEDS: INSULIN LISPRO 100 UNITS/ML SQ PRN ×3 (11:57→20:48)
[2020-10-16 16:18] VITALS: BP 95/61
[2020-10-16 16:24] LABS: GLUCOMETER DEV NAME(LOC) 3E.C; GLUCOSE,POINT OF CARE 301 MG/DL (70-110)
[2020-10-16 20:37] VITALS: BP 102/68
[2020-10-16] MEDS: SIMVASTATIN 10 MG TABLET PO SCH (20:44)
[2020-10-16] MEDS: HydrOXYzine PAMOATE 50 MG CAPSULE PO SCH (20:45)
[2020-10-16] MEDS: QUEtiapine FUMARATE 200 MG ER TABLET PO SCH (20:45)
[2020-10-16] MEDS: DIVALPROEX SODIUM 500 MG DR TABLET PO SCH (20:45)
[2020-10-16 21:15] LABS: GLUCOMETER DEV NAME(LOC) 3E.C; GLUCOSE,POINT OF CARE 249 MG/DL (70-110)
[2020-10-17] MEDS: MetFORMIN HCL 500 MG TABLET PO SCH ×2 (07:12→17:21)
[2020-10-17] MEDS: FERROUS SULFATE 325 MG EC TABLET PO SCH (07:12)
[2020-10-17 08:00] VITALS: BP 135/83
[2020-10-17] MEDS: CHOLECALCIFEROL (VIT D3) 1,000 UNITS [25 MCG] TABLET PO SCH (10:09)
[2020-10-17] MEDS: FOLIC ACID 1 MG TABLET PO SCH (10:10)
[2020-10-17] MEDS: DULoxetine HCL 30 MG CAPSULE PO SCH (10:10)
[2020-10-17] MEDS: MULTIVITAMINS, THERAPEUTIC TABLET PO SCH (10:10)
[2020-10-17] MEDS: SitaGLIPtin PHOSPHATE 50 MG TABLET PO SCH ×2 (10:10→17:21)
[2020-10-17] MEDS: THIAMINE 100 MG TABLET PO SCH (10:10)
[2020-10-17] MEDS: ASPIRIN 81 MG DR TABLET PO SCH (10:11)
[2020-10-17] MEDS: NICOTINE 14 MG/24 HOUR PATCH TD SCH (10:11)
[2020-10-17] MEDS: BACITRACIN 28 GM OINTMENT TP SCH (10:15)
[2020-10-17] MEDS: INSULIN GLARGINE,HUM.REC.ANLOG 100 UNITS/ML SQ SCH ×2 (10:20→17:24)
[2020-10-17 11:57] LABS: GLUCOMETER DEV NAME(LOC) 3E.C; GLUCOSE,POINT OF CARE 349 MG/DL (70-110)
[2020-10-17] MEDS: INSULIN LISPRO 100 UNITS/ML SQ PRN ×3 (11:58→20:51)
[2020-10-17 16:29] VITALS: BP 109/75
[2020-10-17 17:33] LABS: GLUCOMETER DEV NAME(LOC) 3E.C; GLUCOSE,POINT OF CARE 311 MG/DL (70-110)
[2020-10-17] MEDS: DIVALPROEX SODIUM 500 MG DR TABLET PO SCH (20:52)
[2020-10-17] MEDS: QUEtiapine FUMARATE 200 MG ER TABLET PO SCH (20:53)
[2020-10-17] MEDS: SIMVASTATIN 10 MG TABLET PO SCH (20:53)
[2020-10-17] MEDS: HydrOXYzine PAMOATE 50 MG CAPSULE PO SCH (20:53)
[2020-10-17 21:01] LABS: GLUCOMETER DEV NAME(LOC) 3E.C; GLUCOSE,POINT OF CARE 207 MG/DL (70-110)
[2020-10-18] MEDS: MetFORMIN HCL 500 MG TABLET PO SCH ×2 (07:09→17:17)
[2020-10-18] MEDS: FERROUS SULFATE 325 MG EC TABLET PO SCH (07:09)
[2020-10-18] MEDS: FOLIC ACID 1 MG TABLET PO SCH (07:57)
[2020-10-18] MEDS: SitaGLIPtin PHOSPHATE 50 MG TABLET PO SCH ×2 (07:57→17:17)
[2020-10-18] MEDS: DULoxetine HCL 30 MG CAPSULE PO SCH (07:57)
[2020-10-18] MEDS: ASPIRIN 81 MG DR TABLET PO SCH (07:57)
[2020-10-18] MEDS: THIAMINE 100 MG TABLET PO SCH (07:58)
[2020-10-18] MEDS: MULTIVITAMINS, THERAPEUTIC TABLET PO SCH (07:58)
[2020-10-18] MEDS: CHOLECALCIFEROL (VIT D3) 1,000 UNITS [25 MCG] TABLET PO SCH (07:59)
[2020-10-18 08:00] VITALS: BP 94/57
[2020-10-18] MEDS: INSULIN GLARGINE,HUM.REC.ANLOG 100 UNITS/ML SQ SCH ×2 (08:00→17:20)
[2020-10-18 08:04] LABS: GLUCOMETER DEV NAME(LOC) 3E.C; GLUCOSE,POINT OF CARE 220 MG/DL (70-110)
[2020-10-18] MEDS: NICOTINE 14 MG/24 HOUR PATCH TD SCH (09:00)
[2020-10-18] MEDS: BACITRACIN 28 GM OINTMENT TP SCH (09:06)
[2020-10-18 12:04] LABS: GLUCOMETER DEV NAME(LOC) 3E.C; GLUCOSE,POINT OF CARE 283 MG/DL (70-110)
[2020-10-18] MEDS: INSULIN LISPRO 100 UNITS/ML SQ PRN ×3 (12:04→21:35)
[2020-10-18 16:12] LABS: GLUCOMETER DEV NAME(LOC) 3E.C; GLUCOSE,POINT OF CARE 273 MG/DL (70-110)
[2020-10-18 16:14] VITALS: BP 93/62
[2020-10-18] MEDS: QUEtiapine FUMARATE 200 MG ER TABLET PO SCH (20:38)
[2020-10-18] MEDS: DIVALPROEX SODIUM 500 MG DR TABLET PO SCH (20:38)
[2020-10-18] MEDS: HydrOXYzine PAMOATE 50 MG CAPSULE PO SCH (20:38)
[2020-10-18] MEDS: SIMVASTATIN 10 MG TABLET PO SCH (20:38)
[2020-10-18 21:00] LABS: GLUCOMETER DEV NAME(LOC) 3E.C; GLUCOSE,POINT OF CARE 288 MG/DL (70-110)
[2020-10-19 06:38] LABS: GLUCOMETER DEV NAME(LOC) 3E.C; GLUCOSE,POINT OF CARE 192 MG/DL (70-110)
[2020-10-19] MEDS: FERROUS SULFATE 325 MG EC TABLET PO SCH (06:53)
[2020-10-19] MEDS: MetFORMIN HCL 500 MG TABLET PO SCH ×2 (06:53→16:58)
[2020-10-19] MEDS: INSULIN LISPRO 100 UNITS/ML SQ PRN ×4 (06:54→20:40)
[2020-10-19] MEDS: FOLIC ACID 1 MG TABLET PO SCH (08:05)
[2020-10-19] MEDS: MULTIVITAMINS, THERAPEUTIC TABLET PO SCH (08:05)
[2020-10-19] MEDS: NICOTINE 14 MG/24 HOUR PATCH TD SCH (08:06)
[2020-10-19] MEDS: ASPIRIN 81 MG DR TABLET PO SCH (08:06)
[2020-10-19] MEDS: THIAMINE 100 MG TABLET PO SCH (08:06)
[2020-10-19] MEDS: CHOLECALCIFEROL (VIT D3) 1,000 UNITS [25 MCG] TABLET PO SCH (08:06)
[2020-10-19] MEDS: BACITRACIN 28 GM OINTMENT TP SCH (08:06)
[2020-10-19] MEDS: DULoxetine HCL 30 MG CAPSULE PO SCH (08:07)
[2020-10-19 08:13] VITALS: BP 116/81
[2020-10-19] MEDS: INSULIN GLARGINE,HUM.REC.ANLOG 100 UNITS/ML SQ SCH ×2 (08:13→17:03)
[2020-10-19] MEDS: SitaGLIPtin PHOSPHATE 50 MG TABLET PO SCH ×2 (08:19→17:18)
[2020-10-19 12:15] LABS: GLUCOMETER DEV NAME(LOC) 3E.C; GLUCOSE,POINT OF CARE 264 MG/DL (70-110)
[2020-10-19 16:14] VITALS: BP 128/82
[2020-10-19 17:14] LABS: GLUCOMETER DEV NAME(LOC) 3E.C; GLUCOSE,POINT OF CARE 297 MG/DL (70-110)
[2020-10-19] MEDS: QUEtiapine FUMARATE 200 MG ER TABLET PO SCH (20:26)
[2020-10-19] MEDS: SIMVASTATIN 10 MG TABLET PO SCH (20:26)
[2020-10-19] MEDS: HydrOXYzine PAMOATE 50 MG CAPSULE PO SCH (20:26)
[2020-10-19] MEDS: DIVALPROEX SODIUM 500 MG DR TABLET PO SCH (20:26)
[2020-10-19 20:48] LABS: GLUCOMETER DEV NAME(LOC) 3E.C; GLUCOSE,POINT OF CARE 222 MG/DL (70-110)
[2020-10-20 08:12] LABS: GLUCOMETER DEV NAME(LOC) 3E.C; GLUCOSE,POINT OF CARE 175 MG/DL (70-110)
[2020-10-20] MEDS: MetFORMIN HCL 500 MG TABLET PO SCH ×2 (08:14→19:09)
[2020-10-20] MEDS: FERROUS SULFATE 325 MG EC TABLET PO SCH (08:15)
[2020-10-20 08:47] VITALS: BP 92/61
[2020-10-20] MEDS: FOLIC ACID 1 MG TABLET PO SCH (09:18)
[2020-10-20] MEDS: ASPIRIN 81 MG DR TABLET PO SCH (09:18)
[2020-10-20] MEDS: DULoxetine HCL 30 MG CAPSULE PO SCH (09:18)
[2020-10-20] MEDS: MULTIVITAMINS, THERAPEUTIC TABLET PO SCH (09:19)
[2020-10-20] MEDS: SitaGLIPtin PHOSPHATE 50 MG TABLET PO SCH ×2 (09:19→19:09)
[2020-10-20] MEDS: CHOLECALCIFEROL (VIT D3) 1,000 UNITS [25 MCG] TABLET PO SCH (09:19)
[2020-10-20] MEDS: THIAMINE 100 MG TABLET PO SCH (09:19)
[2020-10-20] MEDS: BACITRACIN 28 GM OINTMENT TP SCH (09:21)
[2020-10-20] MEDS: NICOTINE 14 MG/24 HOUR PATCH TD SCH (09:21)
[2020-10-20] MEDS: INSULIN GLARGINE,HUM.REC.ANLOG 100 UNITS/ML SQ SCH ×2 (09:25→18:05)
[2020-10-20 11:35] LABS: GLUCOMETER DEV NAME(LOC) 3E.C; GLUCOSE,POINT OF CARE 242 MG/DL (70-110)
[2020-10-20] MEDS: INSULIN LISPRO 100 UNITS/ML SQ PRN ×2 (12:57→18:05)
[2020-10-20 16:12] VITALS: BP 90/60
[2020-10-20 18:13] LABS: GLUCOMETER DEV NAME(LOC) 3E.C; GLUCOSE,POINT OF CARE 188 MG/DL (70-110)
[2020-10-20] MEDS: HydrOXYzine PAMOATE 50 MG CAPSULE PO SCH (21:10)
[2020-10-20] MEDS: DIVALPROEX SODIUM 500 MG DR TABLET PO SCH (21:10)
[2020-10-20] MEDS: QUEtiapine FUMARATE 200 MG ER TABLET PO SCH (21:10)
[2020-10-20] MEDS: SIMVASTATIN 10 MG TABLET PO SCH (21:11)
[2020-10-21] MEDS: INSULIN LISPRO 100 UNITS/ML SQ PRN ×4 (07:08→20:21)
[2020-10-21 07:16] LABS: GLUCOMETER DEV NAME(LOC) 3E.C; GLUCOSE,POINT OF CARE 74 MG/DL (70-110)
[2020-10-21 08:00] VITALS: BP 101/69
[2020-10-21] MEDS: THIAMINE 100 MG TABLET PO SCH (08:17)
[2020-10-21] MEDS: BACITRACIN 28 GM OINTMENT TP SCH (08:17)
[2020-10-21] MEDS: CHOLECALCIFEROL (VIT D3) 1,000 UNITS [25 MCG] TABLET PO SCH (08:17)
[2020-10-21] MEDS: SitaGLIPtin PHOSPHATE 50 MG TABLET PO SCH ×2 (08:17→16:34)
[2020-10-21] MEDS: ASPIRIN 81 MG DR TABLET PO SCH (08:17)
[2020-10-21] MEDS: DULoxetine HCL 30 MG CAPSULE PO SCH (08:17)
[2020-10-21] MEDS: FERROUS SULFATE 325 MG EC TABLET PO SCH (08:18)
[2020-10-21] MEDS: FOLIC ACID 1 MG TABLET PO SCH (08:18)
[2020-10-21] MEDS: MULTIVITAMINS, THERAPEUTIC TABLET PO SCH (08:18)
[2020-10-21] MEDS: MetFORMIN HCL 500 MG TABLET PO SCH ×2 (08:19→16:34)
[2020-10-21] MEDS: NICOTINE 14 MG/24 HOUR PATCH TD SCH (08:20)
[2020-10-21] MEDS: INSULIN GLARGINE,HUM.REC.ANLOG 100 UNITS/ML SQ SCH ×2 (08:27→16:44)
[2020-10-21 12:06] LABS: GLUCOMETER DEV NAME(LOC) 3E.C; GLUCOSE,POINT OF CARE 189 MG/DL (70-110)
[2020-10-21 16:04] VITALS: BP 108/76
[2020-10-21 16:38] LABS: GLUCOMETER DEV NAME(LOC) 3E.C; GLUCOSE,POINT OF CARE 201 MG/DL (70-110)
[2020-10-21] MEDS: SIMVASTATIN 10 MG TABLET PO SCH (20:09)
[2020-10-21] MEDS: QUEtiapine FUMARATE 200 MG ER TABLET PO SCH (20:09)
[2020-10-21] MEDS: DIVALPROEX SODIUM 500 MG DR TABLET PO SCH (20:09)
[2020-10-21] MEDS: HydrOXYzine PAMOATE 50 MG CAPSULE PO SCH (20:09)
[2020-10-21 20:38] LABS: GLUCOMETER DEV NAME(LOC) 3E.C; GLUCOSE,POINT OF CARE 224 MG/DL (70-110)
[2020-10-22] MEDS: MetFORMIN HCL 500 MG TABLET PO SCH ×2 (08:36→17:22)
[2020-10-22] MEDS: FERROUS SULFATE 325 MG EC TABLET PO SCH (08:36)
[2020-10-22] MEDS: MULTIVITAMINS, THERAPEUTIC TABLET PO SCH (08:36)
[2020-10-22] MEDS: CHOLECALCIFEROL (VIT D3) 1,000 UNITS [25 MCG] TABLET PO SCH (08:37)
[2020-10-22] MEDS: ASPIRIN 81 MG DR TABLET PO SCH (08:37)
[2020-10-22] MEDS: FOLIC ACID 1 MG TABLET PO SCH (08:37)
[2020-10-22] MEDS: THIAMINE 100 MG TABLET PO SCH (08:37)
[2020-10-22] MEDS: DULoxetine HCL 30 MG CAPSULE PO SCH (08:37)
[2020-10-22] MEDS: SitaGLIPtin PHOSPHATE 50 MG TABLET PO SCH ×2 (08:38→17:22)
[2020-10-22] MEDS: INSULIN GLARGINE,HUM.REC.ANLOG 100 UNITS/ML SQ SCH ×2 (08:46→17:25)
[2020-10-22] MEDS: BACITRACIN 28 GM OINTMENT TP SCH (08:48)
[2020-10-22] MEDS: NICOTINE 14 MG/24 HOUR PATCH TD SCH (08:49)
[2020-10-22 08:56] LABS: GLUCOMETER DEV NAME(LOC) 3E.C; GLUCOSE,POINT OF CARE 129 MG/DL (70-110)
[2020-10-22 09:08] VITALS: BP 100/69
[2020-10-22 11:20] LABS: GLUCOMETER DEV NAME(LOC) 3E.C; GLUCOSE,POINT OF CARE 211 MG/DL (70-110)
[2020-10-22] MEDS: INSULIN LISPRO 100 UNITS/ML SQ PRN ×3 (11:56→20:51)
[2020-10-22 16:00] VITALS: BP 95/56
[2020-10-22 17:07] LABS: GLUCOMETER DEV NAME(LOC) 3E.C; GLUCOSE,POINT OF CARE 225 MG/DL (70-110)
[2020-10-22 20:36] LABS: GLUCOMETER DEV NAME(LOC) 3E.C; GLUCOSE,POINT OF CARE 206 MG/DL (70-110)
[2020-10-22] MEDS: QUEtiapine FUMARATE 200 MG ER TABLET PO SCH (20:48)
[2020-10-22] MEDS: DIVALPROEX SODIUM 500 MG DR TABLET PO SCH (20:48)
[2020-10-22] MEDS: SIMVASTATIN 10 MG TABLET PO SCH (20:48)
[2020-10-22] MEDS: HydrOXYzine PAMOATE 50 MG CAPSULE PO SCH (20:48)
[2020-10-23] MEDS: FERROUS SULFATE 325 MG EC TABLET PO SCH (06:33)
[2020-10-23] MEDS: MetFORMIN HCL 500 MG TABLET PO SCH ×3 (06:34→16:38)
[2020-10-23] MEDS: CHOLECALCIFEROL (VIT D3) 1,000 UNITS [25 MCG] TABLET PO SCH (08:13)
[2020-10-23] MEDS: FOLIC ACID 1 MG TABLET PO SCH (08:14)
[2020-10-23] MEDS: MULTIVITAMINS, THERAPEUTIC TABLET PO SCH (08:14)
[2020-10-23] MEDS: ASPIRIN 81 MG DR TABLET PO SCH (08:14)
[2020-10-23] MEDS: DULoxetine HCL 30 MG CAPSULE PO SCH (08:14)
[2020-10-23] MEDS: SitaGLIPtin PHOSPHATE 50 MG TABLET PO SCH ×2 (08:14→16:38)
[2020-10-23] MEDS: THIAMINE 100 MG TABLET PO SCH (08:16)
[2020-10-23] MEDS: NICOTINE 14 MG/24 HOUR PATCH TD SCH (08:26)
[2020-10-23] MEDS: INSULIN GLARGINE,HUM.REC.ANLOG 100 UNITS/ML SQ SCH ×2 (08:28→17:30)
[2020-10-23 08:34] LABS: GLUCOMETER DEV NAME(LOC) 3E.C; GLUCOSE,POINT OF CARE 202 MG/DL (70-110)
[2020-10-23] MEDS: BACITRACIN 28 GM OINTMENT TP SCH (09:00)
[2020-10-23 11:21] LABS: GLUCOMETER DEV NAME(LOC) 3E.C; GLUCOSE,POINT OF CARE 247 MG/DL (70-110)
[2020-10-23] MEDS: INSULIN LISPRO 100 UNITS/ML SQ PRN ×2 (11:25→17:30)
[2020-10-23 16:33] LABS: GLUCOMETER DEV NAME(LOC) 3E.C; GLUCOSE,POINT OF CARE 185 MG/DL (70-110)
[2020-10-23 16:52] VITALS: BP 103/68
[2020-10-23] MEDS: QUEtiapine FUMARATE 200 MG ER TABLET PO SCH (20:40)
[2020-10-23] MEDS: SIMVASTATIN 10 MG TABLET PO SCH (20:40)
[2020-10-23] MEDS: DIVALPROEX SODIUM 500 MG DR TABLET PO SCH (20:40)
[2020-10-23] MEDS: HydrOXYzine PAMOATE 50 MG CAPSULE PO SCH (20:42)
[2020-10-24] MEDS: MetFORMIN HCL 500 MG TABLET PO SCH ×2 (07:12→17:42)
[2020-10-24] MEDS: FERROUS SULFATE 325 MG EC TABLET PO SCH (07:12)
[2020-10-24] MEDS: CHOLECALCIFEROL (VIT D3) 1,000 UNITS [25 MCG] TABLET PO SCH (08:34)
[2020-10-24] MEDS: THIAMINE 100 MG TABLET PO SCH (08:34)
[2020-10-24] MEDS: FOLIC ACID 1 MG TABLET PO SCH (08:34)
[2020-10-24] MEDS: ASPIRIN 81 MG DR TABLET PO SCH (08:35)
[2020-10-24] MEDS: NICOTINE 14 MG/24 HOUR PATCH TD SCH (08:35)
[2020-10-24] MEDS: DULoxetine HCL 30 MG CAPSULE PO SCH (08:36)
[2020-10-24] MEDS: BACITRACIN 28 GM OINTMENT TP SCH (08:36)
[2020-10-24] MEDS: SitaGLIPtin PHOSPHATE 50 MG TABLET PO SCH ×2 (08:36→17:43)
[2020-10-24] MEDS: MULTIVITAMINS, THERAPEUTIC TABLET PO SCH (08:41)
[2020-10-24 08:45] LABS: GLUCOMETER DEV NAME(LOC) 3E.C; GLUCOSE,POINT OF CARE 90 MG/DL (70-110)
[2020-10-24] MEDS: INSULIN GLARGINE,HUM.REC.ANLOG 100 UNITS/ML SQ SCH ×2 (10:02→17:51)
[2020-10-24 10:07] VITALS: BP 88/62
[2020-10-24 11:57] LABS: GLUCOMETER DEV NAME(LOC) 3E.C; GLUCOSE,POINT OF CARE 151 MG/DL (70-110)
[2020-10-24 17:07] VITALS: BP 99/66
[2020-10-24 17:15] LABS: GLUCOMETER DEV NAME(LOC) 3E.C; GLUCOSE,POINT OF CARE 137 MG/DL (70-110)
[2020-10-24] MEDS: QUEtiapine FUMARATE 200 MG ER TABLET PO SCH (21:26)
[2020-10-24] MEDS: HydrOXYzine PAMOATE 50 MG CAPSULE PO SCH (21:26)
[2020-10-24] MEDS: DIVALPROEX SODIUM 500 MG DR TABLET PO SCH (21:26)
[2020-10-24] MEDS: SIMVASTATIN 10 MG TABLET PO SCH (21:27)
[2020-10-25] MEDS: FERROUS SULFATE 325 MG EC TABLET PO SCH (06:34)
[2020-10-25] MEDS: MetFORMIN HCL 500 MG TABLET PO SCH ×2 (06:34→16:19)
[2020-10-25 08:00] VITALS: BP 98/55
[2020-10-25] MEDS: DULoxetine HCL 30 MG CAPSULE PO SCH (08:34)
[2020-10-25] MEDS: SitaGLIPtin PHOSPHATE 50 MG TABLET PO SCH ×2 (08:34→16:19)
[2020-10-25] MEDS: CHOLECALCIFEROL (VIT D3) 1,000 UNITS [25 MCG] TABLET PO SCH (08:34)
[2020-10-25] MEDS: ASPIRIN 81 MG DR TABLET PO SCH (08:34)
[2020-10-25] MEDS: MULTIVITAMINS, THERAPEUTIC TABLET PO SCH (08:35)
[2020-10-25] MEDS: THIAMINE 100 MG TABLET PO SCH (08:35)
[2020-10-25] MEDS: FOLIC ACID 1 MG TABLET PO SCH (08:36)
[2020-10-25] MEDS: NICOTINE 14 MG/24 HOUR PATCH TD SCH (08:37)
[2020-10-25] MEDS: INSULIN GLARGINE,HUM.REC.ANLOG 100 UNITS/ML SQ SCH ×2 (08:45→16:27)
[2020-10-25 08:55] LABS: GLUCOMETER DEV NAME(LOC) 3E.C; GLUCOSE,POINT OF CARE 194 MG/DL (70-110)
[2020-10-25] MEDS: BACITRACIN 28 GM OINTMENT TP SCH (09:00)
[2020-10-25 11:42] LABS: GLUCOMETER DEV NAME(LOC) 3E.C; GLUCOSE,POINT OF CARE 269 MG/DL (70-110)
[2020-10-25] MEDS: INSULIN LISPRO 100 UNITS/ML SQ PRN ×3 (12:46→21:19)
[2020-10-25 16:46] LABS: GLUCOMETER DEV NAME(LOC) 3E.C; GLUCOSE,POINT OF CARE 215 MG/DL (70-110)
[2020-10-25] MEDS: DIVALPROEX SODIUM 500 MG DR TABLET PO SCH (20:20)
[2020-10-25] MEDS: QUEtiapine FUMARATE 200 MG ER TABLET PO SCH (20:21)
[2020-10-25] MEDS: HydrOXYzine PAMOATE 50 MG CAPSULE PO SCH (20:21)
[2020-10-25] MEDS: SIMVASTATIN 10 MG TABLET PO SCH (20:21)
[2020-10-25 21:27] LABS: GLUCOMETER DEV NAME(LOC) 3E.C; GLUCOSE,POINT OF CARE 213 MG/DL (70-110)
[2020-10-26] MEDS: FERROUS SULFATE 325 MG EC TABLET PO SCH (07:01)
[2020-10-26] MEDS: MetFORMIN HCL 500 MG TABLET PO SCH ×2 (07:01→16:25)
[2020-10-26 08:08] LABS: GLUCOMETER DEV NAME(LOC) 3E.C; GLUCOSE,POINT OF CARE 166 MG/DL (70-110)
[2020-10-26 08:30] VITALS: BP 116/69
[2020-10-26] MEDS: ASPIRIN 81 MG DR TABLET PO SCH (08:56)
[2020-10-26] MEDS: THIAMINE 100 MG TABLET PO SCH (08:57)
[2020-10-26] MEDS: FOLIC ACID 1 MG TABLET PO SCH (08:57)
[2020-10-26] MEDS: DULoxetine HCL 30 MG CAPSULE PO SCH (08:57)
[2020-10-26] MEDS: SitaGLIPtin PHOSPHATE 50 MG TABLET PO SCH ×2 (08:57→16:25)
[2020-10-26] MEDS: CHOLECALCIFEROL (VIT D3) 1,000 UNITS [25 MCG] TABLET PO SCH (08:57)
[2020-10-26] MEDS: MULTIVITAMINS, THERAPEUTIC TABLET PO SCH (08:58)
[2020-10-26] MEDS: NICOTINE 14 MG/24 HOUR PATCH TD SCH (08:58)
[2020-10-26] MEDS: INSULIN GLARGINE,HUM.REC.ANLOG 100 UNITS/ML SQ SCH ×2 (08:59→17:38)
[2020-10-26 12:03] LABS: GLUCOMETER DEV NAME(LOC) 3E.C; GLUCOSE,POINT OF CARE 278 MG/DL (70-110)
[2020-10-26] MEDS: INSULIN LISPRO 100 UNITS/ML SQ PRN ×2 (12:39→17:40)
[2020-10-26 15:38] LABS: COVID AG,FIA SOURCE NASAL SWAB
[2020-10-26 16:15] VITALS: BP 106/65
[2020-10-26 18:07] LABS: GLUCOMETER DEV NAME(LOC) 3E.C; GLUCOSE,POINT OF CARE 378 MG/DL (70-110)
[2020-10-26] MEDS: QUEtiapine FUMARATE 200 MG ER TABLET PO SCH (21:18)
[2020-10-26] MEDS: DIVALPROEX SODIUM 500 MG DR TABLET PO SCH (21:18)
[2020-10-26] MEDS: HydrOXYzine PAMOATE 50 MG CAPSULE PO SCH (21:18)
[2020-10-26] MEDS: SIMVASTATIN 10 MG TABLET PO SCH (21:18)
[2020-10-27 08:00] VITALS: BP 95/64
[2020-10-27 08:07] LABS: GLUCOMETER DEV NAME(LOC) 3E.C; GLUCOSE,POINT OF CARE 174 MG/DL (70-110)
[2020-10-27] MEDS: THIAMINE 100 MG TABLET PO SCH (08:07)
[2020-10-27] MEDS: INSULIN GLARGINE,HUM.REC.ANLOG 100 UNITS/ML SQ SCH ×2 (08:07→17:30)
[2020-10-27] MEDS: FERROUS SULFATE 325 MG EC TABLET PO SCH (08:07)
[2020-10-27] MEDS: MULTIVITAMINS, THERAPEUTIC TABLET PO SCH (08:07)
[2020-10-27] MEDS: CHOLECALCIFEROL (VIT D3) 1,000 UNITS [25 MCG] TABLET PO SCH (08:08)
[2020-10-27] MEDS: ASPIRIN 81 MG DR TABLET PO SCH (08:08)
[2020-10-27] MEDS: FOLIC ACID 1 MG TABLET PO SCH (08:08)
[2020-10-27] MEDS: MetFORMIN HCL 500 MG TABLET PO SCH ×2 (08:08→16:23)
[2020-10-27] MEDS: DULoxetine HCL 30 MG CAPSULE PO SCH (08:09)
[2020-10-27] MEDS: SitaGLIPtin PHOSPHATE 50 MG TABLET PO SCH ×2 (08:09→16:24)
[2020-10-27] MEDS: NICOTINE 14 MG/24 HOUR PATCH TD SCH (09:00)
[2020-10-27 11:42] LABS: GLUCOMETER DEV NAME(LOC) 3E.C; GLUCOSE,POINT OF CARE 303 MG/DL (70-110)
[2020-10-27] MEDS: INSULIN LISPRO 100 UNITS/ML SQ PRN ×2 (12:01→17:29)
[2020-10-27 16:10] VITALS: BP 99/68
[2020-10-27 17:10] LABS: GLUCOMETER DEV NAME(LOC) 3E.C; GLUCOSE,POINT OF CARE 225 MG/DL (70-110)
[2020-10-27] MEDS: SIMVASTATIN 10 MG TABLET PO SCH (20:27)
[2020-10-27] MEDS: DIVALPROEX SODIUM 500 MG DR TABLET PO SCH (20:28)
[2020-10-27] MEDS: QUEtiapine FUMARATE 200 MG ER TABLET PO SCH (20:28)
[2020-10-27] MEDS: HydrOXYzine PAMOATE 50 MG CAPSULE PO SCH (20:28)
[2020-10-28 08:00] VITALS: BP 100/66
[2020-10-28] MEDS: INSULIN GLARGINE,HUM.REC.ANLOG 100 UNITS/ML SQ SCH ×2 (08:04→17:37)
[2020-10-28] MEDS: MetFORMIN HCL 500 MG TABLET PO SCH ×2 (08:05→17:25)
[2020-10-28] MEDS: FERROUS SULFATE 325 MG EC TABLET PO SCH (08:05)
[2020-10-28] MEDS: ASPIRIN 81 MG DR TABLET PO SCH (08:05)
[2020-10-28] MEDS: MULTIVITAMINS, THERAPEUTIC TABLET PO SCH (08:05)
[2020-10-28] MEDS: CHOLECALCIFEROL (VIT D3) 1,000 UNITS [25 MCG] TABLET PO SCH (08:06)
[2020-10-28] MEDS: SitaGLIPtin PHOSPHATE 50 MG TABLET PO SCH ×2 (08:06→17:25)
[2020-10-28] MEDS: THIAMINE 100 MG TABLET PO SCH (08:06)
[2020-10-28] MEDS: DULoxetine HCL 30 MG CAPSULE PO SCH (08:06)
[2020-10-28] MEDS: FOLIC ACID 1 MG TABLET PO SCH (08:06)
[2020-10-28 08:09] LABS: GLUCOMETER DEV NAME(LOC) 3E.C; GLUCOSE,POINT OF CARE 148 MG/DL (70-110)
[2020-10-28] MEDS: NICOTINE 14 MG/24 HOUR PATCH TD SCH (08:11)
[2020-10-28 11:39] LABS: GLUCOMETER DEV NAME(LOC) 3E.C; GLUCOSE,POINT OF CARE 204 MG/DL (70-110)
[2020-10-28] MEDS: INSULIN LISPRO 100 UNITS/ML SQ PRN ×3 (11:58→21:03)
[2020-10-28 17:16] VITALS: BP 96/81
[2020-10-28 17:54] LABS: GLUCOMETER DEV NAME(LOC) 3E.C; GLUCOSE,POINT OF CARE 278 MG/DL (70-110)
[2020-10-28] MEDS: SIMVASTATIN 10 MG TABLET PO SCH (20:34)
[2020-10-28] MEDS: QUEtiapine FUMARATE 200 MG ER TABLET PO SCH (20:34)
[2020-10-28] MEDS: DIVALPROEX SODIUM 500 MG DR TABLET PO SCH (20:34)
[2020-10-28] MEDS: HydrOXYzine PAMOATE 50 MG CAPSULE PO SCH (20:35)
[2020-10-28 21:36] LABS: GLUCOMETER DEV NAME(LOC) 3E.C; GLUCOSE,POINT OF CARE 208 MG/DL (70-110)
[2020-10-29] MEDS: FERROUS SULFATE 325 MG EC TABLET PO SCH (07:08)
[2020-10-29] MEDS: MetFORMIN HCL 500 MG TABLET PO SCH ×2 (07:08→17:29)
[2020-10-29 07:59] LABS: GLUCOMETER DEV NAME(LOC) 3E.C; GLUCOSE,POINT OF CARE 82 MG/DL (70-110)
[2020-10-29] MEDS: SitaGLIPtin PHOSPHATE 50 MG TABLET PO SCH ×2 (08:06→17:15)
[2020-10-29] MEDS: DULoxetine HCL 30 MG CAPSULE PO SCH (08:06)
[2020-10-29] MEDS: ASPIRIN 81 MG DR TABLET PO SCH (08:08)
[2020-10-29] MEDS: CHOLECALCIFEROL (VIT D3) 1,000 UNITS [25 MCG] TABLET PO SCH (08:08)
[2020-10-29] MEDS: FOLIC ACID 1 MG TABLET PO SCH (08:08)
[2020-10-29] MEDS: THIAMINE 100 MG TABLET PO SCH (08:10)
[2020-10-29] MEDS: MULTIVITAMINS, THERAPEUTIC TABLET PO SCH (08:10)
[2020-10-29] MEDS: INSULIN GLARGINE,HUM.REC.ANLOG 100 UNITS/ML SQ SCH ×2 (08:22→17:16)
[2020-10-29] MEDS: NICOTINE 14 MG/24 HOUR PATCH TD SCH (08:23)
[2020-10-29 10:00] VITALS: BP 85/57
[2020-10-29 12:02] LABS: GLUCOMETER DEV NAME(LOC) 3E.C; GLUCOSE,POINT OF CARE 181 MG/DL (70-110)
[2020-10-29] MEDS: INSULIN LISPRO 100 UNITS/ML SQ PRN ×3 (12:53→20:33)
[2020-10-29 16:33] VITALS: BP 110/65
[2020-10-29 17:29] LABS: GLUCOMETER DEV NAME(LOC) 3E.C; GLUCOSE,POINT OF CARE 237 MG/DL (70-110)
[2020-10-29] MEDS: HydrOXYzine PAMOATE 50 MG CAPSULE PO SCH (20:23)
[2020-10-29] MEDS: DIVALPROEX SODIUM 500 MG DR TABLET PO SCH (20:24)
[2020-10-29] MEDS: QUEtiapine FUMARATE 200 MG ER TABLET PO SCH (20:24)
[2020-10-29] MEDS: SIMVASTATIN 10 MG TABLET PO SCH (20:24)
[2020-10-29 21:23] LABS: GLUCOMETER DEV NAME(LOC) 3E.C; GLUCOSE,POINT OF CARE 210 MG/DL (70-110)
[2020-10-30] MEDS: DULoxetine HCL 30 MG CAPSULE PO SCH (07:43)
[2020-10-30] MEDS: SitaGLIPtin PHOSPHATE 50 MG TABLET PO SCH ×2 (07:43→17:08)
[2020-10-30] MEDS: THIAMINE 100 MG TABLET PO SCH (07:45)
[2020-10-30] MEDS: MetFORMIN HCL 500 MG TABLET PO SCH ×2 (07:45→17:36)
[2020-10-30] MEDS: MULTIVITAMINS, THERAPEUTIC TABLET PO SCH (07:45)
[2020-10-30] MEDS: FOLIC ACID 1 MG TABLET PO SCH (07:45)
[2020-10-30] MEDS: CHOLECALCIFEROL (VIT D3) 1,000 UNITS [25 MCG] TABLET PO SCH (07:45)
[2020-10-30] MEDS: FERROUS SULFATE 325 MG EC TABLET PO SCH (07:46)
[2020-10-30 07:48] LABS: GLUCOMETER DEV NAME(LOC) 3E.C; GLUCOSE,POINT OF CARE 129 MG/DL (70-110)
[2020-10-30] MEDS: ASPIRIN 81 MG DR TABLET PO SCH (07:48)
[2020-10-30] MEDS: INSULIN GLARGINE,HUM.REC.ANLOG 100 UNITS/ML SQ SCH ×2 (07:56→16:24)
[2020-10-30] MEDS: NICOTINE 14 MG/24 HOUR PATCH TD SCH (07:57)
[2020-10-30 11:29] VITALS: BP 91/61
[2020-10-30 11:57] LABS: GLUCOMETER DEV NAME(LOC) 3E.C; GLUCOSE,POINT OF CARE 209 MG/DL (70-110)
[2020-10-30] MEDS: INSULIN LISPRO 100 UNITS/ML SQ PRN ×2 (12:19→20:34)
[2020-10-30 16:07] VITALS: BP 93/62
[2020-10-30 16:24] LABS: GLUCOMETER DEV NAME(LOC) 3E.C; GLUCOSE,POINT OF CARE 142 MG/DL (70-110)
[2020-10-30] MEDS: HydrOXYzine PAMOATE 50 MG CAPSULE PO SCH (20:21)
[2020-10-30] MEDS: SIMVASTATIN 10 MG TABLET PO SCH (20:21)
[2020-10-30] MEDS: QUEtiapine FUMARATE 200 MG ER TABLET PO SCH (20:21)
[2020-10-30] MEDS: DIVALPROEX SODIUM 500 MG DR TABLET PO SCH (20:21)
[2020-10-30 20:40] LABS: GLUCOMETER DEV NAME(LOC) 3E.C; GLUCOSE,POINT OF CARE 269 MG/DL (70-110)
[2020-10-31] MEDS: FERROUS SULFATE 325 MG EC TABLET PO SCH (07:56)
[2020-10-31] MEDS: SitaGLIPtin PHOSPHATE 50 MG TABLET PO SCH ×2 (07:57→16:36)
[2020-10-31] MEDS: MetFORMIN HCL 500 MG TABLET PO SCH ×2 (07:57→16:37)
[2020-10-31] MEDS: MULTIVITAMINS, THERAPEUTIC TABLET PO SCH (07:57)
[2020-10-31] MEDS: THIAMINE 100 MG TABLET PO SCH (07:57)
[2020-10-31] MEDS: FOLIC ACID 1 MG TABLET PO SCH (07:57)
[2020-10-31] MEDS: DULoxetine HCL 30 MG CAPSULE PO SCH (07:57)
[2020-10-31] MEDS: ASPIRIN 81 MG DR TABLET PO SCH (07:58)
[2020-10-31] MEDS: CHOLECALCIFEROL (VIT D3) 1,000 UNITS [25 MCG] TABLET PO SCH (07:58)
[2020-10-31] MEDS: NICOTINE 14 MG/24 HOUR PATCH TD SCH (07:58)
[2020-10-31 08:00] VITALS: BP 97/67
[2020-10-31 08:00] LABS: GLUCOMETER DEV NAME(LOC) 3E.C; GLUCOSE,POINT OF CARE 167 MG/DL (70-110)
[2020-10-31] MEDS: INSULIN GLARGINE,HUM.REC.ANLOG 100 UNITS/ML SQ SCH ×2 (08:02→16:37)
[2020-10-31 12:38] LABS: GLUCOMETER DEV NAME(LOC) 3E.C; GLUCOSE,POINT OF CARE 168 MG/DL (70-110)
[2020-10-31] MEDS: INSULIN LISPRO 100 UNITS/ML SQ PRN ×2 (16:38→21:04)
[2020-10-31 16:40] LABS: GLUCOMETER DEV NAME(LOC) 3E.C; GLUCOSE,POINT OF CARE 144 MG/DL (70-110)
[2020-10-31 17:00] VITALS: BP 102/59
[2020-10-31] MEDS: DIVALPROEX SODIUM 500 MG DR TABLET PO SCH (20:34)
[2020-10-31] MEDS: HydrOXYzine PAMOATE 50 MG CAPSULE PO SCH (20:34)
[2020-10-31] MEDS: QUEtiapine FUMARATE 200 MG ER TABLET PO SCH (20:34)
[2020-10-31] MEDS: SIMVASTATIN 10 MG TABLET PO SCH (20:34)
[2020-10-31 20:43] LABS: GLUCOMETER DEV NAME(LOC) 3E.C; GLUCOSE,POINT OF CARE 141 MG/DL (70-110)
[2020-11-01] MEDS: FERROUS SULFATE 325 MG EC TABLET PO SCH ×2 (07:08→09:19)
[2020-11-01] MEDS: MetFORMIN HCL 500 MG TABLET PO SCH ×2 (07:08→17:24)
[2020-11-01] MEDS: SitaGLIPtin PHOSPHATE 50 MG TABLET PO SCH ×2 (09:13→16:20)
[2020-11-01] MEDS: DULoxetine HCL 30 MG CAPSULE PO SCH (09:13)
[2020-11-01] MEDS: MULTIVITAMINS, THERAPEUTIC TABLET PO SCH (09:17)
[2020-11-01] MEDS: NICOTINE 14 MG/24 HOUR PATCH TD SCH (09:18)
[2020-11-01] MEDS: THIAMINE 100 MG TABLET PO SCH (09:18)
[2020-11-01] MEDS: CHOLECALCIFEROL (VIT D3) 1,000 UNITS [25 MCG] TABLET PO SCH (09:18)
[2020-11-01] MEDS: FOLIC ACID 1 MG TABLET PO SCH (09:21)
[2020-11-01] MEDS: ASPIRIN 81 MG DR TABLET PO SCH (09:21)
[2020-11-01] MEDS: INSULIN GLARGINE,HUM.REC.ANLOG 100 UNITS/ML SQ SCH ×2 (09:26→16:41)
[2020-11-01 09:36] LABS: GLUCOMETER DEV NAME(LOC) 3E.C; GLUCOSE,POINT OF CARE 131 MG/DL (70-110)
[2020-11-01 11:33] LABS: GLUCOMETER DEV NAME(LOC) 3E.C; GLUCOSE,POINT OF CARE 346 MG/DL (70-110)
[2020-11-01] MEDS: INSULIN LISPRO 100 UNITS/ML SQ PRN ×3 (11:57→20:30)
[2020-11-01 16:31] VITALS: BP 106/71
[2020-11-01 16:38] LABS: GLUCOMETER DEV NAME(LOC) 3E.C; GLUCOSE,POINT OF CARE 303 MG/DL (70-110)
[2020-11-01] MEDS: QUEtiapine FUMARATE 200 MG ER TABLET PO SCH (20:20)
[2020-11-01] MEDS: HydrOXYzine PAMOATE 50 MG CAPSULE PO SCH (20:21)
[2020-11-01] MEDS: DIVALPROEX SODIUM 500 MG DR TABLET PO SCH (20:21)
[2020-11-01] MEDS: SIMVASTATIN 10 MG TABLET PO SCH (20:21)
[2020-11-01 20:37] LABS: GLUCOMETER DEV NAME(LOC) 3E.C; GLUCOSE,POINT OF CARE 155 MG/DL (70-110)
[2020-11-02 08:00] VITALS: BP 103/73
[2020-11-02 08:09] LABS: GLUCOMETER DEV NAME(LOC) 3E.C; GLUCOSE,POINT OF CARE 132 MG/DL (70-110)
[2020-11-02] MEDS: NICOTINE 14 MG/24 HOUR PATCH TD SCH (09:00)
[2020-11-02] MEDS: MetFORMIN HCL 500 MG TABLET PO SCH ×2 (09:30→17:30)
[2020-11-02] MEDS: MULTIVITAMINS, THERAPEUTIC TABLET PO SCH (09:31)
[2020-11-02] MEDS: THIAMINE 100 MG TABLET PO SCH (09:31)
[2020-11-02] MEDS: SitaGLIPtin PHOSPHATE 50 MG TABLET PO SCH ×2 (09:31→16:53)
[2020-11-02] MEDS: FOLIC ACID 1 MG TABLET PO SCH (09:31)
[2020-11-02] MEDS: CHOLECALCIFEROL (VIT D3) 1,000 UNITS [25 MCG] TABLET PO SCH (09:31)
[2020-11-02] MEDS: DULoxetine HCL 30 MG CAPSULE PO SCH (09:31)
[2020-11-02] MEDS: ASPIRIN 81 MG DR TABLET PO SCH (09:32)
[2020-11-02] MEDS: INSULIN GLARGINE,HUM.REC.ANLOG 100 UNITS/ML SQ SCH ×2 (09:39→16:52)
[2020-11-02 11:16] LABS: COVID AG,FIA SOURCE NASOPHARYNGEAL
[2020-11-02 12:01] LABS: GLUCOMETER DEV NAME(LOC) 3E.C; GLUCOSE,POINT OF CARE 228 MG/DL (70-110)
[2020-11-02] MEDS: HALOPERIDOL 5 MG TABLET PO PRN (12:27)
[2020-11-02] MEDS: LORazepam 2 MG TABLET PO PRN (12:28)
[2020-11-02] MEDS: INSULIN LISPRO 100 UNITS/ML SQ PRN ×2 (13:16→16:53)
[2020-11-02 17:00] VITALS: BP 94/58
[2020-11-02 17:00] LABS: GLUCOMETER DEV NAME(LOC) 3E.C; GLUCOSE,POINT OF CARE 164 MG/DL (70-110)
[2020-11-02 20:43] LABS: GLUCOMETER DEV NAME(LOC) 3E.C; GLUCOSE,POINT OF CARE 139 MG/DL (70-110)
[2020-11-02] MEDS: SIMVASTATIN 10 MG TABLET PO SCH (20:59)
[2020-11-02] MEDS: DIVALPROEX SODIUM 500 MG DR TABLET PO SCH (20:59)
[2020-11-02] MEDS: HydrOXYzine PAMOATE 50 MG CAPSULE PO SCH (20:59)
[2020-11-02] MEDS: QUEtiapine FUMARATE 200 MG ER TABLET PO SCH (20:59)
[2020-11-03] MEDS: SitaGLIPtin PHOSPHATE 50 MG TABLET PO SCH ×2 (08:42→16:52)
[2020-11-03] MEDS: DULoxetine HCL 30 MG CAPSULE PO SCH (08:43)
[2020-11-03] MEDS: MULTIVITAMINS, THERAPEUTIC TABLET PO SCH (08:44)
[2020-11-03] MEDS: CHOLECALCIFEROL (VIT D3) 1,000 UNITS [25 MCG] TABLET PO SCH (08:44)
[2020-11-03] MEDS: FOLIC ACID 1 MG TABLET PO SCH (08:44)
[2020-11-03] MEDS: THIAMINE 100 MG TABLET PO SCH (08:44)
[2020-11-03] MEDS: ASPIRIN 81 MG DR TABLET PO SCH (08:45)
[2020-11-03] MEDS: MetFORMIN HCL 500 MG TABLET PO SCH ×2 (08:46→17:12)
[2020-11-03] MEDS: FERROUS SULFATE 325 MG EC TABLET PO SCH (08:46)
[2020-11-03] MEDS: INSULIN LISPRO 100 UNITS/ML SQ PRN ×4 (08:53→20:30)
[2020-11-03 08:54] LABS: GLUCOMETER DEV NAME(LOC) 3E.C; GLUCOSE,POINT OF CARE 237 MG/DL (70-110)
[2020-11-03] MEDS: INSULIN GLARGINE,HUM.REC.ANLOG 100 UNITS/ML SQ SCH ×2 (08:55→16:54)
[2020-11-03] MEDS: NICOTINE 14 MG/24 HOUR PATCH TD SCH (08:56)
[2020-11-03 09:29] VITALS: BP 102/62
[2020-11-03 11:56] LABS: GLUCOMETER DEV NAME(LOC) 3E.C; GLUCOSE,POINT OF CARE 214 MG/DL (70-110)
[2020-11-03 17:03] LABS: GLUCOMETER DEV NAME(LOC) 3E.C; GLUCOSE,POINT OF CARE 169 MG/DL (70-110)
[2020-11-03 17:56] VITALS: BP 105/64
[2020-11-03] MEDS: QUEtiapine FUMARATE 200 MG ER TABLET PO SCH (20:21)
[2020-11-03] MEDS: HydrOXYzine PAMOATE 50 MG CAPSULE PO SCH (20:21)
[2020-11-03] MEDS: DIVALPROEX SODIUM 500 MG DR TABLET PO SCH (20:22)
[2020-11-03] MEDS: SIMVASTATIN 10 MG TABLET PO SCH (20:22)
[2020-11-03 20:38] LABS: GLUCOMETER DEV NAME(LOC) 3E.C; GLUCOSE,POINT OF CARE 238 MG/DL (70-110)
[2020-11-04] MEDS: MULTIVITAMINS, THERAPEUTIC TABLET PO SCH (08:07)
[2020-11-04] MEDS: DULoxetine HCL 30 MG CAPSULE PO SCH (08:07)
[2020-11-04] MEDS: FOLIC ACID 1 MG TABLET PO SCH (08:07)
[2020-11-04] MEDS: SitaGLIPtin PHOSPHATE 50 MG TABLET PO SCH ×2 (08:07→16:20)
[2020-11-04] MEDS: THIAMINE 100 MG TABLET PO SCH (08:07)
[2020-11-04] MEDS: FERROUS SULFATE 325 MG EC TABLET PO SCH (08:08)
[2020-11-04] MEDS: CHOLECALCIFEROL (VIT D3) 1,000 UNITS [25 MCG] TABLET PO SCH (08:08)
[2020-11-04] MEDS: MetFORMIN HCL 500 MG TABLET PO SCH ×2 (08:08→16:28)
[2020-11-04] MEDS: ASPIRIN 81 MG DR TABLET PO SCH (08:09)
[2020-11-04] MEDS: INSULIN GLARGINE,HUM.REC.ANLOG 100 UNITS/ML SQ SCH ×2 (08:10→16:27)
[2020-11-04] MEDS: NICOTINE 14 MG/24 HOUR PATCH TD SCH (08:11)
[2020-11-04 08:12] LABS: GLUCOMETER DEV NAME(LOC) 3E.C; GLUCOSE,POINT OF CARE 115 MG/DL (70-110)
[2020-11-04 11:36] LABS: GLUCOMETER DEV NAME(LOC) 3E.C; GLUCOSE,POINT OF CARE 245 MG/DL (70-110)
[2020-11-04] MEDS: INSULIN LISPRO 100 UNITS/ML SQ PRN ×2 (12:00→16:28)
[2020-11-04 16:19] VITALS: BP 102/70
[2020-11-04 16:29] LABS: GLUCOMETER DEV NAME(LOC) 3E.C; GLUCOSE,POINT OF CARE 177 MG/DL (70-110)
[2020-11-04 20:32] LABS: GLUCOMETER DEV NAME(LOC) 3E.C; GLUCOSE,POINT OF CARE 116 MG/DL (70-110)
[2020-11-04] MEDS: SIMVASTATIN 10 MG TABLET PO SCH (20:38)
[2020-11-04] MEDS: QUEtiapine FUMARATE 200 MG ER TABLET PO SCH (20:38)
[2020-11-04] MEDS: HydrOXYzine PAMOATE 50 MG CAPSULE PO SCH (20:38)
[2020-11-04] MEDS: DIVALPROEX SODIUM 500 MG DR TABLET PO SCH (20:38)
[2020-11-05] MEDS: ASPIRIN 81 MG DR TABLET PO SCH (10:41)
[2020-11-05] MEDS: THIAMINE 100 MG TABLET PO SCH (10:41)
[2020-11-05] MEDS: CHOLECALCIFEROL (VIT D3) 1,000 UNITS [25 MCG] TABLET PO SCH (10:41)
[2020-11-05] MEDS: FERROUS SULFATE 325 MG EC TABLET PO SCH (10:42)
[2020-11-05] MEDS: FOLIC ACID 1 MG TABLET PO SCH (10:42)
[2020-11-05] MEDS: MetFORMIN HCL 500 MG TABLET PO SCH ×2 (10:42→17:13)
[2020-11-05] MEDS: MULTIVITAMINS, THERAPEUTIC TABLET PO SCH (10:42)
[2020-11-05] MEDS: DULoxetine HCL 30 MG CAPSULE PO SCH (10:43)
[2020-11-05] MEDS: SitaGLIPtin PHOSPHATE 50 MG TABLET PO SCH ×2 (10:43→17:13)
[2020-11-05] MEDS: NICOTINE 14 MG/24 HOUR PATCH TD SCH (10:46)
[2020-11-05] MEDS: INSULIN GLARGINE,HUM.REC.ANLOG 100 UNITS/ML SQ SCH ×2 (11:06→17:15)
[2020-11-05 11:16] LABS: GLUCOMETER DEV NAME(LOC) 3E.C; GLUCOSE,POINT OF CARE 265 MG/DL (70-110)
[2020-11-05] MEDS: INSULIN LISPRO 100 UNITS/ML SQ PRN ×3 (11:53→21:15)
[2020-11-05 16:38] LABS: GLUCOMETER DEV NAME(LOC) 3E.C; GLUCOSE,POINT OF CARE 169 MG/DL (70-110)
[2020-11-05] MEDS: HydrOXYzine PAMOATE 50 MG CAPSULE PO SCH (21:05)
[2020-11-05] MEDS: QUEtiapine FUMARATE 200 MG ER TABLET PO SCH (21:05)
[2020-11-05] MEDS: SIMVASTATIN 10 MG TABLET PO SCH (21:05)
[2020-11-05] MEDS: DIVALPROEX SODIUM 500 MG DR TABLET PO SCH (21:06)
[2020-11-05 21:27] LABS: GLUCOMETER DEV NAME(LOC) 3E.C; GLUCOSE,POINT OF CARE 176 MG/DL (70-110)
[2020-11-06] MEDS: MULTIVITAMINS, THERAPEUTIC TABLET PO SCH (08:22)
[2020-11-06] MEDS: FOLIC ACID 1 MG TABLET PO SCH (08:22)
[2020-11-06] MEDS: MetFORMIN HCL 500 MG TABLET PO SCH ×2 (08:22→16:40)
[2020-11-06] MEDS: FERROUS SULFATE 325 MG EC TABLET PO SCH (08:22)
[2020-11-06] MEDS: CHOLECALCIFEROL (VIT D3) 1,000 UNITS [25 MCG] TABLET PO SCH (08:22)
[2020-11-06] MEDS: DULoxetine HCL 30 MG CAPSULE PO SCH (08:23)
[2020-11-06] MEDS: ASPIRIN 81 MG DR TABLET PO SCH (08:23)
[2020-11-06] MEDS: THIAMINE 100 MG TABLET PO SCH (08:24)
[2020-11-06] MEDS: SitaGLIPtin PHOSPHATE 50 MG TABLET PO SCH ×2 (08:24→16:40)
[2020-11-06 08:41] LABS: GLUCOMETER DEV NAME(LOC) 3E.C; GLUCOSE,POINT OF CARE 106 MG/DL (70-110)
[2020-11-06] MEDS: INSULIN GLARGINE,HUM.REC.ANLOG 100 UNITS/ML SQ SCH ×2 (09:08→17:50)
[2020-11-06] MEDS: NICOTINE 14 MG/24 HOUR PATCH TD SCH (09:10)
[2020-11-06 11:10] LABS: GLUCOMETER DEV NAME(LOC) 3E.C; GLUCOSE,POINT OF CARE 279 MG/DL (70-110)
[2020-11-06] MEDS: INSULIN LISPRO 100 UNITS/ML SQ PRN (11:36)
[2020-11-06 16:35] VITALS: BP 95/62
[2020-11-06 17:55] LABS: GLUCOMETER DEV NAME(LOC) 3E.C; GLUCOSE,POINT OF CARE 210 MG/DL (70-110)
[2020-11-06] MEDS: DIVALPROEX SODIUM 500 MG DR TABLET PO SCH (20:40)
[2020-11-06] MEDS: SIMVASTATIN 10 MG TABLET PO SCH (20:41)
[2020-11-06] MEDS: QUEtiapine FUMARATE 200 MG ER TABLET PO SCH (20:41)
[2020-11-06] MEDS: HydrOXYzine PAMOATE 50 MG CAPSULE PO SCH (20:41)
[2020-11-06 21:14] LABS: GLUCOMETER DEV NAME(LOC) 3E.C; GLUCOSE,POINT OF CARE 127 MG/DL (70-110)
[2020-11-07] MEDS: MULTIVITAMINS, THERAPEUTIC TABLET PO SCH (09:13)
[2020-11-07] MEDS: FOLIC ACID 1 MG TABLET PO SCH (09:13)
[2020-11-07] MEDS: THIAMINE 100 MG TABLET PO SCH (09:13)
[2020-11-07] MEDS: DULoxetine HCL 30 MG CAPSULE PO SCH (09:14)
[2020-11-07] MEDS: ASPIRIN 81 MG DR TABLET PO SCH (09:14)
[2020-11-07] MEDS: SitaGLIPtin PHOSPHATE 50 MG TABLET PO SCH ×2 (09:14→16:53)
[2020-11-07] MEDS: CHOLECALCIFEROL (VIT D3) 1,000 UNITS [25 MCG] TABLET PO SCH (09:15)
[2020-11-07] MEDS: FERROUS SULFATE 325 MG EC TABLET PO SCH (09:15)
[2020-11-07] MEDS: MetFORMIN HCL 500 MG TABLET PO SCH ×2 (09:15→16:54)
[2020-11-07] MEDS: PALIPERIDONE PALMITATE 234 MG/1.5 ML SYRINGE IM SCH (09:15)
[2020-11-07] MEDS: INSULIN GLARGINE,HUM.REC.ANLOG 100 UNITS/ML SQ SCH ×2 (09:19→17:51)
[2020-11-07 09:24] LABS: GLUCOMETER DEV NAME(LOC) 3E.C; GLUCOSE,POINT OF CARE 93 MG/DL (70-110)
[2020-11-07] MEDS: NICOTINE 14 MG/24 HOUR PATCH TD SCH (09:26)
[2020-11-07 12:12] LABS: GLUCOMETER DEV NAME(LOC) 3E.C; GLUCOSE,POINT OF CARE 179 MG/DL (70-110)
[2020-11-07] MEDS: INSULIN LISPRO 100 UNITS/ML SQ PRN ×2 (12:13→21:05)
[2020-11-07 16:26] VITALS: BP 91/57
[2020-11-07 18:29] LABS: GLUCOMETER DEV NAME(LOC) 3E.C; GLUCOSE,POINT OF CARE 138 MG/DL (70-110)
[2020-11-07] MEDS: HydrOXYzine PAMOATE 50 MG CAPSULE PO SCH (20:39)
[2020-11-07] MEDS: QUEtiapine FUMARATE 200 MG ER TABLET PO SCH (20:40)
[2020-11-07] MEDS: DIVALPROEX SODIUM 500 MG DR TABLET PO SCH (20:40)
[2020-11-07] MEDS: SIMVASTATIN 10 MG TABLET PO SCH (20:40)
[2020-11-07 20:47] LABS: GLUCOMETER DEV NAME(LOC) 3E.C; GLUCOSE,POINT OF CARE 191 MG/DL (70-110)
[2020-11-08] MEDS: MetFORMIN HCL 500 MG TABLET PO SCH ×2 (07:30→18:01)
[2020-11-08] MEDS: INSULIN GLARGINE,HUM.REC.ANLOG 100 UNITS/ML SQ SCH ×2 (09:00→16:47)
[2020-11-08] MEDS: SitaGLIPtin PHOSPHATE 50 MG TABLET PO SCH ×2 (09:00→16:45)
[2020-11-08] MEDS: FERROUS SULFATE 325 MG EC TABLET PO SCH (09:14)
[2020-11-08] MEDS: FOLIC ACID 1 MG TABLET PO SCH (09:14)
[2020-11-08] MEDS: THIAMINE 100 MG TABLET PO SCH (09:15)
[2020-11-08] MEDS: ASPIRIN 81 MG DR TABLET PO SCH (09:15)
[2020-11-08] MEDS: MULTIVITAMINS, THERAPEUTIC TABLET PO SCH (09:15)
[2020-11-08 09:16] LABS: GLUCOMETER DEV NAME(LOC) 3E.C; GLUCOSE,POINT OF CARE 62 MG/DL (70-110)
[2020-11-08] MEDS: CHOLECALCIFEROL (VIT D3) 1,000 UNITS [25 MCG] TABLET PO SCH (09:16)
[2020-11-08] MEDS: DULoxetine HCL 30 MG CAPSULE PO SCH (09:16)
[2020-11-08] MEDS: NICOTINE 14 MG/24 HOUR PATCH TD SCH (09:16)
[2020-11-08 09:49] LABS: GLUCOMETER DEV NAME(LOC) 3E.C; GLUCOSE,POINT OF CARE 120 MG/DL (70-110)
[2020-11-08 16:23] VITALS: BP 102/66
[2020-11-08] MEDS: INSULIN LISPRO 100 UNITS/ML SQ PRN ×2 (16:47→20:48)
[2020-11-08 16:56] LABS: GLUCOMETER DEV NAME(LOC) 3E.C; GLUCOSE,POINT OF CARE 279 MG/DL (70-110)
[2020-11-08] MEDS: SIMVASTATIN 10 MG TABLET PO SCH (20:31)
[2020-11-08] MEDS: DIVALPROEX SODIUM 500 MG DR TABLET PO SCH (20:31)
[2020-11-08] MEDS: QUEtiapine FUMARATE 200 MG ER TABLET PO SCH (20:31)
[2020-11-08] MEDS: HydrOXYzine PAMOATE 50 MG CAPSULE PO SCH (20:32)
[2020-11-08 20:48] LABS: GLUCOMETER DEV NAME(LOC) 3E.C; GLUCOSE,POINT OF CARE 312 MG/DL (70-110)
[2020-11-09] MEDS: SitaGLIPtin PHOSPHATE 50 MG TABLET PO SCH ×2 (07:50→16:57)
[2020-11-09] MEDS: DULoxetine HCL 30 MG CAPSULE PO SCH (07:50)
[2020-11-09] MEDS: MetFORMIN HCL 500 MG TABLET PO SCH ×2 (07:51→16:57)
[2020-11-09] MEDS: MULTIVITAMINS, THERAPEUTIC TABLET PO SCH (07:51)
[2020-11-09] MEDS: ASPIRIN 81 MG DR TABLET PO SCH (07:51)
[2020-11-09] MEDS: FERROUS SULFATE 325 MG EC TABLET PO SCH (07:51)
[2020-11-09] MEDS: THIAMINE 100 MG TABLET PO SCH (07:51)
[2020-11-09] MEDS: CHOLECALCIFEROL (VIT D3) 1,000 UNITS [25 MCG] TABLET PO SCH (07:51)
[2020-11-09] MEDS: FOLIC ACID 1 MG TABLET PO SCH (07:51)
[2020-11-09] MEDS: INSULIN LISPRO 100 UNITS/ML SQ PRN ×3 (08:02→21:15)
[2020-11-09 08:09] LABS: GLUCOMETER DEV NAME(LOC) 3E.C; GLUCOSE,POINT OF CARE 170 MG/DL (70-110)
[2020-11-09] MEDS: INSULIN GLARGINE,HUM.REC.ANLOG 100 UNITS/ML SQ SCH ×2 (09:56→17:52)
[2020-11-09] MEDS: NICOTINE 14 MG/24 HOUR PATCH TD SCH (10:18)
[2020-11-09 12:02] LABS: GLUCOMETER DEV NAME(LOC) 3E.C; GLUCOSE,POINT OF CARE 167 MG/DL (70-110)
[2020-11-09 16:24] VITALS: BP 92/60
[2020-11-09 17:03] LABS: GLUCOMETER DEV NAME(LOC) 3E.C; GLUCOSE,POINT OF CARE 129 MG/DL (70-110)
[2020-11-09] MEDS: SIMVASTATIN 10 MG TABLET PO SCH (21:10)
[2020-11-09] MEDS: QUEtiapine FUMARATE 200 MG ER TABLET PO SCH (21:10)
[2020-11-09] MEDS: HydrOXYzine PAMOATE 50 MG CAPSULE PO SCH (21:10)
[2020-11-09] MEDS: DIVALPROEX SODIUM 500 MG DR TABLET PO SCH (21:10)
[2020-11-09 21:37] LABS: GLUCOMETER DEV NAME(LOC) 3E.C; GLUCOSE,POINT OF CARE 239 MG/DL (70-110)
[2020-11-10 08:00] VITALS: BP 100/63
[2020-11-10] MEDS: INSULIN LISPRO 100 UNITS/ML SQ PRN ×4 (08:03→21:31)
[2020-11-10] MEDS: SitaGLIPtin PHOSPHATE 50 MG TABLET PO SCH ×2 (08:04→17:05)
[2020-11-10] MEDS: FOLIC ACID 1 MG TABLET PO SCH (08:04)
[2020-11-10] MEDS: CHOLECALCIFEROL (VIT D3) 1,000 UNITS [25 MCG] TABLET PO SCH (08:04)
[2020-11-10] MEDS: ASPIRIN 81 MG DR TABLET PO SCH (08:04)
[2020-11-10] MEDS: MetFORMIN HCL 500 MG TABLET PO SCH ×2 (08:05→17:05)
[2020-11-10] MEDS: MULTIVITAMINS, THERAPEUTIC TABLET PO SCH (08:05)
[2020-11-10] MEDS: DULoxetine HCL 30 MG CAPSULE PO SCH (08:05)
[2020-11-10] MEDS: THIAMINE 100 MG TABLET PO SCH (08:05)
[2020-11-10] MEDS: FERROUS SULFATE 325 MG EC TABLET PO SCH (08:05)
[2020-11-10] MEDS: NICOTINE 14 MG/24 HOUR PATCH TD SCH (08:06)
[2020-11-10 08:24] LABS: GLUCOMETER DEV NAME(LOC) 3E.C; GLUCOSE,POINT OF CARE 160 MG/DL (70-110)
[2020-11-10] MEDS: INSULIN GLARGINE,HUM.REC.ANLOG 100 UNITS/ML SQ SCH ×2 (09:20→17:24)
[2020-11-10 12:47] LABS: GLUCOMETER DEV NAME(LOC) 3E.C; GLUCOSE,POINT OF CARE 181 MG/DL (70-110)
[2020-11-10 16:27] VITALS: BP 95/69
[2020-11-10 17:07] LABS: GLUCOMETER DEV NAME(LOC) 3E.C; GLUCOSE,POINT OF CARE 179 MG/DL (70-110)
[2020-11-10 18:43] LABS: COVID AG,FIA SOURCE NASOPHARYNGEAL
[2020-11-10] MEDS: SIMVASTATIN 10 MG TABLET PO SCH (20:24)
[2020-11-10] MEDS: DIVALPROEX SODIUM 500 MG DR TABLET PO SCH (20:24)
[2020-11-10] MEDS: QUEtiapine FUMARATE 200 MG ER TABLET PO SCH (20:24)
[2020-11-10] MEDS: HydrOXYzine PAMOATE 50 MG CAPSULE PO SCH (20:25)
[2020-11-10 21:33] LABS: GLUCOMETER DEV NAME(LOC) 3E.C; GLUCOSE,POINT OF CARE 142 MG/DL (70-110)
[2020-11-11] MEDS: FERROUS SULFATE 325 MG EC TABLET PO SCH (07:40)
[2020-11-11] MEDS: ASPIRIN 81 MG DR TABLET PO SCH (07:40)
[2020-11-11] MEDS: MULTIVITAMINS, THERAPEUTIC TABLET PO SCH (07:41)
[2020-11-11] MEDS: MetFORMIN HCL 500 MG TABLET PO SCH ×2 (07:41→16:59)
[2020-11-11] MEDS: THIAMINE 100 MG TABLET PO SCH (07:41)
[2020-11-11] MEDS: DULoxetine HCL 30 MG CAPSULE PO SCH (07:41)
[2020-11-11] MEDS: SitaGLIPtin PHOSPHATE 50 MG TABLET PO SCH ×2 (07:41→16:59)
[2020-11-11] MEDS: CHOLECALCIFEROL (VIT D3) 1,000 UNITS [25 MCG] TABLET PO SCH (07:42)
[2020-11-11] MEDS: NICOTINE 14 MG/24 HOUR PATCH TD SCH (07:42)
[2020-11-11] MEDS: FOLIC ACID 1 MG TABLET PO SCH (07:42)
[2020-11-11] MEDS: INSULIN GLARGINE,HUM.REC.ANLOG 100 UNITS/ML SQ SCH ×2 (07:50→17:25)
[2020-11-11 07:51] LABS: GLUCOMETER DEV NAME(LOC) 3E.C; GLUCOSE,POINT OF CARE 116 MG/DL (70-110)
[2020-11-11 08:00] VITALS: BP 102/68
[2020-11-11 11:35] LABS: GLUCOMETER DEV NAME(LOC) 3E.C; GLUCOSE,POINT OF CARE 245 MG/DL (70-110)
[2020-11-11] MEDS: INSULIN LISPRO 100 UNITS/ML SQ PRN ×3 (11:54→20:58)
[2020-11-11 16:00] VITALS: BP 111/61
[2020-11-11 17:17] LABS: GLUCOMETER DEV NAME(LOC) 3E.C; GLUCOSE,POINT OF CARE 198 MG/DL (70-110)
[2020-11-11] MEDS: HydrOXYzine PAMOATE 50 MG CAPSULE PO SCH (20:47)
[2020-11-11] MEDS: SIMVASTATIN 10 MG TABLET PO SCH (20:47)
[2020-11-11] MEDS: QUEtiapine FUMARATE 200 MG ER TABLET PO SCH (20:47)
[2020-11-11] MEDS: DIVALPROEX SODIUM 500 MG DR TABLET PO SCH (20:48)
[2020-11-11 21:32] LABS: GLUCOMETER DEV NAME(LOC) 3E.C; GLUCOSE,POINT OF CARE 179 MG/DL (70-110)
[2020-11-12] MEDS: MetFORMIN HCL 500 MG TABLET PO SCH ×2 (07:22→17:23)
[2020-11-12] MEDS: FERROUS SULFATE 325 MG EC TABLET PO SCH (07:22)
[2020-11-12] MEDS: ASPIRIN 81 MG DR TABLET PO SCH (09:36)
[2020-11-12] MEDS: CHOLECALCIFEROL (VIT D3) 1,000 UNITS [25 MCG] TABLET PO SCH (09:36)
[2020-11-12] MEDS: SitaGLIPtin PHOSPHATE 50 MG TABLET PO SCH ×2 (09:36→17:23)
[2020-11-12] MEDS: DULoxetine HCL 30 MG CAPSULE PO SCH (09:36)
[2020-11-12] MEDS: MULTIVITAMINS, THERAPEUTIC TABLET PO SCH (09:36)
[2020-11-12] MEDS: NICOTINE 14 MG/24 HOUR PATCH TD SCH (09:37)
[2020-11-12] MEDS: FOLIC ACID 1 MG TABLET PO SCH (09:37)
[2020-11-12] MEDS: THIAMINE 100 MG TABLET PO SCH (09:37)
[2020-11-12] MEDS: INSULIN GLARGINE,HUM.REC.ANLOG 100 UNITS/ML SQ SCH ×2 (09:47→17:22)
[2020-11-12 09:56] LABS: GLUCOMETER DEV NAME(LOC) 3E.C; GLUCOSE,POINT OF CARE 288 MG/DL (70-110)
[2020-11-12 10:34] VITALS: BP 91/59
[2020-11-12] MEDS: INSULIN LISPRO 100 UNITS/ML SQ PRN ×2 (11:40→17:22)
[2020-11-12 11:54] LABS: GLUCOMETER DEV NAME(LOC) 3E.C; GLUCOSE,POINT OF CARE 236 MG/DL (70-110)
[2020-11-12 16:19] VITALS: BP 103/62
[2020-11-12 17:14] LABS: GLUCOMETER DEV NAME(LOC) 3E.C; GLUCOSE,POINT OF CARE 193 MG/DL (70-110)
[2020-11-12] MEDS: HydrOXYzine PAMOATE 50 MG CAPSULE PO SCH (20:41)
[2020-11-12] MEDS: QUEtiapine FUMARATE 200 MG ER TABLET PO SCH (20:42)
[2020-11-12] MEDS: SIMVASTATIN 10 MG TABLET PO SCH (20:42)
[2020-11-12] MEDS: DIVALPROEX SODIUM 500 MG DR TABLET PO SCH (20:42)
[2020-11-12 21:23] LABS: GLUCOMETER DEV NAME(LOC) 3E.C; GLUCOSE,POINT OF CARE 134 MG/DL (70-110)
[2020-11-13 08:50] LABS: GLUCOMETER DEV NAME(LOC) 3E.C; GLUCOSE,POINT OF CARE 166 MG/DL (70-110)
[2020-11-13] MEDS: NICOTINE 14 MG/24 HOUR PATCH TD SCH (09:00)
[2020-11-13 09:33] VITALS: BP 102/70
[2020-11-13] MEDS: INSULIN LISPRO 100 UNITS/ML SQ PRN ×2 (11:16→12:24)
[2020-11-13] MEDS: INSULIN GLARGINE,HUM.REC.ANLOG 100 UNITS/ML SQ SCH ×2 (11:17→17:57)
[2020-11-13] MEDS: DULoxetine HCL 30 MG CAPSULE PO SCH (11:19)
[2020-11-13] MEDS: SitaGLIPtin PHOSPHATE 50 MG TABLET PO SCH ×2 (11:19→17:29)
[2020-11-13] MEDS: MULTIVITAMINS, THERAPEUTIC TABLET PO SCH (11:21)
[2020-11-13] MEDS: FOLIC ACID 1 MG TABLET PO SCH (11:21)
[2020-11-13] MEDS: ASPIRIN 81 MG DR TABLET PO SCH (11:22)
[2020-11-13] MEDS: THIAMINE 100 MG TABLET PO SCH (11:22)
[2020-11-13] MEDS: FERROUS SULFATE 325 MG EC TABLET PO SCH (11:23)
[2020-11-13] MEDS: MetFORMIN HCL 500 MG TABLET PO SCH ×2 (11:27→17:29)
[2020-11-13] MEDS: CHOLECALCIFEROL (VIT D3) 1,000 UNITS [25 MCG] TABLET PO SCH (11:29)
[2020-11-13 12:12] LABS: GLUCOMETER DEV NAME(LOC) 3E.C; GLUCOSE,POINT OF CARE 211 MG/DL (70-110)
[2020-11-13 16:36] VITALS: BP 101/71
[2020-11-13 17:14] LABS: GLUCOMETER DEV NAME(LOC) 3E.C; GLUCOSE,POINT OF CARE 130 MG/DL (70-110)
[2020-11-13] MEDS: SIMVASTATIN 10 MG TABLET PO SCH (21:02)
[2020-11-13] MEDS: HydrOXYzine PAMOATE 50 MG CAPSULE PO SCH (21:02)
[2020-11-13] MEDS: QUEtiapine FUMARATE 200 MG ER TABLET PO SCH (21:03)
[2020-11-13] MEDS: DIVALPROEX SODIUM 500 MG DR TABLET PO SCH (21:03)
[2020-11-13 21:24] LABS: GLUCOMETER DEV NAME(LOC) 3E.C; GLUCOSE,POINT OF CARE 96 MG/DL (70-110)
[2020-11-14 07:54] LABS: GLUCOMETER DEV NAME(LOC) 3E.C; GLUCOSE,POINT OF CARE 134 MG/DL (70-110)
[2020-11-14 08:00] VITALS: BP 100/68
[2020-11-14] MEDS: MULTIVITAMINS, THERAPEUTIC TABLET PO SCH (08:17)
[2020-11-14] MEDS: SitaGLIPtin PHOSPHATE 50 MG TABLET PO SCH ×2 (08:17→16:42)
[2020-11-14] MEDS: DULoxetine HCL 30 MG CAPSULE PO SCH (08:18)
[2020-11-14] MEDS: CHOLECALCIFEROL (VIT D3) 1,000 UNITS [25 MCG] TABLET PO SCH (08:18)
[2020-11-14] MEDS: ASPIRIN 81 MG DR TABLET PO SCH (08:18)
[2020-11-14] MEDS: THIAMINE 100 MG TABLET PO SCH (08:18)
[2020-11-14] MEDS: NICOTINE 14 MG/24 HOUR PATCH TD SCH (08:18)
[2020-11-14] MEDS: FERROUS SULFATE 325 MG EC TABLET PO SCH (08:20)
[2020-11-14] MEDS: MetFORMIN HCL 500 MG TABLET PO SCH ×2 (08:20→16:42)
[2020-11-14] MEDS: FOLIC ACID 1 MG TABLET PO SCH (08:20)
[2020-11-14] MEDS: INSULIN GLARGINE,HUM.REC.ANLOG 100 UNITS/ML SQ SCH ×2 (08:28→17:25)
[2020-11-14 12:02] LABS: GLUCOMETER DEV NAME(LOC) 3E.C; GLUCOSE,POINT OF CARE 186 MG/DL (70-110)
[2020-11-14] MEDS: INSULIN LISPRO 100 UNITS/ML SQ PRN ×3 (12:12→21:45)
[2020-11-14] MEDS: LORazepam 2 MG TABLET PO PRN (14:17)
[2020-11-14 16:45] LABS: GLUCOMETER DEV NAME(LOC) 3E.C; GLUCOSE,POINT OF CARE 202 MG/DL (70-110)
[2020-11-14 16:55] VITALS: BP 105/69
[2020-11-14 20:46] LABS: GLUCOMETER DEV NAME(LOC) 3E.C; GLUCOSE,POINT OF CARE 163 MG/DL (70-110)
[2020-11-14] MEDS: QUEtiapine FUMARATE 200 MG ER TABLET PO SCH (21:17)
[2020-11-14] MEDS: HydrOXYzine PAMOATE 50 MG CAPSULE PO SCH (21:17)
[2020-11-14] MEDS: DIVALPROEX SODIUM 500 MG DR TABLET PO SCH (21:17)
[2020-11-14] MEDS: SIMVASTATIN 10 MG TABLET PO SCH (21:17)
[2020-11-15] MEDS: FERROUS SULFATE 325 MG EC TABLET PO SCH (07:27)
[2020-11-15] MEDS: MetFORMIN HCL 500 MG TABLET PO SCH ×2 (07:27→16:50)
[2020-11-15] MEDS: DULoxetine HCL 30 MG CAPSULE PO SCH (09:39)
[2020-11-15] MEDS: SitaGLIPtin PHOSPHATE 50 MG TABLET PO SCH ×2 (09:39→16:50)
[2020-11-15 09:43] LABS: GLUCOMETER DEV NAME(LOC) 3E.C; GLUCOSE,POINT OF CARE 88 MG/DL (70-110)
[2020-11-15] MEDS: THIAMINE 100 MG TABLET PO SCH (09:49)
[2020-11-15] MEDS: FOLIC ACID 1 MG TABLET PO SCH (09:49)
[2020-11-15] MEDS: MULTIVITAMINS, THERAPEUTIC TABLET PO SCH (09:50)
[2020-11-15] MEDS: ASPIRIN 81 MG DR TABLET PO SCH (09:50)
[2020-11-15] MEDS: CHOLECALCIFEROL (VIT D3) 1,000 UNITS [25 MCG] TABLET PO SCH (09:51)
[2020-11-15] MEDS: NICOTINE 14 MG/24 HOUR PATCH TD SCH (09:52)
[2020-11-15] MEDS: INSULIN GLARGINE,HUM.REC.ANLOG 100 UNITS/ML SQ SCH ×2 (09:58→17:43)
[2020-11-15 11:25] LABS: GLUCOMETER DEV NAME(LOC) 3E.C; GLUCOSE,POINT OF CARE 202 MG/DL (70-110)
[2020-11-15] MEDS: INSULIN LISPRO 100 UNITS/ML SQ PRN ×3 (11:32→21:18)
[2020-11-15 16:42] VITALS: BP 105/70
[2020-11-15 16:52] LABS: GLUCOMETER DEV NAME(LOC) 3E.C; GLUCOSE,POINT OF CARE 209 MG/DL (70-110)
[2020-11-15] MEDS: QUEtiapine FUMARATE 200 MG ER TABLET PO SCH (20:49)
[2020-11-15] MEDS: DIVALPROEX SODIUM 500 MG DR TABLET PO SCH (20:49)
[2020-11-15] MEDS: HydrOXYzine PAMOATE 50 MG CAPSULE PO SCH (20:49)
[2020-11-15] MEDS: SIMVASTATIN 10 MG TABLET PO SCH (20:49)
[2020-11-15 21:04] LABS: GLUCOMETER DEV NAME(LOC) 3E.C; GLUCOSE,POINT OF CARE 223 MG/DL (70-110)
[2020-11-16 08:00] VITALS: BP 107/67
[2020-11-16 08:11] LABS: GLUCOMETER DEV NAME(LOC) 3E.C; GLUCOSE,POINT OF CARE 95 MG/DL (70-110)
[2020-11-16] MEDS: FOLIC ACID 1 MG TABLET PO SCH (08:19)
[2020-11-16] MEDS: CHOLECALCIFEROL (VIT D3) 1,000 UNITS [25 MCG] TABLET PO SCH (08:19)
[2020-11-16] MEDS: SitaGLIPtin PHOSPHATE 50 MG TABLET PO SCH ×2 (08:20→17:19)
[2020-11-16] MEDS: MULTIVITAMINS, THERAPEUTIC TABLET PO SCH (08:20)
[2020-11-16] MEDS: ASPIRIN 81 MG DR TABLET PO SCH (08:20)
[2020-11-16] MEDS: THIAMINE 100 MG TABLET PO SCH (08:20)
[2020-11-16] MEDS: DULoxetine HCL 30 MG CAPSULE PO SCH (08:21)
[2020-11-16] MEDS: MetFORMIN HCL 500 MG TABLET PO SCH ×2 (08:21→17:19)
[2020-11-16] MEDS: FERROUS SULFATE 325 MG EC TABLET PO SCH (08:22)
[2020-11-16] MEDS: INSULIN GLARGINE,HUM.REC.ANLOG 100 UNITS/ML SQ SCH ×2 (08:28→17:23)
[2020-11-16] MEDS: NICOTINE 14 MG/24 HOUR PATCH TD SCH (08:30)
[2020-11-16] MEDS ORDERED: TUBERCULIN, PURIFIED PROTEIN DERIVATIVE 5 TU/0.1 ML SYRINGE ID ONE (09:30)
[2020-11-16 09:57] LABS: COVID AG,FIA SOURCE NASOPHARYNGEAL
[2020-11-16 11:54] LABS: GLUCOMETER DEV NAME(LOC) 3E.C; GLUCOSE,POINT OF CARE 171 MG/DL (70-110)
[2020-11-16] MEDS: INSULIN LISPRO 100 UNITS/ML SQ PRN ×3 (13:14→21:12)
[2020-11-16 16:24] VITALS: BP 104/68
[2020-11-16 17:20] LABS: GLUCOMETER DEV NAME(LOC) 3E.C; GLUCOSE,POINT OF CARE 190 MG/DL (70-110)
[2020-11-16] MEDS: QUEtiapine FUMARATE 200 MG ER TABLET PO SCH (20:29)
[2020-11-16] MEDS: SIMVASTATIN 10 MG TABLET PO SCH (20:29)
[2020-11-16] MEDS: DIVALPROEX SODIUM 500 MG DR TABLET PO SCH (20:29)
[2020-11-16] MEDS: HydrOXYzine PAMOATE 50 MG CAPSULE PO SCH (20:29)
[2020-11-16 21:17] LABS: GLUCOMETER DEV NAME(LOC) 3E.C; GLUCOSE,POINT OF CARE 187 MG/DL (70-110)
[2020-11-17] MEDS: MetFORMIN HCL 500 MG TABLET PO SCH ×2 (07:51→16:45)
[2020-11-17] MEDS: SitaGLIPtin PHOSPHATE 50 MG TABLET PO SCH ×2 (07:51→16:45)
[2020-11-17] MEDS: DULoxetine HCL 30 MG CAPSULE PO SCH (07:51)
[2020-11-17] MEDS: FOLIC ACID 1 MG TABLET PO SCH (07:52)
[2020-11-17] MEDS: MULTIVITAMINS, THERAPEUTIC TABLET PO SCH (07:52)
[2020-11-17] MEDS: NICOTINE 14 MG/24 HOUR PATCH TD SCH (07:52)
[2020-11-17] MEDS: INSULIN GLARGINE,HUM.REC.ANLOG 100 UNITS/ML SQ SCH ×2 (07:54→17:28)
[2020-11-17] MEDS: THIAMINE 100 MG TABLET PO SCH (07:55)
[2020-11-17] MEDS: CHOLECALCIFEROL (VIT D3) 1,000 UNITS [25 MCG] TABLET PO SCH (07:55)
[2020-11-17] MEDS: ASPIRIN 81 MG DR TABLET PO SCH (07:56)
[2020-11-17] MEDS: FERROUS SULFATE 325 MG EC TABLET PO SCH (07:56)
[2020-11-17 08:10] LABS: GLUCOMETER DEV NAME(LOC) 3E.C; GLUCOSE,POINT OF CARE 112 MG/DL (70-110)
[2020-11-17 08:14] VITALS: BP 96/64
[2020-11-17 12:11] LABS: GLUCOMETER DEV NAME(LOC) 3E.C; GLUCOSE,POINT OF CARE 195 MG/DL (70-110)
[2020-11-17] MEDS: INSULIN LISPRO 100 UNITS/ML SQ PRN ×2 (12:12→17:28)
[2020-11-17] MEDS ORDERED: TUBERCULIN, PURIFIED PROTEIN DERIVATIVE 5 TU/0.1 ML SYRINGE ID ONE (15:15)
[2020-11-17 16:21] VITALS: BP 112/85
[2020-11-17 16:27] LABS: GLUCOMETER DEV NAME(LOC) 3E.C; GLUCOSE,POINT OF CARE 149 MG/DL (70-110)
[2020-11-17] MEDS: HydrOXYzine PAMOATE 50 MG CAPSULE PO SCH (20:18)
[2020-11-17] MEDS: QUEtiapine FUMARATE 200 MG ER TABLET PO SCH (20:18)
[2020-11-17] MEDS: DIVALPROEX SODIUM 500 MG DR TABLET PO SCH (20:18)
[2020-11-17] MEDS: SIMVASTATIN 10 MG TABLET PO SCH (20:18)
[2020-11-17 21:21] LABS: GLUCOMETER DEV NAME(LOC) 3E.C; GLUCOSE,POINT OF CARE 124 MG/DL (70-110)
[2020-11-18 09:24] LABS: GLUCOMETER DEV NAME(LOC) 3E.C; GLUCOSE,POINT OF CARE 72 MG/DL (70-110)
[2020-11-18] MEDS: SitaGLIPtin PHOSPHATE 50 MG TABLET PO SCH ×2 (09:26→16:36)
[2020-11-18] MEDS: DULoxetine HCL 30 MG CAPSULE PO SCH (09:26)
[2020-11-18] MEDS: MULTIVITAMINS, THERAPEUTIC TABLET PO SCH (09:30)
[2020-11-18] MEDS: CHOLECALCIFEROL (VIT D3) 1,000 UNITS [25 MCG] TABLET PO SCH (09:30)
[2020-11-18] MEDS: THIAMINE 100 MG TABLET PO SCH (09:30)
[2020-11-18] MEDS: ASPIRIN 81 MG DR TABLET PO SCH (09:30)
[2020-11-18] MEDS: FOLIC ACID 1 MG TABLET PO SCH (09:31)
[2020-11-18] MEDS: MetFORMIN HCL 500 MG TABLET PO SCH ×2 (09:32→17:39)
[2020-11-18] MEDS: FERROUS SULFATE 325 MG EC TABLET PO SCH (09:32)
[2020-11-18] MEDS: NICOTINE 14 MG/24 HOUR PATCH TD SCH (09:33)
[2020-11-18] MEDS: INSULIN GLARGINE,HUM.REC.ANLOG 100 UNITS/ML SQ SCH ×2 (09:35→16:38)
[2020-11-18] MEDS: INSULIN LISPRO 100 UNITS/ML SQ PRN ×2 (11:56→16:37)
[2020-11-18 12:09] LABS: GLUCOMETER DEV NAME(LOC) 3E.C; GLUCOSE,POINT OF CARE 183 MG/DL (70-110)
[2020-11-18 16:38] VITALS: BP 136/93
[2020-11-18] MEDS: HydrOXYzine PAMOATE 50 MG CAPSULE PO SCH (21:01)
[2020-11-18] MEDS: DIVALPROEX SODIUM 500 MG DR TABLET PO SCH (21:01)
[2020-11-18] MEDS: SIMVASTATIN 10 MG TABLET PO SCH (21:01)
[2020-11-18] MEDS: QUEtiapine FUMARATE 200 MG ER TABLET PO SCH (21:02)
[2020-11-18 21:20] LABS: GLUCOMETER DEV NAME(LOC) 3E.C; GLUCOSE,POINT OF CARE 236 MG/DL (70-110)
[2020-11-18 21:21] LABS: GLUCOMETER DEV NAME(LOC) 3E.C; GLUCOSE,POINT OF CARE 111 MG/DL (70-110)
[2020-11-19 08:00] VITALS: BP 96/67
[2020-11-19 08:16] LABS: GLUCOMETER DEV NAME(LOC) 3E.C; GLUCOSE,POINT OF CARE 131 MG/DL (70-110)
[2020-11-19] MEDS: THIAMINE 100 MG TABLET PO SCH (08:20)
[2020-11-19] MEDS: FERROUS SULFATE 325 MG EC TABLET PO SCH (08:20)
[2020-11-19] MEDS: MULTIVITAMINS, THERAPEUTIC TABLET PO SCH (08:20)
[2020-11-19] MEDS: CHOLECALCIFEROL (VIT D3) 1,000 UNITS [25 MCG] TABLET PO SCH (08:20)
[2020-11-19] MEDS: ASPIRIN 81 MG DR TABLET PO SCH (08:20)
[2020-11-19] MEDS: FOLIC ACID 1 MG TABLET PO SCH (08:20)
[2020-11-19] MEDS: MetFORMIN HCL 500 MG TABLET PO SCH ×2 (08:21→16:49)
[2020-11-19] MEDS: DULoxetine HCL 30 MG CAPSULE PO SCH (08:21)
[2020-11-19] MEDS: SitaGLIPtin PHOSPHATE 50 MG TABLET PO SCH ×2 (08:21→16:49)
[2020-11-19] MEDS: NICOTINE 14 MG/24 HOUR PATCH TD SCH (08:22)
[2020-11-19] MEDS: INSULIN GLARGINE,HUM.REC.ANLOG 100 UNITS/ML SQ SCH ×2 (08:35→17:09)
[2020-11-19 12:02] LABS: GLUCOMETER DEV NAME(LOC) 3E.C; GLUCOSE,POINT OF CARE 222 MG/DL (70-110)
[2020-11-19] MEDS: INSULIN LISPRO 100 UNITS/ML SQ PRN ×2 (12:24→17:09)
[2020-11-19 16:30] VITALS: BP 107/60
[2020-11-19 16:33] LABS: GLUCOMETER DEV NAME(LOC) 3E.C; GLUCOSE,POINT OF CARE 161 MG/DL (70-110)
[2020-11-19] MEDS: HydrOXYzine PAMOATE 50 MG CAPSULE PO SCH (20:34)
[2020-11-19] MEDS: QUEtiapine FUMARATE 200 MG ER TABLET PO SCH (20:34)
[2020-11-19] MEDS: SIMVASTATIN 10 MG TABLET PO SCH (20:34)
[2020-11-19] MEDS: DIVALPROEX SODIUM 500 MG DR TABLET PO SCH (20:34)
[2020-11-19 21:24] LABS: GLUCOMETER DEV NAME(LOC) 3E.C; GLUCOSE,POINT OF CARE 138 MG/DL (70-110)
[2020-11-20 08:00] VITALS: BP 96/62
[2020-11-20 08:01] LABS: GLUCOMETER DEV NAME(LOC) 3E.C; GLUCOSE,POINT OF CARE 103 MG/DL (70-110)
[2020-11-20] MEDS: NICOTINE 14 MG/24 HOUR PATCH TD SCH (08:14)
[2020-11-20] MEDS: ASPIRIN 81 MG DR TABLET PO SCH (08:14)
[2020-11-20] MEDS: FOLIC ACID 1 MG TABLET PO SCH (08:15)
[2020-11-20] MEDS: THIAMINE 100 MG TABLET PO SCH (08:15)
[2020-11-20] MEDS: SitaGLIPtin PHOSPHATE 50 MG TABLET PO SCH ×2 (08:15→16:14)
[2020-11-20] MEDS: DULoxetine HCL 30 MG CAPSULE PO SCH (08:15)
[2020-11-20] MEDS: MetFORMIN HCL 500 MG TABLET PO SCH ×2 (08:15→16:14)
[2020-11-20] MEDS: MULTIVITAMINS, THERAPEUTIC TABLET PO SCH (08:15)
[2020-11-20] MEDS: FERROUS SULFATE 325 MG EC TABLET PO SCH (08:15)
[2020-11-20] MEDS: CHOLECALCIFEROL (VIT D3) 1,000 UNITS [25 MCG] TABLET PO SCH (08:16)
[2020-11-20] MEDS: INSULIN GLARGINE,HUM.REC.ANLOG 100 UNITS/ML SQ SCH ×2 (08:39→17:40)
[2020-11-20] MEDS: HALOPERIDOL 5 MG TABLET PO PRN (09:48)
[2020-11-20] MEDS: LORazepam 2 MG TABLET PO PRN (09:48)
[2020-11-20 11:13] LABS: GLUCOMETER DEV NAME(LOC) 3E.C; GLUCOSE,POINT OF CARE 260 MG/DL (70-110)
[2020-11-20] MEDS: INSULIN LISPRO 100 UNITS/ML SQ PRN ×2 (11:14→17:41)
[2020-11-20 16:12] VITALS: BP 98/75
[2020-11-20] MEDS: QUEtiapine FUMARATE 200 MG ER TABLET PO SCH (20:23)
[2020-11-20] MEDS: SIMVASTATIN 10 MG TABLET PO SCH (20:24)
[2020-11-20] MEDS: DIVALPROEX SODIUM 500 MG DR TABLET PO SCH (20:24)
[2020-11-20] MEDS: HydrOXYzine PAMOATE 50 MG CAPSULE PO SCH (20:24)
[2020-11-20 20:45] LABS: GLUCOMETER DEV NAME(LOC) 3E.C; GLUCOSE,POINT OF CARE 180 MG/DL (70-110)
[2020-11-20 20:45] LABS: GLUCOMETER DEV NAME(LOC) 3E.C; GLUCOSE,POINT OF CARE 134 MG/DL (70-110)
[2020-11-21 08:00] VITALS: BP 138/86
[2020-11-21] MEDS: NICOTINE 14 MG/24 HOUR PATCH TD SCH (09:00)
[2020-11-21] MEDS: DULoxetine HCL 30 MG CAPSULE PO SCH (10:09)
[2020-11-21] MEDS: SitaGLIPtin PHOSPHATE 50 MG TABLET PO SCH ×2 (10:09→16:39)
[2020-11-21] MEDS: THIAMINE 100 MG TABLET PO SCH (10:24)
[2020-11-21] MEDS: LORazepam 2 MG TABLET PO PRN (10:25)
[2020-11-21] MEDS: FOLIC ACID 1 MG TABLET PO SCH (10:25)
[2020-11-21] MEDS: ASPIRIN 81 MG DR TABLET PO SCH (10:25)
[2020-11-21] MEDS: CHOLECALCIFEROL (VIT D3) 1,000 UNITS [25 MCG] TABLET PO SCH (10:25)
[2020-11-21] MEDS: MULTIVITAMINS, THERAPEUTIC TABLET PO SCH (10:25)
[2020-11-21] MEDS: HALOPERIDOL 5 MG TABLET PO PRN (10:27)
[2020-11-21] MEDS: MetFORMIN HCL 500 MG TABLET PO SCH ×2 (10:29→17:31)
[2020-11-21] MEDS: FERROUS SULFATE 325 MG EC TABLET PO SCH (10:29)
[2020-11-21 10:33] LABS: GLUCOMETER DEV NAME(LOC) 3E.C; GLUCOSE,POINT OF CARE 91 MG/DL (70-110)
[2020-11-21] MEDS: INSULIN GLARGINE,HUM.REC.ANLOG 100 UNITS/ML SQ SCH ×2 (10:43→17:00)
[2020-11-21 12:22] LABS: GLUCOMETER DEV NAME(LOC) 3E.C; GLUCOSE,POINT OF CARE 196 MG/DL (70-110)
[2020-11-21] MEDS: INSULIN LISPRO 100 UNITS/ML SQ PRN ×2 (12:25→21:01)
[2020-11-21 16:48] LABS: GLUCOMETER DEV NAME(LOC) 3E.C; GLUCOSE,POINT OF CARE 123 MG/DL (70-110)
[2020-11-21] MEDS: DIVALPROEX SODIUM 500 MG DR TABLET PO SCH (20:57)
[2020-11-21] MEDS: SIMVASTATIN 10 MG TABLET PO SCH (20:58)
[2020-11-21] MEDS: QUEtiapine FUMARATE 200 MG ER TABLET PO SCH (20:58)
[2020-11-21] MEDS: HydrOXYzine PAMOATE 50 MG CAPSULE PO SCH (20:58)
[2020-11-21 21:12] LABS: GLUCOMETER DEV NAME(LOC) 3E.C; GLUCOSE,POINT OF CARE 150 MG/DL (70-110)
[2020-11-22 08:00] VITALS: BP 98/66
[2020-11-22] MEDS: FERROUS SULFATE 325 MG EC TABLET PO SCH (08:43)
[2020-11-22] MEDS: DULoxetine HCL 30 MG CAPSULE PO SCH (08:43)
[2020-11-22] MEDS: SitaGLIPtin PHOSPHATE 50 MG TABLET PO SCH ×2 (08:44→16:39)
[2020-11-22] MEDS: ASPIRIN 81 MG DR TABLET PO SCH (08:44)
[2020-11-22] MEDS: CHOLECALCIFEROL (VIT D3) 1,000 UNITS [25 MCG] TABLET PO SCH (08:44)
[2020-11-22] MEDS: MULTIVITAMINS, THERAPEUTIC TABLET PO SCH (08:44)
[2020-11-22] MEDS: THIAMINE 100 MG TABLET PO SCH (08:44)
[2020-11-22] MEDS: FOLIC ACID 1 MG TABLET PO SCH (08:44)
[2020-11-22] MEDS: MetFORMIN HCL 500 MG TABLET PO SCH ×2 (08:44→17:28)
[2020-11-22] MEDS: NICOTINE 14 MG/24 HOUR PATCH TD SCH (08:45)
[2020-11-22 08:48] LABS: GLUCOMETER DEV NAME(LOC) 3E.C; GLUCOSE,POINT OF CARE 133 MG/DL (70-110)
[2020-11-22] MEDS: INSULIN GLARGINE,HUM.REC.ANLOG 100 UNITS/ML SQ SCH ×2 (09:07→16:44)
[2020-11-22] MEDS: INSULIN LISPRO 100 UNITS/ML SQ PRN ×3 (11:28→20:41)
[2020-11-22 11:35] LABS: GLUCOMETER DEV NAME(LOC) 3E.C; GLUCOSE,POINT OF CARE 173 MG/DL (70-110)
[2020-11-22 16:18] LABS: GLUCOMETER DEV NAME(LOC) 3E.C; GLUCOSE,POINT OF CARE 158 MG/DL (70-110)
[2020-11-22 16:24] VITALS: BP 94/65
[2020-11-22 16:25] VITALS: BP 102/62
[2020-11-22] MEDS: SIMVASTATIN 10 MG TABLET PO SCH (20:34)
[2020-11-22] MEDS: DIVALPROEX SODIUM 500 MG DR TABLET PO SCH (20:34)
[2020-11-22] MEDS: HydrOXYzine PAMOATE 50 MG CAPSULE PO SCH (20:34)
[2020-11-22] MEDS: QUEtiapine FUMARATE 200 MG ER TABLET PO SCH (20:35)
[2020-11-22 20:54] LABS: GLUCOMETER DEV NAME(LOC) 3E.C; GLUCOSE,POINT OF CARE 212 MG/DL (70-110)
[2020-11-23] MEDS: THIAMINE 100 MG TABLET PO SCH (08:32)
[2020-11-23] MEDS: FOLIC ACID 1 MG TABLET PO SCH (08:32)
[2020-11-23] MEDS: MULTIVITAMINS, THERAPEUTIC TABLET PO SCH (08:32)
[2020-11-23] MEDS: ASPIRIN 81 MG DR TABLET PO SCH (08:33)
[2020-11-23] MEDS: CHOLECALCIFEROL (VIT D3) 1,000 UNITS [25 MCG] TABLET PO SCH (08:33)
[2020-11-23] MEDS: FERROUS SULFATE 325 MG EC TABLET PO SCH (08:33)
[2020-11-23] MEDS: SitaGLIPtin PHOSPHATE 50 MG TABLET PO SCH ×2 (08:33→16:38)
[2020-11-23] MEDS: MetFORMIN HCL 500 MG TABLET PO SCH ×2 (08:33→17:23)
[2020-11-23] MEDS: DULoxetine HCL 30 MG CAPSULE PO SCH (08:34)
[2020-11-23] MEDS: NICOTINE 14 MG/24 HOUR PATCH TD SCH (08:43)
[2020-11-23 08:49] VITALS: BP 98/52
[2020-11-23] MEDS: INSULIN GLARGINE,HUM.REC.ANLOG 100 UNITS/ML SQ SCH ×2 (08:53→16:34)
[2020-11-23 08:55] LABS: GLUCOMETER DEV NAME(LOC) 3E.C; GLUCOSE,POINT OF CARE 149 MG/DL (70-110)
[2020-11-23] MEDS: INSULIN LISPRO 100 UNITS/ML SQ PRN ×3 (11:22→20:38)
[2020-11-23 11:23] LABS: GLUCOMETER DEV NAME(LOC) 3E.C; GLUCOSE,POINT OF CARE 169 MG/DL (70-110)
[2020-11-23 12:06] LABS: COVID AG,FIA SOURCE NASOPHARYNGEAL
[2020-11-23 16:11] VITALS: BP 98/65
[2020-11-23 16:33] LABS: GLUCOMETER DEV NAME(LOC) 3E.C; GLUCOSE,POINT OF CARE 187 MG/DL (70-110)
[2020-11-23] MEDS: SIMVASTATIN 10 MG TABLET PO SCH (20:31)
[2020-11-23] MEDS: HydrOXYzine PAMOATE 50 MG CAPSULE PO SCH (20:31)
[2020-11-23] MEDS: DIVALPROEX SODIUM 500 MG DR TABLET PO SCH (20:32)
[2020-11-23] MEDS: QUEtiapine FUMARATE 200 MG ER TABLET PO SCH (20:32)
[2020-11-23 20:47] LABS: GLUCOMETER DEV NAME(LOC) 3E.C; GLUCOSE,POINT OF CARE 181 MG/DL (70-110)
[2020-11-24 08:00] VITALS: BP 78/47
[2020-11-24] MEDS: DULoxetine HCL 30 MG CAPSULE PO SCH (09:22)
[2020-11-24] MEDS: FOLIC ACID 1 MG TABLET PO SCH (09:22)
[2020-11-24] MEDS: ASPIRIN 81 MG DR TABLET PO SCH (09:22)
[2020-11-24] MEDS: MetFORMIN HCL 500 MG TABLET PO SCH ×2 (09:22→17:24)
[2020-11-24 09:23] LABS: GLUCOMETER DEV NAME(LOC) 3E.C; GLUCOSE,POINT OF CARE 102 MG/DL (70-110)
[2020-11-24] MEDS: THIAMINE 100 MG TABLET PO SCH (09:23)
[2020-11-24] MEDS: MULTIVITAMINS, THERAPEUTIC TABLET PO SCH (09:23)
[2020-11-24] MEDS: SitaGLIPtin PHOSPHATE 50 MG TABLET PO SCH ×2 (09:23→16:42)
[2020-11-24] MEDS: FERROUS SULFATE 325 MG EC TABLET PO SCH (09:23)
[2020-11-24] MEDS: CHOLECALCIFEROL (VIT D3) 1,000 UNITS [25 MCG] TABLET PO SCH (09:23)
[2020-11-24] MEDS: NICOTINE 14 MG/24 HOUR PATCH TD SCH (09:24)
[2020-11-24] MEDS: INSULIN GLARGINE,HUM.REC.ANLOG 100 UNITS/ML SQ SCH ×2 (09:31→16:40)
[2020-11-24 16:23] LABS: GLUCOMETER DEV NAME(LOC) 3E.C; GLUCOSE,POINT OF CARE 171 MG/DL (70-110)
[2020-11-24 16:38] VITALS: BP 94/62
[2020-11-24] MEDS: INSULIN LISPRO 100 UNITS/ML SQ PRN ×2 (16:41→20:44)
[2020-11-24 19:00] VITALS: BP 100/69
[2020-11-24] MEDS: SIMVASTATIN 10 MG TABLET PO SCH (20:34)
[2020-11-24] MEDS: DIVALPROEX SODIUM 500 MG DR TABLET PO SCH (20:34)
[2020-11-24] MEDS: HydrOXYzine PAMOATE 50 MG CAPSULE PO SCH (20:34)
[2020-11-24] MEDS: QUEtiapine FUMARATE 200 MG ER TABLET PO SCH (20:35)
[2020-11-24 20:52] LABS: GLUCOMETER DEV NAME(LOC) 3E.C; GLUCOSE,POINT OF CARE 177 MG/DL (70-110)
[2020-11-25] MEDS: DULoxetine HCL 30 MG CAPSULE PO SCH (08:19)
[2020-11-25] MEDS: SitaGLIPtin PHOSPHATE 50 MG TABLET PO SCH ×2 (08:19→16:34)
[2020-11-25] MEDS: ASPIRIN 81 MG DR TABLET PO SCH (08:24)
[2020-11-25] MEDS: MULTIVITAMINS, THERAPEUTIC TABLET PO SCH (08:24)
[2020-11-25] MEDS: FOLIC ACID 1 MG TABLET PO SCH (08:24)
[2020-11-25] MEDS: THIAMINE 100 MG TABLET PO SCH (08:24)
[2020-11-25] MEDS: CHOLECALCIFEROL (VIT D3) 1,000 UNITS [25 MCG] TABLET PO SCH (08:25)
[2020-11-25] MEDS: MetFORMIN HCL 500 MG TABLET PO SCH ×2 (08:27→16:34)
[2020-11-25] MEDS: FERROUS SULFATE 325 MG EC TABLET PO SCH (08:27)
[2020-11-25 09:43] LABS: GLUCOMETER DEV NAME(LOC) 3E.C; GLUCOSE,POINT OF CARE 108 MG/DL (70-110)
[2020-11-25] MEDS: NICOTINE 14 MG/24 HOUR PATCH TD SCH (09:47)
[2020-11-25] MEDS: INSULIN GLARGINE,HUM.REC.ANLOG 100 UNITS/ML SQ SCH ×2 (09:58→17:34)
[2020-11-25 11:37] LABS: GLUCOMETER DEV NAME(LOC) 3E.C; GLUCOSE,POINT OF CARE 190 MG/DL (70-110)
[2020-11-25] MEDS: INSULIN LISPRO 100 UNITS/ML SQ PRN ×2 (12:49→17:34)
[2020-11-25] MEDS: HALOPERIDOL 5 MG TABLET PO PRN (15:11)
[2020-11-25] MEDS: LORazepam 2 MG TABLET PO PRN (15:11)
[2020-11-25 16:00] VITALS: BP 101/71
[2020-11-25 16:31] LABS: GLUCOMETER DEV NAME(LOC) 3E.C; GLUCOSE,POINT OF CARE 218 MG/DL (70-110)
[2020-11-25] MEDS: QUEtiapine FUMARATE 200 MG ER TABLET PO SCH (20:29)
[2020-11-25] MEDS: HydrOXYzine PAMOATE 50 MG CAPSULE PO SCH (20:29)
[2020-11-25 20:30] LABS: GLUCOMETER DEV NAME(LOC) 3E.C; GLUCOSE,POINT OF CARE 118 MG/DL (70-110)
[2020-11-25] MEDS: DIVALPROEX SODIUM 500 MG DR TABLET PO SCH (20:30)
[2020-11-25] MEDS: SIMVASTATIN 10 MG TABLET PO SCH (20:30)
[2020-11-26] MEDS: FOLIC ACID 1 MG TABLET PO SCH (09:17)
[2020-11-26] MEDS: THIAMINE 100 MG TABLET PO SCH (09:17)
[2020-11-26] MEDS: MULTIVITAMINS, THERAPEUTIC TABLET PO SCH (09:18)
[2020-11-26] MEDS: CHOLECALCIFEROL (VIT D3) 1,000 UNITS [25 MCG] TABLET PO SCH (09:18)
[2020-11-26] MEDS: SitaGLIPtin PHOSPHATE 50 MG TABLET PO SCH ×2 (09:18→16:32)
[2020-11-26] MEDS: ASPIRIN 81 MG DR TABLET PO SCH (09:18)
[2020-11-26] MEDS: DULoxetine HCL 30 MG CAPSULE PO SCH (09:19)
[2020-11-26] MEDS: NICOTINE 14 MG/24 HOUR PATCH TD SCH (09:19)
[2020-11-26] MEDS: FERROUS SULFATE 325 MG EC TABLET PO SCH (09:21)
[2020-11-26] MEDS: MetFORMIN HCL 500 MG TABLET PO SCH ×2 (09:22→17:27)
[2020-11-26 09:58] LABS: GLUCOMETER DEV NAME(LOC) 3E.C; GLUCOSE,POINT OF CARE 68 MG/DL (70-110)
[2020-11-26] MEDS: INSULIN GLARGINE,HUM.REC.ANLOG 100 UNITS/ML SQ SCH ×2 (10:23→16:42)
[2020-11-26 10:33] LABS: GLUCOMETER DEV NAME(LOC) 3E.C; GLUCOSE,POINT OF CARE 132 MG/DL (70-110)
[2020-11-26] MEDS: INSULIN LISPRO 100 UNITS/ML SQ PRN ×3 (12:08→20:42)
[2020-11-26 12:13] LABS: GLUCOMETER DEV NAME(LOC) 3E.C; GLUCOSE,POINT OF CARE 166 MG/DL (70-110)
[2020-11-26] MEDS: HALOPERIDOL 5 MG TABLET PO PRN (13:51)
[2020-11-26] MEDS: LORazepam 2 MG TABLET PO PRN (13:51)
[2020-11-26 16:05] VITALS: BP 90/60
[2020-11-26 16:35] LABS: GLUCOMETER DEV NAME(LOC) 3E.C; GLUCOSE,POINT OF CARE 199 MG/DL (70-110)
[2020-11-26 19:00] VITALS: BP 105/65
[2020-11-26] MEDS: DIVALPROEX SODIUM 500 MG DR TABLET PO SCH (20:28)
[2020-11-26] MEDS: SIMVASTATIN 10 MG TABLET PO SCH (20:28)
[2020-11-26] MEDS: HydrOXYzine PAMOATE 50 MG CAPSULE PO SCH (20:29)
[2020-11-26] MEDS: QUEtiapine FUMARATE 200 MG ER TABLET PO SCH (20:29)
[2020-11-26 22:05] LABS: GLUCOMETER DEV NAME(LOC) 3E.C; GLUCOSE,POINT OF CARE 202 MG/DL (70-110)
[2020-11-27] MEDS: ASPIRIN 81 MG DR TABLET PO SCH (09:32)
[2020-11-27] MEDS: FOLIC ACID 1 MG TABLET PO SCH (09:32)
[2020-11-27] MEDS: THIAMINE 100 MG TABLET PO SCH (09:32)
[2020-11-27] MEDS: CHOLECALCIFEROL (VIT D3) 1,000 UNITS [25 MCG] TABLET PO SCH (09:32)
[2020-11-27] MEDS: MULTIVITAMINS, THERAPEUTIC TABLET PO SCH (09:32)
[2020-11-27] MEDS: NICOTINE 14 MG/24 HOUR PATCH TD SCH (09:33)
[2020-11-27] MEDS: DULoxetine HCL 30 MG CAPSULE PO SCH (09:33)
[2020-11-27] MEDS: SitaGLIPtin PHOSPHATE 50 MG TABLET PO SCH ×2 (09:33→16:36)
[2020-11-27] MEDS: INSULIN GLARGINE,HUM.REC.ANLOG 100 UNITS/ML SQ SCH ×2 (09:39→16:38)
[2020-11-27] MEDS: FERROUS SULFATE 325 MG EC TABLET PO SCH (09:41)
[2020-11-27] MEDS: MetFORMIN HCL 500 MG TABLET PO SCH ×2 (09:42→17:20)
[2020-11-27 09:50] LABS: GLUCOMETER DEV NAME(LOC) 3E.C; GLUCOSE,POINT OF CARE 87 MG/DL (70-110)
[2020-11-27 11:33] LABS: GLUCOMETER DEV NAME(LOC) 3E.C; GLUCOSE,POINT OF CARE 184 MG/DL (70-110)
[2020-11-27] MEDS: INSULIN LISPRO 100 UNITS/ML SQ PRN ×3 (11:35→20:38)
[2020-11-27 16:05] VITALS: BP 96/60
[2020-11-27 16:20] LABS: GLUCOMETER DEV NAME(LOC) 3E.C; GLUCOSE,POINT OF CARE 159 MG/DL (70-110)
[2020-11-27 19:00] VITALS: BP 100/65
[2020-11-27] MEDS: QUEtiapine FUMARATE 200 MG ER TABLET PO SCH (20:29)
[2020-11-27] MEDS: HydrOXYzine PAMOATE 50 MG CAPSULE PO SCH (20:30)
[2020-11-27] MEDS: DIVALPROEX SODIUM 500 MG DR TABLET PO SCH (20:30)
[2020-11-27] MEDS: SIMVASTATIN 10 MG TABLET PO SCH (20:31)
[2020-11-27 20:55] LABS: GLUCOMETER DEV NAME(LOC) 3E.C; GLUCOSE,POINT OF CARE 142 MG/DL (70-110)
[2020-11-28 08:30] VITALS: BP 98/50
[2020-11-28] MEDS: FERROUS SULFATE 325 MG EC TABLET PO SCH (08:47)
[2020-11-28] MEDS: ASPIRIN 81 MG DR TABLET PO SCH (08:47)
[2020-11-28] MEDS: FOLIC ACID 1 MG TABLET PO SCH (08:47)
[2020-11-28] MEDS: THIAMINE 100 MG TABLET PO SCH (08:47)
[2020-11-28] MEDS: CHOLECALCIFEROL (VIT D3) 1,000 UNITS [25 MCG] TABLET PO SCH (08:47)
[2020-11-28] MEDS: MULTIVITAMINS, THERAPEUTIC TABLET PO SCH (08:47)
[2020-11-28] MEDS: SitaGLIPtin PHOSPHATE 50 MG TABLET PO SCH ×2 (08:48→17:02)
[2020-11-28] MEDS: MetFORMIN HCL 500 MG TABLET PO SCH ×2 (08:48→17:02)
[2020-11-28] MEDS: NICOTINE 14 MG/24 HOUR PATCH TD SCH (08:48)
[2020-11-28] MEDS: DULoxetine HCL 30 MG CAPSULE PO SCH (08:48)
[2020-11-28] MEDS: INSULIN GLARGINE,HUM.REC.ANLOG 100 UNITS/ML SQ SCH ×2 (09:33→17:30)
[2020-11-28 10:30] LABS: GLUCOMETER DEV NAME(LOC) 3E.C; GLUCOSE,POINT OF CARE 193 MG/DL (70-110)
[2020-11-28 12:01] LABS: GLUCOMETER DEV NAME(LOC) 3E.C; GLUCOSE,POINT OF CARE 249 MG/DL (70-110)
[2020-11-28] MEDS: INSULIN LISPRO 100 UNITS/ML SQ PRN (12:05)
[2020-11-28 16:32] LABS: GLUCOMETER DEV NAME(LOC) 3E.C; GLUCOSE,POINT OF CARE 114 MG/DL (70-110)
[2020-11-28 16:45] VITALS: BP 104/69
[2020-11-28] MEDS: DIVALPROEX SODIUM 500 MG DR TABLET PO SCH (20:54)
[2020-11-28] MEDS: SIMVASTATIN 10 MG TABLET PO SCH (20:54)
[2020-11-28] MEDS: HydrOXYzine PAMOATE 50 MG CAPSULE PO SCH (20:54)
[2020-11-28 21:04] LABS: GLUCOMETER DEV NAME(LOC) 3E.C; GLUCOSE,POINT OF CARE 122 MG/DL (70-110)
[2020-11-28] MEDS: QUEtiapine FUMARATE 200 MG ER TABLET PO SCH (21:21)
[2020-11-29] MEDS: FERROUS SULFATE 325 MG EC TABLET PO SCH (07:47)
[2020-11-29] MEDS: MetFORMIN HCL 500 MG TABLET PO SCH ×2 (07:47→16:38)
[2020-11-29 07:57] LABS: GLUCOMETER DEV NAME(LOC) 3E.C; GLUCOSE,POINT OF CARE 89 MG/DL (70-110)
[2020-11-29 08:16] VITALS: BP 97/60
[2020-11-29] MEDS: DULoxetine HCL 30 MG CAPSULE PO SCH (08:49)
[2020-11-29] MEDS: SitaGLIPtin PHOSPHATE 50 MG TABLET PO SCH ×2 (08:49→16:38)
[2020-11-29] MEDS: MULTIVITAMINS, THERAPEUTIC TABLET PO SCH (08:51)
[2020-11-29] MEDS: CHOLECALCIFEROL (VIT D3) 1,000 UNITS [25 MCG] TABLET PO SCH (08:51)
[2020-11-29] MEDS: FOLIC ACID 1 MG TABLET PO SCH (08:52)
[2020-11-29] MEDS: THIAMINE 100 MG TABLET PO SCH (08:52)
[2020-11-29] MEDS: ASPIRIN 81 MG DR TABLET PO SCH (08:52)
[2020-11-29] MEDS: INSULIN GLARGINE,HUM.REC.ANLOG 100 UNITS/ML SQ SCH ×2 (08:53→17:33)
[2020-11-29] MEDS: NICOTINE 14 MG/24 HOUR PATCH TD SCH (08:54)
[2020-11-29 11:39] LABS: GLUCOMETER DEV NAME(LOC) 3E.C; GLUCOSE,POINT OF CARE 169 MG/DL (70-110)
[2020-11-29] MEDS: LORazepam 2 MG TABLET PO PRN (13:17)
[2020-11-29] MEDS: HALOPERIDOL 5 MG TABLET PO PRN (13:17)
[2020-11-29 16:18] VITALS: BP 98/61
[2020-11-29 16:57] LABS: GLUCOMETER DEV NAME(LOC) 3E.C; GLUCOSE,POINT OF CARE 187 MG/DL (70-110)
[2020-11-29] MEDS: INSULIN LISPRO 100 UNITS/ML SQ PRN ×2 (17:33→21:20)
[2020-11-29] MEDS: DIVALPROEX SODIUM 500 MG DR TABLET PO SCH (20:48)
[2020-11-29] MEDS: SIMVASTATIN 10 MG TABLET PO SCH (20:48)
[2020-11-29] MEDS: HydrOXYzine PAMOATE 50 MG CAPSULE PO SCH (20:48)
[2020-11-29] MEDS: QUEtiapine FUMARATE 200 MG ER TABLET PO SCH (20:48)
[2020-11-29 21:30] LABS: GLUCOMETER DEV NAME(LOC) 3E.C; GLUCOSE,POINT OF CARE 206 MG/DL (70-110)
[2020-11-30 06:51] LABS: GLUCOMETER DEV NAME(LOC) 3E.C; GLUCOSE,POINT OF CARE 127 MG/DL (70-110)
[2020-11-30] MEDS: FERROUS SULFATE 325 MG EC TABLET PO SCH (07:30)
[2020-11-30] MEDS: MetFORMIN HCL 500 MG TABLET PO SCH ×2 (07:30→16:43)
[2020-11-30 08:00] VITALS: BP 78/51
[2020-11-30] MEDS: INSULIN GLARGINE,HUM.REC.ANLOG 100 UNITS/ML SQ SCH ×2 (09:00→17:42)
[2020-11-30] MEDS: SitaGLIPtin PHOSPHATE 50 MG TABLET PO SCH ×2 (09:29→16:43)
[2020-11-30] MEDS: CHOLECALCIFEROL (VIT D3) 1,000 UNITS [25 MCG] TABLET PO SCH (09:29)
[2020-11-30] MEDS: FOLIC ACID 1 MG TABLET PO SCH (09:30)
[2020-11-30] MEDS: THIAMINE 100 MG TABLET PO SCH (09:30)
[2020-11-30] MEDS: ASPIRIN 81 MG DR TABLET PO SCH (09:31)
[2020-11-30] MEDS: MULTIVITAMINS, THERAPEUTIC TABLET PO SCH (09:31)
[2020-11-30] MEDS: DULoxetine HCL 30 MG CAPSULE PO SCH (09:31)
[2020-11-30] MEDS: NICOTINE 14 MG/24 HOUR PATCH TD SCH (09:32)
[2020-11-30 09:52] LABS: GLUCOMETER DEV NAME(LOC) 3E.C; GLUCOSE,POINT OF CARE 72 MG/DL (70-110)
[2020-11-30] MEDS: INSULIN LISPRO 100 UNITS/ML SQ PRN ×3 (11:19→21:29)
[2020-11-30 11:26] LABS: GLUCOMETER DEV NAME(LOC) 3E.C; GLUCOSE,POINT OF CARE 175 MG/DL (70-110)
[2020-11-30 12:59] LABS: COVID AG,FIA SOURCE NASOPHARYNGEAL
[2020-11-30] MEDS: LORazepam 2 MG TABLET PO PRN (13:32)
[2020-11-30] MEDS: HALOPERIDOL 5 MG TABLET PO PRN (13:32)
[2020-11-30 17:50] LABS: GLUCOMETER DEV NAME(LOC) 3E.C; GLUCOSE,POINT OF CARE 151 MG/DL (70-110)
[2020-11-30 18:13] VITALS: BP 98/67
[2020-11-30] MEDS: HydrOXYzine PAMOATE 50 MG CAPSULE PO SCH (20:53)
[2020-11-30] MEDS: QUEtiapine FUMARATE 200 MG ER TABLET PO SCH (20:53)
[2020-11-30] MEDS: SIMVASTATIN 10 MG TABLET PO SCH (20:54)
[2020-11-30] MEDS: DIVALPROEX SODIUM 500 MG DR TABLET PO SCH (20:54)
[2020-11-30 21:28] LABS: GLUCOMETER DEV NAME(LOC) 3E.C; GLUCOSE,POINT OF CARE 146 MG/DL (70-110)
[2020-12-01 08:00] VITALS: BP 94/62
[2020-12-01] MEDS: MetFORMIN HCL 500 MG TABLET PO SCH ×2 (08:00→16:42)
[2020-12-01] MEDS: FERROUS SULFATE 325 MG EC TABLET PO SCH (08:00)
[2020-12-01] MEDS: DULoxetine HCL 30 MG CAPSULE PO SCH (09:27)
[2020-12-01] MEDS: SitaGLIPtin PHOSPHATE 50 MG TABLET PO SCH ×2 (09:27→16:42)
[2020-12-01] MEDS: NICOTINE 14 MG/24 HOUR PATCH TD SCH (09:28)
[2020-12-01] MEDS: FOLIC ACID 1 MG TABLET PO SCH (09:28)
[2020-12-01] MEDS: ASPIRIN 81 MG DR TABLET PO SCH (09:28)
[2020-12-01] MEDS: MULTIVITAMINS, THERAPEUTIC TABLET PO SCH (09:28)
[2020-12-01] MEDS: CHOLECALCIFEROL (VIT D3) 1,000 UNITS [25 MCG] TABLET PO SCH (09:28)
[2020-12-01] MEDS: THIAMINE 100 MG TABLET PO SCH (09:28)
[2020-12-01] MEDS: INSULIN GLARGINE,HUM.REC.ANLOG 100 UNITS/ML SQ SCH ×2 (09:37→17:38)
[2020-12-01 09:38] LABS: GLUCOMETER DEV NAME(LOC) 3E.C; GLUCOSE,POINT OF CARE 128 MG/DL (70-110)
[2020-12-01] MEDS: INSULIN LISPRO 100 UNITS/ML SQ PRN ×2 (11:35→21:19)
[2020-12-01 11:39] LABS: GLUCOMETER DEV NAME(LOC) 3E.C; GLUCOSE,POINT OF CARE 156 MG/DL (70-110)
[2020-12-01 16:34] VITALS: BP 98/60
[2020-12-01 16:46] LABS: GLUCOMETER DEV NAME(LOC) 3E.C; GLUCOSE,POINT OF CARE 131 MG/DL (70-110)
[2020-12-01] MEDS: QUEtiapine FUMARATE 200 MG ER TABLET PO SCH (20:41)
[2020-12-01] MEDS: SIMVASTATIN 10 MG TABLET PO SCH (20:41)
[2020-12-01] MEDS: DIVALPROEX SODIUM 500 MG DR TABLET PO SCH (20:41)
[2020-12-01] MEDS: HydrOXYzine PAMOATE 50 MG CAPSULE PO SCH (20:42)
[2020-12-01 21:23] LABS: GLUCOMETER DEV NAME(LOC) 3E.C; GLUCOSE,POINT OF CARE 165 MG/DL (70-110)
[2020-12-02 08:00] VITALS: BP 84/61
[2020-12-02] MEDS: DULoxetine HCL 30 MG CAPSULE PO SCH (08:06)
[2020-12-02] MEDS: MetFORMIN HCL 500 MG TABLET PO SCH ×2 (08:06→16:28)
[2020-12-02] MEDS: THIAMINE 100 MG TABLET PO SCH (08:06)
[2020-12-02] MEDS: CHOLECALCIFEROL (VIT D3) 1,000 UNITS [25 MCG] TABLET PO SCH (08:06)
[2020-12-02] MEDS: MULTIVITAMINS, THERAPEUTIC TABLET PO SCH (08:06)
[2020-12-02] MEDS: FERROUS SULFATE 325 MG EC TABLET PO SCH (08:07)
[2020-12-02] MEDS: ASPIRIN 81 MG DR TABLET PO SCH (08:07)
[2020-12-02 08:12] LABS: GLUCOMETER DEV NAME(LOC) 3E.C; GLUCOSE,POINT OF CARE 127 MG/DL (70-110)
[2020-12-02] MEDS: NICOTINE 14 MG/24 HOUR PATCH TD SCH (08:15)
[2020-12-02] MEDS: FOLIC ACID 1 MG TABLET PO SCH (08:16)
[2020-12-02] MEDS: INSULIN GLARGINE,HUM.REC.ANLOG 100 UNITS/ML SQ SCH ×2 (08:47→16:30)
[2020-12-02] MEDS: SitaGLIPtin PHOSPHATE 50 MG TABLET PO SCH ×2 (10:22→16:28)
[2020-12-02 11:08] LABS: GLUCOMETER DEV NAME(LOC) 3E.C; GLUCOSE,POINT OF CARE 144 MG/DL (70-110)
[2020-12-02] MEDS: INSULIN LISPRO 100 UNITS/ML SQ PRN ×2 (11:55→20:32)
[2020-12-02 16:00] VITALS: BP 97/66
[2020-12-02 16:34] LABS: GLUCOMETER DEV NAME(LOC) 3E.C; GLUCOSE,POINT OF CARE 116 MG/DL (70-110)
[2020-12-02 20:20] LABS: GLUCOMETER DEV NAME(LOC) 3E.C; GLUCOSE,POINT OF CARE 186 MG/DL (70-110)
[2020-12-02] MEDS: HydrOXYzine PAMOATE 50 MG CAPSULE PO SCH (20:29)
[2020-12-02] MEDS: DIVALPROEX SODIUM 500 MG DR TABLET PO SCH (20:29)
[2020-12-02] MEDS: SIMVASTATIN 10 MG TABLET PO SCH (20:29)
[2020-12-02] MEDS: QUEtiapine FUMARATE 200 MG ER TABLET PO SCH (20:30)
[2020-12-03 07:51] LABS: GLUCOMETER DEV NAME(LOC) 3E.C; GLUCOSE,POINT OF CARE 98 MG/DL (70-110)
[2020-12-03] MEDS: NICOTINE 14 MG/24 HOUR PATCH TD SCH (08:01)
[2020-12-03] MEDS: MULTIVITAMINS, THERAPEUTIC TABLET PO SCH (08:02)
[2020-12-03] MEDS: ASPIRIN 81 MG DR TABLET PO SCH (08:02)
[2020-12-03] MEDS: DULoxetine HCL 30 MG CAPSULE PO SCH (08:02)
[2020-12-03] MEDS: THIAMINE 100 MG TABLET PO SCH (08:03)
[2020-12-03] MEDS: MetFORMIN HCL 500 MG TABLET PO SCH ×2 (08:03→17:27)
[2020-12-03] MEDS: SitaGLIPtin PHOSPHATE 50 MG TABLET PO SCH ×2 (08:03→20:20)
[2020-12-03] MEDS: FERROUS SULFATE 325 MG EC TABLET PO SCH (08:03)
[2020-12-03] MEDS: CHOLECALCIFEROL (VIT D3) 1,000 UNITS [25 MCG] TABLET PO SCH (08:03)
[2020-12-03] MEDS: FOLIC ACID 1 MG TABLET PO SCH (08:03)
[2020-12-03] MEDS: INSULIN GLARGINE,HUM.REC.ANLOG 100 UNITS/ML SQ SCH ×2 (09:42→17:28)
[2020-12-03] MEDS: INSULIN LISPRO 100 UNITS/ML SQ PRN ×3 (11:29→21:53)
[2020-12-03 17:17] LABS: GLUCOMETER DEV NAME(LOC) 3E.C; GLUCOSE,POINT OF CARE 141 MG/DL (70-110)
[2020-12-03 17:55] VITALS: BP 120/78
[2020-12-03] MEDS: HydrOXYzine PAMOATE 50 MG CAPSULE PO SCH (20:48)
[2020-12-03] MEDS: DIVALPROEX SODIUM 500 MG DR TABLET PO SCH (20:49)
[2020-12-03] MEDS: SIMVASTATIN 10 MG TABLET PO SCH (20:49)
[2020-12-03] MEDS: QUEtiapine FUMARATE 200 MG ER TABLET PO SCH (20:49)
[2020-12-03 21:27] LABS: GLUCOMETER DEV NAME(LOC) 3E.C; GLUCOSE,POINT OF CARE 198 MG/DL (70-110)
[2020-12-04 08:00] VITALS: BP 90/60
[2020-12-04] MEDS: NICOTINE 14 MG/24 HOUR PATCH TD SCH (09:20)
[2020-12-04] MEDS: THIAMINE 100 MG TABLET PO SCH (09:20)
[2020-12-04] MEDS: DULoxetine HCL 30 MG CAPSULE PO SCH (09:20)
[2020-12-04] MEDS: SitaGLIPtin PHOSPHATE 50 MG TABLET PO SCH ×2 (09:20→17:06)
[2020-12-04] MEDS: CHOLECALCIFEROL (VIT D3) 1,000 UNITS [25 MCG] TABLET PO SCH (09:21)
[2020-12-04] MEDS: MULTIVITAMINS, THERAPEUTIC TABLET PO SCH (09:21)
[2020-12-04] MEDS: MetFORMIN HCL 500 MG TABLET PO SCH ×2 (09:21→17:06)
[2020-12-04] MEDS: FOLIC ACID 1 MG TABLET PO SCH (09:21)
[2020-12-04] MEDS: ASPIRIN 81 MG DR TABLET PO SCH (09:22)
[2020-12-04] MEDS: FERROUS SULFATE 325 MG EC TABLET PO SCH (09:24)
[2020-12-04 10:59] LABS: GLUCOMETER DEV NAME(LOC) 3E.C; GLUCOSE,POINT OF CARE 243 MG/DL (70-110)
[2020-12-04] MEDS: INSULIN GLARGINE,HUM.REC.ANLOG 100 UNITS/ML SQ SCH ×2 (10:59→17:38)
[2020-12-04] MEDS: INSULIN LISPRO 100 UNITS/ML SQ PRN ×2 (11:08→17:39)
[2020-12-04] MEDS: LORazepam 2 MG TABLET PO PRN (12:53)
[2020-12-04] MEDS: HALOPERIDOL 5 MG TABLET PO PRN (12:53)
[2020-12-04 17:00] VITALS: BP 103/70
[2020-12-04 17:16] LABS: GLUCOMETER DEV NAME(LOC) 3E.C; GLUCOSE,POINT OF CARE 195 MG/DL (70-110)
[2020-12-04] MEDS: DIVALPROEX SODIUM 500 MG DR TABLET PO SCH (21:02)
[2020-12-04] MEDS: HydrOXYzine PAMOATE 50 MG CAPSULE PO SCH (21:03)
[2020-12-04] MEDS: SIMVASTATIN 10 MG TABLET PO SCH (21:03)
[2020-12-04] MEDS: QUEtiapine FUMARATE 200 MG ER TABLET PO SCH (21:03)
[2020-12-04 21:48] LABS: GLUCOMETER DEV NAME(LOC) 3E.C; GLUCOSE,POINT OF CARE 109 MG/DL (70-110)
[2020-12-05] MEDS: MetFORMIN HCL 500 MG TABLET PO SCH ×2 (07:49→17:25)
[2020-12-05] MEDS: FERROUS SULFATE 325 MG EC TABLET PO SCH (07:49)
[2020-12-05] MEDS: MULTIVITAMINS, THERAPEUTIC TABLET PO SCH (08:09)
[2020-12-05] MEDS: NICOTINE 14 MG/24 HOUR PATCH TD SCH (08:09)
[2020-12-05] MEDS: THIAMINE 100 MG TABLET PO SCH (08:09)
[2020-12-05] MEDS: CHOLECALCIFEROL (VIT D3) 1,000 UNITS [25 MCG] TABLET PO SCH (08:09)
[2020-12-05] MEDS: ASPIRIN 81 MG DR TABLET PO SCH (08:09)
[2020-12-05] MEDS: DULoxetine HCL 30 MG CAPSULE PO SCH (08:10)
[2020-12-05] MEDS: FOLIC ACID 1 MG TABLET PO SCH (08:10)
[2020-12-05] MEDS: INSULIN GLARGINE,HUM.REC.ANLOG 100 UNITS/ML SQ SCH ×2 (09:00→16:49)
[2020-12-05] MEDS: SitaGLIPtin PHOSPHATE 50 MG TABLET PO SCH ×2 (09:34→16:47)
[2020-12-05 11:32] LABS: GLUCOMETER DEV NAME(LOC) 3E.C; GLUCOSE,POINT OF CARE 130 MG/DL (70-110)
[2020-12-05] MEDS: PALIPERIDONE PALMITATE 234 MG/1.5 ML SYRINGE IM SCH (11:50)
[2020-12-05 12:35] VITALS: BP 96/58
[2020-12-05 16:21] VITALS: BP 94/61
[2020-12-05 16:33] LABS: GLUCOMETER DEV NAME(LOC) 3E.C; GLUCOSE,POINT OF CARE 199 MG/DL (70-110)
[2020-12-05] MEDS: INSULIN LISPRO 100 UNITS/ML SQ PRN ×2 (16:48→20:20)
[2020-12-05 19:00] VITALS: BP 100/62
[2020-12-05] MEDS: QUEtiapine FUMARATE 200 MG ER TABLET PO SCH (20:08)
[2020-12-05] MEDS: DIVALPROEX SODIUM 500 MG DR TABLET PO SCH (20:09)
[2020-12-05] MEDS: SIMVASTATIN 10 MG TABLET PO SCH (20:09)
[2020-12-05] MEDS: HydrOXYzine PAMOATE 50 MG CAPSULE PO SCH (20:10)
[2020-12-05 20:25] LABS: GLUCOMETER DEV NAME(LOC) 3E.C; GLUCOSE,POINT OF CARE 148 MG/DL (70-110)
[2020-12-06 07:08] LABS: GLUCOMETER DEV NAME(LOC) 3E.C; GLUCOSE,POINT OF CARE 70 MG/DL (70-110)
[2020-12-06 08:00] VITALS: BP 111/77
[2020-12-06] MEDS: MetFORMIN HCL 500 MG TABLET PO SCH ×2 (08:14→17:05)
[2020-12-06] MEDS: SitaGLIPtin PHOSPHATE 50 MG TABLET PO SCH ×2 (08:14→17:05)
[2020-12-06] MEDS: INSULIN GLARGINE,HUM.REC.ANLOG 100 UNITS/ML SQ SCH ×2 (08:14→17:09)
[2020-12-06] MEDS: DULoxetine HCL 30 MG CAPSULE PO SCH (08:15)
[2020-12-06] MEDS: FERROUS SULFATE 325 MG EC TABLET PO SCH (08:15)
[2020-12-06] MEDS: THIAMINE 100 MG TABLET PO SCH (08:18)
[2020-12-06] MEDS: MULTIVITAMINS, THERAPEUTIC TABLET PO SCH (08:18)
[2020-12-06] MEDS: FOLIC ACID 1 MG TABLET PO SCH (08:18)
[2020-12-06] MEDS: ASPIRIN 81 MG DR TABLET PO SCH (08:18)
[2020-12-06] MEDS: NICOTINE 14 MG/24 HOUR PATCH TD SCH (08:20)
[2020-12-06] MEDS: CHOLECALCIFEROL (VIT D3) 1,000 UNITS [25 MCG] TABLET PO SCH (08:20)
[2020-12-06 11:48] LABS: GLUCOMETER DEV NAME(LOC) 3E.C; GLUCOSE,POINT OF CARE 203 MG/DL (70-110)
[2020-12-06 16:05] VITALS: BP 98/60
[2020-12-06] MEDS: INSULIN LISPRO 100 UNITS/ML SQ PRN ×2 (17:10→21:06)
[2020-12-06 17:13] LABS: GLUCOMETER DEV NAME(LOC) 3E.C; GLUCOSE,POINT OF CARE 161 MG/DL (70-110)
[2020-12-06] MEDS: DIVALPROEX SODIUM 500 MG DR TABLET PO SCH (20:46)
[2020-12-06] MEDS: HydrOXYzine PAMOATE 50 MG CAPSULE PO SCH (20:46)
[2020-12-06] MEDS: QUEtiapine FUMARATE 200 MG ER TABLET PO SCH (20:46)
[2020-12-06] MEDS: SIMVASTATIN 10 MG TABLET PO SCH (20:46)
[2020-12-06 21:05] LABS: GLUCOMETER DEV NAME(LOC) 3E.C; GLUCOSE,POINT OF CARE 175 MG/DL (70-110)
[2020-12-07 06:49] LABS: GLUCOMETER DEV NAME(LOC) 3E.C; GLUCOSE,POINT OF CARE 73 MG/DL (70-110)
[2020-12-07] MEDS: MetFORMIN HCL 500 MG TABLET PO SCH ×2 (08:30→17:17)
[2020-12-07] MEDS: CHOLECALCIFEROL (VIT D3) 1,000 UNITS [25 MCG] TABLET PO SCH (08:30)
[2020-12-07] MEDS: INSULIN GLARGINE,HUM.REC.ANLOG 100 UNITS/ML SQ SCH ×2 (08:30→17:30)
[2020-12-07] MEDS: FERROUS SULFATE 325 MG EC TABLET PO SCH (08:30)
[2020-12-07] MEDS: THIAMINE 100 MG TABLET PO SCH (08:30)
[2020-12-07] MEDS: DULoxetine HCL 30 MG CAPSULE PO SCH (08:30)
[2020-12-07] MEDS: MULTIVITAMINS, THERAPEUTIC TABLET PO SCH (08:30)
[2020-12-07] MEDS: ASPIRIN 81 MG DR TABLET PO SCH (08:30)
[2020-12-07] MEDS: FOLIC ACID 1 MG TABLET PO SCH (08:30)
[2020-12-07] MEDS: SitaGLIPtin PHOSPHATE 50 MG TABLET PO SCH ×2 (08:30→17:17)
[2020-12-07] MEDS: NICOTINE 14 MG/24 HOUR PATCH TD SCH (09:00)
[2020-12-07 11:49] LABS: GLUCOMETER DEV NAME(LOC) 3E.C; GLUCOSE,POINT OF CARE 162 MG/DL (70-110)
[2020-12-07] MEDS: INSULIN LISPRO 100 UNITS/ML SQ PRN ×2 (12:37→21:36)
[2020-12-07 16:01] VITALS: BP 107/66
[2020-12-07 16:28] LABS: GLUCOMETER DEV NAME(LOC) 3E.C; GLUCOSE,POINT OF CARE 106 MG/DL (70-110)
[2020-12-07] MEDS: LORazepam 2 MG TABLET PO PRN (18:12)
[2020-12-07] MEDS: DIVALPROEX SODIUM 500 MG DR TABLET PO SCH (21:20)
[2020-12-07] MEDS: HydrOXYzine PAMOATE 50 MG CAPSULE PO SCH (21:23)
[2020-12-07] MEDS: SIMVASTATIN 10 MG TABLET PO SCH (21:24)
[2020-12-07] MEDS: QUEtiapine FUMARATE 200 MG ER TABLET PO SCH (21:24)
[2020-12-07] MEDS: ZOLPIDEM TARTRATE 10 MG TABLET PO PRN (21:24)
[2020-12-07 21:44] LABS: GLUCOMETER DEV NAME(LOC) 3E.C; GLUCOSE,POINT OF CARE 202 MG/DL (70-110)
[2020-12-08] MEDS: MULTIVITAMINS, THERAPEUTIC TABLET PO SCH (09:22)
[2020-12-08] MEDS: FERROUS SULFATE 325 MG EC TABLET PO SCH (09:22)
[2020-12-08] MEDS: CHOLECALCIFEROL (VIT D3) 1,000 UNITS [25 MCG] TABLET PO SCH (09:22)
[2020-12-08] MEDS: THIAMINE 100 MG TABLET PO SCH (09:23)
[2020-12-08] MEDS: MetFORMIN HCL 500 MG TABLET PO SCH ×2 (09:23→17:28)
[2020-12-08] MEDS: FOLIC ACID 1 MG TABLET PO SCH (09:24)
[2020-12-08] MEDS: ASPIRIN 81 MG DR TABLET PO SCH (09:24)
[2020-12-08] MEDS: DULoxetine HCL 30 MG CAPSULE PO SCH (09:25)
[2020-12-08] MEDS: SitaGLIPtin PHOSPHATE 50 MG TABLET PO SCH ×2 (09:26→16:54)
[2020-12-08] MEDS: NICOTINE 14 MG/24 HOUR PATCH TD SCH (09:31)
[2020-12-08] MEDS: INSULIN GLARGINE,HUM.REC.ANLOG 100 UNITS/ML SQ SCH ×2 (09:37→17:00)
[2020-12-08 09:47] LABS: GLUCOMETER DEV NAME(LOC) 3E.C; GLUCOSE,POINT OF CARE 99 MG/DL (70-110)
[2020-12-08 12:04] LABS: GLUCOMETER DEV NAME(LOC) 3E.C; GLUCOSE,POINT OF CARE 144 MG/DL (70-110)
[2020-12-08] MEDS: INSULIN LISPRO 100 UNITS/ML SQ PRN ×2 (12:16→20:44)
[2020-12-08 16:28] LABS: GLUCOMETER DEV NAME(LOC) 3E.C; GLUCOSE,POINT OF CARE 111 MG/DL (70-110)
[2020-12-08 16:33] VITALS: BP 100/64
[2020-12-08] MEDS: HydrOXYzine PAMOATE 50 MG CAPSULE PO SCH (20:22)
[2020-12-08] MEDS: SIMVASTATIN 10 MG TABLET PO SCH (20:22)
[2020-12-08] MEDS: QUEtiapine FUMARATE 200 MG ER TABLET PO SCH (20:22)
[2020-12-08] MEDS: DIVALPROEX SODIUM 500 MG DR TABLET PO SCH (20:22)
[2020-12-08 20:40] LABS: GLUCOMETER DEV NAME(LOC) 3E.C; GLUCOSE,POINT OF CARE 194 MG/DL (70-110)
[2020-12-09 08:00] VITALS: BP 96/58
[2020-12-09] MEDS: MetFORMIN HCL 500 MG TABLET PO SCH ×2 (08:31→16:30)
[2020-12-09] MEDS: THIAMINE 100 MG TABLET PO SCH (08:31)
[2020-12-09] MEDS: FOLIC ACID 1 MG TABLET PO SCH (08:31)
[2020-12-09] MEDS: FERROUS SULFATE 325 MG EC TABLET PO SCH (08:31)
[2020-12-09] MEDS: MULTIVITAMINS, THERAPEUTIC TABLET PO SCH (08:32)
[2020-12-09] MEDS: CHOLECALCIFEROL (VIT D3) 1,000 UNITS [25 MCG] TABLET PO SCH (08:32)
[2020-12-09] MEDS: ASPIRIN 81 MG DR TABLET PO SCH (08:32)
[2020-12-09] MEDS: DULoxetine HCL 30 MG CAPSULE PO SCH (08:33)
[2020-12-09] MEDS: SitaGLIPtin PHOSPHATE 50 MG TABLET PO SCH ×2 (08:33→16:30)
[2020-12-09] MEDS: INSULIN GLARGINE,HUM.REC.ANLOG 100 UNITS/ML SQ SCH ×2 (08:34→16:33)
[2020-12-09] MEDS: NICOTINE 14 MG/24 HOUR PATCH TD SCH (08:44)
[2020-12-09 11:27] LABS: GLUCOMETER DEV NAME(LOC) 3E.C; GLUCOSE,POINT OF CARE 140 MG/DL (70-110)
[2020-12-09 11:30] LABS: GLUCOMETER DEV NAME(LOC) 3E.C; GLUCOSE,POINT OF CARE 194 MG/DL (70-110)
[2020-12-09] MEDS: INSULIN LISPRO 100 UNITS/ML SQ PRN ×2 (11:45→16:34)
[2020-12-09 16:53] VITALS: BP 101/58
[2020-12-09] MEDS: QUEtiapine FUMARATE 200 MG ER TABLET PO SCH (20:57)
[2020-12-09] MEDS: SIMVASTATIN 10 MG TABLET PO SCH (20:57)
[2020-12-09] MEDS: HydrOXYzine PAMOATE 50 MG CAPSULE PO SCH (20:57)
[2020-12-09] MEDS: DIVALPROEX SODIUM 500 MG DR TABLET PO SCH (20:58)
[2020-12-09 21:13] LABS: GLUCOMETER DEV NAME(LOC) 3E.C; GLUCOSE,POINT OF CARE 156 MG/DL (70-110)
[2020-12-09 21:20] LABS: GLUCOMETER DEV NAME(LOC) 3E.C; GLUCOSE,POINT OF CARE 92 MG/DL (70-110)
[2020-12-09] MEDS: ZOLPIDEM TARTRATE 10 MG TABLET PO PRN (23:45)
[2020-12-09] MEDS: LORazepam 2 MG TABLET PO PRN (23:45)
[2020-12-10 07:57] LABS: GLUCOMETER DEV NAME(LOC) 3E.C; GLUCOSE,POINT OF CARE 114 MG/DL (70-110)
[2020-12-10] MEDS: FERROUS SULFATE 325 MG EC TABLET PO SCH (07:58)
[2020-12-10] MEDS: MetFORMIN HCL 500 MG TABLET PO SCH ×2 (07:59→16:54)
[2020-12-10] MEDS: DULoxetine HCL 30 MG CAPSULE PO SCH (08:20)
[2020-12-10] MEDS: MULTIVITAMINS, THERAPEUTIC TABLET PO SCH (08:21)
[2020-12-10] MEDS: CHOLECALCIFEROL (VIT D3) 1,000 UNITS [25 MCG] TABLET PO SCH (08:21)
[2020-12-10] MEDS: ASPIRIN 81 MG DR TABLET PO SCH (08:21)
[2020-12-10] MEDS: NICOTINE 14 MG/24 HOUR PATCH TD SCH (08:22)
[2020-12-10] MEDS: FOLIC ACID 1 MG TABLET PO SCH (08:22)
[2020-12-10] MEDS: THIAMINE 100 MG TABLET PO SCH (08:22)
[2020-12-10] MEDS: SitaGLIPtin PHOSPHATE 50 MG TABLET PO SCH ×2 (08:23→16:54)
[2020-12-10] MEDS: INSULIN GLARGINE,HUM.REC.ANLOG 100 UNITS/ML SQ SCH ×2 (08:34→16:55)
[2020-12-10 10:10] VITALS: BP 82/57
[2020-12-10] MEDS: INSULIN LISPRO 100 UNITS/ML SQ PRN ×3 (11:37→20:49)
[2020-12-10 11:43] LABS: GLUCOMETER DEV NAME(LOC) 3E.C; GLUCOSE,POINT OF CARE 188 MG/DL (70-110)
[2020-12-10 16:12] VITALS: BP 91/60
[2020-12-10 17:03] LABS: GLUCOMETER DEV NAME(LOC) 3E.C; GLUCOSE,POINT OF CARE 170 MG/DL (70-110)
[2020-12-10] MEDS: QUEtiapine FUMARATE 200 MG ER TABLET PO SCH (20:42)
[2020-12-10] MEDS: DIVALPROEX SODIUM 500 MG DR TABLET PO SCH (20:42)
[2020-12-10] MEDS: HydrOXYzine PAMOATE 50 MG CAPSULE PO SCH (20:42)
[2020-12-10] MEDS: SIMVASTATIN 10 MG TABLET PO SCH (20:42)
[2020-12-10 20:58] LABS: GLUCOMETER DEV NAME(LOC) 3E.C; GLUCOSE,POINT OF CARE 143 MG/DL (70-110)
[2020-12-11] MEDS: FERROUS SULFATE 325 MG EC TABLET PO SCH (08:11)
[2020-12-11] MEDS: MetFORMIN HCL 500 MG TABLET PO SCH ×2 (08:12→16:41)
[2020-12-11] MEDS: MULTIVITAMINS, THERAPEUTIC TABLET PO SCH (08:15)
[2020-12-11] MEDS: DULoxetine HCL 30 MG CAPSULE PO SCH (08:15)
[2020-12-11] MEDS: ASPIRIN 81 MG DR TABLET PO SCH (08:16)
[2020-12-11] MEDS: SitaGLIPtin PHOSPHATE 50 MG TABLET PO SCH ×2 (08:16→16:40)
[2020-12-11] MEDS: FOLIC ACID 1 MG TABLET PO SCH (08:17)
[2020-12-11] MEDS: THIAMINE 100 MG TABLET PO SCH (08:17)
[2020-12-11] MEDS: CHOLECALCIFEROL (VIT D3) 1,000 UNITS [25 MCG] TABLET PO SCH (08:17)
[2020-12-11] MEDS: NICOTINE 14 MG/24 HOUR PATCH TD SCH (08:18)
[2020-12-11] MEDS: INSULIN GLARGINE,HUM.REC.ANLOG 100 UNITS/ML SQ SCH ×2 (08:21→16:44)
[2020-12-11 08:38] LABS: GLUCOMETER DEV NAME(LOC) 3E.C; GLUCOSE,POINT OF CARE 70 MG/DL (70-110)
[2020-12-11 08:58] VITALS: BP 142/113
[2020-12-11] MEDS: INSULIN LISPRO 100 UNITS/ML SQ PRN ×2 (11:38→16:44)
[2020-12-11 11:45] LABS: GLUCOMETER DEV NAME(LOC) 3E.C; GLUCOSE,POINT OF CARE 169 MG/DL (70-110)
[2020-12-11 13:34] LABS: COVID AG,FIA SOURCE NASOPHARYNGEAL
[2020-12-11 16:02] VITALS: BP 100/52
[2020-12-11 16:37] LABS: GLUCOMETER DEV NAME(LOC) 3E.C; GLUCOSE,POINT OF CARE 149 MG/DL (70-110)
[2020-12-11] MEDS: SIMVASTATIN 10 MG TABLET PO SCH (20:39)
[2020-12-11] MEDS: HydrOXYzine PAMOATE 50 MG CAPSULE PO SCH (20:39)
[2020-12-11] MEDS: QUEtiapine FUMARATE 200 MG ER TABLET PO SCH (20:39)
[2020-12-11] MEDS: DIVALPROEX SODIUM 500 MG DR TABLET PO SCH (20:40)
[2020-12-11 22:08] LABS: GLUCOMETER DEV NAME(LOC) 3E.C; GLUCOSE,POINT OF CARE 46 MG/DL (70-110)
[2020-12-11 22:08] LABS: GLUCOMETER DEV NAME(LOC) 3E.C; GLUCOSE,POINT OF CARE 152 MG/DL (70-110)
[2020-12-12] MEDS: INSULIN LISPRO 100 UNITS/ML SQ PRN ×2 (06:42→17:37)
[2020-12-12 06:48] LABS: GLUCOMETER DEV NAME(LOC) 3E.C; GLUCOSE,POINT OF CARE 175 MG/DL (70-110)
[2020-12-12 08:00] VITALS: BP 147/97
[2020-12-12] MEDS: SitaGLIPtin PHOSPHATE 50 MG TABLET PO SCH ×2 (08:22→17:39)
[2020-12-12] MEDS: DULoxetine HCL 30 MG CAPSULE PO SCH (08:22)
[2020-12-12] MEDS: FOLIC ACID 1 MG TABLET PO SCH (08:23)
[2020-12-12] MEDS: CHOLECALCIFEROL (VIT D3) 1,000 UNITS [25 MCG] TABLET PO SCH (08:23)
[2020-12-12] MEDS: THIAMINE 100 MG TABLET PO SCH (08:23)
[2020-12-12] MEDS: ASPIRIN 81 MG DR TABLET PO SCH (08:23)
[2020-12-12] MEDS: MULTIVITAMINS, THERAPEUTIC TABLET PO SCH (08:23)
[2020-12-12] MEDS: NICOTINE 14 MG/24 HOUR PATCH TD SCH (08:24)
[2020-12-12] MEDS: FERROUS SULFATE 325 MG EC TABLET PO SCH (08:25)
[2020-12-12] MEDS: MetFORMIN HCL 500 MG TABLET PO SCH ×2 (08:25→17:39)
[2020-12-12] MEDS: INSULIN GLARGINE,HUM.REC.ANLOG 100 UNITS/ML SQ SCH ×2 (08:34→17:38)
[2020-12-12 12:00] LABS: GLUCOMETER DEV NAME(LOC) 3E.C; GLUCOSE,POINT OF CARE 133 MG/DL (70-110)
[2020-12-12] MEDS: LORazepam 2 MG TABLET PO PRN (13:00)
[2020-12-12] MEDS: HALOPERIDOL 5 MG TABLET PO PRN (13:00)
[2020-12-12 16:07] VITALS: BP 94/61
[2020-12-12 16:27] LABS: GLUCOMETER DEV NAME(LOC) 3E.C; GLUCOSE,POINT OF CARE 178 MG/DL (70-110)
[2020-12-12] MEDS: HydrOXYzine PAMOATE 50 MG CAPSULE PO SCH (20:35)
[2020-12-12] MEDS: DIVALPROEX SODIUM 500 MG DR TABLET PO SCH (20:35)
[2020-12-12] MEDS: SIMVASTATIN 10 MG TABLET PO SCH (20:36)
[2020-12-12] MEDS: QUEtiapine FUMARATE 200 MG ER TABLET PO SCH (20:36)
[2020-12-12 20:53] LABS: GLUCOMETER DEV NAME(LOC) 3E.C; GLUCOSE,POINT OF CARE 123 MG/DL (70-110)
[2020-12-13] MEDS: MetFORMIN HCL 500 MG TABLET PO SCH ×2 (07:10→17:07)
[2020-12-13] MEDS: FERROUS SULFATE 325 MG EC TABLET PO SCH (07:10)
[2020-12-13] MEDS: NICOTINE 14 MG/24 HOUR PATCH TD SCH (08:14)
[2020-12-13] MEDS: CHOLECALCIFEROL (VIT D3) 1,000 UNITS [25 MCG] TABLET PO SCH (08:14)
[2020-12-13 08:15] VITALS: BP 90/58
[2020-12-13] MEDS: THIAMINE 100 MG TABLET PO SCH (08:15)
[2020-12-13] MEDS: SitaGLIPtin PHOSPHATE 50 MG TABLET PO SCH ×2 (08:15→17:07)
[2020-12-13] MEDS: MULTIVITAMINS, THERAPEUTIC TABLET PO SCH (08:15)
[2020-12-13] MEDS: FOLIC ACID 1 MG TABLET PO SCH (08:15)
[2020-12-13] MEDS: DULoxetine HCL 30 MG CAPSULE PO SCH (08:15)
[2020-12-13] MEDS: ASPIRIN 81 MG DR TABLET PO SCH (08:15)
[2020-12-13 08:25] LABS: GLUCOMETER DEV NAME(LOC) 3E.C; GLUCOSE,POINT OF CARE 88 MG/DL (70-110)
[2020-12-13] MEDS: INSULIN GLARGINE,HUM.REC.ANLOG 100 UNITS/ML SQ SCH ×2 (08:28→17:12)
[2020-12-13] MEDS: INSULIN LISPRO 100 UNITS/ML SQ PRN ×2 (11:29→17:12)
[2020-12-13 11:37] LABS: GLUCOMETER DEV NAME(LOC) 3E.C; GLUCOSE,POINT OF CARE 221 MG/DL (70-110)
[2020-12-13 16:05] VITALS: BP 103/69
[2020-12-13 16:28] LABS: GLUCOMETER DEV NAME(LOC) 3E.C; GLUCOSE,POINT OF CARE 188 MG/DL (70-110)
[2020-12-13] MEDS: SIMVASTATIN 10 MG TABLET PO SCH (20:58)
[2020-12-13] MEDS: DIVALPROEX SODIUM 500 MG DR TABLET PO SCH (20:58)
[2020-12-13] MEDS: HydrOXYzine PAMOATE 50 MG CAPSULE PO SCH (20:58)
[2020-12-13] MEDS: QUEtiapine FUMARATE 200 MG ER TABLET PO SCH (20:59)
[2020-12-13 21:01] LABS: GLUCOMETER DEV NAME(LOC) 3E.C; GLUCOSE,POINT OF CARE 232 MG/DL (70-110)
[2020-12-14] MEDS: INSULIN GLARGINE,HUM.REC.ANLOG 100 UNITS/ML SQ SCH ×2 (08:25→17:08)
[2020-12-14] MEDS: DULoxetine HCL 30 MG CAPSULE PO SCH (08:26)
[2020-12-14] MEDS: SitaGLIPtin PHOSPHATE 50 MG TABLET PO SCH ×2 (08:26→16:55)
[2020-12-14] MEDS: INSULIN LISPRO 100 UNITS/ML SQ PRN ×4 (08:26→20:28)
[2020-12-14 08:28] LABS: GLUCOMETER DEV NAME(LOC) 3E.C; GLUCOSE,POINT OF CARE 142 MG/DL (70-110)
[2020-12-14] MEDS: MULTIVITAMINS, THERAPEUTIC TABLET PO SCH (08:32)
[2020-12-14] MEDS: ASPIRIN 81 MG DR TABLET PO SCH (08:32)
[2020-12-14] MEDS: CHOLECALCIFEROL (VIT D3) 1,000 UNITS [25 MCG] TABLET PO SCH (08:32)
[2020-12-14] MEDS: FOLIC ACID 1 MG TABLET PO SCH (08:32)
[2020-12-14] MEDS: MetFORMIN HCL 500 MG TABLET PO SCH ×2 (08:32→16:55)
[2020-12-14] MEDS: THIAMINE 100 MG TABLET PO SCH (08:32)
[2020-12-14] MEDS: NICOTINE 14 MG/24 HOUR PATCH TD SCH (08:33)
[2020-12-14] MEDS: FERROUS SULFATE 325 MG EC TABLET PO SCH (08:34)
[2020-12-14 10:07] VITALS: BP 98/66
[2020-12-14 11:33] LABS: GLUCOMETER DEV NAME(LOC) 3E.C; GLUCOSE,POINT OF CARE 179 MG/DL (70-110)
[2020-12-14] MEDS: LORazepam 2 MG TABLET PO PRN (12:37)
[2020-12-14] MEDS: HALOPERIDOL 5 MG TABLET PO PRN (12:37)
[2020-12-14 16:38] VITALS: BP 114/67
[2020-12-14 17:14] LABS: GLUCOMETER DEV NAME(LOC) 3E.C; GLUCOSE,POINT OF CARE 227 MG/DL (70-110)
[2020-12-14] MEDS: HydrOXYzine PAMOATE 50 MG CAPSULE PO SCH (20:11)
[2020-12-14] MEDS: DIVALPROEX SODIUM 500 MG DR TABLET PO SCH (20:12)
[2020-12-14] MEDS: QUEtiapine FUMARATE 200 MG ER TABLET PO SCH (20:12)
[2020-12-14] MEDS: SIMVASTATIN 10 MG TABLET PO SCH (20:12)
[2020-12-14 20:36] LABS: GLUCOMETER DEV NAME(LOC) 3E.C; GLUCOSE,POINT OF CARE 208 MG/DL (70-110)
[2020-12-15] MEDS: FERROUS SULFATE 325 MG EC TABLET PO SCH (07:30)
[2020-12-15] MEDS: MetFORMIN HCL 500 MG TABLET PO SCH ×2 (07:30→16:58)
[2020-12-15 07:36] LABS: GLUCOMETER DEV NAME(LOC) 3E.C; GLUCOSE,POINT OF CARE 120 MG/DL (70-110)
[2020-12-15] MEDS: INSULIN GLARGINE,HUM.REC.ANLOG 100 UNITS/ML SQ SCH ×2 (08:28→17:27)
[2020-12-15] MEDS: CHOLECALCIFEROL (VIT D3) 1,000 UNITS [25 MCG] TABLET PO SCH (08:30)
[2020-12-15] MEDS: MULTIVITAMINS, THERAPEUTIC TABLET PO SCH (08:30)
[2020-12-15] MEDS: DULoxetine HCL 30 MG CAPSULE PO SCH (08:30)
[2020-12-15] MEDS: SitaGLIPtin PHOSPHATE 50 MG TABLET PO SCH ×2 (08:30→16:57)
[2020-12-15] MEDS: FOLIC ACID 1 MG TABLET PO SCH (08:30)
[2020-12-15] MEDS: ASPIRIN 81 MG DR TABLET PO SCH (08:30)
[2020-12-15] MEDS: NICOTINE 14 MG/24 HOUR PATCH TD SCH (08:31)
[2020-12-15] MEDS: THIAMINE 100 MG TABLET PO SCH (08:31)
[2020-12-15] MEDS: INSULIN LISPRO 100 UNITS/ML SQ PRN ×2 (12:12→17:26)
[2020-12-15 12:28] LABS: GLUCOMETER DEV NAME(LOC) 3E.C; GLUCOSE,POINT OF CARE 188 MG/DL (70-110)
[2020-12-15 16:08] VITALS: BP 95/66
[2020-12-15 17:13] LABS: GLUCOMETER DEV NAME(LOC) 3E.C; GLUCOSE,POINT OF CARE 223 MG/DL (70-110)
[2020-12-15] MEDS: DIVALPROEX SODIUM 500 MG DR TABLET PO SCH (20:38)
[2020-12-15] MEDS: QUEtiapine FUMARATE 200 MG ER TABLET PO SCH (20:39)
[2020-12-15] MEDS: SIMVASTATIN 10 MG TABLET PO SCH (20:39)
[2020-12-15] MEDS: HydrOXYzine PAMOATE 50 MG CAPSULE PO SCH (20:40)
[2020-12-15 20:56] LABS: GLUCOMETER DEV NAME(LOC) 3E.C; GLUCOSE,POINT OF CARE 129 MG/DL (70-110)
[2020-12-16] MEDS: MetFORMIN HCL 500 MG TABLET PO SCH ×3 (06:32→17:37)
[2020-12-16] MEDS: FERROUS SULFATE 325 MG EC TABLET PO SCH ×2 (06:32→08:28)
[2020-12-16 08:00] VITALS: BP 96/56
[2020-12-16] MEDS: THIAMINE 100 MG TABLET PO SCH (08:27)
[2020-12-16] MEDS: FOLIC ACID 1 MG TABLET PO SCH (08:27)
[2020-12-16] MEDS: SitaGLIPtin PHOSPHATE 50 MG TABLET PO SCH ×2 (08:27→17:37)
[2020-12-16] MEDS: ASPIRIN 81 MG DR TABLET PO SCH (08:28)
[2020-12-16] MEDS: CHOLECALCIFEROL (VIT D3) 1,000 UNITS [25 MCG] TABLET PO SCH (08:28)
[2020-12-16] MEDS: DULoxetine HCL 30 MG CAPSULE PO SCH (08:28)
[2020-12-16] MEDS: MULTIVITAMINS, THERAPEUTIC TABLET PO SCH (08:29)
[2020-12-16] MEDS: NICOTINE 14 MG/24 HOUR PATCH TD SCH (08:35)
[2020-12-16 08:46] LABS: GLUCOMETER DEV NAME(LOC) 3E.C; GLUCOSE,POINT OF CARE 213 MG/DL (70-110)
[2020-12-16] MEDS: LORazepam 2 MG TABLET PO PRN (09:02)
[2020-12-16] MEDS: HALOPERIDOL 5 MG TABLET PO PRN (09:03)
[2020-12-16] MEDS: INSULIN GLARGINE,HUM.REC.ANLOG 100 UNITS/ML SQ SCH ×2 (09:08→17:42)
[2020-12-16 11:31] LABS: GLUCOMETER DEV NAME(LOC) 3E.C; GLUCOSE,POINT OF CARE 164 MG/DL (70-110)
[2020-12-16] MEDS: INSULIN LISPRO 100 UNITS/ML SQ PRN ×3 (13:19→22:18)
[2020-12-16 16:22] VITALS: BP 116/81
[2020-12-16 16:57] LABS: GLUCOMETER DEV NAME(LOC) 3E.C; GLUCOSE,POINT OF CARE 154 MG/DL (70-110)
[2020-12-16] MEDS: DIVALPROEX SODIUM 500 MG DR TABLET PO SCH (21:06)
[2020-12-16] MEDS: SIMVASTATIN 10 MG TABLET PO SCH (21:07)
[2020-12-16] MEDS: HydrOXYzine PAMOATE 50 MG CAPSULE PO SCH (21:07)
[2020-12-16] MEDS: QUEtiapine FUMARATE 200 MG ER TABLET PO SCH (21:07)
[2020-12-16 21:17] LABS: GLUCOMETER DEV NAME(LOC) 3E.C; GLUCOSE,POINT OF CARE 209 MG/DL (70-110)
[2020-12-17 07:10] LABS: GLUCOMETER DEV NAME(LOC) 3E.C; GLUCOSE,POINT OF CARE 86 MG/DL (70-110)
[2020-12-17 08:00] VITALS: BP 97/62
[2020-12-17] MEDS: FERROUS SULFATE 325 MG EC TABLET PO SCH (08:30)
[2020-12-17] MEDS: MetFORMIN HCL 500 MG TABLET PO SCH ×2 (08:30→16:49)
[2020-12-17] MEDS: THIAMINE 100 MG TABLET PO SCH (08:35)
[2020-12-17] MEDS: ASPIRIN 81 MG DR TABLET PO SCH (08:35)
[2020-12-17] MEDS: NICOTINE 14 MG/24 HOUR PATCH TD SCH (08:35)
[2020-12-17] MEDS: MULTIVITAMINS, THERAPEUTIC TABLET PO SCH (08:36)
[2020-12-17] MEDS: FOLIC ACID 1 MG TABLET PO SCH (08:36)
[2020-12-17] MEDS: CHOLECALCIFEROL (VIT D3) 1,000 UNITS [25 MCG] TABLET PO SCH (08:36)
[2020-12-17] MEDS: DULoxetine HCL 30 MG CAPSULE PO SCH (08:37)
[2020-12-17] MEDS: SitaGLIPtin PHOSPHATE 50 MG TABLET PO SCH ×2 (08:38→16:49)
[2020-12-17] MEDS: INSULIN GLARGINE,HUM.REC.ANLOG 100 UNITS/ML SQ SCH ×2 (08:43→17:20)
[2020-12-17] MEDS: HALOPERIDOL 5 MG TABLET PO PRN (08:49)
[2020-12-17] MEDS: LORazepam 2 MG TABLET PO PRN (08:49)
[2020-12-17 11:40] LABS: GLUCOMETER DEV NAME(LOC) 3E.C; GLUCOSE,POINT OF CARE 225 MG/DL (70-110)
[2020-12-17] MEDS: INSULIN LISPRO 100 UNITS/ML SQ PRN ×3 (13:17→20:54)
[2020-12-17 17:10] LABS: GLUCOMETER DEV NAME(LOC) 3E.C; GLUCOSE,POINT OF CARE 158 MG/DL (70-110)
[2020-12-17 17:24] VITALS: BP 131/78
[2020-12-17] MEDS: QUEtiapine FUMARATE 200 MG ER TABLET PO SCH (20:23)
[2020-12-17] MEDS: HydrOXYzine PAMOATE 50 MG CAPSULE PO SCH (20:23)
[2020-12-17] MEDS: DIVALPROEX SODIUM 500 MG DR TABLET PO SCH (20:23)
[2020-12-17] MEDS: SIMVASTATIN 10 MG TABLET PO SCH (20:23)
[2020-12-17 21:07] LABS: GLUCOMETER DEV NAME(LOC) 3E.C; GLUCOSE,POINT OF CARE 146 MG/DL (70-110)
[2020-12-18] MEDS: FERROUS SULFATE 325 MG EC TABLET PO SCH (07:10)
[2020-12-18] MEDS: MetFORMIN HCL 500 MG TABLET PO SCH ×2 (07:10→17:11)
[2020-12-18] MEDS: MULTIVITAMINS, THERAPEUTIC TABLET PO SCH (08:38)
[2020-12-18] MEDS: ASPIRIN 81 MG DR TABLET PO SCH (08:38)
[2020-12-18] MEDS: SitaGLIPtin PHOSPHATE 50 MG TABLET PO SCH ×2 (08:39→17:10)
[2020-12-18] MEDS: DULoxetine HCL 30 MG CAPSULE PO SCH (08:39)
[2020-12-18] MEDS: CHOLECALCIFEROL (VIT D3) 1,000 UNITS [25 MCG] TABLET PO SCH (08:39)
[2020-12-18] MEDS: FOLIC ACID 1 MG TABLET PO SCH (08:39)
[2020-12-18] MEDS: THIAMINE 100 MG TABLET PO SCH (08:39)
[2020-12-18] MEDS: NICOTINE 14 MG/24 HOUR PATCH TD SCH (08:40)
[2020-12-18] MEDS: INSULIN GLARGINE,HUM.REC.ANLOG 100 UNITS/ML SQ SCH ×2 (08:48→17:13)
[2020-12-18 08:49] LABS: GLUCOMETER DEV NAME(LOC) 3E.C; GLUCOSE,POINT OF CARE 74 MG/DL (70-110)
[2020-12-18 11:38] LABS: GLUCOMETER DEV NAME(LOC) 3E.C; GLUCOSE,POINT OF CARE 262 MG/DL (70-110)
[2020-12-18] MEDS: INSULIN LISPRO 100 UNITS/ML SQ PRN ×2 (12:19→17:14)
[2020-12-18 16:00] VITALS: BP 99/72
[2020-12-18 16:33] LABS: COVID AG,FIA SOURCE NASOPHARYNGEAL
[2020-12-18] MEDS: IBUPROFEN 400 MG TABLET PO PRN (17:02)
[2020-12-18 17:22] LABS: GLUCOMETER DEV NAME(LOC) 3E.C; GLUCOSE,POINT OF CARE 286 MG/DL (70-110)
[2020-12-18] MEDS: QUEtiapine FUMARATE 200 MG ER TABLET PO SCH (20:38)
[2020-12-18] MEDS: SIMVASTATIN 10 MG TABLET PO SCH (20:38)
[2020-12-18] MEDS: DIVALPROEX SODIUM 500 MG DR TABLET PO SCH (20:38)
[2020-12-18] MEDS: HydrOXYzine PAMOATE 50 MG CAPSULE PO SCH (20:39)
[2020-12-18 20:48] LABS: GLUCOMETER DEV NAME(LOC) 3E.C; GLUCOSE,POINT OF CARE 129 MG/DL (70-110)
[2020-12-19] MEDS: FERROUS SULFATE 325 MG EC TABLET PO SCH (06:45)
[2020-12-19] MEDS: MetFORMIN HCL 500 MG TABLET PO SCH ×2 (06:46→17:44)
[2020-12-19 08:00] VITALS: BP 107/60
[2020-12-19 08:05] LABS: GLUCOMETER DEV NAME(LOC) 3E.C; GLUCOSE,POINT OF CARE 122 MG/DL (70-110)
[2020-12-19] MEDS: DULoxetine HCL 30 MG CAPSULE PO SCH (08:20)
[2020-12-19] MEDS: SitaGLIPtin PHOSPHATE 50 MG TABLET PO SCH ×2 (08:21→17:44)
[2020-12-19] MEDS: FOLIC ACID 1 MG TABLET PO SCH (08:21)
[2020-12-19] MEDS: THIAMINE 100 MG TABLET PO SCH (08:21)
[2020-12-19] MEDS: MULTIVITAMINS, THERAPEUTIC TABLET PO SCH (08:21)
[2020-12-19] MEDS: CHOLECALCIFEROL (VIT D3) 1,000 UNITS [25 MCG] TABLET PO SCH (08:21)
[2020-12-19] MEDS: ASPIRIN 81 MG DR TABLET PO SCH (08:22)
[2020-12-19] MEDS: INSULIN GLARGINE,HUM.REC.ANLOG 100 UNITS/ML SQ SCH ×2 (08:26→17:19)
[2020-12-19] MEDS: NICOTINE 14 MG/24 HOUR PATCH TD SCH (08:34)
[2020-12-19 11:42] LABS: GLUCOMETER DEV NAME(LOC) 3E.C; GLUCOSE,POINT OF CARE 141 MG/DL (70-110)
[2020-12-19] MEDS: INSULIN LISPRO 100 UNITS/ML SQ PRN ×3 (12:18→20:38)
[2020-12-19 16:32] VITALS: BP 114/83
[2020-12-19 17:04] LABS: GLUCOMETER DEV NAME(LOC) 3E.C; GLUCOSE,POINT OF CARE 209 MG/DL (70-110)
[2020-12-19] MEDS: QUEtiapine FUMARATE 200 MG ER TABLET PO SCH (20:36)
[2020-12-19] MEDS: DIVALPROEX SODIUM 500 MG DR TABLET PO SCH (20:36)
[2020-12-19] MEDS: HydrOXYzine PAMOATE 50 MG CAPSULE PO SCH (20:37)
[2020-12-19] MEDS: SIMVASTATIN 10 MG TABLET PO SCH (20:37)
[2020-12-19 20:46] LABS: GLUCOMETER DEV NAME(LOC) 3E.C; GLUCOSE,POINT OF CARE 185 MG/DL (70-110)
[2020-12-20] MEDS: THIAMINE 100 MG TABLET PO SCH (08:19)
[2020-12-20] MEDS: FOLIC ACID 1 MG TABLET PO SCH (08:19)
[2020-12-20] MEDS: MULTIVITAMINS, THERAPEUTIC TABLET PO SCH (08:19)
[2020-12-20] MEDS: FERROUS SULFATE 325 MG EC TABLET PO SCH (08:20)
[2020-12-20] MEDS: SitaGLIPtin PHOSPHATE 50 MG TABLET PO SCH ×2 (08:20→16:48)
[2020-12-20] MEDS: CHOLECALCIFEROL (VIT D3) 1,000 UNITS [25 MCG] TABLET PO SCH (08:20)
[2020-12-20] MEDS: MetFORMIN HCL 500 MG TABLET PO SCH ×2 (08:20→17:27)
[2020-12-20] MEDS: ASPIRIN 81 MG DR TABLET PO SCH (08:20)
[2020-12-20] MEDS: DULoxetine HCL 30 MG CAPSULE PO SCH (08:22)
[2020-12-20] MEDS: NICOTINE 14 MG/24 HOUR PATCH TD SCH (08:22)
[2020-12-20 08:30] LABS: GLUCOMETER DEV NAME(LOC) 3E.C; GLUCOSE,POINT OF CARE 145 MG/DL (70-110)
[2020-12-20] MEDS: INSULIN GLARGINE,HUM.REC.ANLOG 100 UNITS/ML SQ SCH ×2 (08:34→17:24)
[2020-12-20 09:20] VITALS: BP 83/56
[2020-12-20 11:34] LABS: GLUCOMETER DEV NAME(LOC) 3E.C; GLUCOSE,POINT OF CARE 251 MG/DL (70-110)
[2020-12-20] MEDS: INSULIN LISPRO 100 UNITS/ML SQ PRN ×2 (12:16→17:22)
[2020-12-20 12:30] VITALS: BP 77/33
[2020-12-20 15:00] VITALS: BP 93/56
[2020-12-20 16:22] VITALS: BP 120/95
[2020-12-20 16:35] LABS: GLUCOMETER DEV NAME(LOC) 3E.C; GLUCOSE,POINT OF CARE 158 MG/DL (70-110)
[2020-12-20] MEDS: DIVALPROEX SODIUM 500 MG DR TABLET PO SCH (20:39)
[2020-12-20] MEDS: QUEtiapine FUMARATE 200 MG ER TABLET PO SCH (20:39)
[2020-12-20] MEDS: SIMVASTATIN 10 MG TABLET PO SCH (20:40)
[2020-12-20] MEDS: HydrOXYzine PAMOATE 50 MG CAPSULE PO SCH (20:40)
[2020-12-20 21:10] LABS: GLUCOMETER DEV NAME(LOC) 3E.C; GLUCOSE,POINT OF CARE 124 MG/DL (70-110)
[2020-12-21] MEDS: ZOLPIDEM TARTRATE 10 MG TABLET PO PRN (00:37)
[2020-12-21] MEDS: FERROUS SULFATE 325 MG EC TABLET PO SCH (08:30)
[2020-12-21] MEDS: MetFORMIN HCL 500 MG TABLET PO SCH ×2 (08:30→17:19)
[2020-12-21] MEDS: CHOLECALCIFEROL (VIT D3) 1,000 UNITS [25 MCG] TABLET PO SCH (09:52)
[2020-12-21] MEDS: ASPIRIN 81 MG DR TABLET PO SCH (09:52)
[2020-12-21] MEDS: THIAMINE 100 MG TABLET PO SCH (09:52)
[2020-12-21] MEDS: MULTIVITAMINS, THERAPEUTIC TABLET PO SCH (09:52)
[2020-12-21] MEDS: DULoxetine HCL 30 MG CAPSULE PO SCH (09:52)
[2020-12-21] MEDS: FOLIC ACID 1 MG TABLET PO SCH (09:52)
[2020-12-21] MEDS: NICOTINE 14 MG/24 HOUR PATCH TD SCH (09:53)
[2020-12-21] MEDS: SitaGLIPtin PHOSPHATE 50 MG TABLET PO SCH ×2 (09:53→16:40)
[2020-12-21 10:01] LABS: GLUCOMETER DEV NAME(LOC) 3E.C; GLUCOSE,POINT OF CARE 115 MG/DL (70-110)
[2020-12-21] MEDS: INSULIN GLARGINE,HUM.REC.ANLOG 100 UNITS/ML SQ SCH ×2 (10:01→16:53)
[2020-12-21 11:55] LABS: GLUCOMETER DEV NAME(LOC) 3E.C; GLUCOSE,POINT OF CARE 132 MG/DL (70-110)
[2020-12-21 16:12] VITALS: BP 100/69
[2020-12-21 16:22] LABS: GLUCOMETER DEV NAME(LOC) 3E.C; GLUCOSE,POINT OF CARE 188 MG/DL (70-110)
[2020-12-21] MEDS: INSULIN LISPRO 100 UNITS/ML SQ PRN ×2 (16:53→20:44)
[2020-12-21] MEDS: DIVALPROEX SODIUM 500 MG DR TABLET PO SCH (20:32)
[2020-12-21] MEDS: HydrOXYzine PAMOATE 50 MG CAPSULE PO SCH (20:33)
[2020-12-21] MEDS: QUEtiapine FUMARATE 200 MG ER TABLET PO SCH (20:33)
[2020-12-21] MEDS: SIMVASTATIN 10 MG TABLET PO SCH (20:33)
[2020-12-21 20:56] LABS: GLUCOMETER DEV NAME(LOC) 3E.C; GLUCOSE,POINT OF CARE 175 MG/DL (70-110)
[2020-12-22] MEDS: MetFORMIN HCL 500 MG TABLET PO SCH ×2 (08:25→17:26)
[2020-12-22] MEDS: FERROUS SULFATE 325 MG EC TABLET PO SCH (08:25)
[2020-12-22 08:45] LABS: GLUCOMETER DEV NAME(LOC) 3E.C; GLUCOSE,POINT OF CARE 166 MG/DL (70-110)
[2020-12-22] MEDS: SitaGLIPtin PHOSPHATE 50 MG TABLET PO SCH ×2 (08:46→16:58)
[2020-12-22] MEDS: DULoxetine HCL 30 MG CAPSULE PO SCH (08:47)
[2020-12-22] MEDS: THIAMINE 100 MG TABLET PO SCH (08:47)
[2020-12-22] MEDS: CHOLECALCIFEROL (VIT D3) 1,000 UNITS [25 MCG] TABLET PO SCH (08:47)
[2020-12-22] MEDS: ASPIRIN 81 MG DR TABLET PO SCH (08:47)
[2020-12-22] MEDS: MULTIVITAMINS, THERAPEUTIC TABLET PO SCH (08:48)
[2020-12-22] MEDS: FOLIC ACID 1 MG TABLET PO SCH (08:48)
[2020-12-22] MEDS: NICOTINE 14 MG/24 HOUR PATCH TD SCH (08:50)
[2020-12-22] MEDS: INSULIN GLARGINE,HUM.REC.ANLOG 100 UNITS/ML SQ SCH ×2 (08:51→16:57)
[2020-12-22] MEDS: INSULIN LISPRO 100 UNITS/ML SQ PRN ×3 (12:05→20:44)
[2020-12-22 12:10] LABS: GLUCOMETER DEV NAME(LOC) 3E.C; GLUCOSE,POINT OF CARE 207 MG/DL (70-110)
[2020-12-22 16:34] VITALS: BP 113/68
[2020-12-22 16:49] LABS: GLUCOMETER DEV NAME(LOC) 3E.C; GLUCOSE,POINT OF CARE 152 MG/DL (70-110)
[2020-12-22] MEDS: LORazepam 2 MG TABLET PO PRN (18:07)
[2020-12-22] MEDS: QUEtiapine FUMARATE 200 MG ER TABLET PO SCH (20:37)
[2020-12-22] MEDS: SIMVASTATIN 10 MG TABLET PO SCH (20:37)
[2020-12-22] MEDS: HydrOXYzine PAMOATE 50 MG CAPSULE PO SCH (20:37)
[2020-12-22] MEDS: DIVALPROEX SODIUM 500 MG DR TABLET PO SCH (20:38)
[2020-12-22 20:54] LABS: GLUCOMETER DEV NAME(LOC) 3E.C; GLUCOSE,POINT OF CARE 151 MG/DL (70-110)
[2020-12-23 06:52] LABS: GLUCOMETER DEV NAME(LOC) 3E.C; GLUCOSE,POINT OF CARE 70 MG/DL (70-110)
[2020-12-23 07:18] LABS: BASOPHILS % (AUTO) 0.6 % (0.0-2.0); EOSINOPHILS % (AUTO) 4.7 % (1.0-6.0); HEMATOCRIT 39.3 % (41-53); HEMOGLOBIN 13.3 g/dL (13.5-17.5); LYMPHOCYTES # (AUTO) 2.5 K/uL (1.0-4.8); LYMPHOCYTES % (AUTO) 43.1 % (22.0-44.0); MEAN CORPUSCULAR HEMOGLOBIN 29.5 pg (26.0-34.0); MEAN CORPUSCULAR HGB CONC 33.9 G/dL (31.0-37.0); MEAN CORPUSCULAR VOLUME 87 fL (80-100); MONOCYTES # (AUTO) 0.4 K/uL (0.1-1.0); MONOCYTES % (AUTO) 7.7 % (2.0-9.0); NEUTROPHILS # (AUTO) 2.5 K/uL (1.8-7.7); NEUTROPHILS % (AUTO) 43.9 % (40.0-70.0); PLATELET COUNT (AUTO) 197 K/uL (150-450); RED BLOOD CELL COUNT(AUTO) 4.52 MIL/uL (4.50-5.90); RED CELL DISTRIBUTION WIDTH 13.4 % (11.5-14.5)
[2020-12-23 07:43] LABS: ANION GAP 8 mmol/L (8-16); CALCIUM, TOTAL 8.8 mg/dL (8.8-10.5); CARBON DIOXIDE 28 mmol/L (22-29); CHLORIDE 109 mmol/L (98-107); CREATININE 0.91 mg/dL (0.60-1.30); GLOMERULAR FILTR. RATE CALC > 60 mL/min (>60); GLUCOSE,RANDOM 78 mg/dL (70-110); POTASSIUM 4.4 mmol/L (3.5-5.1); SODIUM SERUM 145 mmol/L (136-145); UREA NITROGEN, BLOOD 12 mg/dL (7-18)
[2020-12-23 08:10] VITALS: BP 99/61
[2020-12-23] MEDS: MetFORMIN HCL 500 MG TABLET PO SCH ×2 (08:30→16:40)
[2020-12-23] MEDS: FERROUS SULFATE 325 MG EC TABLET PO SCH (08:30)
[2020-12-23] MEDS: ASPIRIN 81 MG DR TABLET PO SCH (09:33)
[2020-12-23] MEDS: THIAMINE 100 MG TABLET PO SCH (09:34)
[2020-12-23] MEDS: FOLIC ACID 1 MG TABLET PO SCH (09:34)
[2020-12-23] MEDS: CHOLECALCIFEROL (VIT D3) 1,000 UNITS [25 MCG] TABLET PO SCH (09:34)
[2020-12-23] MEDS: DULoxetine HCL 30 MG CAPSULE PO SCH (09:34)
[2020-12-23] MEDS: MULTIVITAMINS, THERAPEUTIC TABLET PO SCH (09:34)
[2020-12-23] MEDS: NICOTINE 14 MG/24 HOUR PATCH TD SCH (09:35)
[2020-12-23] MEDS: SitaGLIPtin PHOSPHATE 50 MG TABLET PO SCH ×2 (09:35→16:40)
[2020-12-23] MEDS: INSULIN GLARGINE,HUM.REC.ANLOG 100 UNITS/ML SQ SCH ×2 (09:44→16:51)
[2020-12-23 10:58] LABS: GLUCOMETER DEV NAME(LOC) 3E.I 2; GLUCOSE,POINT OF CARE 173 MG/DL (70-110)
[2020-12-23] MEDS: INSULIN LISPRO 100 UNITS/ML SQ PRN ×3 (12:41→21:03)
[2020-12-23 16:00] VITALS: BP 101/67
[2020-12-23 17:06] LABS: GLUCOMETER DEV NAME(LOC) 3E.C; GLUCOSE,POINT OF CARE 196 MG/DL (70-110)
[2020-12-23] MEDS: QUEtiapine FUMARATE 200 MG ER TABLET PO SCH (20:53)
[2020-12-23] MEDS: HydrOXYzine PAMOATE 50 MG CAPSULE PO SCH (20:54)
[2020-12-23] MEDS: DIVALPROEX SODIUM 500 MG DR TABLET PO SCH (20:54)
[2020-12-23] MEDS: SIMVASTATIN 10 MG TABLET PO SCH (20:55)
[2020-12-23 21:12] LABS: GLUCOMETER DEV NAME(LOC) 3E.C; GLUCOSE,POINT OF CARE 197 MG/DL (70-110)
[2020-12-24 08:00] VITALS: BP 88/57
[2020-12-24] MEDS: MULTIVITAMINS, THERAPEUTIC TABLET PO SCH (09:04)
[2020-12-24] MEDS: ASPIRIN 81 MG DR TABLET PO SCH (09:04)
[2020-12-24] MEDS: SitaGLIPtin PHOSPHATE 50 MG TABLET PO SCH ×2 (09:05→16:55)
[2020-12-24] MEDS: CHOLECALCIFEROL (VIT D3) 1,000 UNITS [25 MCG] TABLET PO SCH (09:05)
[2020-12-24] MEDS: FERROUS SULFATE 325 MG EC TABLET PO SCH (09:05)
[2020-12-24] MEDS: MetFORMIN HCL 500 MG TABLET PO SCH ×2 (09:05→17:37)
[2020-12-24] MEDS: FOLIC ACID 1 MG TABLET PO SCH (09:05)
[2020-12-24] MEDS: THIAMINE 100 MG TABLET PO SCH (09:06)
[2020-12-24] MEDS: DULoxetine HCL 30 MG CAPSULE PO SCH (09:06)
[2020-12-24] MEDS: NICOTINE 14 MG/24 HOUR PATCH TD SCH (09:09)
[2020-12-24 09:13] LABS: GLUCOMETER DEV NAME(LOC) 3E.C; GLUCOSE,POINT OF CARE 81 MG/DL (70-110)
[2020-12-24] MEDS: INSULIN GLARGINE,HUM.REC.ANLOG 100 UNITS/ML SQ SCH ×2 (09:17→16:57)
[2020-12-24 11:23] LABS: GLUCOMETER DEV NAME(LOC) 3E.C; GLUCOSE,POINT OF CARE 128 MG/DL (70-110)
[2020-12-24] MEDS: IBUPROFEN 400 MG TABLET PO PRN (15:56)
[2020-12-24 16:12] LABS: GLUCOMETER DEV NAME(LOC) 3E.C; GLUCOSE,POINT OF CARE 161 MG/DL (70-110)
[2020-12-24 16:15] VITALS: BP 94/65
[2020-12-24] MEDS: INSULIN LISPRO 100 UNITS/ML SQ PRN ×2 (16:57→20:41)
[2020-12-24 18:00] VITALS: BP 102/62
[2020-12-24] MEDS: DIVALPROEX SODIUM 500 MG DR TABLET PO SCH (20:32)
[2020-12-24] MEDS: QUEtiapine FUMARATE 200 MG ER TABLET PO SCH (20:33)
[2020-12-24] MEDS: SIMVASTATIN 10 MG TABLET PO SCH (20:33)
[2020-12-24] MEDS: HydrOXYzine PAMOATE 50 MG CAPSULE PO SCH (20:33)
[2020-12-24 20:50] LABS: GLUCOMETER DEV NAME(LOC) 3E.C; GLUCOSE,POINT OF CARE 170 MG/DL (70-110)
[2020-12-25 08:10] VITALS: BP 82/63
[2020-12-25] MEDS: SitaGLIPtin PHOSPHATE 50 MG TABLET PO SCH ×2 (08:33→17:01)
[2020-12-25] MEDS: MetFORMIN HCL 500 MG TABLET PO SCH ×2 (08:33→17:01)
[2020-12-25] MEDS: MULTIVITAMINS, THERAPEUTIC TABLET PO SCH (08:33)
[2020-12-25] MEDS: CHOLECALCIFEROL (VIT D3) 1,000 UNITS [25 MCG] TABLET PO SCH (08:34)
[2020-12-25] MEDS: FOLIC ACID 1 MG TABLET PO SCH (08:34)
[2020-12-25] MEDS: DULoxetine HCL 30 MG CAPSULE PO SCH (08:34)
[2020-12-25] MEDS: ASPIRIN 81 MG DR TABLET PO SCH (08:34)
[2020-12-25] MEDS: FERROUS SULFATE 325 MG EC TABLET PO SCH (08:34)
[2020-12-25 08:36] LABS: GLUCOMETER DEV NAME(LOC) 3E.C; GLUCOSE,POINT OF CARE 66 MG/DL (70-110)
[2020-12-25] MEDS: THIAMINE 100 MG TABLET PO SCH (08:46)
[2020-12-25] MEDS: NICOTINE 14 MG/24 HOUR PATCH TD SCH (08:46)
[2020-12-25] MEDS: INSULIN GLARGINE,HUM.REC.ANLOG 100 UNITS/ML SQ SCH ×2 (08:52→17:02)
[2020-12-25 10:26] LABS: COVID AG,FIA SOURCE NASOPHARYNGEAL
[2020-12-25 11:28] LABS: GLUCOMETER DEV NAME(LOC) 3E.C; GLUCOSE,POINT OF CARE 214 MG/DL (70-110)
[2020-12-25] MEDS: INSULIN LISPRO 100 UNITS/ML SQ PRN (12:11)
[2020-12-25 16:18] VITALS: BP 90/59
[2020-12-25 16:57] LABS: GLUCOMETER DEV NAME(LOC) 3E.C; GLUCOSE,POINT OF CARE 122 MG/DL (70-110)
[2020-12-25] MEDS: QUEtiapine FUMARATE 200 MG ER TABLET PO SCH (20:51)
[2020-12-25] MEDS: SIMVASTATIN 10 MG TABLET PO SCH (20:52)
[2020-12-25] MEDS: DIVALPROEX SODIUM 500 MG DR TABLET PO SCH (20:52)
[2020-12-25] MEDS: HydrOXYzine PAMOATE 50 MG CAPSULE PO SCH (20:52)
[2020-12-25 21:03] LABS: GLUCOMETER DEV NAME(LOC) 3E.C; GLUCOSE,POINT OF CARE 97 MG/DL (70-110)
[2020-12-26] MEDS: THIAMINE 100 MG TABLET PO SCH (08:28)
[2020-12-26] MEDS: NICOTINE 14 MG/24 HOUR PATCH TD SCH (08:28)
[2020-12-26] MEDS: HALOPERIDOL 5 MG TABLET PO PRN (08:28)
[2020-12-26] MEDS: MULTIVITAMINS, THERAPEUTIC TABLET PO SCH (08:28)
[2020-12-26] MEDS: CHOLECALCIFEROL (VIT D3) 1,000 UNITS [25 MCG] TABLET PO SCH (08:28)
[2020-12-26] MEDS: SitaGLIPtin PHOSPHATE 50 MG TABLET PO SCH ×2 (08:29→16:51)
[2020-12-26] MEDS: ASPIRIN 81 MG DR TABLET PO SCH (08:29)
[2020-12-26] MEDS: FERROUS SULFATE 325 MG EC TABLET PO SCH (08:29)
[2020-12-26] MEDS: LORazepam 2 MG TABLET PO PRN (08:29)
[2020-12-26] MEDS: DULoxetine HCL 30 MG CAPSULE PO SCH (08:29)
[2020-12-26] MEDS: FOLIC ACID 1 MG TABLET PO SCH (08:30)
[2020-12-26] MEDS: MetFORMIN HCL 500 MG TABLET PO SCH ×2 (08:30→16:51)
[2020-12-26] MEDS: INSULIN GLARGINE,HUM.REC.ANLOG 100 UNITS/ML SQ SCH ×2 (08:32→16:59)
[2020-12-26 08:39] LABS: GLUCOMETER DEV NAME(LOC) 3E.C; GLUCOSE,POINT OF CARE 140 MG/DL (70-110)
[2020-12-26 11:26] LABS: GLUCOMETER DEV NAME(LOC) 3E.C; GLUCOSE,POINT OF CARE 188 MG/DL (70-110)
[2020-12-26] MEDS: INSULIN LISPRO 100 UNITS/ML SQ PRN ×2 (12:49→16:56)
[2020-12-26 16:47] VITALS: BP 105/68
[2020-12-26 17:02] LABS: GLUCOMETER DEV NAME(LOC) 3E.C; GLUCOSE,POINT OF CARE 157 MG/DL (70-110)
[2020-12-26] MEDS: QUEtiapine FUMARATE 200 MG ER TABLET PO SCH (21:47)
[2020-12-26] MEDS: SIMVASTATIN 10 MG TABLET PO SCH (21:47)
[2020-12-26] MEDS: HydrOXYzine PAMOATE 50 MG CAPSULE PO SCH (21:47)
[2020-12-26] MEDS: DIVALPROEX SODIUM 500 MG DR TABLET PO SCH (21:49)
[2020-12-26 23:26] LABS: GLUCOMETER DEV NAME(LOC) 3E.C; GLUCOSE,POINT OF CARE 96 MG/DL (70-110)
[2020-12-27] MEDS: CHOLECALCIFEROL (VIT D3) 1,000 UNITS [25 MCG] TABLET PO SCH (08:20)
[2020-12-27] MEDS: MetFORMIN HCL 500 MG TABLET PO SCH ×2 (08:20→17:32)
[2020-12-27] MEDS: MULTIVITAMINS, THERAPEUTIC TABLET PO SCH (08:20)
[2020-12-27] MEDS: FERROUS SULFATE 325 MG EC TABLET PO SCH (08:20)
[2020-12-27] MEDS: FOLIC ACID 1 MG TABLET PO SCH (08:20)
[2020-12-27] MEDS: THIAMINE 100 MG TABLET PO SCH (08:20)
[2020-12-27] MEDS: ASPIRIN 81 MG DR TABLET PO SCH (08:21)
[2020-12-27] MEDS: SitaGLIPtin PHOSPHATE 50 MG TABLET PO SCH ×2 (08:21→16:44)
[2020-12-27] MEDS: DULoxetine HCL 30 MG CAPSULE PO SCH (08:21)
[2020-12-27] MEDS: NICOTINE 14 MG/24 HOUR PATCH TD SCH (08:22)
[2020-12-27] MEDS: INSULIN GLARGINE,HUM.REC.ANLOG 100 UNITS/ML SQ SCH ×2 (08:28→16:46)
[2020-12-27 08:30] VITALS: BP 108/77
[2020-12-27 08:37] LABS: GLUCOMETER DEV NAME(LOC) 3E.C; GLUCOSE,POINT OF CARE 103 MG/DL (70-110)
[2020-12-27] MEDS: INSULIN LISPRO 100 UNITS/ML SQ PRN ×2 (11:43→16:46)
[2020-12-27 11:46] LABS: GLUCOMETER DEV NAME(LOC) 3E.C; GLUCOSE,POINT OF CARE 183 MG/DL (70-110)
[2020-12-27 16:14] VITALS: BP 90/60
[2020-12-27 16:17] LABS: GLUCOMETER DEV NAME(LOC) 3E.C; GLUCOSE,POINT OF CARE 160 MG/DL (70-110)
[2020-12-27 17:30] VITALS: BP 101/59
[2020-12-27] MEDS: HydrOXYzine PAMOATE 50 MG CAPSULE PO SCH (20:34)
[2020-12-27] MEDS: QUEtiapine FUMARATE 200 MG ER TABLET PO SCH (20:35)
[2020-12-27] MEDS: DIVALPROEX SODIUM 500 MG DR TABLET PO SCH (20:35)
[2020-12-27] MEDS: SIMVASTATIN 10 MG TABLET PO SCH (20:36)
[2020-12-27 20:53] LABS: GLUCOMETER DEV NAME(LOC) 3E.C; GLUCOSE,POINT OF CARE 116 MG/DL (70-110)
[2020-12-28] MEDS: NICOTINE 14 MG/24 HOUR PATCH TD SCH (08:02)
[2020-12-28] MEDS: SitaGLIPtin PHOSPHATE 50 MG TABLET PO SCH ×2 (08:05→17:15)
[2020-12-28] MEDS: MULTIVITAMINS, THERAPEUTIC TABLET PO SCH (08:06)
[2020-12-28] MEDS: MetFORMIN HCL 500 MG TABLET PO SCH ×2 (08:06→17:24)
[2020-12-28] MEDS: ASPIRIN 81 MG DR TABLET PO SCH (08:07)
[2020-12-28] MEDS: DULoxetine HCL 30 MG CAPSULE PO SCH (08:07)
[2020-12-28] MEDS: FOLIC ACID 1 MG TABLET PO SCH (08:07)
[2020-12-28 08:08] VITALS: BP 95/66
[2020-12-28] MEDS: FERROUS SULFATE 325 MG EC TABLET PO SCH (08:08)
[2020-12-28] MEDS: CHOLECALCIFEROL (VIT D3) 1,000 UNITS [25 MCG] TABLET PO SCH (08:08)
[2020-12-28] MEDS: INSULIN GLARGINE,HUM.REC.ANLOG 100 UNITS/ML SQ SCH ×2 (08:25→16:36)
[2020-12-28] MEDS: THIAMINE 100 MG TABLET PO SCH (08:26)
[2020-12-28 08:34] LABS: GLUCOMETER DEV NAME(LOC) 3E.C; GLUCOSE,POINT OF CARE 180 MG/DL (70-110)
[2020-12-28 11:28] LABS: GLUCOMETER DEV NAME(LOC) 3E.C; GLUCOSE,POINT OF CARE 95 MG/DL (70-110)
[2020-12-28 16:44] LABS: GLUCOMETER DEV NAME(LOC) 3E.C; GLUCOSE,POINT OF CARE 125 MG/DL (70-110)
[2020-12-28 17:32] VITALS: BP 102/64
[2020-12-28] MEDS: SIMVASTATIN 10 MG TABLET PO SCH (20:40)
[2020-12-28] MEDS: QUEtiapine FUMARATE 200 MG ER TABLET PO SCH (20:41)
[2020-12-28] MEDS: HydrOXYzine PAMOATE 50 MG CAPSULE PO SCH (20:41)
[2020-12-28] MEDS: DIVALPROEX SODIUM 500 MG DR TABLET PO SCH (20:41)
[2020-12-28] MEDS: INSULIN LISPRO 100 UNITS/ML SQ PRN (20:51)
[2020-12-28 20:58] LABS: GLUCOMETER DEV NAME(LOC) 3E.C; GLUCOSE,POINT OF CARE 174 MG/DL (70-110)
[2020-12-29] MEDS: DULoxetine HCL 30 MG CAPSULE PO SCH (07:56)
[2020-12-29] MEDS: FERROUS SULFATE 325 MG EC TABLET PO SCH (07:57)
[2020-12-29] MEDS: MetFORMIN HCL 500 MG TABLET PO SCH ×2 (07:57→17:27)
[2020-12-29 08:06] LABS: GLUCOMETER DEV NAME(LOC) 3E.C; GLUCOSE,POINT OF CARE 84 MG/DL (70-110)
[2020-12-29] MEDS: FOLIC ACID 1 MG TABLET PO SCH (08:06)
[2020-12-29] MEDS: SitaGLIPtin PHOSPHATE 50 MG TABLET PO SCH ×2 (08:07→16:54)
[2020-12-29] MEDS: CHOLECALCIFEROL (VIT D3) 1,000 UNITS [25 MCG] TABLET PO SCH (08:07)
[2020-12-29] MEDS: ASPIRIN 81 MG DR TABLET PO SCH (08:07)
[2020-12-29] MEDS: MULTIVITAMINS, THERAPEUTIC TABLET PO SCH (08:14)
[2020-12-29] MEDS: THIAMINE 100 MG TABLET PO SCH (08:15)
[2020-12-29] MEDS: INSULIN GLARGINE,HUM.REC.ANLOG 100 UNITS/ML SQ SCH ×2 (08:19→16:57)
[2020-12-29 08:30] VITALS: BP 106/72
[2020-12-29] MEDS: NICOTINE 14 MG/24 HOUR PATCH TD SCH (09:00)
[2020-12-29 12:42] LABS: GLUCOMETER DEV NAME(LOC) 3E.C; GLUCOSE,POINT OF CARE 162 MG/DL (70-110)
[2020-12-29] MEDS: INSULIN LISPRO 100 UNITS/ML SQ PRN ×3 (13:27→20:51)
[2020-12-29] MEDS: HALOPERIDOL 5 MG TABLET PO PRN (16:09)
[2020-12-29] MEDS: LORazepam 2 MG TABLET PO PRN (16:12)
[2020-12-29 16:25] LABS: GLUCOMETER DEV NAME(LOC) 3E.C; GLUCOSE,POINT OF CARE 149 MG/DL (70-110)
[2020-12-29 16:49] VITALS: BP 92/78
[2020-12-29] MEDS: QUEtiapine FUMARATE 200 MG ER TABLET PO SCH (20:40)
[2020-12-29] MEDS: HydrOXYzine PAMOATE 50 MG CAPSULE PO SCH (20:40)
[2020-12-29] MEDS: DIVALPROEX SODIUM 500 MG DR TABLET PO SCH (20:41)
[2020-12-29] MEDS: SIMVASTATIN 10 MG TABLET PO SCH (20:41)
[2020-12-29 21:01] LABS: GLUCOMETER DEV NAME(LOC) 3E.C; GLUCOSE,POINT OF CARE 192 MG/DL (70-110)
[2020-12-30] VITALS (7 sets, daily range): BP systolic 85–125; BP diastolic 52–83
[2020-12-30 08:32] LABS: GLUCOMETER DEV NAME(LOC) 3E.C; GLUCOSE,POINT OF CARE 134 MG/DL (70-110)
[2020-12-30] MEDS: FERROUS SULFATE 325 MG EC TABLET PO SCH (08:41)
[2020-12-30] MEDS: FOLIC ACID 1 MG TABLET PO SCH (08:41)
[2020-12-30] MEDS: SitaGLIPtin PHOSPHATE 50 MG TABLET PO SCH ×2 (08:41→17:01)
[2020-12-30] MEDS: ASPIRIN 81 MG DR TABLET PO SCH (08:41)
[2020-12-30] MEDS: THIAMINE 100 MG TABLET PO SCH (08:42)
[2020-12-30] MEDS: CHOLECALCIFEROL (VIT D3) 1,000 UNITS [25 MCG] TABLET PO SCH (08:42)
[2020-12-30] MEDS: MULTIVITAMINS, THERAPEUTIC TABLET PO SCH (08:42)
[2020-12-30] MEDS: MetFORMIN HCL 500 MG TABLET PO SCH ×2 (08:42→17:36)
[2020-12-30] MEDS: DULoxetine HCL 30 MG CAPSULE PO SCH (08:44)
[2020-12-30] MEDS: INSULIN GLARGINE,HUM.REC.ANLOG 100 UNITS/ML SQ SCH ×2 (08:53→16:16)
[2020-12-30] MEDS: NICOTINE 14 MG/24 HOUR PATCH TD SCH (08:54)
[2020-12-30 11:34] LABS: GLUCOMETER DEV NAME(LOC) 3E.C; GLUCOSE,POINT OF CARE 121 MG/DL (70-110)
[2020-12-30] MEDS: SIMVASTATIN 10 MG TABLET PO SCH (20:39)
[2020-12-30] MEDS: HydrOXYzine PAMOATE 50 MG CAPSULE PO SCH (20:39)
[2020-12-30] MEDS: QUEtiapine FUMARATE 200 MG ER TABLET PO SCH (20:39)
[2020-12-30] MEDS: DIVALPROEX SODIUM 500 MG DR TABLET PO SCH (20:40)
[2020-12-30] MEDS: INSULIN LISPRO 100 UNITS/ML SQ PRN (20:52)
[2020-12-30 20:58] LABS: GLUCOMETER DEV NAME(LOC) 3E.C; GLUCOSE,POINT OF CARE 69 MG/DL (70-110)
[2020-12-30 20:58] LABS: GLUCOMETER DEV NAME(LOC) 3E.C; GLUCOSE,POINT OF CARE 185 MG/DL (70-110)
[2020-12-31] MEDS: MetFORMIN HCL 500 MG TABLET PO SCH ×2 (07:59→17:28)
[2020-12-31] MEDS: FERROUS SULFATE 325 MG EC TABLET PO SCH (07:59)
[2020-12-31 08:00] LABS: GLUCOMETER DEV NAME(LOC) 3E.C; GLUCOSE,POINT OF CARE 94 MG/DL (70-110)
[2020-12-31] MEDS: ASPIRIN 81 MG DR TABLET PO SCH (08:01)
[2020-12-31] MEDS: DULoxetine HCL 30 MG CAPSULE PO SCH (08:01)
[2020-12-31] MEDS: CHOLECALCIFEROL (VIT D3) 1,000 UNITS [25 MCG] TABLET PO SCH (08:02)
[2020-12-31] MEDS: FOLIC ACID 1 MG TABLET PO SCH (08:02)
[2020-12-31] MEDS: THIAMINE 100 MG TABLET PO SCH (08:02)
[2020-12-31] MEDS: SitaGLIPtin PHOSPHATE 50 MG TABLET PO SCH ×2 (08:03→17:28)
[2020-12-31] MEDS: MULTIVITAMINS, THERAPEUTIC TABLET PO SCH (08:03)
[2020-12-31] MEDS: NICOTINE 14 MG/24 HOUR PATCH TD SCH (08:07)
[2020-12-31] MEDS: INSULIN GLARGINE,HUM.REC.ANLOG 100 UNITS/ML SQ SCH ×2 (08:34→17:30)
[2020-12-31 09:33] VITALS: BP 105/74
[2020-12-31 16:30] VITALS: BP 105/68
[2020-12-31 16:37] VITALS: BP 105/68
[2020-12-31 17:08] LABS: GLUCOMETER DEV NAME(LOC) 3E.C; GLUCOSE,POINT OF CARE 133 MG/DL (70-110)
[2020-12-31 17:17] LABS: GLUCOMETER DEV NAME(LOC) 3E.C; GLUCOSE,POINT OF CARE 194 MG/DL (70-110)
[2020-12-31] MEDS: INSULIN LISPRO 100 UNITS/ML SQ PRN ×2 (17:31→20:46)
[2020-12-31] MEDS: HydrOXYzine PAMOATE 50 MG CAPSULE PO SCH (20:42)
[2020-12-31] MEDS: DIVALPROEX SODIUM 500 MG DR TABLET PO SCH (20:42)
[2020-12-31] MEDS: SIMVASTATIN 10 MG TABLET PO SCH (20:43)
[2020-12-31] MEDS: QUEtiapine FUMARATE 200 MG ER TABLET PO SCH (20:43)
[2020-12-31 20:53] LABS: GLUCOMETER DEV NAME(LOC) 3E.C; GLUCOSE,POINT OF CARE 168 MG/DL (70-110)
[2021-01-01] MEDS: DULoxetine HCL 30 MG CAPSULE PO SCH (08:01)
[2021-01-01] MEDS: NICOTINE 14 MG/24 HOUR PATCH TD SCH (08:01)
[2021-01-01] MEDS: ASPIRIN 81 MG DR TABLET PO SCH (08:02)
[2021-01-01] MEDS: FOLIC ACID 1 MG TABLET PO SCH (08:02)
[2021-01-01] MEDS: CHOLECALCIFEROL (VIT D3) 1,000 UNITS [25 MCG] TABLET PO SCH (08:02)
[2021-01-01] MEDS: MULTIVITAMINS, THERAPEUTIC TABLET PO SCH (08:02)
[2021-01-01] MEDS: MetFORMIN HCL 500 MG TABLET PO SCH ×2 (08:02→16:46)
[2021-01-01] MEDS: SitaGLIPtin PHOSPHATE 50 MG TABLET PO SCH ×2 (08:03→16:46)
[2021-01-01] MEDS: THIAMINE 100 MG TABLET PO SCH (08:03)
[2021-01-01] MEDS: FERROUS SULFATE 325 MG EC TABLET PO SCH (08:03)
[2021-01-01 08:08] LABS: GLUCOMETER DEV NAME(LOC) 3E.C; GLUCOSE,POINT OF CARE 73 MG/DL (70-110)
[2021-01-01] MEDS: INSULIN GLARGINE,HUM.REC.ANLOG 100 UNITS/ML SQ SCH ×2 (08:08→16:50)
[2021-01-01 08:38] VITALS: BP 101/72
[2021-01-01 11:21] LABS: GLUCOMETER DEV NAME(LOC) 3E.C; GLUCOSE,POINT OF CARE 173 MG/DL (70-110)
[2021-01-01] MEDS: IBUPROFEN 400 MG TABLET PO PRN (14:26)
[2021-01-01 16:00] VITALS: BP 99/61
[2021-01-01 16:46] LABS: GLUCOMETER DEV NAME(LOC) 3E.C; GLUCOSE,POINT OF CARE 121 MG/DL (70-110)
[2021-01-01] MEDS: HydrOXYzine PAMOATE 50 MG CAPSULE PO SCH (20:32)
[2021-01-01] MEDS: QUEtiapine FUMARATE 200 MG ER TABLET PO SCH (20:33)
[2021-01-01] MEDS: SIMVASTATIN 10 MG TABLET PO SCH (20:33)
[2021-01-01] MEDS: DIVALPROEX SODIUM 500 MG DR TABLET PO SCH (20:33)
[2021-01-01 20:44] LABS: GLUCOMETER DEV NAME(LOC) 3E.C; GLUCOSE,POINT OF CARE 95 MG/DL (70-110)
[2021-01-02] MEDS: FERROUS SULFATE 325 MG EC TABLET PO SCH ×2 (06:33→10:30)
[2021-01-02] MEDS: MetFORMIN HCL 500 MG TABLET PO SCH ×2 (06:33→10:30)
[2021-01-02] MEDS: NICOTINE 14 MG/24 HOUR PATCH TD SCH (09:00)
[2021-01-02 10:08] LABS: GLUCOMETER DEV NAME(LOC) 3E.C; GLUCOSE,POINT OF CARE 127 MG/DL (70-110)
[2021-01-02] MEDS: THIAMINE 100 MG TABLET PO SCH (10:29)
[2021-01-02] MEDS: MULTIVITAMINS, THERAPEUTIC TABLET PO SCH (10:29)
[2021-01-02] MEDS: FOLIC ACID 1 MG TABLET PO SCH (10:30)
[2021-01-02] MEDS: SitaGLIPtin PHOSPHATE 50 MG TABLET PO SCH ×2 (10:31→17:00)
[2021-01-02] MEDS: DULoxetine HCL 30 MG CAPSULE PO SCH (10:31)
[2021-01-02] MEDS: ASPIRIN 81 MG DR TABLET PO SCH (10:33)
[2021-01-02] MEDS: PALIPERIDONE PALMITATE 234 MG/1.5 ML SYRINGE IM SCH (10:33)
[2021-01-02] MEDS: CHOLECALCIFEROL (VIT D3) 1,000 UNITS [25 MCG] TABLET PO SCH (10:35)
[2021-01-02] MEDS: INSULIN GLARGINE,HUM.REC.ANLOG 100 UNITS/ML SQ SCH (10:44)
[2021-01-02] MEDS: INSULIN LISPRO 100 UNITS/ML SQ PRN ×2 (13:19→21:36)
[2021-01-02 13:26] LABS: GLUCOMETER DEV NAME(LOC) 3E.C; GLUCOSE,POINT OF CARE 150 MG/DL (70-110)
[2021-01-02 15:50] LABS: COVID AG,FIA SOURCE NASOPHARYNGEAL
[2021-01-02 17:00] VITALS: BP 124/81
[2021-01-02 17:37] LABS: GLUCOMETER DEV NAME(LOC) 3E.C; GLUCOSE,POINT OF CARE 59 MG/DL (70-110)
[2021-01-02 17:37] LABS: GLUCOMETER DEV NAME(LOC) 3E.C; GLUCOSE,POINT OF CARE 66 MG/DL (70-110)
[2021-01-02 18:07] LABS: GLUCOMETER DEV NAME(LOC) 3E.C; GLUCOSE,POINT OF CARE 126 MG/DL (70-110)
[2021-01-02] MEDS: HydrOXYzine PAMOATE 50 MG CAPSULE PO SCH (21:24)
[2021-01-02] MEDS: QUEtiapine FUMARATE 200 MG ER TABLET PO SCH (21:25)
[2021-01-02] MEDS: DIVALPROEX SODIUM 500 MG DR TABLET PO SCH (21:25)
[2021-01-02] MEDS: SIMVASTATIN 10 MG TABLET PO SCH (21:25)
[2021-01-03 06:48] LABS: GLUCOMETER DEV NAME(LOC) 3E.C; GLUCOSE,POINT OF CARE 141 MG/DL (70-110)
[2021-01-03] MEDS: INSULIN GLARGINE,HUM.REC.ANLOG 100 UNITS/ML SQ SCH ×2 (07:37→17:11)
[2021-01-03] MEDS: INSULIN LISPRO 100 UNITS/ML SQ PRN ×2 (07:38→20:57)
[2021-01-03 07:43] LABS: GLUCOMETER DEV NAME(LOC) 3E.C; GLUCOSE,POINT OF CARE 148 MG/DL (70-110)
[2021-01-03 08:00] VITALS: BP 88/61
[2021-01-03] MEDS: HALOPERIDOL 5 MG TABLET PO PRN (08:20)
[2021-01-03] MEDS: FOLIC ACID 1 MG TABLET PO SCH (08:20)
[2021-01-03] MEDS: DULoxetine HCL 30 MG CAPSULE PO SCH (08:20)
[2021-01-03] MEDS: LORazepam 2 MG TABLET PO PRN (08:20)
[2021-01-03] MEDS: THIAMINE 100 MG TABLET PO SCH (08:20)
[2021-01-03] MEDS: MULTIVITAMINS, THERAPEUTIC TABLET PO SCH (08:20)
[2021-01-03] MEDS: SitaGLIPtin PHOSPHATE 50 MG TABLET PO SCH ×2 (08:21→16:27)
[2021-01-03] MEDS: NICOTINE 14 MG/24 HOUR PATCH TD SCH (08:21)
[2021-01-03] MEDS: CHOLECALCIFEROL (VIT D3) 1,000 UNITS [25 MCG] TABLET PO SCH ×2 (08:28→08:29)
[2021-01-03] MEDS: FERROUS SULFATE 325 MG EC TABLET PO SCH (08:29)
[2021-01-03] MEDS: ASPIRIN 81 MG DR TABLET PO SCH (08:29)
[2021-01-03] MEDS: MetFORMIN HCL 500 MG TABLET PO SCH ×2 (08:34→17:33)
[2021-01-03 12:29] LABS: GLUCOMETER DEV NAME(LOC) 3E.C; GLUCOSE,POINT OF CARE 125 MG/DL (70-110)
[2021-01-03 16:07] VITALS: BP 106/75
[2021-01-03 16:17] LABS: GLUCOMETER DEV NAME(LOC) 3E.C; GLUCOSE,POINT OF CARE 119 MG/DL (70-110)
[2021-01-03] MEDS: DIVALPROEX SODIUM 500 MG DR TABLET PO SCH (20:48)
[2021-01-03] MEDS: QUEtiapine FUMARATE 200 MG ER TABLET PO SCH (20:48)
[2021-01-03] MEDS: HydrOXYzine PAMOATE 50 MG CAPSULE PO SCH (20:49)
[2021-01-03] MEDS: SIMVASTATIN 10 MG TABLET PO SCH (20:49)
[2021-01-03 21:08] LABS: GLUCOMETER DEV NAME(LOC) 3E.C; GLUCOSE,POINT OF CARE 177 MG/DL (70-110)
[2021-01-04] MEDS: MetFORMIN HCL 500 MG TABLET PO SCH ×2 (06:32→17:40)
[2021-01-04 08:18] LABS: GLUCOMETER DEV NAME(LOC) 3E.C; GLUCOSE,POINT OF CARE 103 MG/DL (70-110)
[2021-01-04] MEDS: SitaGLIPtin PHOSPHATE 50 MG TABLET PO SCH ×2 (08:23→16:51)
[2021-01-04] MEDS: CHOLECALCIFEROL (VIT D3) 1,000 UNITS [25 MCG] TABLET PO SCH (08:23)
[2021-01-04] MEDS: THIAMINE 100 MG TABLET PO SCH (08:23)
[2021-01-04] MEDS: MULTIVITAMINS, THERAPEUTIC TABLET PO SCH (08:23)
[2021-01-04] MEDS: ASPIRIN 81 MG DR TABLET PO SCH (08:24)
[2021-01-04] MEDS: FOLIC ACID 1 MG TABLET PO SCH (08:24)
[2021-01-04] MEDS: DULoxetine HCL 30 MG CAPSULE PO SCH (08:24)
[2021-01-04] MEDS: NICOTINE 14 MG/24 HOUR PATCH TD SCH (08:31)
[2021-01-04] MEDS: INSULIN GLARGINE,HUM.REC.ANLOG 100 UNITS/ML SQ SCH ×2 (09:32→16:54)
[2021-01-04] MEDS: INSULIN LISPRO 100 UNITS/ML SQ PRN ×3 (11:36→20:59)
[2021-01-04 11:42] LABS: GLUCOMETER DEV NAME(LOC) 3E.C; GLUCOSE,POINT OF CARE 191 MG/DL (70-110)
[2021-01-04 16:26] VITALS: BP 131/95
[2021-01-04 16:45] LABS: GLUCOMETER DEV NAME(LOC) 3E.C; GLUCOSE,POINT OF CARE 236 MG/DL (70-110)
[2021-01-04] MEDS: SIMVASTATIN 10 MG TABLET PO SCH (20:47)
[2021-01-04] MEDS: HydrOXYzine PAMOATE 50 MG CAPSULE PO SCH (20:47)
[2021-01-04] MEDS: QUEtiapine FUMARATE 200 MG ER TABLET PO SCH (20:47)
[2021-01-04] MEDS: DIVALPROEX SODIUM 500 MG DR TABLET PO SCH (20:47)
[2021-01-04 21:06] LABS: GLUCOMETER DEV NAME(LOC) 3E.C; GLUCOSE,POINT OF CARE 201 MG/DL (70-110)
[2021-01-05 07:53] LABS: GLUCOMETER DEV NAME(LOC) 3E.C; GLUCOSE,POINT OF CARE 155 MG/DL (70-110)
[2021-01-05] MEDS: MetFORMIN HCL 500 MG TABLET PO SCH ×2 (07:55→17:28)
[2021-01-05] MEDS: MULTIVITAMINS, THERAPEUTIC TABLET PO SCH (07:55)
[2021-01-05] MEDS: FERROUS SULFATE 325 MG EC TABLET PO SCH (07:55)
[2021-01-05] MEDS: ASPIRIN 81 MG DR TABLET PO SCH (07:56)
[2021-01-05] MEDS: DULoxetine HCL 30 MG CAPSULE PO SCH (07:56)
[2021-01-05] MEDS: FOLIC ACID 1 MG TABLET PO SCH (07:56)
[2021-01-05] MEDS: SitaGLIPtin PHOSPHATE 50 MG TABLET PO SCH ×2 (07:56→16:53)
[2021-01-05] MEDS: THIAMINE 100 MG TABLET PO SCH (07:56)
[2021-01-05] MEDS: CHOLECALCIFEROL (VIT D3) 1,000 UNITS [25 MCG] TABLET PO SCH (07:56)
[2021-01-05] MEDS: NICOTINE 14 MG/24 HOUR PATCH TD SCH (07:57)
[2021-01-05] MEDS: INSULIN GLARGINE,HUM.REC.ANLOG 100 UNITS/ML SQ SCH ×2 (07:59→16:54)
[2021-01-05 08:28] VITALS: BP 112/64
[2021-01-05] MEDS: INSULIN LISPRO 100 UNITS/ML SQ PRN ×2 (11:34→20:41)
[2021-01-05 11:45] LABS: GLUCOMETER DEV NAME(LOC) 3E.C; GLUCOSE,POINT OF CARE 210 MG/DL (70-110)
[2021-01-05 16:06] VITALS: BP 107/72
[2021-01-05 16:13] LABS: GLUCOMETER DEV NAME(LOC) 3E.C; GLUCOSE,POINT OF CARE 128 MG/DL (70-110)
[2021-01-05] MEDS: SIMVASTATIN 10 MG TABLET PO SCH (20:32)
[2021-01-05] MEDS: DIVALPROEX SODIUM 500 MG DR TABLET PO SCH (20:32)
[2021-01-05] MEDS: QUEtiapine FUMARATE 200 MG ER TABLET PO SCH (20:32)
[2021-01-05] MEDS: HydrOXYzine PAMOATE 50 MG CAPSULE PO SCH (20:33)
[2021-01-06 06:23] LABS: GLUCOMETER DEV NAME(LOC) 3E.C; GLUCOSE,POINT OF CARE 271 MG/DL (70-110)
[2021-01-06] MEDS: NICOTINE 14 MG/24 HOUR PATCH TD SCH (09:00)
[2021-01-06] MEDS: MetFORMIN HCL 500 MG TABLET PO SCH ×2 (09:04→17:14)
[2021-01-06] MEDS: ASPIRIN 81 MG DR TABLET PO SCH (09:04)
[2021-01-06] MEDS: CHOLECALCIFEROL (VIT D3) 1,000 UNITS [25 MCG] TABLET PO SCH (09:04)
[2021-01-06] MEDS: FOLIC ACID 1 MG TABLET PO SCH (09:04)
[2021-01-06] MEDS: FERROUS SULFATE 325 MG EC TABLET PO SCH (09:04)
[2021-01-06] MEDS: MULTIVITAMINS, THERAPEUTIC TABLET PO SCH (09:05)
[2021-01-06] MEDS: THIAMINE 100 MG TABLET PO SCH (09:05)
[2021-01-06] MEDS: SitaGLIPtin PHOSPHATE 50 MG TABLET PO SCH ×2 (09:05→17:14)
[2021-01-06] MEDS: DULoxetine HCL 30 MG CAPSULE PO SCH (09:05)
[2021-01-06] MEDS: INSULIN GLARGINE,HUM.REC.ANLOG 100 UNITS/ML SQ SCH ×2 (09:15→17:16)
[2021-01-06 09:23] LABS: GLUCOMETER DEV NAME(LOC) 3E.C; GLUCOSE,POINT OF CARE 230 MG/DL (70-110)
[2021-01-06 09:52] VITALS: BP 105/61
[2021-01-06 11:32] LABS: GLUCOMETER DEV NAME(LOC) 3E.C; GLUCOSE,POINT OF CARE 179 MG/DL (70-110)
[2021-01-06] MEDS: INSULIN LISPRO 100 UNITS/ML SQ PRN ×2 (12:30→20:48)
[2021-01-06 16:15] VITALS: BP 98/78
[2021-01-06 17:07] LABS: GLUCOMETER DEV NAME(LOC) 3E.C; GLUCOSE,POINT OF CARE 133 MG/DL (70-110)
[2021-01-06] MEDS: HydrOXYzine PAMOATE 50 MG CAPSULE PO SCH (20:40)
[2021-01-06] MEDS: QUEtiapine FUMARATE 200 MG ER TABLET PO SCH (20:40)
[2021-01-06] MEDS: SIMVASTATIN 10 MG TABLET PO SCH (20:40)
[2021-01-06] MEDS: DIVALPROEX SODIUM 500 MG DR TABLET PO SCH (20:40)
[2021-01-06 21:07] LABS: GLUCOMETER DEV NAME(LOC) 3E.C; GLUCOSE,POINT OF CARE 208 MG/DL (70-110)
[2021-01-07] MEDS: FOLIC ACID 1 MG TABLET PO SCH (07:57)
[2021-01-07] MEDS: MULTIVITAMINS, THERAPEUTIC TABLET PO SCH (07:57)
[2021-01-07] MEDS: FERROUS SULFATE 325 MG EC TABLET PO SCH (07:57)
[2021-01-07] MEDS: CHOLECALCIFEROL (VIT D3) 1,000 UNITS [25 MCG] TABLET PO SCH (07:57)
[2021-01-07] MEDS: MetFORMIN HCL 500 MG TABLET PO SCH ×2 (07:57→16:40)
[2021-01-07] MEDS: ASPIRIN 81 MG DR TABLET PO SCH (07:58)
[2021-01-07] MEDS: THIAMINE 100 MG TABLET PO SCH (07:58)
[2021-01-07] MEDS: SitaGLIPtin PHOSPHATE 50 MG TABLET PO SCH ×2 (07:59→16:40)
[2021-01-07] MEDS: DULoxetine HCL 30 MG CAPSULE PO SCH (07:59)
[2021-01-07 08:00] VITALS: BP 98/58
[2021-01-07] MEDS: NICOTINE 14 MG/24 HOUR PATCH TD SCH (08:00)
[2021-01-07] MEDS: INSULIN GLARGINE,HUM.REC.ANLOG 100 UNITS/ML SQ SCH ×2 (08:05→16:41)
[2021-01-07 08:07] LABS: GLUCOMETER DEV NAME(LOC) 3E.C; GLUCOSE,POINT OF CARE 95 MG/DL (70-110)
[2021-01-07 11:35] LABS: GLUCOMETER DEV NAME(LOC) 3E.C; GLUCOSE,POINT OF CARE 108 MG/DL (70-110)
[2021-01-07 16:00] VITALS: BP 104/77
[2021-01-07 16:42] LABS: GLUCOMETER DEV NAME(LOC) 3E.C; GLUCOSE,POINT OF CARE 170 MG/DL (70-110)
[2021-01-07] MEDS: INSULIN LISPRO 100 UNITS/ML SQ PRN ×2 (16:42→20:36)
[2021-01-07] MEDS: DIVALPROEX SODIUM 500 MG DR TABLET PO SCH (20:33)
[2021-01-07] MEDS: QUEtiapine FUMARATE 200 MG ER TABLET PO SCH (20:34)
[2021-01-07] MEDS: SIMVASTATIN 10 MG TABLET PO SCH (20:34)
[2021-01-07] MEDS: HydrOXYzine PAMOATE 50 MG CAPSULE PO SCH (20:34)
[2021-01-07 20:42] LABS: GLUCOMETER DEV NAME(LOC) 3E.C; GLUCOSE,POINT OF CARE 186 MG/DL (70-110)
[2021-01-08 08:18] LABS: GLUCOMETER DEV NAME(LOC) 3E.C; GLUCOSE,POINT OF CARE 94 MG/DL (70-110)
[2021-01-08] MEDS: NICOTINE 14 MG/24 HOUR PATCH TD SCH (09:00)
[2021-01-08] MEDS: INSULIN GLARGINE,HUM.REC.ANLOG 100 UNITS/ML SQ SCH ×2 (10:52→17:20)
[2021-01-08] MEDS: DULoxetine HCL 30 MG CAPSULE PO SCH (10:58)
[2021-01-08] MEDS: THIAMINE 100 MG TABLET PO SCH (10:59)
[2021-01-08] MEDS: SitaGLIPtin PHOSPHATE 50 MG TABLET PO SCH ×2 (10:59→17:12)
[2021-01-08] MEDS: MULTIVITAMINS, THERAPEUTIC TABLET PO SCH (11:00)
[2021-01-08] MEDS: CHOLECALCIFEROL (VIT D3) 1,000 UNITS [25 MCG] TABLET PO SCH (11:00)
[2021-01-08] MEDS: FOLIC ACID 1 MG TABLET PO SCH (11:00)
[2021-01-08] MEDS: FERROUS SULFATE 325 MG EC TABLET PO SCH (11:01)
[2021-01-08] MEDS: ASPIRIN 81 MG DR TABLET PO SCH (11:01)
[2021-01-08] MEDS: MetFORMIN HCL 500 MG TABLET PO SCH ×2 (11:02→17:12)
[2021-01-08 11:58] LABS: GLUCOMETER DEV NAME(LOC) 3E.C; GLUCOSE,POINT OF CARE 194 MG/DL (70-110)
[2021-01-08] MEDS: INSULIN LISPRO 100 UNITS/ML SQ PRN (12:24)
[2021-01-08 16:21] LABS: GLUCOMETER DEV NAME(LOC) 3E.C; GLUCOSE,POINT OF CARE 85 MG/DL (70-110)
[2021-01-08 16:31] VITALS: BP 108/63
[2021-01-08 20:18] LABS: GLUCOMETER DEV NAME(LOC) 3E.C; GLUCOSE,POINT OF CARE 136 MG/DL (70-110)
[2021-01-08] MEDS: QUEtiapine FUMARATE 200 MG ER TABLET PO SCH (20:48)
[2021-01-08] MEDS: SIMVASTATIN 10 MG TABLET PO SCH (20:48)
[2021-01-08] MEDS: DIVALPROEX SODIUM 500 MG DR TABLET PO SCH (20:48)
[2021-01-08] MEDS: HydrOXYzine PAMOATE 50 MG CAPSULE PO SCH (20:49)
[2021-01-09 08:00] VITALS: BP 110/62
[2021-01-09] MEDS: THIAMINE 100 MG TABLET PO SCH (08:05)
[2021-01-09] MEDS: CHOLECALCIFEROL (VIT D3) 1,000 UNITS [25 MCG] TABLET PO SCH (08:05)
[2021-01-09] MEDS: FERROUS SULFATE 325 MG EC TABLET PO SCH (08:06)
[2021-01-09] MEDS: ASPIRIN 81 MG DR TABLET PO SCH (08:06)
[2021-01-09] MEDS: NICOTINE 14 MG/24 HOUR PATCH TD SCH (08:06)
[2021-01-09] MEDS: FOLIC ACID 1 MG TABLET PO SCH (08:06)
[2021-01-09] MEDS: MetFORMIN HCL 500 MG TABLET PO SCH ×2 (08:06→17:17)
[2021-01-09] MEDS: DULoxetine HCL 30 MG CAPSULE PO SCH (08:07)
[2021-01-09] MEDS: SitaGLIPtin PHOSPHATE 50 MG TABLET PO SCH ×2 (08:07→17:17)
[2021-01-09 08:08] LABS: GLUCOMETER DEV NAME(LOC) 3E.C; GLUCOSE,POINT OF CARE 145 MG/DL (70-110)
[2021-01-09] MEDS: MULTIVITAMINS, THERAPEUTIC TABLET PO SCH (08:08)
[2021-01-09] MEDS: INSULIN GLARGINE,HUM.REC.ANLOG 100 UNITS/ML SQ SCH ×2 (08:43→17:20)
[2021-01-09 10:56] LABS: COVID AG,FIA SOURCE NASOPHARYNGEAL
[2021-01-09 11:27] LABS: GLUCOMETER DEV NAME(LOC) 3E.C; GLUCOSE,POINT OF CARE 176 MG/DL (70-110)
[2021-01-09] MEDS: INSULIN LISPRO 100 UNITS/ML SQ PRN (12:20)
[2021-01-09 16:39] VITALS: BP 97/61
[2021-01-09 17:22] LABS: GLUCOMETER DEV NAME(LOC) 3E.C; GLUCOSE,POINT OF CARE 123 MG/DL (70-110)
[2021-01-09] MEDS: DIVALPROEX SODIUM 500 MG DR TABLET PO SCH (21:10)
[2021-01-09] MEDS: HydrOXYzine PAMOATE 50 MG CAPSULE PO SCH (21:11)
[2021-01-09] MEDS: SIMVASTATIN 10 MG TABLET PO SCH (21:11)
[2021-01-09] MEDS: QUEtiapine FUMARATE 200 MG ER TABLET PO SCH (21:11)
[2021-01-09 21:18] LABS: GLUCOMETER DEV NAME(LOC) 3E.C; GLUCOSE,POINT OF CARE 100 MG/DL (70-110)
[2021-01-10] MEDS: FERROUS SULFATE 325 MG EC TABLET PO SCH ×2 (06:36→08:31)
[2021-01-10] MEDS: MetFORMIN HCL 500 MG TABLET PO SCH ×2 (06:37→08:29)
[2021-01-10 08:01] LABS: GLUCOMETER DEV NAME(LOC) 3E.C; GLUCOSE,POINT OF CARE 84 MG/DL (70-110)
[2021-01-10 08:19] VITALS: BP 103/72
[2021-01-10] MEDS: DULoxetine HCL 30 MG CAPSULE PO SCH (08:28)
[2021-01-10] MEDS: SitaGLIPtin PHOSPHATE 50 MG TABLET PO SCH ×2 (08:28→17:07)
[2021-01-10] MEDS: MULTIVITAMINS, THERAPEUTIC TABLET PO SCH (08:29)
[2021-01-10] MEDS: THIAMINE 100 MG TABLET PO SCH (08:29)
[2021-01-10] MEDS: FOLIC ACID 1 MG TABLET PO SCH (08:30)
[2021-01-10] MEDS: CHOLECALCIFEROL (VIT D3) 1,000 UNITS [25 MCG] TABLET PO SCH (08:30)
[2021-01-10] MEDS: ASPIRIN 81 MG DR TABLET PO SCH (08:30)
[2021-01-10] MEDS: NICOTINE 14 MG/24 HOUR PATCH TD SCH (08:31)
[2021-01-10] MEDS: INSULIN GLARGINE,HUM.REC.ANLOG 100 UNITS/ML SQ SCH ×2 (08:45→17:06)
[2021-01-10 11:58] LABS: GLUCOMETER DEV NAME(LOC) 3E.C; GLUCOSE,POINT OF CARE 163 MG/DL (70-110)
[2021-01-10] MEDS: INSULIN LISPRO 100 UNITS/ML SQ PRN (12:36)
[2021-01-10 16:23] LABS: GLUCOMETER DEV NAME(LOC) 3E.C; GLUCOSE,POINT OF CARE 108 MG/DL (70-110)
[2021-01-10 16:47] VITALS: BP 102/69
[2021-01-10] MEDS: QUEtiapine FUMARATE 200 MG ER TABLET PO SCH (20:56)
[2021-01-10] MEDS: HydrOXYzine PAMOATE 50 MG CAPSULE PO SCH (20:56)
[2021-01-10] MEDS: DIVALPROEX SODIUM 500 MG DR TABLET PO SCH (20:56)
[2021-01-10] MEDS: SIMVASTATIN 10 MG TABLET PO SCH (20:56)
[2021-01-10 20:57] LABS: GLUCOMETER DEV NAME(LOC) 3E.C; GLUCOSE,POINT OF CARE 137 MG/DL (70-110)
[2021-01-11 08:24] LABS: GLUCOMETER DEV NAME(LOC) 3E.C; GLUCOSE,POINT OF CARE 71 MG/DL (70-110)
[2021-01-11 08:50] VITALS: BP 107/71
[2021-01-11] MEDS: INSULIN GLARGINE,HUM.REC.ANLOG 100 UNITS/ML SQ SCH ×2 (09:10→17:02)
[2021-01-11] MEDS: ASPIRIN 81 MG DR TABLET PO SCH (09:15)
[2021-01-11] MEDS: HALOPERIDOL 5 MG TABLET PO PRN (09:15)
[2021-01-11] MEDS: SitaGLIPtin PHOSPHATE 50 MG TABLET PO SCH ×2 (09:15→16:54)
[2021-01-11] MEDS: MULTIVITAMINS, THERAPEUTIC TABLET PO SCH (09:15)
[2021-01-11] MEDS: THIAMINE 100 MG TABLET PO SCH (09:15)
[2021-01-11] MEDS: DULoxetine HCL 30 MG CAPSULE PO SCH (09:15)
[2021-01-11] MEDS: CHOLECALCIFEROL (VIT D3) 1,000 UNITS [25 MCG] TABLET PO SCH (09:16)
[2021-01-11] MEDS: FERROUS SULFATE 325 MG EC TABLET PO SCH (09:16)
[2021-01-11] MEDS: FOLIC ACID 1 MG TABLET PO SCH (09:16)
[2021-01-11] MEDS: NICOTINE 14 MG/24 HOUR PATCH TD SCH (09:17)
[2021-01-11] MEDS: MetFORMIN HCL 500 MG TABLET PO SCH ×2 (09:17→17:47)
[2021-01-11 11:50] LABS: GLUCOMETER DEV NAME(LOC) 3E.C; GLUCOSE,POINT OF CARE 195 MG/DL (70-110)
[2021-01-11] MEDS: INSULIN LISPRO 100 UNITS/ML SQ PRN ×3 (12:34→21:14)
[2021-01-11 16:25] LABS: GLUCOMETER DEV NAME(LOC) 3E.C; GLUCOSE,POINT OF CARE 186 MG/DL (70-110)
[2021-01-11 16:49] VITALS: BP 105/66
[2021-01-11 16:50] VITALS: BP 99/66
[2021-01-11 21:09] LABS: GLUCOMETER DEV NAME(LOC) 3E.C; GLUCOSE,POINT OF CARE 150 MG/DL (70-110)
[2021-01-11] MEDS: QUEtiapine FUMARATE 200 MG ER TABLET PO SCH (21:10)
[2021-01-11] MEDS: HydrOXYzine PAMOATE 50 MG CAPSULE PO SCH (21:10)
[2021-01-11] MEDS: DIVALPROEX SODIUM 500 MG DR TABLET PO SCH (21:10)
[2021-01-11] MEDS: SIMVASTATIN 10 MG TABLET PO SCH (21:10)
[2021-01-12 08:28] LABS: GLUCOMETER DEV NAME(LOC) 3E.C; GLUCOSE,POINT OF CARE 140 MG/DL (70-110)
[2021-01-12] MEDS: DULoxetine HCL 30 MG CAPSULE PO SCH (08:58)
[2021-01-12] MEDS: SitaGLIPtin PHOSPHATE 50 MG TABLET PO SCH ×2 (08:58→17:12)
[2021-01-12] MEDS: NICOTINE 14 MG/24 HOUR PATCH TD SCH (09:00)
[2021-01-12] MEDS: MULTIVITAMINS, THERAPEUTIC TABLET PO SCH (09:01)
[2021-01-12] MEDS: FOLIC ACID 1 MG TABLET PO SCH (09:01)
[2021-01-12] MEDS: MetFORMIN HCL 500 MG TABLET PO SCH ×2 (09:01→17:30)
[2021-01-12] MEDS: ASPIRIN 81 MG DR TABLET PO SCH (09:01)
[2021-01-12] MEDS: CHOLECALCIFEROL (VIT D3) 1,000 UNITS [25 MCG] TABLET PO SCH (09:01)
[2021-01-12] MEDS: THIAMINE 100 MG TABLET PO SCH (09:02)
[2021-01-12] MEDS: HALOPERIDOL 5 MG TABLET PO PRN (09:02)
[2021-01-12] MEDS: INSULIN GLARGINE,HUM.REC.ANLOG 100 UNITS/ML SQ SCH ×2 (09:06→17:12)
[2021-01-12 09:30] VITALS: BP 102/64
[2021-01-12 12:10] LABS: GLUCOMETER DEV NAME(LOC) 3E.C; GLUCOSE,POINT OF CARE 156 MG/DL (70-110)
[2021-01-12] MEDS: INSULIN LISPRO 100 UNITS/ML SQ PRN ×2 (12:13→20:54)
[2021-01-12 16:27] VITALS: BP 99/59
[2021-01-12 16:42] LABS: GLUCOMETER DEV NAME(LOC) 3E.C; GLUCOSE,POINT OF CARE 120 MG/DL (70-110)
[2021-01-12] MEDS: SIMVASTATIN 10 MG TABLET PO SCH (20:45)
[2021-01-12] MEDS: DIVALPROEX SODIUM 500 MG DR TABLET PO SCH (20:45)
[2021-01-12] MEDS: QUEtiapine FUMARATE 200 MG ER TABLET PO SCH (20:45)
[2021-01-12] MEDS: HydrOXYzine PAMOATE 50 MG CAPSULE PO SCH (20:46)
[2021-01-12 21:04] LABS: GLUCOMETER DEV NAME(LOC) 3E.C; GLUCOSE,POINT OF CARE 157 MG/DL (70-110)
[2021-01-13 08:00] VITALS: BP 98/66
[2021-01-13 08:00] LABS: GLUCOMETER DEV NAME(LOC) 3E.C; GLUCOSE,POINT OF CARE 103 MG/DL (70-110)
[2021-01-13] MEDS: NICOTINE 14 MG/24 HOUR PATCH TD SCH (09:00)
[2021-01-13] MEDS: DULoxetine HCL 30 MG CAPSULE PO SCH (10:29)
[2021-01-13] MEDS: SitaGLIPtin PHOSPHATE 50 MG TABLET PO SCH ×2 (10:29→16:50)
[2021-01-13] MEDS: THIAMINE 100 MG TABLET PO SCH (10:29)
[2021-01-13] MEDS: MetFORMIN HCL 500 MG TABLET PO SCH ×2 (10:30→16:51)
[2021-01-13] MEDS: CHOLECALCIFEROL (VIT D3) 1,000 UNITS [25 MCG] TABLET PO SCH (10:30)
[2021-01-13] MEDS: ASPIRIN 81 MG DR TABLET PO SCH (10:30)
[2021-01-13] MEDS: MULTIVITAMINS, THERAPEUTIC TABLET PO SCH (10:31)
[2021-01-13] MEDS: FOLIC ACID 1 MG TABLET PO SCH (10:31)
[2021-01-13] MEDS: FERROUS SULFATE 325 MG EC TABLET PO SCH (10:31)
[2021-01-13] MEDS: INSULIN GLARGINE,HUM.REC.ANLOG 100 UNITS/ML SQ SCH ×2 (10:48→16:57)
[2021-01-13 12:01] LABS: GLUCOMETER DEV NAME(LOC) 3E.C; GLUCOSE,POINT OF CARE 121 MG/DL (70-110)
[2021-01-13] MEDS: INSULIN LISPRO 100 UNITS/ML SQ PRN ×2 (16:56→22:03)
[2021-01-13 17:01] LABS: GLUCOMETER DEV NAME(LOC) 3E.C; GLUCOSE,POINT OF CARE 142 MG/DL (70-110)
[2021-01-13 17:34] VITALS: BP 108/73
[2021-01-13] MEDS: QUEtiapine FUMARATE 200 MG ER TABLET PO SCH (21:50)
[2021-01-13] MEDS: HydrOXYzine PAMOATE 50 MG CAPSULE PO SCH (21:50)
[2021-01-13] MEDS: SIMVASTATIN 10 MG TABLET PO SCH (21:51)
[2021-01-13] MEDS: DIVALPROEX SODIUM 500 MG DR TABLET PO SCH (21:51)
[2021-01-13 22:09] LABS: GLUCOMETER DEV NAME(LOC) 3E.C; GLUCOSE,POINT OF CARE 166 MG/DL (70-110)
[2021-01-14 07:56] LABS: GLUCOMETER DEV NAME(LOC) 3E.C; GLUCOSE,POINT OF CARE 90 MG/DL (70-110)
[2021-01-14 08:00] VITALS: BP 92/60
[2021-01-14] MEDS: FERROUS SULFATE 325 MG EC TABLET PO SCH (08:41)
[2021-01-14] MEDS: MULTIVITAMINS, THERAPEUTIC TABLET PO SCH (08:41)
[2021-01-14] MEDS: ASPIRIN 81 MG DR TABLET PO SCH (08:41)
[2021-01-14] MEDS: THIAMINE 100 MG TABLET PO SCH (08:42)
[2021-01-14] MEDS: MetFORMIN HCL 500 MG TABLET PO SCH ×2 (08:42→16:50)
[2021-01-14] MEDS: SitaGLIPtin PHOSPHATE 50 MG TABLET PO SCH ×2 (08:43→16:50)
[2021-01-14] MEDS: FOLIC ACID 1 MG TABLET PO SCH (08:43)
[2021-01-14] MEDS: DULoxetine HCL 30 MG CAPSULE PO SCH (08:43)
[2021-01-14] MEDS: CHOLECALCIFEROL (VIT D3) 1,000 UNITS [25 MCG] TABLET PO SCH (08:48)
[2021-01-14] MEDS: INSULIN GLARGINE,HUM.REC.ANLOG 100 UNITS/ML SQ SCH ×2 (08:56→17:13)
[2021-01-14] MEDS: NICOTINE 14 MG/24 HOUR PATCH TD SCH (09:02)
[2021-01-14] MEDS: INSULIN LISPRO 100 UNITS/ML SQ PRN ×2 (12:00→17:22)
[2021-01-14 12:01] LABS: GLUCOMETER DEV NAME(LOC) 3E.C; GLUCOSE,POINT OF CARE 141 MG/DL (70-110)
[2021-01-14 16:00] VITALS: BP 106/66
[2021-01-14 17:11] LABS: GLUCOMETER DEV NAME(LOC) 3E.C; GLUCOSE,POINT OF CARE 168 MG/DL (70-110)
[2021-01-14 20:45] LABS: GLUCOMETER DEV NAME(LOC) 3E.C; GLUCOSE,POINT OF CARE 138 MG/DL (70-110)
[2021-01-14] MEDS: DIVALPROEX SODIUM 500 MG DR TABLET PO SCH (21:21)
[2021-01-14] MEDS: QUEtiapine FUMARATE 200 MG ER TABLET PO SCH (21:21)
[2021-01-14] MEDS: HydrOXYzine PAMOATE 50 MG CAPSULE PO SCH (21:21)
[2021-01-14] MEDS: SIMVASTATIN 10 MG TABLET PO SCH (21:22)
[2021-01-15 08:00] VITALS: BP 98/62
[2021-01-15] MEDS: THIAMINE 100 MG TABLET PO SCH (08:05)
[2021-01-15] MEDS: FOLIC ACID 1 MG TABLET PO SCH (08:05)
[2021-01-15] MEDS: CHOLECALCIFEROL (VIT D3) 1,000 UNITS [25 MCG] TABLET PO SCH (08:05)
[2021-01-15] MEDS: ASPIRIN 81 MG DR TABLET PO SCH (08:05)
[2021-01-15] MEDS: FERROUS SULFATE 325 MG EC TABLET PO SCH (08:05)
[2021-01-15] MEDS: MULTIVITAMINS, THERAPEUTIC TABLET PO SCH (08:05)
[2021-01-15] MEDS: SitaGLIPtin PHOSPHATE 50 MG TABLET PO SCH ×2 (08:06→16:54)
[2021-01-15] MEDS: MetFORMIN HCL 500 MG TABLET PO SCH ×2 (08:06→16:55)
[2021-01-15] MEDS: DULoxetine HCL 30 MG CAPSULE PO SCH (08:06)
[2021-01-15] MEDS: NICOTINE 14 MG/24 HOUR PATCH TD SCH (08:07)
[2021-01-15 08:17] LABS: GLUCOMETER DEV NAME(LOC) 3E.C; GLUCOSE,POINT OF CARE 93 MG/DL (70-110)
[2021-01-15] MEDS: INSULIN GLARGINE,HUM.REC.ANLOG 100 UNITS/ML SQ SCH ×2 (08:50→17:34)
[2021-01-15 11:38] LABS: GLUCOMETER DEV NAME(LOC) 3E.C; GLUCOSE,POINT OF CARE 151 MG/DL (70-110)
[2021-01-15] MEDS: INSULIN LISPRO 100 UNITS/ML SQ PRN (12:04)
[2021-01-15 16:46] VITALS: BP 105/76
[2021-01-15 17:23] LABS: GLUCOMETER DEV NAME(LOC) 3E.C; GLUCOSE,POINT OF CARE 81 MG/DL (70-110)
[2021-01-15 20:33] LABS: GLUCOMETER DEV NAME(LOC) 3E.C; GLUCOSE,POINT OF CARE 123 MG/DL (70-110)
[2021-01-15] MEDS: QUEtiapine FUMARATE 200 MG ER TABLET PO SCH (20:38)
[2021-01-15] MEDS: SIMVASTATIN 10 MG TABLET PO SCH (20:38)
[2021-01-15] MEDS: HydrOXYzine PAMOATE 50 MG CAPSULE PO SCH (20:38)
[2021-01-15] MEDS: DIVALPROEX SODIUM 500 MG DR TABLET PO SCH (20:39)
[2021-01-16] MEDS: FERROUS SULFATE 325 MG EC TABLET PO SCH (07:00)
[2021-01-16] MEDS: MetFORMIN HCL 500 MG TABLET PO SCH ×2 (07:00→17:16)
[2021-01-16 07:10] LABS: GLUCOMETER DEV NAME(LOC) 3E.C; GLUCOSE,POINT OF CARE 57 MG/DL (70-110)
[2021-01-16 07:10] LABS: GLUCOMETER DEV NAME(LOC) 3E.C; GLUCOSE,POINT OF CARE 122 MG/DL (70-110)
[2021-01-16] MEDS: DULoxetine HCL 30 MG CAPSULE PO SCH (10:40)
[2021-01-16] MEDS: SitaGLIPtin PHOSPHATE 50 MG TABLET PO SCH ×2 (10:40→17:16)
[2021-01-16] MEDS: CHOLECALCIFEROL (VIT D3) 1,000 UNITS [25 MCG] TABLET PO SCH (10:41)
[2021-01-16] MEDS: FOLIC ACID 1 MG TABLET PO SCH (10:41)
[2021-01-16] MEDS: THIAMINE 100 MG TABLET PO SCH (10:41)
[2021-01-16] MEDS: ASPIRIN 81 MG DR TABLET PO SCH (10:41)
[2021-01-16] MEDS: MULTIVITAMINS, THERAPEUTIC TABLET PO SCH (10:41)
[2021-01-16] MEDS: INSULIN GLARGINE,HUM.REC.ANLOG 100 UNITS/ML SQ SCH ×2 (10:47→17:22)
[2021-01-16] MEDS: NICOTINE 14 MG/24 HOUR PATCH TD SCH (10:49)
[2021-01-16] MEDS: INSULIN LISPRO 100 UNITS/ML SQ PRN (11:59)
[2021-01-16 12:04] LABS: GLUCOMETER DEV NAME(LOC) 3E.C; GLUCOSE,POINT OF CARE 200 MG/DL (70-110)
[2021-01-16 17:16] LABS: COVID AG,FIA SOURCE NASOPHARYNGEAL
[2021-01-16 17:34] VITALS: BP 92/60
[2021-01-16 17:34] LABS: GLUCOMETER DEV NAME(LOC) 3E.C; GLUCOSE,POINT OF CARE 130 MG/DL (70-110)
[2021-01-16] MEDS: HydrOXYzine PAMOATE 50 MG CAPSULE PO SCH (20:16)
[2021-01-16] MEDS: QUEtiapine FUMARATE 200 MG ER TABLET PO SCH (20:16)
[2021-01-16] MEDS: SIMVASTATIN 10 MG TABLET PO SCH (20:16)
[2021-01-16] MEDS: DIVALPROEX SODIUM 500 MG DR TABLET PO SCH (20:16)
[2021-01-16 20:33] LABS: GLUCOMETER DEV NAME(LOC) 3E.C; GLUCOSE,POINT OF CARE 87 MG/DL (70-110)
[2021-01-17] MEDS: FERROUS SULFATE 325 MG EC TABLET PO SCH ×2 (06:37→09:28)
[2021-01-17] MEDS: MetFORMIN HCL 500 MG TABLET PO SCH ×3 (06:37→17:32)
[2021-01-17 08:00] VITALS: BP 106/66
[2021-01-17] MEDS: THIAMINE 100 MG TABLET PO SCH (09:27)
[2021-01-17] MEDS: SitaGLIPtin PHOSPHATE 50 MG TABLET PO SCH ×2 (09:28→16:53)
[2021-01-17] MEDS: MULTIVITAMINS, THERAPEUTIC TABLET PO SCH (09:28)
[2021-01-17] MEDS: ASPIRIN 81 MG DR TABLET PO SCH (09:28)
[2021-01-17] MEDS: DULoxetine HCL 30 MG CAPSULE PO SCH (09:29)
[2021-01-17] MEDS: FOLIC ACID 1 MG TABLET PO SCH (09:29)
[2021-01-17] MEDS: CHOLECALCIFEROL (VIT D3) 1,000 UNITS [25 MCG] TABLET PO SCH (09:29)
[2021-01-17] MEDS: INSULIN GLARGINE,HUM.REC.ANLOG 100 UNITS/ML SQ SCH ×2 (09:43→16:54)
[2021-01-17 09:52] LABS: GLUCOMETER DEV NAME(LOC) 3E.C; GLUCOSE,POINT OF CARE 119 MG/DL (70-110)
[2021-01-17 11:50] LABS: GLUCOMETER DEV NAME(LOC) 3E.C; GLUCOSE,POINT OF CARE 225 MG/DL (70-110)
[2021-01-17] MEDS: INSULIN LISPRO 100 UNITS/ML SQ PRN ×3 (12:08→20:48)
[2021-01-17] MEDS: NICOTINE 14 MG/24 HOUR PATCH TD SCH (12:16)
[2021-01-17 16:22] VITALS: BP 104/70
[2021-01-17 16:34] LABS: GLUCOMETER DEV NAME(LOC) 3E.C; GLUCOSE,POINT OF CARE 143 MG/DL (70-110)
[2021-01-17] MEDS: QUEtiapine FUMARATE 200 MG ER TABLET PO SCH (20:32)
[2021-01-17] MEDS: HydrOXYzine PAMOATE 50 MG CAPSULE PO SCH (20:32)
[2021-01-17] MEDS: SIMVASTATIN 10 MG TABLET PO SCH (20:32)
[2021-01-17] MEDS: DIVALPROEX SODIUM 500 MG DR TABLET PO SCH (20:33)
[2021-01-17 20:55] LABS: GLUCOMETER DEV NAME(LOC) 3E.C; GLUCOSE,POINT OF CARE 153 MG/DL (70-110)
[2021-01-18] MEDS: FERROUS SULFATE 325 MG EC TABLET PO SCH ×2 (07:02→08:16)
[2021-01-18] MEDS: MetFORMIN HCL 500 MG TABLET PO SCH ×3 (07:02→17:05)
[2021-01-18] MEDS: DULoxetine HCL 30 MG CAPSULE PO SCH (08:15)
[2021-01-18] MEDS: SitaGLIPtin PHOSPHATE 50 MG TABLET PO SCH ×2 (08:15→17:05)
[2021-01-18] MEDS: CHOLECALCIFEROL (VIT D3) 1,000 UNITS [25 MCG] TABLET PO SCH (08:16)
[2021-01-18] MEDS: MULTIVITAMINS, THERAPEUTIC TABLET PO SCH (08:18)
[2021-01-18] MEDS: FOLIC ACID 1 MG TABLET PO SCH (08:19)
[2021-01-18] MEDS: ASPIRIN 81 MG DR TABLET PO SCH (08:19)
[2021-01-18] MEDS: THIAMINE 100 MG TABLET PO SCH (08:19)
[2021-01-18] MEDS: NICOTINE 14 MG/24 HOUR PATCH TD SCH (08:29)
[2021-01-18 08:35] VITALS: BP 104/69
[2021-01-18 08:40] LABS: GLUCOMETER DEV NAME(LOC) 3E.C; GLUCOSE,POINT OF CARE 143 MG/DL (70-110)
[2021-01-18] MEDS: INSULIN GLARGINE,HUM.REC.ANLOG 100 UNITS/ML SQ SCH ×2 (08:58→17:14)
[2021-01-18 11:29] LABS: GLUCOMETER DEV NAME(LOC) 3E.C; GLUCOSE,POINT OF CARE 120 MG/DL (70-110)
[2021-01-18] MEDS: INSULIN LISPRO 100 UNITS/ML SQ PRN (12:27)
[2021-01-18 16:38] LABS: GLUCOMETER DEV NAME(LOC) 3E.C; GLUCOSE,POINT OF CARE 126 MG/DL (70-110)
[2021-01-18 17:34] VITALS: BP 86/79
[2021-01-18] MEDS: HALOPERIDOL 5 MG TABLET PO PRN (17:52)
[2021-01-18] MEDS: DIVALPROEX SODIUM 500 MG DR TABLET PO SCH (20:46)
[2021-01-18] MEDS: HydrOXYzine PAMOATE 50 MG CAPSULE PO SCH (20:46)
[2021-01-18] MEDS: QUEtiapine FUMARATE 200 MG ER TABLET PO SCH (20:47)
[2021-01-18] MEDS: SIMVASTATIN 10 MG TABLET PO SCH (20:47)
[2021-01-18 20:56] LABS: GLUCOMETER DEV NAME(LOC) 3E.C; GLUCOSE,POINT OF CARE 120 MG/DL (70-110)
[2021-01-19 06:27] LABS: GLUCOMETER DEV NAME(LOC) 3E.C; GLUCOSE,POINT OF CARE 71 MG/DL (70-110)
[2021-01-19] MEDS: FERROUS SULFATE 325 MG EC TABLET PO SCH (07:06)
[2021-01-19] MEDS: MetFORMIN HCL 500 MG TABLET PO SCH ×2 (07:06→17:47)
[2021-01-19] MEDS: INSULIN LISPRO 100 UNITS/ML SQ PRN ×3 (07:17→16:44)
[2021-01-19] MEDS: THIAMINE 100 MG TABLET PO SCH (11:25)
[2021-01-19] MEDS: CHOLECALCIFEROL (VIT D3) 1,000 UNITS [25 MCG] TABLET PO SCH (11:25)
[2021-01-19] MEDS: MULTIVITAMINS, THERAPEUTIC TABLET PO SCH (11:26)
[2021-01-19] MEDS: SitaGLIPtin PHOSPHATE 50 MG TABLET PO SCH ×2 (11:26→16:42)
[2021-01-19] MEDS: ASPIRIN 81 MG DR TABLET PO SCH (11:26)
[2021-01-19] MEDS: FOLIC ACID 1 MG TABLET PO SCH (11:26)
[2021-01-19] MEDS: DULoxetine HCL 30 MG CAPSULE PO SCH (11:26)
[2021-01-19 11:32] LABS: GLUCOMETER DEV NAME(LOC) 3E.C; GLUCOSE,POINT OF CARE 132 MG/DL (70-110)
[2021-01-19] MEDS: NICOTINE 14 MG/24 HOUR PATCH TD SCH (11:39)
[2021-01-19] MEDS: INSULIN GLARGINE,HUM.REC.ANLOG 100 UNITS/ML SQ SCH ×2 (11:39→16:44)
[2021-01-19 16:21] LABS: GLUCOMETER DEV NAME(LOC) 3E.C; GLUCOSE,POINT OF CARE 147 MG/DL (70-110)
[2021-01-19 16:30] VITALS: BP 110/75
[2021-01-19] MEDS: HALOPERIDOL 5 MG TABLET PO PRN (16:49)
[2021-01-19] MEDS: SIMVASTATIN 10 MG TABLET PO SCH (20:36)
[2021-01-19] MEDS: HydrOXYzine PAMOATE 50 MG CAPSULE PO SCH (20:36)
[2021-01-19] MEDS: DIVALPROEX SODIUM 500 MG DR TABLET PO SCH (20:36)
[2021-01-19] MEDS: QUEtiapine FUMARATE 200 MG ER TABLET PO SCH (20:36)
[2021-01-19 20:54] LABS: GLUCOMETER DEV NAME(LOC) 3E.C; GLUCOSE,POINT OF CARE 137 MG/DL (70-110)
[2021-01-20] MEDS: ASPIRIN 81 MG DR TABLET PO SCH (08:02)
[2021-01-20] MEDS: MULTIVITAMINS, THERAPEUTIC TABLET PO SCH (08:02)
[2021-01-20] MEDS: MetFORMIN HCL 500 MG TABLET PO SCH ×2 (08:03→17:10)
[2021-01-20] MEDS: SitaGLIPtin PHOSPHATE 50 MG TABLET PO SCH ×2 (08:03→17:10)
[2021-01-20] MEDS: FERROUS SULFATE 325 MG EC TABLET PO SCH (08:03)
[2021-01-20] MEDS: THIAMINE 100 MG TABLET PO SCH (08:03)
[2021-01-20] MEDS: FOLIC ACID 1 MG TABLET PO SCH (08:03)
[2021-01-20] MEDS: DULoxetine HCL 30 MG CAPSULE PO SCH (08:03)
[2021-01-20] MEDS: CHOLECALCIFEROL (VIT D3) 1,000 UNITS [25 MCG] TABLET PO SCH (08:05)
[2021-01-20] MEDS: NICOTINE 14 MG/24 HOUR PATCH TD SCH (08:12)
[2021-01-20 08:25] LABS: GLUCOMETER DEV NAME(LOC) 3E.C; GLUCOSE,POINT OF CARE 122 MG/DL (70-110)
[2021-01-20] MEDS: INSULIN GLARGINE,HUM.REC.ANLOG 100 UNITS/ML SQ SCH ×2 (09:00→17:11)
[2021-01-20 11:34] LABS: GLUCOMETER DEV NAME(LOC) 3E.C; GLUCOSE,POINT OF CARE 108 MG/DL (70-110)
[2021-01-20 16:17] VITALS: BP 144/81
[2021-01-20 16:45] LABS: GLUCOMETER DEV NAME(LOC) 3E.C; GLUCOSE,POINT OF CARE 105 MG/DL (70-110)
[2021-01-20 21:13] LABS: GLUCOMETER DEV NAME(LOC) 3E.C; GLUCOSE,POINT OF CARE 83 MG/DL (70-110)
[2021-01-20] MEDS: HydrOXYzine PAMOATE 50 MG CAPSULE PO SCH (21:16)
[2021-01-20] MEDS: DIVALPROEX SODIUM 500 MG DR TABLET PO SCH (21:16)
[2021-01-20] MEDS: QUEtiapine FUMARATE 200 MG ER TABLET PO SCH (21:17)
[2021-01-20] MEDS: SIMVASTATIN 10 MG TABLET PO SCH (21:17)
[2021-01-21 01:40] VITALS: BP 126/78
[2021-01-21 08:00] VITALS: BP 82/62
[2021-01-21] MEDS: FERROUS SULFATE 325 MG EC TABLET PO SCH (08:32)
[2021-01-21] MEDS: MetFORMIN HCL 500 MG TABLET PO SCH ×2 (08:32→17:24)
[2021-01-21] MEDS: MULTIVITAMINS, THERAPEUTIC TABLET PO SCH (08:56)
[2021-01-21] MEDS: CHOLECALCIFEROL (VIT D3) 1,000 UNITS [25 MCG] TABLET PO SCH (08:56)
[2021-01-21] MEDS: ASPIRIN 81 MG DR TABLET PO SCH (08:56)
[2021-01-21] MEDS: FOLIC ACID 1 MG TABLET PO SCH (08:56)
[2021-01-21] MEDS: THIAMINE 100 MG TABLET PO SCH (08:56)
[2021-01-21] MEDS: DULoxetine HCL 30 MG CAPSULE PO SCH (08:57)
[2021-01-21] MEDS: SitaGLIPtin PHOSPHATE 50 MG TABLET PO SCH ×2 (08:57→16:52)
[2021-01-21] MEDS: NICOTINE 14 MG/24 HOUR PATCH TD SCH (08:57)
[2021-01-21] MEDS: INSULIN GLARGINE,HUM.REC.ANLOG 100 UNITS/ML SQ SCH ×2 (09:00→16:54)
[2021-01-21 09:05] LABS: GLUCOMETER DEV NAME(LOC) 3E.C; GLUCOSE,POINT OF CARE 134 MG/DL (70-110)
[2021-01-21 11:44] LABS: GLUCOMETER DEV NAME(LOC) 3E.C; GLUCOSE,POINT OF CARE 209 MG/DL (70-110)
[2021-01-21] MEDS: INSULIN LISPRO 100 UNITS/ML SQ PRN ×3 (12:07→20:53)
[2021-01-21 16:26] LABS: GLUCOMETER DEV NAME(LOC) 3E.C; GLUCOSE,POINT OF CARE 155 MG/DL (70-110)
[2021-01-21 16:35] VITALS: BP 90/69
[2021-01-21 18:00] VITALS: BP 101/62
[2021-01-21] MEDS: HydrOXYzine PAMOATE 50 MG CAPSULE PO SCH (20:40)
[2021-01-21] MEDS: SIMVASTATIN 10 MG TABLET PO SCH (20:40)
[2021-01-21] MEDS: QUEtiapine FUMARATE 200 MG ER TABLET PO SCH (20:40)
[2021-01-21] MEDS: DIVALPROEX SODIUM 500 MG DR TABLET PO SCH (20:40)
[2021-01-21 21:02] LABS: GLUCOMETER DEV NAME(LOC) 3E.C; GLUCOSE,POINT OF CARE 155 MG/DL (70-110)
[2021-01-22 07:50] LABS: GLUCOMETER DEV NAME(LOC) 3E.C; GLUCOSE,POINT OF CARE 76 MG/DL (70-110)
[2021-01-22] MEDS: MetFORMIN HCL 500 MG TABLET PO SCH ×2 (08:06→17:21)
[2021-01-22] MEDS: DULoxetine HCL 30 MG CAPSULE PO SCH (08:06)
[2021-01-22] MEDS: FOLIC ACID 1 MG TABLET PO SCH (08:07)
[2021-01-22] MEDS: FERROUS SULFATE 325 MG EC TABLET PO SCH (08:07)
[2021-01-22] MEDS: ASPIRIN 81 MG DR TABLET PO SCH (08:07)
[2021-01-22] MEDS: SitaGLIPtin PHOSPHATE 50 MG TABLET PO SCH ×2 (08:07→17:06)
[2021-01-22] MEDS: MULTIVITAMINS, THERAPEUTIC TABLET PO SCH (08:07)
[2021-01-22] MEDS: THIAMINE 100 MG TABLET PO SCH (08:07)
[2021-01-22] MEDS: INSULIN GLARGINE,HUM.REC.ANLOG 100 UNITS/ML SQ SCH ×2 (08:08→17:08)
[2021-01-22] MEDS: CHOLECALCIFEROL (VIT D3) 1,000 UNITS [25 MCG] TABLET PO SCH (08:08)
[2021-01-22] MEDS: NICOTINE 14 MG/24 HOUR PATCH TD SCH (08:08)
[2021-01-22] MEDS: HALOPERIDOL 5 MG TABLET PO PRN (08:09)
[2021-01-22 11:54] LABS: GLUCOMETER DEV NAME(LOC) 3E.C; GLUCOSE,POINT OF CARE 170 MG/DL (70-110)
[2021-01-22] MEDS: INSULIN LISPRO 100 UNITS/ML SQ PRN (11:57)
[2021-01-22 12:30] VITALS: BP 96/65
[2021-01-22 16:27] VITALS: BP 92/63
[2021-01-22 16:51] LABS: GLUCOMETER DEV NAME(LOC) 3E.C; GLUCOSE,POINT OF CARE 128 MG/DL (70-110)
[2021-01-22 20:43] VITALS: BP 100/65
[2021-01-22] MEDS: DIVALPROEX SODIUM 500 MG DR TABLET PO SCH (20:46)
[2021-01-22] MEDS: SIMVASTATIN 10 MG TABLET PO SCH (20:46)
[2021-01-22] MEDS: HydrOXYzine PAMOATE 50 MG CAPSULE PO SCH (20:47)
[2021-01-22] MEDS: QUEtiapine FUMARATE 200 MG ER TABLET PO SCH (20:47)
[2021-01-22 21:03] LABS: GLUCOMETER DEV NAME(LOC) 3E.C; GLUCOSE,POINT OF CARE 137 MG/DL (70-110)
[2021-01-23] MEDS: MetFORMIN HCL 500 MG TABLET PO SCH ×2 (09:48→17:17)
[2021-01-23] MEDS: SitaGLIPtin PHOSPHATE 50 MG TABLET PO SCH ×2 (09:49→17:16)
[2021-01-23] MEDS: ASPIRIN 81 MG DR TABLET PO SCH (09:49)
[2021-01-23] MEDS: THIAMINE 100 MG TABLET PO SCH (09:49)
[2021-01-23] MEDS: FERROUS SULFATE 325 MG EC TABLET PO SCH (09:49)
[2021-01-23] MEDS: FOLIC ACID 1 MG TABLET PO SCH (09:49)
[2021-01-23] MEDS: NICOTINE 14 MG/24 HOUR PATCH TD SCH (09:50)
[2021-01-23] MEDS: DULoxetine HCL 30 MG CAPSULE PO SCH (09:50)
[2021-01-23] MEDS: MULTIVITAMINS, THERAPEUTIC TABLET PO SCH (09:50)
[2021-01-23] MEDS: CHOLECALCIFEROL (VIT D3) 1,000 UNITS [25 MCG] TABLET PO SCH (09:50)
[2021-01-23 09:59] LABS: GLUCOMETER DEV NAME(LOC) 3E.C; GLUCOSE,POINT OF CARE 82 MG/DL (70-110)
[2021-01-23] MEDS: INSULIN GLARGINE,HUM.REC.ANLOG 100 UNITS/ML SQ SCH ×2 (11:09→17:33)
[2021-01-23 12:05] LABS: GLUCOMETER DEV NAME(LOC) 3E.C; GLUCOSE,POINT OF CARE 143 MG/DL (70-110)
[2021-01-23] MEDS: INSULIN LISPRO 100 UNITS/ML SQ PRN ×2 (12:16→17:32)
[2021-01-23 16:16] VITALS: BP 117/71
[2021-01-23 17:42] LABS: GLUCOMETER DEV NAME(LOC) 3E.C; GLUCOSE,POINT OF CARE 183 MG/DL (70-110)
[2021-01-23 18:40] LABS: COVID AG,FIA SOURCE NASAL SWAB
[2021-01-23] MEDS: DIVALPROEX SODIUM 500 MG DR TABLET PO SCH (21:53)
[2021-01-23] MEDS: QUEtiapine FUMARATE 200 MG ER TABLET PO SCH (21:54)
[2021-01-23] MEDS: HydrOXYzine PAMOATE 50 MG CAPSULE PO SCH (21:55)
[2021-01-23] MEDS: SIMVASTATIN 10 MG TABLET PO SCH (21:56)
[2021-01-23 22:13] LABS: GLUCOMETER DEV NAME(LOC) 3E.C; GLUCOSE,POINT OF CARE 136 MG/DL (70-110)
[2021-01-24 07:49] LABS: GLUCOMETER DEV NAME(LOC) 3E.C; GLUCOSE,POINT OF CARE 60 MG/DL (70-110)
[2021-01-24 08:00] VITALS: BP 111/76
[2021-01-24] MEDS: DULoxetine HCL 30 MG CAPSULE PO SCH (10:19)
[2021-01-24] MEDS: FERROUS SULFATE 325 MG EC TABLET PO SCH (10:19)
[2021-01-24] MEDS: SitaGLIPtin PHOSPHATE 50 MG TABLET PO SCH ×2 (10:19→17:05)
[2021-01-24] MEDS: MetFORMIN HCL 500 MG TABLET PO SCH ×2 (10:20→17:23)
[2021-01-24] MEDS: MULTIVITAMINS, THERAPEUTIC TABLET PO SCH (10:21)
[2021-01-24] MEDS: NICOTINE 14 MG/24 HOUR PATCH TD SCH (10:22)
[2021-01-24] MEDS: HALOPERIDOL 5 MG TABLET PO PRN (10:23)
[2021-01-24] MEDS: THIAMINE 100 MG TABLET PO SCH (10:25)
[2021-01-24] MEDS: CHOLECALCIFEROL (VIT D3) 1,000 UNITS [25 MCG] TABLET PO SCH (10:25)
[2021-01-24] MEDS: ASPIRIN 81 MG DR TABLET PO SCH (10:26)
[2021-01-24] MEDS: FOLIC ACID 1 MG TABLET PO SCH (10:30)
[2021-01-24] MEDS: INSULIN GLARGINE,HUM.REC.ANLOG 100 UNITS/ML SQ SCH ×2 (10:42→17:04)
[2021-01-24] MEDS: INSULIN LISPRO 100 UNITS/ML SQ PRN ×2 (11:55→20:49)
[2021-01-24 11:57] LABS: GLUCOMETER DEV NAME(LOC) 3E.C; GLUCOSE,POINT OF CARE 295 MG/DL (70-110)
[2021-01-24 16:23] LABS: GLUCOMETER DEV NAME(LOC) 3E.C; GLUCOSE,POINT OF CARE 114 MG/DL (70-110)
[2021-01-24 16:45] VITALS: BP 104/60
[2021-01-24] MEDS: HydrOXYzine PAMOATE 50 MG CAPSULE PO SCH (20:40)
[2021-01-24] MEDS: DIVALPROEX SODIUM 500 MG DR TABLET PO SCH (20:41)
[2021-01-24] MEDS: QUEtiapine FUMARATE 200 MG ER TABLET PO SCH (20:41)
[2021-01-24] MEDS: SIMVASTATIN 10 MG TABLET PO SCH (20:42)
[2021-01-24 20:59] LABS: GLUCOMETER DEV NAME(LOC) 3E.C; GLUCOSE,POINT OF CARE 188 MG/DL (70-110)
[2021-01-25 08:24] LABS: GLUCOMETER DEV NAME(LOC) 3E.C; GLUCOSE,POINT OF CARE 156 MG/DL (70-110)
[2021-01-25] MEDS: MetFORMIN HCL 500 MG TABLET PO SCH ×2 (08:28→17:30)
[2021-01-25] MEDS: CHOLECALCIFEROL (VIT D3) 1,000 UNITS [25 MCG] TABLET PO SCH (08:29)
[2021-01-25] MEDS: SitaGLIPtin PHOSPHATE 50 MG TABLET PO SCH ×2 (08:29→17:02)
[2021-01-25] MEDS: ASPIRIN 81 MG DR TABLET PO SCH (08:29)
[2021-01-25] MEDS: DULoxetine HCL 30 MG CAPSULE PO SCH (08:29)
[2021-01-25] MEDS: MULTIVITAMINS, THERAPEUTIC TABLET PO SCH (08:29)
[2021-01-25] MEDS: FERROUS SULFATE 325 MG EC TABLET PO SCH (08:29)
[2021-01-25] MEDS: THIAMINE 100 MG TABLET PO SCH (08:30)
[2021-01-25] MEDS: FOLIC ACID 1 MG TABLET PO SCH (08:30)
[2021-01-25] MEDS: INSULIN LISPRO 100 UNITS/ML SQ PRN ×3 (08:38→17:01)
[2021-01-25] MEDS: INSULIN GLARGINE,HUM.REC.ANLOG 100 UNITS/ML SQ SCH ×2 (08:39→17:01)
[2021-01-25] MEDS: NICOTINE 14 MG/24 HOUR PATCH TD SCH (08:44)
[2021-01-25 16:25] VITALS: BP 90/60
[2021-01-25 16:27] LABS: GLUCOMETER DEV NAME(LOC) 3E.C; GLUCOSE,POINT OF CARE 156 MG/DL (70-110)
[2021-01-25 19:00] VITALS: BP 102/69
[2021-01-25] MEDS: QUEtiapine FUMARATE 200 MG ER TABLET PO SCH (20:45)
[2021-01-25] MEDS: SIMVASTATIN 10 MG TABLET PO SCH (20:46)
[2021-01-25] MEDS: HydrOXYzine PAMOATE 50 MG CAPSULE PO SCH (20:46)
[2021-01-25] MEDS: DIVALPROEX SODIUM 500 MG DR TABLET PO SCH (20:46)
[2021-01-25 21:03] LABS: GLUCOMETER DEV NAME(LOC) 3E.C; GLUCOSE,POINT OF CARE 112 MG/DL (70-110)
[2021-01-26 07:55] LABS: GLUCOMETER DEV NAME(LOC) 3E.C; GLUCOSE,POINT OF CARE 128 MG/DL (70-110)
[2021-01-26] MEDS: INSULIN GLARGINE,HUM.REC.ANLOG 100 UNITS/ML SQ SCH ×2 (09:02→17:00)
[2021-01-26] MEDS: MetFORMIN HCL 500 MG TABLET PO SCH ×2 (09:02→18:34)
[2021-01-26] MEDS: FERROUS SULFATE 325 MG EC TABLET PO SCH (09:02)
[2021-01-26] MEDS: SitaGLIPtin PHOSPHATE 50 MG TABLET PO SCH ×2 (09:03→17:22)
[2021-01-26] MEDS: THIAMINE 100 MG TABLET PO SCH (09:03)
[2021-01-26] MEDS: MULTIVITAMINS, THERAPEUTIC TABLET PO SCH (09:03)
[2021-01-26] MEDS: NICOTINE 14 MG/24 HOUR PATCH TD SCH (09:03)
[2021-01-26] MEDS: ASPIRIN 81 MG DR TABLET PO SCH (09:03)
[2021-01-26] MEDS: DULoxetine HCL 30 MG CAPSULE PO SCH (09:03)
[2021-01-26] MEDS: HALOPERIDOL 5 MG TABLET PO PRN (09:04)
[2021-01-26] MEDS: CHOLECALCIFEROL (VIT D3) 1,000 UNITS [25 MCG] TABLET PO SCH (09:04)
[2021-01-26] MEDS: FOLIC ACID 1 MG TABLET PO SCH (09:04)
[2021-01-26 11:35] LABS: GLUCOMETER DEV NAME(LOC) 3E.C; GLUCOSE,POINT OF CARE 156 MG/DL (70-110)
[2021-01-26] MEDS: INSULIN LISPRO 100 UNITS/ML SQ PRN ×2 (12:16→20:49)
[2021-01-26 16:20] VITALS: BP 95/65
[2021-01-26 16:35] LABS: GLUCOMETER DEV NAME(LOC) 3E.C; GLUCOSE,POINT OF CARE 80 MG/DL (70-110)
[2021-01-26] MEDS: QUEtiapine FUMARATE 200 MG ER TABLET PO SCH (20:40)
[2021-01-26] MEDS: DIVALPROEX SODIUM 500 MG DR TABLET PO SCH (20:41)
[2021-01-26] MEDS: SIMVASTATIN 10 MG TABLET PO SCH (20:41)
[2021-01-26] MEDS: HydrOXYzine PAMOATE 50 MG CAPSULE PO SCH (20:41)
[2021-01-26 20:58] LABS: GLUCOMETER DEV NAME(LOC) 3E.C; GLUCOSE,POINT OF CARE 152 MG/DL (70-110)
[2021-01-27] MEDS: DULoxetine HCL 30 MG CAPSULE PO SCH (08:30)
[2021-01-27] MEDS: SitaGLIPtin PHOSPHATE 50 MG TABLET PO SCH ×2 (08:30→17:43)
[2021-01-27] MEDS: CHOLECALCIFEROL (VIT D3) 1,000 UNITS [25 MCG] TABLET PO SCH (08:31)
[2021-01-27] MEDS: FOLIC ACID 1 MG TABLET PO SCH (08:31)
[2021-01-27] MEDS: MULTIVITAMINS, THERAPEUTIC TABLET PO SCH (08:31)
[2021-01-27] MEDS: ASPIRIN 81 MG DR TABLET PO SCH (08:32)
[2021-01-27] MEDS: MetFORMIN HCL 500 MG TABLET PO SCH ×2 (08:33→17:44)
[2021-01-27] MEDS: THIAMINE 100 MG TABLET PO SCH (08:33)
[2021-01-27] MEDS: FERROUS SULFATE 325 MG EC TABLET PO SCH (08:33)
[2021-01-27] MEDS: HALOPERIDOL 5 MG TABLET PO PRN (08:34)
[2021-01-27] MEDS: INSULIN GLARGINE,HUM.REC.ANLOG 100 UNITS/ML SQ SCH ×2 (08:41→17:00)
[2021-01-27 08:52] LABS: GLUCOMETER DEV NAME(LOC) 3E.C; GLUCOSE,POINT OF CARE 121 MG/DL (70-110)
[2021-01-27 09:00] VITALS: BP 101/65
[2021-01-27] MEDS: NICOTINE 14 MG/24 HOUR PATCH TD SCH (09:00)
[2021-01-27 11:55] LABS: GLUCOMETER DEV NAME(LOC) 3E.C; GLUCOSE,POINT OF CARE 148 MG/DL (70-110)
[2021-01-27] MEDS: INSULIN LISPRO 100 UNITS/ML SQ PRN ×2 (12:45→20:10)
[2021-01-27 17:28] LABS: GLUCOMETER DEV NAME(LOC) 3E.C; GLUCOSE,POINT OF CARE 102 MG/DL (70-110)
[2021-01-27 20:15] LABS: GLUCOMETER DEV NAME(LOC) 3E.C; GLUCOSE,POINT OF CARE 175 MG/DL (70-110)
[2021-01-27] MEDS: HydrOXYzine PAMOATE 50 MG CAPSULE PO SCH (21:19)
[2021-01-27] MEDS: QUEtiapine FUMARATE 200 MG ER TABLET PO SCH (21:20)
[2021-01-27] MEDS: DIVALPROEX SODIUM 500 MG DR TABLET PO SCH (21:20)
[2021-01-27] MEDS: SIMVASTATIN 10 MG TABLET PO SCH (21:21)
[2021-01-28 08:00] VITALS: BP 98/53
[2021-01-28] MEDS: MetFORMIN HCL 500 MG TABLET PO SCH ×2 (08:05→17:10)
[2021-01-28] MEDS: FERROUS SULFATE 325 MG EC TABLET PO SCH (08:05)
[2021-01-28] MEDS: THIAMINE 100 MG TABLET PO SCH (08:55)
[2021-01-28] MEDS: MULTIVITAMINS, THERAPEUTIC TABLET PO SCH (08:55)
[2021-01-28] MEDS: DULoxetine HCL 30 MG CAPSULE PO SCH (08:55)
[2021-01-28] MEDS: CHOLECALCIFEROL (VIT D3) 1,000 UNITS [25 MCG] TABLET PO SCH (08:55)
[2021-01-28] MEDS: FOLIC ACID 1 MG TABLET PO SCH (08:55)
[2021-01-28] MEDS: SitaGLIPtin PHOSPHATE 50 MG TABLET PO SCH ×2 (08:56→17:10)
[2021-01-28] MEDS: ASPIRIN 81 MG DR TABLET PO SCH (08:56)
[2021-01-28] MEDS: INSULIN GLARGINE,HUM.REC.ANLOG 100 UNITS/ML SQ SCH ×2 (08:57→17:47)
[2021-01-28] MEDS: NICOTINE 14 MG/24 HOUR PATCH TD SCH (09:00)
[2021-01-28 11:45] LABS: GLUCOMETER DEV NAME(LOC) 3E.C; GLUCOSE,POINT OF CARE 130 MG/DL (70-110)
[2021-01-28 11:48] LABS: GLUCOMETER DEV NAME(LOC) 3E.C; GLUCOSE,POINT OF CARE 120 MG/DL (70-110)
[2021-01-28 16:30] VITALS: BP 103/65
[2021-01-28] MEDS: INSULIN LISPRO 100 UNITS/ML SQ PRN (17:48)
[2021-01-28 19:20] LABS: GLUCOMETER DEV NAME(LOC) 3E.C; GLUCOSE,POINT OF CARE 268 MG/DL (70-110)
[2021-01-28] MEDS: QUEtiapine FUMARATE 200 MG ER TABLET PO SCH (21:12)
[2021-01-28] MEDS: HydrOXYzine PAMOATE 50 MG CAPSULE PO SCH (21:14)
[2021-01-28] MEDS: DIVALPROEX SODIUM 500 MG DR TABLET PO SCH (21:14)
[2021-01-28] MEDS: SIMVASTATIN 10 MG TABLET PO SCH (21:15)
[2021-01-29 06:05] LABS: GLUCOMETER DEV NAME(LOC) 3E.C; GLUCOSE,POINT OF CARE 75 MG/DL (70-110)
[2021-01-29] MEDS: FERROUS SULFATE 325 MG EC TABLET PO SCH (07:30)
[2021-01-29] MEDS: MetFORMIN HCL 500 MG TABLET PO SCH ×2 (07:30→16:58)
[2021-01-29 08:00] VITALS: BP 102/70
[2021-01-29] MEDS: DULoxetine HCL 30 MG CAPSULE PO SCH (09:12)
[2021-01-29] MEDS: CHOLECALCIFEROL (VIT D3) 1,000 UNITS [25 MCG] TABLET PO SCH (09:13)
[2021-01-29] MEDS: SitaGLIPtin PHOSPHATE 50 MG TABLET PO SCH ×2 (09:13→16:58)
[2021-01-29] MEDS: MULTIVITAMINS, THERAPEUTIC TABLET PO SCH (09:13)
[2021-01-29] MEDS: FOLIC ACID 1 MG TABLET PO SCH (09:13)
[2021-01-29] MEDS: ASPIRIN 81 MG DR TABLET PO SCH (09:13)
[2021-01-29] MEDS: THIAMINE 100 MG TABLET PO SCH (09:14)
[2021-01-29] MEDS: INSULIN LISPRO 100 UNITS/ML SQ PRN ×3 (09:16→18:13)
[2021-01-29] MEDS: INSULIN GLARGINE,HUM.REC.ANLOG 100 UNITS/ML SQ SCH ×2 (09:17→18:12)
[2021-01-29 09:21] LABS: GLUCOMETER DEV NAME(LOC) 3E.C; GLUCOSE,POINT OF CARE 161 MG/DL (70-110)
[2021-01-29] MEDS: NICOTINE 14 MG/24 HOUR PATCH TD SCH (09:25)
[2021-01-29 11:27] LABS: GLUCOMETER DEV NAME(LOC) 3E.C; GLUCOSE,POINT OF CARE 175 MG/DL (70-110)
[2021-01-29 17:05] VITALS: BP 96/132
[2021-01-29 20:40] LABS: GLUCOMETER DEV NAME(LOC) 3E.C; GLUCOSE,POINT OF CARE 180 MG/DL (70-110)
[2021-01-29 20:40] LABS: GLUCOMETER DEV NAME(LOC) 3E.C; GLUCOSE,POINT OF CARE 177 MG/DL (70-110)
[2021-01-29] MEDS: HydrOXYzine PAMOATE 50 MG CAPSULE PO SCH (20:41)
[2021-01-29] MEDS: DIVALPROEX SODIUM 500 MG DR TABLET PO SCH (20:42)
[2021-01-29] MEDS: QUEtiapine FUMARATE 200 MG ER TABLET PO SCH (20:42)
[2021-01-29] MEDS: SIMVASTATIN 10 MG TABLET PO SCH (20:42)
[2021-01-30] MEDS: FERROUS SULFATE 325 MG EC TABLET PO SCH (06:38)
[2021-01-30] MEDS: MetFORMIN HCL 500 MG TABLET PO SCH ×2 (06:39→16:49)
[2021-01-30 08:18] LABS: GLUCOMETER DEV NAME(LOC) 3E.C; GLUCOSE,POINT OF CARE 56 MG/DL (70-110)
[2021-01-30 08:39] VITALS: BP 106/62
[2021-01-30 08:40] LABS: GLUCOMETER DEV NAME(LOC) 3E.C; GLUCOSE,POINT OF CARE 105 MG/DL (70-110)
[2021-01-30] MEDS: PALIPERIDONE PALMITATE 234 MG/1.5 ML SYRINGE IM SCH (09:03)
[2021-01-30] MEDS: INSULIN GLARGINE,HUM.REC.ANLOG 100 UNITS/ML SQ SCH ×2 (09:06→16:48)
[2021-01-30] MEDS: SitaGLIPtin PHOSPHATE 50 MG TABLET PO SCH ×2 (09:07→16:49)
[2021-01-30] MEDS: DULoxetine HCL 30 MG CAPSULE PO SCH (09:07)
[2021-01-30] MEDS: CHOLECALCIFEROL (VIT D3) 1,000 UNITS [25 MCG] TABLET PO SCH (09:10)
[2021-01-30] MEDS: THIAMINE 100 MG TABLET PO SCH (09:10)
[2021-01-30] MEDS: ASPIRIN 81 MG DR TABLET PO SCH (09:10)
[2021-01-30] MEDS: MULTIVITAMINS, THERAPEUTIC TABLET PO SCH (09:10)
[2021-01-30] MEDS: FOLIC ACID 1 MG TABLET PO SCH (09:10)
[2021-01-30] MEDS: HALOPERIDOL 5 MG TABLET PO PRN (09:10)
[2021-01-30] MEDS: NICOTINE 14 MG/24 HOUR PATCH TD SCH (09:11)
[2021-01-30 12:01] LABS: GLUCOMETER DEV NAME(LOC) 3E.C; GLUCOSE,POINT OF CARE 183 MG/DL (70-110)
[2021-01-30] MEDS: INSULIN LISPRO 100 UNITS/ML SQ PRN ×3 (12:12→20:58)
[2021-01-30 16:00] VITALS: BP 111/79
[2021-01-30 16:10] LABS: GLUCOMETER DEV NAME(LOC) 3E.C; GLUCOSE,POINT OF CARE 179 MG/DL (70-110)
[2021-01-30 17:28] LABS: COVID AG,FIA SOURCE NASOPHARYNGEAL
[2021-01-30] MEDS: QUEtiapine FUMARATE 200 MG ER TABLET PO SCH (20:46)
[2021-01-30] MEDS: DIVALPROEX SODIUM 500 MG DR TABLET PO SCH (20:46)
[2021-01-30] MEDS: SIMVASTATIN 10 MG TABLET PO SCH (20:47)
[2021-01-30] MEDS: HydrOXYzine PAMOATE 50 MG CAPSULE PO SCH (20:47)
[2021-01-30 21:03] LABS: GLUCOMETER DEV NAME(LOC) 3E.C; GLUCOSE,POINT OF CARE 175 MG/DL (70-110)
[2021-01-31] MEDS: FERROUS SULFATE 325 MG EC TABLET PO SCH (06:28)
[2021-01-31] MEDS: MetFORMIN HCL 500 MG TABLET PO SCH ×2 (06:28→16:41)
[2021-01-31 08:58] LABS: GLUCOMETER DEV NAME(LOC) 3E.C; GLUCOSE,POINT OF CARE 68 MG/DL (70-110)
[2021-01-31] MEDS: HALOPERIDOL 5 MG TABLET PO PRN (09:30)
[2021-01-31] MEDS: INSULIN GLARGINE,HUM.REC.ANLOG 100 UNITS/ML SQ SCH ×2 (09:35→17:25)
[2021-01-31] MEDS: THIAMINE 100 MG TABLET PO SCH (09:35)
[2021-01-31] MEDS: DULoxetine HCL 30 MG CAPSULE PO SCH (09:35)
[2021-01-31] MEDS: ASPIRIN 81 MG DR TABLET PO SCH (09:36)
[2021-01-31] MEDS: SitaGLIPtin PHOSPHATE 50 MG TABLET PO SCH ×2 (09:36→16:41)
[2021-01-31] MEDS: FOLIC ACID 1 MG TABLET PO SCH (09:36)
[2021-01-31] MEDS: CHOLECALCIFEROL (VIT D3) 1,000 UNITS [25 MCG] TABLET PO SCH (09:38)
[2021-01-31] MEDS: MULTIVITAMINS, THERAPEUTIC TABLET PO SCH (09:38)
[2021-01-31] MEDS: NICOTINE 14 MG/24 HOUR PATCH TD SCH (09:44)
[2021-01-31 12:04] LABS: GLUCOMETER DEV NAME(LOC) 3E.C; GLUCOSE,POINT OF CARE 212 MG/DL (70-110)
[2021-01-31] MEDS: INSULIN LISPRO 100 UNITS/ML SQ PRN (17:24)
[2021-01-31 17:48] LABS: GLUCOMETER DEV NAME(LOC) 3E.C; GLUCOSE,POINT OF CARE 216 MG/DL (70-110)
[2021-01-31] MEDS: HydrOXYzine PAMOATE 50 MG CAPSULE PO SCH (20:25)
[2021-01-31] MEDS: QUEtiapine FUMARATE 200 MG ER TABLET PO SCH (20:25)
[2021-01-31] MEDS: SIMVASTATIN 10 MG TABLET PO SCH (20:25)
[2021-01-31] MEDS: DIVALPROEX SODIUM 500 MG DR TABLET PO SCH (20:26)
[2021-01-31 20:45] LABS: GLUCOMETER DEV NAME(LOC) 3E.C; GLUCOSE,POINT OF CARE 136 MG/DL (70-110)
[2021-02-01 09:04] LABS: GLUCOMETER DEV NAME(LOC) 3E.C; GLUCOSE,POINT OF CARE 96 MG/DL (70-110)
[2021-02-01 09:08] VITALS: BP 225/169
[2021-02-01] MEDS: ASPIRIN 81 MG DR TABLET PO SCH (09:10)
[2021-02-01] MEDS: MetFORMIN HCL 500 MG TABLET PO SCH ×2 (09:10→17:22)
[2021-02-01] MEDS: DULoxetine HCL 30 MG CAPSULE PO SCH (09:10)
[2021-02-01] MEDS: SitaGLIPtin PHOSPHATE 50 MG TABLET PO SCH ×2 (09:11→17:05)
[2021-02-01] MEDS: MULTIVITAMINS, THERAPEUTIC TABLET PO SCH (09:11)
[2021-02-01] MEDS: FOLIC ACID 1 MG TABLET PO SCH (09:11)
[2021-02-01] MEDS: FERROUS SULFATE 325 MG EC TABLET PO SCH (09:11)
[2021-02-01] MEDS: LORazepam 2 MG TABLET PO PRN (09:11)
[2021-02-01] MEDS: CHOLECALCIFEROL (VIT D3) 1,000 UNITS [25 MCG] TABLET PO SCH (09:12)
[2021-02-01] MEDS: HALOPERIDOL 5 MG TABLET PO PRN (09:12)
[2021-02-01] MEDS: THIAMINE 100 MG TABLET PO SCH (09:12)
[2021-02-01] MEDS: NICOTINE 14 MG/24 HOUR PATCH TD SCH (09:13)
[2021-02-01] MEDS: INSULIN GLARGINE,HUM.REC.ANLOG 100 UNITS/ML SQ SCH ×2 (09:14→17:16)
[2021-02-01] MEDS: AmLODIPine BESYLATE 10 MG TABLET PO SCH ×2 (09:56→12:21)
[2021-02-01 11:52] LABS: GLUCOMETER DEV NAME(LOC) 3E.C; GLUCOSE,POINT OF CARE 133 MG/DL (70-110)
[2021-02-01 12:15] VITALS: BP 89/62
[2021-02-01 13:15] VITALS: BP 97/60
[2021-02-01 16:06] LABS: GLUCOMETER DEV NAME(LOC) 3E.C; GLUCOSE,POINT OF CARE 166 MG/DL (70-110)
[2021-02-01 16:51] VITALS: BP 90/65
[2021-02-01] MEDS: INSULIN LISPRO 100 UNITS/ML SQ PRN ×2 (17:17→21:58)
[2021-02-01] MEDS: DIVALPROEX SODIUM 500 MG DR TABLET PO SCH (21:52)
[2021-02-01] MEDS: SIMVASTATIN 10 MG TABLET PO SCH (21:53)
[2021-02-01] MEDS: QUEtiapine FUMARATE 200 MG ER TABLET PO SCH (21:53)
[2021-02-01] MEDS: HydrOXYzine PAMOATE 50 MG CAPSULE PO SCH (21:54)
[2021-02-01 23:40] LABS: GLUCOMETER DEV NAME(LOC) 3E.C; GLUCOSE,POINT OF CARE 212 MG/DL (70-110)
[2021-02-02] MEDS: FOLIC ACID 1 MG TABLET PO SCH (08:59)
[2021-02-02 09:00] VITALS: BP 92/61
[2021-02-02] MEDS: CHOLECALCIFEROL (VIT D3) 1,000 UNITS [25 MCG] TABLET PO SCH (09:00)
[2021-02-02] MEDS: SitaGLIPtin PHOSPHATE 50 MG TABLET PO SCH ×2 (09:00→17:15)
[2021-02-02] MEDS: ASPIRIN 81 MG DR TABLET PO SCH (09:00)
[2021-02-02] MEDS: MULTIVITAMINS, THERAPEUTIC TABLET PO SCH (09:00)
[2021-02-02] MEDS: THIAMINE 100 MG TABLET PO SCH (09:00)
[2021-02-02] MEDS ORDERED: AmLODIPine BESYLATE 10 MG TABLET PO SCH (09:00)
[2021-02-02] MEDS: FERROUS SULFATE 325 MG EC TABLET PO SCH (09:01)
[2021-02-02] MEDS: DULoxetine HCL 30 MG CAPSULE PO SCH (09:01)
[2021-02-02] MEDS: MetFORMIN HCL 500 MG TABLET PO SCH ×2 (09:01→17:39)
[2021-02-02] MEDS: NICOTINE 14 MG/24 HOUR PATCH TD SCH (09:02)
[2021-02-02 09:09] LABS: GLUCOMETER DEV NAME(LOC) 3E.C; GLUCOSE,POINT OF CARE 183 MG/DL (70-110)
[2021-02-02] MEDS: INSULIN GLARGINE,HUM.REC.ANLOG 100 UNITS/ML SQ SCH ×2 (09:13→17:14)
[2021-02-02] MEDS: INSULIN LISPRO 100 UNITS/ML SQ PRN ×3 (09:14→20:53)
[2021-02-02 11:24] LABS: GLUCOMETER DEV NAME(LOC) 3E.C; GLUCOSE,POINT OF CARE 191 MG/DL (70-110)
[2021-02-02 16:36] VITALS: BP 102/64
[2021-02-02 16:42] LABS: GLUCOMETER DEV NAME(LOC) 3E.C; GLUCOSE,POINT OF CARE 127 MG/DL (70-110)
[2021-02-02] MEDS: SIMVASTATIN 10 MG TABLET PO SCH (20:46)
[2021-02-02] MEDS: DIVALPROEX SODIUM 500 MG DR TABLET PO SCH (20:46)
[2021-02-02] MEDS: QUEtiapine FUMARATE 200 MG ER TABLET PO SCH (20:46)
[2021-02-02] MEDS: HydrOXYzine PAMOATE 50 MG CAPSULE PO SCH (20:47)
[2021-02-02 21:04] LABS: GLUCOMETER DEV NAME(LOC) 3E.C; GLUCOSE,POINT OF CARE 154 MG/DL (70-110)
[2021-02-03 08:05] LABS: GLUCOMETER DEV NAME(LOC) 3E.C; GLUCOSE,POINT OF CARE 82 MG/DL (70-110)
[2021-02-03] MEDS: THIAMINE 100 MG TABLET PO SCH (08:14)
[2021-02-03] MEDS: CHOLECALCIFEROL (VIT D3) 1,000 UNITS [25 MCG] TABLET PO SCH (08:14)
[2021-02-03] MEDS: MetFORMIN HCL 500 MG TABLET PO SCH ×2 (08:14→17:16)
[2021-02-03] MEDS: ASPIRIN 81 MG DR TABLET PO SCH (08:14)
[2021-02-03] MEDS: NICOTINE 14 MG/24 HOUR PATCH TD SCH (08:15)
[2021-02-03] MEDS: SitaGLIPtin PHOSPHATE 50 MG TABLET PO SCH ×2 (08:15→17:16)
[2021-02-03] MEDS: FERROUS SULFATE 325 MG EC TABLET PO SCH (08:15)
[2021-02-03] MEDS: DULoxetine HCL 30 MG CAPSULE PO SCH (08:16)
[2021-02-03] MEDS: MULTIVITAMINS, THERAPEUTIC TABLET PO SCH (08:17)
[2021-02-03] MEDS: INSULIN GLARGINE,HUM.REC.ANLOG 100 UNITS/ML SQ SCH ×2 (08:23→17:26)
[2021-02-03 08:37] VITALS: BP 109/68
[2021-02-03] MEDS: FOLIC ACID 1 MG TABLET PO SCH (09:05)
[2021-02-03] MEDS: INSULIN LISPRO 100 UNITS/ML SQ PRN (11:42)
[2021-02-03 11:46] LABS: GLUCOMETER DEV NAME(LOC) 3E.C; GLUCOSE,POINT OF CARE 257 MG/DL (70-110)
[2021-02-03 16:37] VITALS: BP 93/63
[2021-02-03 17:44] LABS: GLUCOMETER DEV NAME(LOC) 3E.C; GLUCOSE,POINT OF CARE 111 MG/DL (70-110)
[2021-02-03] MEDS: DIVALPROEX SODIUM 500 MG DR TABLET PO SCH (20:22)
[2021-02-03] MEDS: HydrOXYzine PAMOATE 50 MG CAPSULE PO SCH (20:22)
[2021-02-03] MEDS: QUEtiapine FUMARATE 200 MG ER TABLET PO SCH (20:22)
[2021-02-03] MEDS: SIMVASTATIN 10 MG TABLET PO SCH (20:23)
[2021-02-03 20:48] LABS: GLUCOMETER DEV NAME(LOC) 3E.C; GLUCOSE,POINT OF CARE 140 MG/DL (70-110)
[2021-02-04 08:33] LABS: GLUCOMETER DEV NAME(LOC) 3E.C; GLUCOSE,POINT OF CARE 71 MG/DL (70-110)
[2021-02-04 08:50] VITALS: BP 93/61
[2021-02-04] MEDS: NICOTINE 14 MG/24 HOUR PATCH TD SCH (09:00)
[2021-02-04] MEDS: INSULIN GLARGINE,HUM.REC.ANLOG 100 UNITS/ML SQ SCH ×2 (09:55→16:50)
[2021-02-04] MEDS: MetFORMIN HCL 500 MG TABLET PO SCH ×2 (10:03→17:28)
[2021-02-04] MEDS: SitaGLIPtin PHOSPHATE 50 MG TABLET PO SCH ×2 (10:03→16:48)
[2021-02-04] MEDS: FERROUS SULFATE 325 MG EC TABLET PO SCH (10:03)
[2021-02-04] MEDS: DULoxetine HCL 30 MG CAPSULE PO SCH (10:03)
[2021-02-04] MEDS: THIAMINE 100 MG TABLET PO SCH (10:04)
[2021-02-04] MEDS: FOLIC ACID 1 MG TABLET PO SCH (10:05)
[2021-02-04] MEDS: CHOLECALCIFEROL (VIT D3) 1,000 UNITS [25 MCG] TABLET PO SCH (10:05)
[2021-02-04] MEDS: ASPIRIN 81 MG DR TABLET PO SCH (10:06)
[2021-02-04] MEDS: MULTIVITAMINS, THERAPEUTIC TABLET PO SCH (10:07)
[2021-02-04 11:58] LABS: GLUCOMETER DEV NAME(LOC) 3E.C; GLUCOSE,POINT OF CARE 167 MG/DL (70-110)
[2021-02-04] MEDS: INSULIN LISPRO 100 UNITS/ML SQ PRN ×3 (13:57→20:56)
[2021-02-04 16:15] VITALS: BP 116/76
[2021-02-04 16:59] LABS: GLUCOMETER DEV NAME(LOC) 3E.C; GLUCOSE,POINT OF CARE 193 MG/DL (70-110)
[2021-02-04] MEDS: SIMVASTATIN 10 MG TABLET PO SCH (20:39)
[2021-02-04] MEDS: DIVALPROEX SODIUM 500 MG DR TABLET PO SCH (20:39)
[2021-02-04] MEDS: QUEtiapine FUMARATE 200 MG ER TABLET PO SCH (20:39)
[2021-02-04] MEDS: HydrOXYzine PAMOATE 50 MG CAPSULE PO SCH (20:39)
[2021-02-04 22:03] LABS: GLUCOMETER DEV NAME(LOC) 3E.C; GLUCOSE,POINT OF CARE 147 MG/DL (70-110)
[2021-02-05] MEDS: MetFORMIN HCL 500 MG TABLET PO SCH ×2 (06:31→17:19)
[2021-02-05] MEDS: FERROUS SULFATE 325 MG EC TABLET PO SCH (06:31)
[2021-02-05 09:59] LABS: GLUCOMETER DEV NAME(LOC) 3E.C; GLUCOSE,POINT OF CARE 152 MG/DL (70-110)
[2021-02-05] MEDS: INSULIN GLARGINE,HUM.REC.ANLOG 100 UNITS/ML SQ SCH ×2 (10:13→16:54)
[2021-02-05] MEDS: INSULIN LISPRO 100 UNITS/ML SQ PRN ×4 (10:14→20:46)
[2021-02-05] MEDS: SitaGLIPtin PHOSPHATE 50 MG TABLET PO SCH ×2 (10:16→16:52)
[2021-02-05] MEDS: DULoxetine HCL 30 MG CAPSULE PO SCH (10:16)
[2021-02-05] MEDS: THIAMINE 100 MG TABLET PO SCH (10:17)
[2021-02-05] MEDS: MULTIVITAMINS, THERAPEUTIC TABLET PO SCH (10:17)
[2021-02-05] MEDS: ASPIRIN 81 MG DR TABLET PO SCH (10:18)
[2021-02-05] MEDS: FOLIC ACID 1 MG TABLET PO SCH (10:18)
[2021-02-05] MEDS: CHOLECALCIFEROL (VIT D3) 1,000 UNITS [25 MCG] TABLET PO SCH (10:18)
[2021-02-05] MEDS: NICOTINE 14 MG/24 HOUR PATCH TD SCH (10:20)
[2021-02-05 11:41] LABS: GLUCOMETER DEV NAME(LOC) 3E.C; GLUCOSE,POINT OF CARE 261 MG/DL (70-110)
[2021-02-05] MEDS: HALOPERIDOL 5 MG TABLET PO PRN (15:56)
[2021-02-05 16:07] VITALS: BP 101/79
[2021-02-05 16:11] LABS: GLUCOMETER DEV NAME(LOC) 3E.C; GLUCOSE,POINT OF CARE 239 MG/DL (70-110)
[2021-02-05] MEDS: HydrOXYzine PAMOATE 50 MG CAPSULE PO SCH (20:39)
[2021-02-05] MEDS: SIMVASTATIN 10 MG TABLET PO SCH (20:40)
[2021-02-05] MEDS: DIVALPROEX SODIUM 500 MG DR TABLET PO SCH (20:40)
[2021-02-05] MEDS: QUEtiapine FUMARATE 200 MG ER TABLET PO SCH (20:40)
[2021-02-05 21:03] LABS: GLUCOMETER DEV NAME(LOC) 3E.C; GLUCOSE,POINT OF CARE 208 MG/DL (70-110)
[2021-02-06] MEDS: MetFORMIN HCL 500 MG TABLET PO SCH ×2 (08:30→17:00)
[2021-02-06] MEDS: CHOLECALCIFEROL (VIT D3) 1,000 UNITS [25 MCG] TABLET PO SCH (08:44)
[2021-02-06] MEDS: MULTIVITAMINS, THERAPEUTIC TABLET PO SCH (08:44)
[2021-02-06] MEDS: ASPIRIN 81 MG DR TABLET PO SCH (08:44)
[2021-02-06] MEDS: THIAMINE 100 MG TABLET PO SCH (08:44)
[2021-02-06] MEDS: FOLIC ACID 1 MG TABLET PO SCH (08:44)
[2021-02-06] MEDS: DULoxetine HCL 30 MG CAPSULE PO SCH (08:46)
[2021-02-06] MEDS: SitaGLIPtin PHOSPHATE 50 MG TABLET PO SCH ×2 (08:46→16:59)
[2021-02-06] MEDS: FERROUS SULFATE 325 MG EC TABLET PO SCH (08:46)
[2021-02-06] MEDS: NICOTINE 14 MG/24 HOUR PATCH TD SCH (08:47)
[2021-02-06] MEDS: INSULIN LISPRO 100 UNITS/ML SQ PRN ×3 (09:07→17:14)
[2021-02-06] MEDS: INSULIN GLARGINE,HUM.REC.ANLOG 100 UNITS/ML SQ SCH ×2 (09:08→17:13)
[2021-02-06 09:19] LABS: GLUCOMETER DEV NAME(LOC) 3E.C; GLUCOSE,POINT OF CARE 149 MG/DL (70-110)
[2021-02-06 10:43] VITALS: BP 92/56
[2021-02-06 11:35] LABS: GLUCOMETER DEV NAME(LOC) 3E.C; GLUCOSE,POINT OF CARE 170 MG/DL (70-110)
[2021-02-06 16:23] VITALS: BP 108/71
[2021-02-06 17:31] LABS: COVID AG,FIA SOURCE NASOPHARYNGEAL
[2021-02-06 17:34] LABS: GLUCOMETER DEV NAME(LOC) 3E.C; GLUCOSE,POINT OF CARE 152 MG/DL (70-110)
[2021-02-06] MEDS: QUEtiapine FUMARATE 200 MG ER TABLET PO SCH (21:16)
[2021-02-06] MEDS: HydrOXYzine PAMOATE 50 MG CAPSULE PO SCH (21:17)
[2021-02-06] MEDS: SIMVASTATIN 10 MG TABLET PO SCH (21:17)
[2021-02-06] MEDS: DIVALPROEX SODIUM 500 MG DR TABLET PO SCH (21:17)
[2021-02-06 21:45] LABS: GLUCOMETER DEV NAME(LOC) 3E.C; GLUCOSE,POINT OF CARE 91 MG/DL (70-110)
[2021-02-07 06:28] LABS: GLUCOMETER DEV NAME(LOC) 3E.C; GLUCOSE,POINT OF CARE 77 MG/DL (70-110)
[2021-02-07] MEDS: FERROUS SULFATE 325 MG EC TABLET PO SCH (06:58)
[2021-02-07] MEDS: MetFORMIN HCL 500 MG TABLET PO SCH ×2 (07:00→16:31)
[2021-02-07] MEDS: INSULIN LISPRO 100 UNITS/ML SQ PRN ×2 (07:01→10:25)
[2021-02-07 08:00] VITALS: BP 102/72
[2021-02-07 09:39] LABS: GLUCOMETER DEV NAME(LOC) 3E.C; GLUCOSE,POINT OF CARE 185 MG/DL (70-110)
[2021-02-07] MEDS: INSULIN GLARGINE,HUM.REC.ANLOG 100 UNITS/ML SQ SCH ×2 (10:05→17:15)
[2021-02-07] MEDS: THIAMINE 100 MG TABLET PO SCH (10:31)
[2021-02-07] MEDS: ASPIRIN 81 MG DR TABLET PO SCH (10:32)
[2021-02-07] MEDS: DULoxetine HCL 30 MG CAPSULE PO SCH (10:32)
[2021-02-07] MEDS: SitaGLIPtin PHOSPHATE 50 MG TABLET PO SCH ×2 (10:32→16:31)
[2021-02-07] MEDS: FOLIC ACID 1 MG TABLET PO SCH (10:32)
[2021-02-07] MEDS: MULTIVITAMINS, THERAPEUTIC TABLET PO SCH (10:32)
[2021-02-07] MEDS: CHOLECALCIFEROL (VIT D3) 1,000 UNITS [25 MCG] TABLET PO SCH (10:33)
[2021-02-07] MEDS: NICOTINE 14 MG/24 HOUR PATCH TD SCH (10:34)
[2021-02-07 11:55] LABS: GLUCOMETER DEV NAME(LOC) 3E.C; GLUCOSE,POINT OF CARE 230 MG/DL (70-110)
[2021-02-07 16:35] VITALS: BP 91/60
[2021-02-07 17:15] LABS: GLUCOMETER DEV NAME(LOC) 3E.C; GLUCOSE,POINT OF CARE 130 MG/DL (70-110)
[2021-02-07 20:33] LABS: GLUCOMETER DEV NAME(LOC) 3E.C; GLUCOSE,POINT OF CARE 137 MG/DL (70-110)
[2021-02-07] MEDS: QUEtiapine FUMARATE 200 MG ER TABLET PO SCH (20:58)
[2021-02-07] MEDS: DIVALPROEX SODIUM 500 MG DR TABLET PO SCH (20:58)
[2021-02-07] MEDS: HydrOXYzine PAMOATE 50 MG CAPSULE PO SCH (20:58)
[2021-02-07] MEDS: SIMVASTATIN 10 MG TABLET PO SCH (20:58)
[2021-02-08] MEDS: MetFORMIN HCL 500 MG TABLET PO SCH ×2 (06:35→09:08)
[2021-02-08] MEDS: FERROUS SULFATE 325 MG EC TABLET PO SCH (06:35)
[2021-02-08 08:47] LABS: GLUCOMETER DEV NAME(LOC) 3E.C; GLUCOSE,POINT OF CARE 84 MG/DL (70-110)
[2021-02-08] MEDS: HALOPERIDOL 5 MG TABLET PO PRN (09:07)
[2021-02-08] MEDS: DULoxetine HCL 30 MG CAPSULE PO SCH (09:07)
[2021-02-08] MEDS: THIAMINE 100 MG TABLET PO SCH (09:07)
[2021-02-08] MEDS: SitaGLIPtin PHOSPHATE 50 MG TABLET PO SCH ×2 (09:07→17:10)
[2021-02-08] MEDS: FOLIC ACID 1 MG TABLET PO SCH (09:07)
[2021-02-08] MEDS: NICOTINE 14 MG/24 HOUR PATCH TD SCH (09:08)
[2021-02-08] MEDS: CHOLECALCIFEROL (VIT D3) 1,000 UNITS [25 MCG] TABLET PO SCH (09:09)
[2021-02-08] MEDS: ASPIRIN 81 MG DR TABLET PO SCH (09:09)
[2021-02-08] MEDS: INSULIN GLARGINE,HUM.REC.ANLOG 100 UNITS/ML SQ SCH ×2 (09:11→17:10)
[2021-02-08] MEDS: MULTIVITAMINS, THERAPEUTIC TABLET PO SCH (09:26)
[2021-02-08 11:39] LABS: GLUCOMETER DEV NAME(LOC) 3E.C; GLUCOSE,POINT OF CARE 129 MG/DL (70-110)
[2021-02-08 16:44] VITALS: BP 106/72
[2021-02-08] MEDS: INSULIN LISPRO 100 UNITS/ML SQ PRN ×2 (17:10→20:51)
[2021-02-08 17:11] LABS: GLUCOMETER DEV NAME(LOC) 3E.C; GLUCOSE,POINT OF CARE 195 MG/DL (70-110)
[2021-02-08] MEDS: HydrOXYzine PAMOATE 50 MG CAPSULE PO SCH (20:33)
[2021-02-08] MEDS: DIVALPROEX SODIUM 500 MG DR TABLET PO SCH (20:33)
[2021-02-08] MEDS: QUEtiapine FUMARATE 200 MG ER TABLET PO SCH (20:33)
[2021-02-08] MEDS: SIMVASTATIN 10 MG TABLET PO SCH (20:34)
[2021-02-08 21:06] LABS: GLUCOMETER DEV NAME(LOC) 3E.C; GLUCOSE,POINT OF CARE 151 MG/DL (70-110)
[2021-02-09 10:08] VITALS: BP 90/62
[2021-02-09] MEDS: FERROUS SULFATE 325 MG EC TABLET PO SCH (10:40)
[2021-02-09] MEDS: MULTIVITAMINS, THERAPEUTIC TABLET PO SCH (10:41)
[2021-02-09] MEDS: THIAMINE 100 MG TABLET PO SCH (10:41)
[2021-02-09] MEDS: SitaGLIPtin PHOSPHATE 50 MG TABLET PO SCH ×2 (10:41→16:42)
[2021-02-09] MEDS: ASPIRIN 81 MG DR TABLET PO SCH (10:41)
[2021-02-09] MEDS: CHOLECALCIFEROL (VIT D3) 1,000 UNITS [25 MCG] TABLET PO SCH (10:42)
[2021-02-09] MEDS: DULoxetine HCL 30 MG CAPSULE PO SCH (10:42)
[2021-02-09] MEDS: FOLIC ACID 1 MG TABLET PO SCH (10:42)
[2021-02-09] MEDS: NICOTINE 14 MG/24 HOUR PATCH TD SCH (10:45)
[2021-02-09 11:08] LABS: GLUCOMETER DEV NAME(LOC) 3E.C; GLUCOSE,POINT OF CARE 161 MG/DL (70-110)
[2021-02-09] MEDS: INSULIN GLARGINE,HUM.REC.ANLOG 100 UNITS/ML SQ SCH ×2 (11:13→16:50)
[2021-02-09] MEDS: INSULIN LISPRO 100 UNITS/ML SQ PRN ×3 (12:45→20:47)
[2021-02-09 12:58] LABS: GLUCOMETER DEV NAME(LOC) 3E.C; GLUCOSE,POINT OF CARE 210 MG/DL (70-110)
[2021-02-09 16:46] LABS: GLUCOMETER DEV NAME(LOC) 3E.C; GLUCOSE,POINT OF CARE 241 MG/DL (70-110)
[2021-02-09] MEDS: MetFORMIN HCL 500 MG TABLET PO SCH (17:26)
[2021-02-09 17:50] VITALS: BP 94/64
[2021-02-09 18:15] VITALS: BP 100/62
[2021-02-09] MEDS: HydrOXYzine PAMOATE 50 MG CAPSULE PO SCH (20:39)
[2021-02-09] MEDS: DIVALPROEX SODIUM 500 MG DR TABLET PO SCH (20:39)
[2021-02-09] MEDS: QUEtiapine FUMARATE 200 MG ER TABLET PO SCH (20:39)
[2021-02-09] MEDS: SIMVASTATIN 10 MG TABLET PO SCH (20:40)
[2021-02-09 21:00] LABS: GLUCOMETER DEV NAME(LOC) 3E.C; GLUCOSE,POINT OF CARE 174 MG/DL (70-110)
[2021-02-10] MEDS: MetFORMIN HCL 500 MG TABLET PO SCH ×2 (08:48→18:31)
[2021-02-10] MEDS: MULTIVITAMINS, THERAPEUTIC TABLET PO SCH (08:49)
[2021-02-10] MEDS: FOLIC ACID 1 MG TABLET PO SCH (08:49)
[2021-02-10] MEDS: CHOLECALCIFEROL (VIT D3) 1,000 UNITS [25 MCG] TABLET PO SCH (08:49)
[2021-02-10] MEDS: THIAMINE 100 MG TABLET PO SCH (08:49)
[2021-02-10] MEDS: FERROUS SULFATE 325 MG EC TABLET PO SCH (08:49)
[2021-02-10] MEDS: NICOTINE 14 MG/24 HOUR PATCH TD SCH (08:49)
[2021-02-10] MEDS: DULoxetine HCL 30 MG CAPSULE PO SCH (08:50)
[2021-02-10] MEDS: ASPIRIN 81 MG DR TABLET PO SCH (08:50)
[2021-02-10] MEDS: SitaGLIPtin PHOSPHATE 50 MG TABLET PO SCH ×2 (08:50→17:00)
[2021-02-10] MEDS: INSULIN GLARGINE,HUM.REC.ANLOG 100 UNITS/ML SQ SCH ×2 (09:42→17:00)
[2021-02-10 11:46] LABS: GLUCOMETER DEV NAME(LOC) 3E.C; GLUCOSE,POINT OF CARE 123 MG/DL (70-110)
[2021-02-10 11:58] LABS: GLUCOMETER DEV NAME(LOC) 3E.C; GLUCOSE,POINT OF CARE 163 MG/DL (70-110)
[2021-02-10] MEDS: INSULIN LISPRO 100 UNITS/ML SQ PRN ×2 (11:58→21:04)
[2021-02-10 16:22] VITALS: BP 102/68
[2021-02-10 17:17] LABS: GLUCOMETER DEV NAME(LOC) 3E.C; GLUCOSE,POINT OF CARE 72 MG/DL (70-110)
[2021-02-10 18:37] LABS: GLUCOMETER DEV NAME(LOC) 3E.C; GLUCOSE,POINT OF CARE 104 MG/DL (70-110)
[2021-02-10] MEDS: HydrOXYzine PAMOATE 50 MG CAPSULE PO SCH (20:27)
[2021-02-10] MEDS: QUEtiapine FUMARATE 200 MG ER TABLET PO SCH (20:27)
[2021-02-10] MEDS: SIMVASTATIN 10 MG TABLET PO SCH (20:27)
[2021-02-10] MEDS: DIVALPROEX SODIUM 500 MG DR TABLET PO SCH (20:28)
[2021-02-10 20:58] LABS: GLUCOMETER DEV NAME(LOC) 3E.C; GLUCOSE,POINT OF CARE 163 MG/DL (70-110)
[2021-02-11] MEDS: MetFORMIN HCL 500 MG TABLET PO SCH ×2 (07:09→17:17)
[2021-02-11] MEDS: FERROUS SULFATE 325 MG EC TABLET PO SCH (07:09)
[2021-02-11] MEDS: FOLIC ACID 1 MG TABLET PO SCH (08:04)
[2021-02-11] MEDS: NICOTINE 14 MG/24 HOUR PATCH TD SCH (08:04)
[2021-02-11] MEDS: CHOLECALCIFEROL (VIT D3) 1,000 UNITS [25 MCG] TABLET PO SCH (08:04)
[2021-02-11] MEDS: THIAMINE 100 MG TABLET PO SCH (08:04)
[2021-02-11] MEDS: ASPIRIN 81 MG DR TABLET PO SCH (08:04)
[2021-02-11] MEDS: MULTIVITAMINS, THERAPEUTIC TABLET PO SCH (08:05)
[2021-02-11] MEDS: DULoxetine HCL 30 MG CAPSULE PO SCH (08:05)
[2021-02-11] MEDS: SitaGLIPtin PHOSPHATE 50 MG TABLET PO SCH ×2 (08:05→17:18)
[2021-02-11 08:06] VITALS: BP 133/82
[2021-02-11 08:24] LABS: GLUCOMETER DEV NAME(LOC) 3E.C; GLUCOSE,POINT OF CARE 101 MG/DL (70-110)
[2021-02-11] MEDS: INSULIN GLARGINE,HUM.REC.ANLOG 100 UNITS/ML SQ SCH ×2 (08:55→17:22)
[2021-02-11 11:34] LABS: GLUCOMETER DEV NAME(LOC) 3E.C; GLUCOSE,POINT OF CARE 214 MG/DL (70-110)
[2021-02-11] MEDS: INSULIN LISPRO 100 UNITS/ML SQ PRN ×3 (12:21→21:35)
[2021-02-11 16:00] VITALS: BP 106/73
[2021-02-11 18:07] LABS: GLUCOMETER DEV NAME(LOC) 3E.C; GLUCOSE,POINT OF CARE 179 MG/DL (70-110)
[2021-02-11] MEDS: DIVALPROEX SODIUM 500 MG DR TABLET PO SCH (20:51)
[2021-02-11] MEDS: HydrOXYzine PAMOATE 50 MG CAPSULE PO SCH (20:51)
[2021-02-11] MEDS: QUEtiapine FUMARATE 200 MG ER TABLET PO SCH (20:52)
[2021-02-11] MEDS: SIMVASTATIN 10 MG TABLET PO SCH (20:53)
[2021-02-11 20:56] LABS: GLUCOMETER DEV NAME(LOC) 3E.C; GLUCOSE,POINT OF CARE 160 MG/DL (70-110)
[2021-02-12] MEDS: FERROUS SULFATE 325 MG EC TABLET PO SCH (07:05)
[2021-02-12] MEDS: MetFORMIN HCL 500 MG TABLET PO SCH ×2 (07:05→16:40)
[2021-02-12 08:05] VITALS: BP 90/55
[2021-02-12] MEDS: CHOLECALCIFEROL (VIT D3) 1,000 UNITS [25 MCG] TABLET PO SCH (08:42)
[2021-02-12] MEDS: ASPIRIN 81 MG DR TABLET PO SCH (08:42)
[2021-02-12] MEDS: MULTIVITAMINS, THERAPEUTIC TABLET PO SCH (08:42)
[2021-02-12] MEDS: THIAMINE 100 MG TABLET PO SCH (08:42)
[2021-02-12] MEDS: SitaGLIPtin PHOSPHATE 50 MG TABLET PO SCH ×2 (08:43→16:40)
[2021-02-12] MEDS: DULoxetine HCL 30 MG CAPSULE PO SCH (08:43)
[2021-02-12] MEDS: FOLIC ACID 1 MG TABLET PO SCH (08:45)
[2021-02-12] MEDS: NICOTINE 14 MG/24 HOUR PATCH TD SCH (08:54)
[2021-02-12 09:06] LABS: GLUCOMETER DEV NAME(LOC) 3E.C; GLUCOSE,POINT OF CARE 148 MG/DL (70-110)
[2021-02-12] MEDS: INSULIN GLARGINE,HUM.REC.ANLOG 100 UNITS/ML SQ SCH ×2 (09:09→16:46)
[2021-02-12] MEDS: INSULIN LISPRO 100 UNITS/ML SQ PRN ×3 (11:38→20:55)
[2021-02-12 11:48] LABS: GLUCOMETER DEV NAME(LOC) 3E.C; GLUCOSE,POINT OF CARE 166 MG/DL (70-110)
[2021-02-12 16:33] VITALS: BP 108/78
[2021-02-12 16:54] LABS: GLUCOMETER DEV NAME(LOC) 3E.C; GLUCOSE,POINT OF CARE 177 MG/DL (70-110)
[2021-02-12 20:49] LABS: GLUCOMETER DEV NAME(LOC) 3E.C; GLUCOSE,POINT OF CARE 151 MG/DL (70-110)
[2021-02-12] MEDS: DIVALPROEX SODIUM 500 MG DR TABLET PO SCH (20:53)
[2021-02-12] MEDS: QUEtiapine FUMARATE 200 MG ER TABLET PO SCH (20:53)
[2021-02-12] MEDS: HydrOXYzine PAMOATE 50 MG CAPSULE PO SCH (20:54)
[2021-02-12] MEDS: SIMVASTATIN 10 MG TABLET PO SCH (20:54)
[2021-02-13] MEDS: FERROUS SULFATE 325 MG EC TABLET PO SCH (08:10)
[2021-02-13] MEDS: MetFORMIN HCL 500 MG TABLET PO SCH ×2 (08:10→16:43)
[2021-02-13] MEDS: DULoxetine HCL 30 MG CAPSULE PO SCH (08:11)
[2021-02-13] MEDS: ASPIRIN 81 MG DR TABLET PO SCH (08:11)
[2021-02-13] MEDS: MULTIVITAMINS, THERAPEUTIC TABLET PO SCH (08:12)
[2021-02-13] MEDS: SitaGLIPtin PHOSPHATE 50 MG TABLET PO SCH ×2 (08:12→16:43)
[2021-02-13] MEDS: CHOLECALCIFEROL (VIT D3) 1,000 UNITS [25 MCG] TABLET PO SCH (08:12)
[2021-02-13] MEDS: THIAMINE 100 MG TABLET PO SCH (08:12)
[2021-02-13] MEDS: FOLIC ACID 1 MG TABLET PO SCH (08:12)
[2021-02-13] MEDS: NICOTINE 14 MG/24 HOUR PATCH TD SCH (08:13)
[2021-02-13] MEDS: INSULIN GLARGINE,HUM.REC.ANLOG 100 UNITS/ML SQ SCH ×2 (10:05→17:34)
[2021-02-13 10:14] LABS: GLUCOMETER DEV NAME(LOC) 3E.C; GLUCOSE,POINT OF CARE 61 MG/DL (70-110)
[2021-02-13] MEDS: INSULIN LISPRO 100 UNITS/ML SQ PRN (11:28)
[2021-02-13 11:30] LABS: GLUCOMETER DEV NAME(LOC) 3E.C; GLUCOSE,POINT OF CARE 221 MG/DL (70-110)
[2021-02-13 14:48] LABS: COVID AG,FIA SOURCE NASOPHARYNGEAL
[2021-02-13 16:36] VITALS: BP 93/95
[2021-02-13 16:40] VITALS: BP 95/60
[2021-02-13 17:49] LABS: GLUCOMETER DEV NAME(LOC) 3E.C; GLUCOSE,POINT OF CARE 72 MG/DL (70-110)
[2021-02-13] MEDS: QUEtiapine FUMARATE 200 MG ER TABLET PO SCH (20:36)
[2021-02-13] MEDS: SIMVASTATIN 10 MG TABLET PO SCH (20:37)
[2021-02-13] MEDS: HydrOXYzine PAMOATE 50 MG CAPSULE PO SCH (20:37)
[2021-02-13] MEDS: DIVALPROEX SODIUM 500 MG DR TABLET PO SCH (20:37)
[2021-02-13 21:05] LABS: GLUCOMETER DEV NAME(LOC) 3E.C; GLUCOSE,POINT OF CARE 138 MG/DL (70-110)
[2021-02-14 08:00] VITALS: BP 102/73
[2021-02-14] MEDS: NICOTINE 14 MG/24 HOUR PATCH TD SCH (08:07)
[2021-02-14] MEDS: SitaGLIPtin PHOSPHATE 50 MG TABLET PO SCH ×2 (08:07→16:38)
[2021-02-14] MEDS: MULTIVITAMINS, THERAPEUTIC TABLET PO SCH (08:07)
[2021-02-14] MEDS: FERROUS SULFATE 325 MG EC TABLET PO SCH (08:07)
[2021-02-14] MEDS: MetFORMIN HCL 500 MG TABLET PO SCH ×2 (08:08→16:38)
[2021-02-14] MEDS: FOLIC ACID 1 MG TABLET PO SCH (08:08)
[2021-02-14] MEDS: CHOLECALCIFEROL (VIT D3) 1,000 UNITS [25 MCG] TABLET PO SCH (08:08)
[2021-02-14] MEDS: THIAMINE 100 MG TABLET PO SCH (08:08)
[2021-02-14] MEDS: ASPIRIN 81 MG DR TABLET PO SCH (08:09)
[2021-02-14] MEDS: DULoxetine HCL 30 MG CAPSULE PO SCH (08:09)
[2021-02-14 08:18] LABS: GLUCOMETER DEV NAME(LOC) 3E.C; GLUCOSE,POINT OF CARE 111 MG/DL (70-110)
[2021-02-14] MEDS: INSULIN GLARGINE,HUM.REC.ANLOG 100 UNITS/ML SQ SCH ×2 (09:31→16:44)
[2021-02-14 11:39] LABS: GLUCOMETER DEV NAME(LOC) 3E.C; GLUCOSE,POINT OF CARE 185 MG/DL (70-110)
[2021-02-14] MEDS: INSULIN LISPRO 100 UNITS/ML SQ PRN ×2 (12:06→20:29)
[2021-02-14 16:37] VITALS: BP 107/77
[2021-02-14 16:49] LABS: GLUCOMETER DEV NAME(LOC) 3E.C; GLUCOSE,POINT OF CARE 127 MG/DL (70-110)
[2021-02-14] MEDS: HydrOXYzine PAMOATE 50 MG CAPSULE PO SCH (20:25)
[2021-02-14] MEDS: QUEtiapine FUMARATE 200 MG ER TABLET PO SCH (20:25)
[2021-02-14] MEDS: SIMVASTATIN 10 MG TABLET PO SCH (20:26)
[2021-02-14] MEDS: DIVALPROEX SODIUM 500 MG DR TABLET PO SCH (20:26)
[2021-02-14 20:36] LABS: GLUCOMETER DEV NAME(LOC) 3E.C; GLUCOSE,POINT OF CARE 158 MG/DL (70-110)
[2021-02-15] MEDS: MetFORMIN HCL 500 MG TABLET PO SCH ×3 (07:26→17:15)
[2021-02-15 08:00] VITALS: BP 100/71
[2021-02-15 08:08] LABS: GLUCOMETER DEV NAME(LOC) 3E.C; GLUCOSE,POINT OF CARE 169 MG/DL (70-110)
[2021-02-15] MEDS: CHOLECALCIFEROL (VIT D3) 1,000 UNITS [25 MCG] TABLET PO SCH (08:23)
[2021-02-15] MEDS: NICOTINE 14 MG/24 HOUR PATCH TD SCH (08:23)
[2021-02-15] MEDS: ASPIRIN 81 MG DR TABLET PO SCH (08:23)
[2021-02-15] MEDS: MULTIVITAMINS, THERAPEUTIC TABLET PO SCH (08:23)
[2021-02-15] MEDS: FOLIC ACID 1 MG TABLET PO SCH (08:24)
[2021-02-15] MEDS: DULoxetine HCL 30 MG CAPSULE PO SCH (08:24)
[2021-02-15] MEDS: THIAMINE 100 MG TABLET PO SCH (08:24)
[2021-02-15] MEDS: FERROUS SULFATE 325 MG EC TABLET PO SCH (08:24)
[2021-02-15] MEDS: SitaGLIPtin PHOSPHATE 50 MG TABLET PO SCH ×2 (08:24→17:14)
[2021-02-15] MEDS: INSULIN GLARGINE,HUM.REC.ANLOG 100 UNITS/ML SQ SCH ×2 (09:25→17:25)
[2021-02-15 11:03] LABS: GLUCOMETER DEV NAME(LOC) 3E.C; GLUCOSE,POINT OF CARE 155 MG/DL (70-110)
[2021-02-15] MEDS: INSULIN LISPRO 100 UNITS/ML SQ PRN (12:18)
[2021-02-15 16:41] VITALS: BP 107/76
[2021-02-15] MEDS: HALOPERIDOL 5 MG TABLET PO PRN ×2 (17:14→17:25)
[2021-02-15 17:32] LABS: GLUCOMETER DEV NAME(LOC) 3E.C; GLUCOSE,POINT OF CARE 138 MG/DL (70-110)
[2021-02-15] MEDS: SIMVASTATIN 10 MG TABLET PO SCH (21:29)
[2021-02-15] MEDS: HydrOXYzine PAMOATE 50 MG CAPSULE PO SCH (21:29)
[2021-02-15] MEDS: QUEtiapine FUMARATE 200 MG ER TABLET PO SCH (21:29)
[2021-02-15] MEDS: DIVALPROEX SODIUM 500 MG DR TABLET PO SCH (21:30)
[2021-02-15 21:46] LABS: GLUCOMETER DEV NAME(LOC) 3E.C; GLUCOSE,POINT OF CARE 122 MG/DL (70-110)
[2021-02-16] MEDS: CHOLECALCIFEROL (VIT D3) 1,000 UNITS [25 MCG] TABLET PO SCH (08:41)
[2021-02-16] MEDS: THIAMINE 100 MG TABLET PO SCH (08:41)
[2021-02-16] MEDS: MULTIVITAMINS, THERAPEUTIC TABLET PO SCH (08:42)
[2021-02-16] MEDS: DULoxetine HCL 30 MG CAPSULE PO SCH (08:42)
[2021-02-16] MEDS: FERROUS SULFATE 325 MG EC TABLET PO SCH (08:42)
[2021-02-16] MEDS: FOLIC ACID 1 MG TABLET PO SCH (08:42)
[2021-02-16] MEDS: ASPIRIN 81 MG DR TABLET PO SCH (08:42)
[2021-02-16] MEDS: SitaGLIPtin PHOSPHATE 50 MG TABLET PO SCH ×2 (08:43→17:14)
[2021-02-16] MEDS: MetFORMIN HCL 500 MG TABLET PO SCH ×2 (08:43→17:18)
[2021-02-16] MEDS: LORazepam 2 MG TABLET PO PRN (08:44)
[2021-02-16] MEDS: NICOTINE 14 MG/24 HOUR PATCH TD SCH (09:13)
[2021-02-16] MEDS: INSULIN GLARGINE,HUM.REC.ANLOG 100 UNITS/ML SQ SCH ×2 (09:17→17:17)
[2021-02-16 12:03] LABS: GLUCOMETER DEV NAME(LOC) 3E.C; GLUCOSE,POINT OF CARE 135 MG/DL (70-110)
[2021-02-16] MEDS: INSULIN LISPRO 100 UNITS/ML SQ PRN ×3 (12:34→21:36)
[2021-02-16 16:48] LABS: GLUCOMETER DEV NAME(LOC) 3E.C; GLUCOSE,POINT OF CARE 71 MG/DL (70-110)
[2021-02-16 17:03] VITALS: BP 109/76
[2021-02-16 17:26] LABS: GLUCOMETER DEV NAME(LOC) 3E.C; GLUCOSE,POINT OF CARE 169 MG/DL (70-110)
[2021-02-16] MEDS: DIVALPROEX SODIUM 500 MG DR TABLET PO SCH (21:25)
[2021-02-16] MEDS: QUEtiapine FUMARATE 200 MG ER TABLET PO SCH (21:25)
[2021-02-16] MEDS: SIMVASTATIN 10 MG TABLET PO SCH (21:26)
[2021-02-16] MEDS: HydrOXYzine PAMOATE 50 MG CAPSULE PO SCH (21:26)
[2021-02-16 21:45] LABS: GLUCOMETER DEV NAME(LOC) 3E.C; GLUCOSE,POINT OF CARE 147 MG/DL (70-110)
[2021-02-17] MEDS: SitaGLIPtin PHOSPHATE 50 MG TABLET PO SCH ×2 (09:32→16:50)
[2021-02-17] MEDS: FOLIC ACID 1 MG TABLET PO SCH (09:32)
[2021-02-17] MEDS: NICOTINE 14 MG/24 HOUR PATCH TD SCH (09:32)
[2021-02-17] MEDS: MULTIVITAMINS, THERAPEUTIC TABLET PO SCH (09:33)
[2021-02-17] MEDS: DULoxetine HCL 30 MG CAPSULE PO SCH (09:33)
[2021-02-17] MEDS: ASPIRIN 81 MG DR TABLET PO SCH (09:33)
[2021-02-17] MEDS: CHOLECALCIFEROL (VIT D3) 1,000 UNITS [25 MCG] TABLET PO SCH (09:33)
[2021-02-17] MEDS: THIAMINE 100 MG TABLET PO SCH (09:33)
[2021-02-17] MEDS: MetFORMIN HCL 500 MG TABLET PO SCH ×2 (09:34→16:49)
[2021-02-17] MEDS: FERROUS SULFATE 325 MG EC TABLET PO SCH (09:34)
[2021-02-17] MEDS: INSULIN GLARGINE,HUM.REC.ANLOG 100 UNITS/ML SQ SCH ×2 (09:37→17:01)
[2021-02-17 09:42] LABS: GLUCOMETER DEV NAME(LOC) 3E.C; GLUCOSE,POINT OF CARE 131 MG/DL (70-110)
[2021-02-17 11:36] LABS: GLUCOMETER DEV NAME(LOC) 3E.C; GLUCOSE,POINT OF CARE 242 MG/DL (70-110)
[2021-02-17] MEDS: INSULIN LISPRO 100 UNITS/ML SQ PRN ×2 (11:56→20:57)
[2021-02-17] MEDS ORDERED: TUBERCULIN, PURIFIED PROTEIN DERIVATIVE 5 TU/0.1 ML SYRINGE ID ONE (15:15)
[2021-02-17 16:19] VITALS: BP 99/69
[2021-02-17 17:10] LABS: GLUCOMETER DEV NAME(LOC) 3E.C; GLUCOSE,POINT OF CARE 128 MG/DL (70-110)
[2021-02-17] MEDS: QUEtiapine FUMARATE 200 MG ER TABLET PO SCH (20:52)
[2021-02-17] MEDS: SIMVASTATIN 10 MG TABLET PO SCH (20:52)
[2021-02-17] MEDS: DIVALPROEX SODIUM 500 MG DR TABLET PO SCH (20:52)
[2021-02-17] MEDS: HydrOXYzine PAMOATE 50 MG CAPSULE PO SCH (20:52)
[2021-02-17 21:09] LABS: GLUCOMETER DEV NAME(LOC) 3E.C; GLUCOSE,POINT OF CARE 141 MG/DL (70-110)
[2021-02-18] MEDS: MetFORMIN HCL 500 MG TABLET PO SCH ×2 (08:56→16:50)
[2021-02-18] MEDS: FERROUS SULFATE 325 MG EC TABLET PO SCH (08:56)
[2021-02-18] MEDS: THIAMINE 100 MG TABLET PO SCH (08:56)
[2021-02-18] MEDS: SitaGLIPtin PHOSPHATE 50 MG TABLET PO SCH ×2 (08:56→16:50)
[2021-02-18] MEDS: DULoxetine HCL 30 MG CAPSULE PO SCH (08:56)
[2021-02-18 08:57] LABS: GLUCOMETER DEV NAME(LOC) 3E.C; GLUCOSE,POINT OF CARE 57 MG/DL (70-110)
[2021-02-18] MEDS: MULTIVITAMINS, THERAPEUTIC TABLET PO SCH (08:57)
[2021-02-18] MEDS: FOLIC ACID 1 MG TABLET PO SCH (08:57)
[2021-02-18] MEDS: ASPIRIN 81 MG DR TABLET PO SCH (08:57)
[2021-02-18] MEDS: CHOLECALCIFEROL (VIT D3) 1,000 UNITS [25 MCG] TABLET PO SCH (08:57)
[2021-02-18] MEDS: INSULIN GLARGINE,HUM.REC.ANLOG 100 UNITS/ML SQ SCH ×2 (08:59→16:54)
[2021-02-18] MEDS: NICOTINE 14 MG/24 HOUR PATCH TD SCH (09:05)
[2021-02-18 11:43] LABS: GLUCOMETER DEV NAME(LOC) 3E.C; GLUCOSE,POINT OF CARE 126 MG/DL (70-110)
[2021-02-18 16:20] VITALS: BP 104/74
[2021-02-18] MEDS: INSULIN LISPRO 100 UNITS/ML SQ PRN (16:54)
[2021-02-18 17:01] LABS: GLUCOMETER DEV NAME(LOC) 3E.C; GLUCOSE,POINT OF CARE 223 MG/DL (70-110)
[2021-02-18] MEDS: HydrOXYzine PAMOATE 50 MG CAPSULE PO SCH (20:49)
[2021-02-18] MEDS: DIVALPROEX SODIUM 500 MG DR TABLET PO SCH (20:49)
[2021-02-18] MEDS: SIMVASTATIN 10 MG TABLET PO SCH (20:50)
[2021-02-18] MEDS: QUEtiapine FUMARATE 200 MG ER TABLET PO SCH (20:50)
[2021-02-18 21:01] LABS: GLUCOMETER DEV NAME(LOC) 3E.C; GLUCOSE,POINT OF CARE 140 MG/DL (70-110)
[2021-02-19] MEDS: MetFORMIN HCL 500 MG TABLET PO SCH ×2 (07:30→16:32)
[2021-02-19] MEDS: FERROUS SULFATE 325 MG EC TABLET PO SCH (07:30)
[2021-02-19 08:00] VITALS: BP 90/59
[2021-02-19 08:38] LABS: GLUCOMETER DEV NAME(LOC) 3E.C; GLUCOSE,POINT OF CARE 61 MG/DL (70-110)
[2021-02-19] MEDS: INSULIN GLARGINE,HUM.REC.ANLOG 100 UNITS/ML SQ SCH ×2 (09:00→16:33)
[2021-02-19] MEDS: SitaGLIPtin PHOSPHATE 50 MG TABLET PO SCH ×2 (10:42→16:32)
[2021-02-19] MEDS: FOLIC ACID 1 MG TABLET PO SCH (10:42)
[2021-02-19] MEDS: MULTIVITAMINS, THERAPEUTIC TABLET PO SCH (10:43)
[2021-02-19] MEDS: THIAMINE 100 MG TABLET PO SCH (10:43)
[2021-02-19] MEDS: DULoxetine HCL 30 MG CAPSULE PO SCH (10:43)
[2021-02-19] MEDS: CHOLECALCIFEROL (VIT D3) 1,000 UNITS [25 MCG] TABLET PO SCH (10:43)
[2021-02-19] MEDS: ASPIRIN 81 MG DR TABLET PO SCH (10:44)
[2021-02-19] MEDS: NICOTINE 14 MG/24 HOUR PATCH TD SCH (10:47)
[2021-02-19 11:21] LABS: GLUCOMETER DEV NAME(LOC) 3E.C; GLUCOSE,POINT OF CARE 157 MG/DL (70-110)
[2021-02-19] MEDS: INSULIN LISPRO 100 UNITS/ML SQ PRN ×3 (12:00→20:37)
[2021-02-19 16:32] LABS: GLUCOMETER DEV NAME(LOC) 3E.C; GLUCOSE,POINT OF CARE 212 MG/DL (70-110)
[2021-02-19 16:34] VITALS: BP 150/96
[2021-02-19] MEDS: DIVALPROEX SODIUM 500 MG DR TABLET PO SCH (20:12)
[2021-02-19] MEDS: QUEtiapine FUMARATE 200 MG ER TABLET PO SCH (20:12)
[2021-02-19] MEDS: SIMVASTATIN 10 MG TABLET PO SCH (20:12)
[2021-02-19] MEDS: HydrOXYzine PAMOATE 50 MG CAPSULE PO SCH (20:12)
[2021-02-19 20:26] LABS: GLUCOMETER DEV NAME(LOC) 3E.C; GLUCOSE,POINT OF CARE 166 MG/DL (70-110)
[2021-02-20] MEDS: MetFORMIN HCL 500 MG TABLET PO SCH ×2 (07:30→17:24)
[2021-02-20] MEDS: CHOLECALCIFEROL (VIT D3) 1,000 UNITS [25 MCG] TABLET PO SCH (08:40)
[2021-02-20] MEDS: THIAMINE 100 MG TABLET PO SCH (08:40)
[2021-02-20] MEDS: FERROUS SULFATE 325 MG EC TABLET PO SCH (08:40)
[2021-02-20] MEDS: ASPIRIN 81 MG DR TABLET PO SCH (08:40)
[2021-02-20] MEDS: DULoxetine HCL 30 MG CAPSULE PO SCH (08:41)
[2021-02-20] MEDS: FOLIC ACID 1 MG TABLET PO SCH (08:43)
[2021-02-20] MEDS: MULTIVITAMINS, THERAPEUTIC TABLET PO SCH (08:43)
[2021-02-20] MEDS: SitaGLIPtin PHOSPHATE 50 MG TABLET PO SCH ×2 (09:00→17:02)
[2021-02-20] MEDS: INSULIN GLARGINE,HUM.REC.ANLOG 100 UNITS/ML SQ SCH ×2 (09:00→17:16)
[2021-02-20 10:34] LABS: GLUCOMETER DEV NAME(LOC) 3E.C; GLUCOSE,POINT OF CARE 69 MG/DL (70-110)
[2021-02-20] MEDS: NICOTINE 14 MG/24 HOUR PATCH TD SCH (11:02)
[2021-02-20 11:10] LABS: GLUCOMETER DEV NAME(LOC) 3E.C; GLUCOSE,POINT OF CARE 113 MG/DL (70-110)
[2021-02-20 12:26] LABS: GLUCOMETER DEV NAME(LOC) 3E.C; GLUCOSE,POINT OF CARE 120 MG/DL (70-110)
[2021-02-20] MEDS: INSULIN LISPRO 100 UNITS/ML SQ PRN ×2 (12:47→21:08)
[2021-02-20 16:26] VITALS: BP 95/60
[2021-02-20 16:33] LABS: GLUCOMETER DEV NAME(LOC) 3E.C; GLUCOSE,POINT OF CARE 102 MG/DL (70-110)
[2021-02-20 19:10] LABS: COVID AG,FIA SOURCE NASOPHARYNGEAL
[2021-02-20] MEDS: DIVALPROEX SODIUM 500 MG DR TABLET PO SCH (20:54)
[2021-02-20] MEDS: QUEtiapine FUMARATE 200 MG ER TABLET PO SCH (20:54)
[2021-02-20] MEDS: HydrOXYzine PAMOATE 50 MG CAPSULE PO SCH (20:56)
[2021-02-20] MEDS: SIMVASTATIN 10 MG TABLET PO SCH (20:56)
[2021-02-20 21:15] LABS: GLUCOMETER DEV NAME(LOC) 3E.C; GLUCOSE,POINT OF CARE 152 MG/DL (70-110)
[2021-02-21 06:07] LABS: GLUCOMETER DEV NAME(LOC) 3E.C; GLUCOSE,POINT OF CARE 48 MG/DL (70-110)
[2021-02-21] MEDS: DULoxetine HCL 30 MG CAPSULE PO SCH (08:49)
[2021-02-21] MEDS: NICOTINE 14 MG/24 HOUR PATCH TD SCH (09:00)
[2021-02-21] MEDS: THIAMINE 100 MG TABLET PO SCH (09:05)
[2021-02-21] MEDS: SitaGLIPtin PHOSPHATE 50 MG TABLET PO SCH ×2 (09:05→17:32)
[2021-02-21] MEDS: MULTIVITAMINS, THERAPEUTIC TABLET PO SCH (09:05)
[2021-02-21] MEDS: ASPIRIN 81 MG DR TABLET PO SCH (09:05)
[2021-02-21] MEDS: CHOLECALCIFEROL (VIT D3) 1,000 UNITS [25 MCG] TABLET PO SCH (09:05)
[2021-02-21] MEDS: FOLIC ACID 1 MG TABLET PO SCH (09:05)
[2021-02-21] MEDS: FERROUS SULFATE 325 MG EC TABLET PO SCH (09:06)
[2021-02-21] MEDS: MetFORMIN HCL 500 MG TABLET PO SCH ×2 (09:06→17:32)
[2021-02-21 09:26] LABS: GLUCOMETER DEV NAME(LOC) 3E.C; GLUCOSE,POINT OF CARE 277 MG/DL (70-110)
[2021-02-21] MEDS: INSULIN GLARGINE,HUM.REC.ANLOG 100 UNITS/ML SQ SCH ×2 (09:37→17:42)
[2021-02-21 11:23] LABS: GLUCOMETER DEV NAME(LOC) 3E.C; GLUCOSE,POINT OF CARE 204 MG/DL (70-110)
[2021-02-21 16:53] VITALS: BP 102/69
[2021-02-21 17:52] LABS: GLUCOMETER DEV NAME(LOC) 3E.C; GLUCOSE,POINT OF CARE 186 MG/DL (70-110)
[2021-02-21] MEDS: SIMVASTATIN 10 MG TABLET PO SCH (21:26)
[2021-02-21] MEDS: HydrOXYzine PAMOATE 50 MG CAPSULE PO SCH (21:27)
[2021-02-21] MEDS: DIVALPROEX SODIUM 500 MG DR TABLET PO SCH (21:27)
[2021-02-21] MEDS: QUEtiapine FUMARATE 200 MG ER TABLET PO SCH (21:27)
[2021-02-21 21:48] LABS: GLUCOMETER DEV NAME(LOC) 3E.C; GLUCOSE,POINT OF CARE 156 MG/DL (70-110)
[2021-02-22] MEDS: FERROUS SULFATE 325 MG EC TABLET PO SCH (08:10)
[2021-02-22] MEDS: MetFORMIN HCL 500 MG TABLET PO SCH (08:10)
[2021-02-22] MEDS: SitaGLIPtin PHOSPHATE 50 MG TABLET PO SCH (08:10)
[2021-02-22] MEDS: DULoxetine HCL 30 MG CAPSULE PO SCH (08:11)
[2021-02-22] MEDS: THIAMINE 100 MG TABLET PO SCH (08:14)
[2021-02-22] MEDS: MULTIVITAMINS, THERAPEUTIC TABLET PO SCH (08:14)
[2021-02-22] MEDS: FOLIC ACID 1 MG TABLET PO SCH (08:14)
[2021-02-22] MEDS: CHOLECALCIFEROL (VIT D3) 1,000 UNITS [25 MCG] TABLET PO SCH (08:15)
[2021-02-22] MEDS: ASPIRIN 81 MG DR TABLET PO SCH (08:15)
[2021-02-22] MEDS: NICOTINE 14 MG/24 HOUR PATCH TD SCH (08:16)
[2021-02-22 08:59] LABS: GLUCOMETER DEV NAME(LOC) 3E.C; GLUCOSE,POINT OF CARE 100 MG/DL (70-110)
[2021-02-22] MEDS ORDERED: DIVA-112 PO (09:15)
[2021-02-22] MEDS ORDERED: HYD50 PO (09:15)
[2021-02-22] MEDS ORDERED: DULO30CA96 PO (09:15)
[2021-02-22] MEDS ORDERED: QUET200T5 PO (09:15)
[2021-02-22] MEDS ORDERED: PALI234D IM (09:15)
[2021-02-22] MEDS: INSULIN GLARGINE,HUM.REC.ANLOG 100 UNITS/ML SQ SCH (09:46)
[2021-02-22] MEDS ORDERED: ASPI-1444 PO (11:03)
[2021-02-22] MEDS ORDERED: FERR-89 PO (11:04)
[2021-02-22] MEDS ORDERED: FOLI-130 PO (11:04)
[2021-02-22] MEDS ORDERED: CHOL100044 PO (11:04)
[2021-02-22] MEDS ORDERED: SIMV-259 PO (11:05)
[2021-02-22] MEDS ORDERED: MULT-1239 PO (11:05)
[2021-02-22] MEDS ORDERED: SITA50 PO (11:06)
[2021-02-22] MEDS ORDERED: THIA100T80 PO (11:06)
[2021-02-22] MEDS ORDERED: INSLAN SQ (11:11)
[2021-02-22 11:16] LABS: GLUCOMETER DEV NAME(LOC) 3E.C; GLUCOSE,POINT OF CARE 130 MG/DL (70-110)
[2021-02-22] MEDS ORDERED: INSULIN GLARGINE,HUM.REC.ANLOG 100 UNITS/ML SQ SCH (17:00)
== END 2021-02-22 14:00 | disposition home or self-care (01) | DRG 885 ==
LOC: EMS 08:12 → 3EC 15:33
PROC: 0HBRXZZ Excision of Toe Nail, External Approach (ICD-10-PCS; principal; 2020-12-02)
PROC: 0HBRXZZ Excision of Toe Nail, External Approach (ICD-10-PCS; 2020-12-02)
PROC: 0HBRXZZ Excision of Toe Nail, External Approach (ICD-10-PCS; 2020-12-02)
PROC: 0HBRXZZ Excision of Toe Nail, External Approach (ICD-10-PCS; 2020-12-02)
PROC: 0HBRXZZ Excision of Toe Nail, External Approach (ICD-10-PCS; 2020-12-02)
PROC: 0HBRXZZ Excision of Toe Nail, External Approach (ICD-10-PCS; 2020-12-02)
PROC: 0HBRXZZ Excision of Toe Nail, External Approach (ICD-10-PCS; 2020-12-02)
PROC: 0HBRXZZ Excision of Toe Nail, External Approach (ICD-10-PCS; 2020-12-02)
PROC: 0HBRXZZ Excision of Toe Nail, External Approach (ICD-10-PCS; 2020-12-02)
PROC: 0HBRXZZ Excision of Toe Nail, External Approach (ICD-10-PCS; 2020-12-02)
DX: F20.0 Paranoid schizophrenia (principal); E11.65 Type 2 diabetes mellitus with hyperglycemia; E87.1 Hypo-osmolality and hyponatremia; R45.851 Suicidal ideations; J44.9 Chronic obstructive pulmonary disease, unspecified; D72.819 Decreased white blood cell count, unspecified; Z72.89 Other problems related to lifestyle; L60.2 Onychogryphosis; Z20.822 Contact with and (suspected) exposure to COVID-19; Z59.0 Homelessness; Z79.4 Long term (current) use of insulin; Z79.899 Other long term (current) drug therapy; Z87.891 Personal history of nicotine dependence; Z91.5 Personal history of self-harm
CPT/HCPCS: 87426; 97110; 97116; 97162; 99285; G0480; J1815; J7030